=== PATIENT | female | born 1965 | race Caucasian/White ===

== ENCOUNTER 2019-11-03 13:37 | Outpatient (CLI) | payer OTHER, SELFPAY ==
--- NOTE | ~2019-11-03 | MR_ITS ---
EXAMINATION: MR abdomen wo con DATE: 11/03/2019 14:31 INDICATION: Enlarged lymph nodes, unspecified. TECHNIQUE: Magnetic resonance imaging (MRI) of the abdomen was performed without intravenous contrast . Sequences included coronal T2-weighted FS FSE, coronal and axial FS FIESTA, axial T2-weighted FSE, coronal LAVA-flex, axial STIR FSE, axial DWI, axial dual-echo T1-weighted FSPGR, and axial LAVA. COMPARISON: None. FINDINGS: There is diffuse hepatic steatosis. There are gallstones in the gallbladder, which is normal in size. The spleen, pancreas, and adrenal glands are normal. There are no kidneys in the renal fossae. Parti ally visualized is a kidney in the left iliac fossa. There are no pathologically enlarged lymph nodes . There is no free intraperitoneal fluid. There are no dilated loops of bowel. IMPRESSION: 1. No lymphadenopathy. Reviewed, dictated and finalized at location A. 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 No lymphadenopathy.
== END 2019-11-03 13:38 | disposition home or self-care (01) ==
LOC: ANHIMG 13:39
PROVIDERS: PCP Internal Medicine; Visit Provider Nurse Practitioner
DX: R59.9 Enlarged lymph nodes, unspecified (principal)
CPT/HCPCS: 74181

== ENCOUNTER 2021-01-10 15:29 | Outpatient (CLI) | payer OTHER, SELFPAY ==
--- NOTE | ~2021-01-10 | MR_ITS ---
EXAMINATION: MR cervical spine wo con DATE: 01/10/2021 16:35 INDICATION: Cervical radiculopathy. TECHNIQUE: Magnetic resonance imaging (MRI) of the cervical spine was performed without intravenous c ontrast. Sequences included sagittal T2-weighted FSE, sagittal STIR FSE, sagittal T1-weighted FSE, ax ial MERGE, and axial T2-weighted FSE. COMPARISON: Cervical spine MRI 09/14/2015 FINDINGS: There is 16 degrees levoscoliosis of cervicothoracic spine. There is mild chronic anterior wedging of C3, C4, C5, and C6 vertebral bodies. There is mildly decreased disc height at C4-C5 and C5 -C6. The spinal cord signal intensity is normal. The following disc levels are specifically discussed : C2-C3: The disc does not extend beyond the endplate margin. There is no uncovertebral joint osteoarth ritis. There is mild bilateral facet joint osteoarthritis. There is no neural foraminal stenosis. The re is no central canal stenosis. C3-C4: The disc does not extend beyond the endplate margin. There is mild bilateral uncovertebral jovani nt osteoarthritis. There is mild right facet joint osteoarthritis. There is no neural foraminal steno sis. There is no central canal stenosis. C4-C5: The disc is bulging. There is mild bilateral uncovertebral joint osteoarthritis. There is mild bilateral facet joint osteoarthritis. There is mild bilateral neural foraminal stenosis. There is mo derate central canal stenosis with ventral and dorsal indentation of the spinal cord. C5-C6: The disc is bulging with superimposed left central extrusion. There is mild right and moderate left uncovertebral joint osteoarthritis. There is mild bilateral facet joint osteoarthritis. There i s mild right and moderate left neural foraminal stenosis. There is moderate central canal stenosis wi th ventral and dorsal indentation of spinal cord. C6-C7: The disc is bulging. There is mild bilateral uncovertebral joint osteoarthritis. There is mild left facet joint osteoarthritis. There is no neural foraminal stenosis. There is mild central canal stenosis with ventral indentation of the spinal cord. C7-T1: The disc does not extend beyond the endplate margin. There is no uncovertebral joint osteoarth ritis. There is moderate right and mild left facet joint osteoarthritis. There is mild right neural f oraminal stenosis. There is no central canal stenosis. IMPRESSION: 1. Moderate cervical spondylosis, worsened from 09/14/2015. 2. Cervicothoracic levoscoliosis. Reviewed, dictated and finalized at location B.
== END 2021-01-10 15:30 | disposition home or self-care (01) ==
PROVIDERS: PCP Internal Medicine; Visit Provider Orthopaedic Surgery
DX: M47.22 Other spondylosis with radiculopathy, cervical region (principal)
CPT/HCPCS: 72141

== ENCOUNTER → 2021-05-27 09:38 | Outpatient (CLI) | payer OTHER, SELFPAY ==
[2021-05-27 18:14] LABS: SARS-CoV-2 RNA PCR Positive
== END ==
PROVIDERS: PCP Internal Medicine; Visit Provider Clinical Nurse Specialist
DX: U07.1 COVID-19 (principal)
CPT/HCPCS: C9803; U0003; U0005

== ENCOUNTER 2021-07-11 12:40 | Outpatient (CLI) | payer OTHER, SELFPAY ==
--- NOTE | ~2021-07-11 | XR_ITS ---
EXAMINATION: XR chest 2V 07/11/2021 12:59 INDICATION: Dyspnea and cough PROCEDURE: 2 view chest COMPARISON: Comparison to multiple prior studies sequentially, with oldest reviewed study dated 03/20. FINDINGS: The lungs are clear. The cardiomediastinal silhouette is within normal limits. There are no pleural effusions. There is no pneumothorax suspected. IMPRESSION: 1: NO ACUTE CARDIOPULMONARY DISEASE. Reviewed, dictated and finalized at location B.
== END 2021-07-11 12:41 | disposition home or self-care (01) ==
LOC: ANHIMG 12:49
PROVIDERS: PCP Internal Medicine; Visit Provider Internal Medicine
DX: R06.00 Dyspnea, unspecified (principal); R06.89 Other abnormalities of breathing
CPT/HCPCS: 71046

== ENCOUNTER 2021-07-28 12:23 | Outpatient (CLI) | payer OTHER, SELFPAY ==
--- NOTE | ~2021-07-28 | CT_ITS ---
EXAMINATION: CT diagnostic chest wo con DATE: 07/28/2021 12:45 INDICATION: Dyspnea unspecified, shortness of breath, cough TECHNIQUE: Computed tomography (CT) of the chest was performed without intravenous contrast. The dose -length product (DLP) was 246.48 mGy-cm. Automated exposure control and iterative reconstruction tech nique were employed. COMPARISON: None FINDINGS: There is mild emphysema. There are groundglass and nodular opacities in the medial aspect o f the right lower lobe. There is no pleural effusion or pneumothorax. No pathologically enlarged thor acic lymph nodes are identified. The heart size is normal. There is calcified coronary artery atheros clerosis. There is moderate thoracic spondylosis. IMPRESSION: 1. Right lower lobe opacities, likely infectious or inflammatory. Reviewed, dictated and finalized at location B.
== END 2021-07-28 12:24 | disposition home or self-care (01) ==
LOC: ANHIMG 12:26
PROVIDERS: PCP Internal Medicine; Visit Provider Internal Medicine
DX: R06.00 Dyspnea, unspecified (principal); R06.89 Other abnormalities of breathing; I25.10 Atherosclerotic heart disease of native coronary artery without angina pectoris; M47.814 Spondylosis without myelopathy or radiculopathy, thoracic region
CPT/HCPCS: 71250

== ENCOUNTER 2021-08-31 12:24 | Outpatient (CLI) | payer OTHER, SELFPAY ==
--- NOTE | 2021-08-31 14:12 | WPDSIXMINUTE ---
Six Minute Walk Procedure Procedure Performed Pulmonary Stress Test (6 min walk) Six Minute Walk This 6 minute walk test was carried out with the patient breathing ambient air. The pre-walk oxyhemoglobin saturation was 93%. The patient was able to walk for only 5 minutes due to dyspnea and walked a distance of about 305 meters. During the walk the oxyhemoglobin saturation remained over 94%. The perceived pre-walk dyspnea was 6 on the Rosales scale and increased to 10 at the end of the walk. Impression: Six minute walk test limited by exertional dyspnea. No evidence of oxyhemoglobin desaturation.
== END 2021-08-31 12:25 | disposition home or self-care (01) ==
LOC: ANHPFT 12:27
PROVIDERS: PCP Internal Medicine; Visit Provider Nurse Practitioner
DX: Z86.16 Personal history of COVID-19 (principal)
CPT/HCPCS: 94618

== ENCOUNTER 2024-09-15 13:40 | Outpatient (CLI) | payer OTHER, SELFPAY ==
--- NOTE | ~2024-09-15 | CT_ITS ---
EXAMINATION: CT abdomen pelvis wo con DATE: 09/15/2024 13:57 INDICATION: Abdominal wound drainage. TECHNIQUE: Computed tomography (CT) of the abdomen and pelvis was performed without intravenous contr ast. Automated exposure control and iterative reconstruction technique were employed. The dose-length product was 391.03 mGy-cm. COMPARISON: Chest CT 07/28/2021 FINDINGS: The visualized portions of the lung bases demonstrate mild atelectasis. No pleural effusion . The heart size is normal. No pericardial effusion. The liver and spleen are normal. There are galls tones in the gallbladder, which is normal in size. The pancreas and adrenal glands are normal. The na tive kidneys are either severely atrophic or absent. There is a transplant kidney in left iliac fossa . There are no dilated loops of bowel. There are multiple sites of anastomosis in the bowel. There ar e no pathologically enlarged lymph nodes. There is no free intraperitoneal fluid. There are surgical changes of anterior abdominal wall with focal area of skin thickening and subcutaneous fat stranding, consistent with cellulitis. There is severe thoracic and lumbar spondylosis. IMPRESSION: 1. Surgical changes of anterior abdominal wall with focal area of cellulitis. No abscess. Reviewed, dictated and finalized at location A. OL CLERK IMPRESSION: 1. Surgical changes of anterior abdominal wall with focal area of cellulitis. N o abscess.
== END 2024-09-15 13:41 | disposition home or self-care (01) ==
PROVIDERS: PCP Emergency Medicine; Visit Provider Surgery
DX: Z94.0 Kidney transplant status (principal); Z98.890 Other specified postprocedural states
CPT/HCPCS: 74176

== ENCOUNTER 2024-09-18 11:30 | Outpatient (CLI) | payer OTHER, SELFPAY ==
--- NOTE | 2024-09-18 15:08 | ECG_ITS ---
Test Date: 2024-09-18 15:13:29 Measurements Intervals [place] Rate: 73 P: 68 VA: 135 QRS: 32 QRSD: 71 T: 61 QT: 313 QTc: 347 Interpretive Statements SINUS RHYTHM NONSPECIFIC ST & T-WAVE ABNORMALITY CANNOT RULE OUT INFERIOR [place] ABNORMAL ECG Electronically Signed On 09-19-2024 17:03:18 TICKET AGENT by Julian Gonzalez M.D.
[2024-09-18 15:29] LABS: Hematocrit 38.6 % (37.0-47.0); Hemoglobin 12.1 g/dL (12.0-15.0)
[2024-09-18 15:39] LABS: Partial Thromboplastin Time 29.7 Seconds (22.3-36.8)
[2024-09-18 15:54] LABS: Anion Gap 2 mmol/L (4-12); Blood Urea Nitrogen 20 mg/dL (7-17); Calcium 9.3 mg/dL (8.4-10.2); Carbon Dioxide 24 mmol/L (22-30); Chloride 112 mmol/L (98-107); Estimated Glomerular Filt Rate 42; Glucose 110 mg/dL (65-110); Sodium 138 mmol/L (137-145)
== END 2024-09-18 11:31 | disposition home or self-care (01) ==
PROVIDERS: Anesthesiology; PCP Emergency Medicine; Visit Provider Surgery
DX: Z01.818 Encounter for other preprocedural examination (principal); N18.9 Chronic kidney disease, unspecified; D64.9 Anemia, unspecified; I51.9 Heart disease, unspecified
CPT/HCPCS: 36415; 80048; 85014; 85018; 85610; 85730; 93005

== ENCOUNTER 2024-09-19 00:22 | Day surgery (SDC) | payer OTHER, SELFPAY ==
[2024-09-18 08:34] VITALS: BMI 27.3
--- NOTE | 2024-09-18 09:39 | PC.NURSE ---
Addendum entered by Letty Callejas RN 09/18/24 10:12: Patient instructed to also take mycophenolate on morning of surgery. She relays understanding. Original Note: Report to the Outpatient Waiting Room, entrance under the green pavilion located off [facility], at time ___6:00AM____ on date ___09/19/24____. Planned Procedure Time: ___7:30AM .? Time changes happen often and if your time is changed the preop area will call you the afternoon before. - You and your visitor will be asked to self-screen and do not enter if you have any COVID symptoms. Please call surgeon if you need to reschedule. - A mask is optional within the hospital at this time. Patients may have clear liquids (water, carbonated beverages, clear teas, apple juice) until 3 hours prior to surgery with a maximum of 20 ounces. - No food from midnight until time of surgery and no smoking. This includes no chewing gum, candy or mints. Take only the following medications with a SIP of water on the morning of surgery: ACYCLOVIR, BACTRIM, LEVOTHYROXINE, PREDNISONE, SPIRIVA INHALER. MAY USE ALBUTEROL INHALER OR NEBULIZER NEEDED DO NOT STOP ANY OF YOUR OTHER PRESCRIPTION MEDICATIONS PRIOR TO SURGERY EXCEPT THE FOLLOWING Medications to discontinue per physician ____HOLD ALL VITAMINS/SUPPLEMENTS STARTING NOW. Please no make-up, nail frisian, hairspray, perfume, deodorant, or body powder the day of surgery.? No jewelry (including any body piercings) or valuables the day of surgery, leave them at home.? Please take a shower or bath the night before, or the morning of, surgery with an antibacterial soap.? Wear comfortable, loose fitting clothing.? Children are encouraged to wear pajamas. - Jewelry must be removed prior to entering the operating room.? Rings and piercings that are not removed may be cut off. - The hospital will not accept responsibility for valuables.? - Please leave all valuables, including medications, at home the day of surgery. If you are going home after surgery, a licensed auto [place]ulaway driver must drive you home.? - NO public transportation without another adult if you receive anesthesia. - We recommend that an adult stay with you for 24 hours following discharge. - We also recommend that you do not drive, make important decision, drink alcoholic beverages, or take any drugs that were not prescribed by your health care provider for at least 24 hours after your discharge time. Follow any additional instructions given to you from your surgeon. Telephone instructions given to PATIENT and asked if any additional questions and then verbalized understanding. Patient advised to call surgeon office or pre surgery nurse liaison [phone] if any additional questions.
--- NOTE | 2024-09-19 05:25 | P.PNAN_ITS ---
Anes - Eval Pre Procedure Procedure: Operation Date: 09/19/24 07:30 Proposed Procedures p Exploration Abdominal Wound For Foreign body - Gilberto Su MD Date/Time: 09/19/24 05:25 Pre Op Diagnosis: Wound Abscess Patient Data Age: 58 Gender: F Height: 1.68 m Weight: 77 kg Allergies Allergy/AdvReac Type Severity Reaction Status Date / Time FERCHO Inhibitors Allergy Severe BLISTER Verified 09/18/24 08:19 ciprofloxacin Allergy Severe Anaphylaxis Verified 09/18/24 08:13 iron dextran complex Allergy Severe ANAPHYLACTIC Verified 09/18/24 08:13 REACTION Cephalosporins Allergy Mild BLISTERS Verified 09/18/24 08:19 Quinolones Allergy Mild ANALPHYLACTIC Verified 09/18/24 08:19 REACTION atorvastatin Allergy Unknown FEVER, Verified 09/18/24 08:13 WEAKNESS cephalexin Allergy Unknown unknown Verified 09/18/24 08:19 erythromycin base Allergy Unknown Unknown Verified 09/18/24 08:13 irbesartan Allergy Unknown BLISTERS Verified 09/18/24 08:13 isoniazid Allergy Unknown RASH, Verified 09/18/24 08:13 ITCHING Penicillins Allergy Unknown Fever, Verified 09/18/24 08:13 vomiting clindamycin AdvReac Severe NAUSEA, Verified 09/18/24 08:13 VOMITING cefepime AdvReac Unknown RED MAN Verified 09/18/24 08:13 SYNDROME metronidazole AdvReac Unknown LAVELLE Verified 09/18/24 08:13 SYNDROME budesonide AdvReac SHORTNESS Verified 09/18/24 08:13 OF BREATH, COUGHING ibuprofen AdvReac AVOIDS R/T Verified 09/18/24 08:13 KIDNEY TRANSPLANT Iodinated Contrast Media AdvReac Cannot Verified 09/18/24 08:19 have due to kidney transplant ketamine AdvReac AVOIDS PER Verified 09/18/24 08: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 AdvReac avoids r/t Verified 09/18/24 08:13 kidney transplant budesonide nebulization Allergy Other Uncoded 09/18/24 08:19 Home Medications ?Medication ?Instructions ?Recorded ?Confirmed ?Type acyclovir 200 mg capsule 200 mg PO BID 01/05/20 09/18/24 History aspirin 81 mg tablet,delayed 81 mg PO BID 01/05/20 09/18/24 History release (Adult Low Dose Aspirin) ferrous sulfate 324 mg (65 mg 324 mg PO BID 01/05/20 09/18/24 History iron) tablet,delayed release tiotropium bromide 2.5 2 inhalation inhalation DAILY 05/11/20 09/18/24 History mcg/actuation mist for inhalation (Spiriva Respimat) albuterol sulfate 2.5 mg/3 mL 2.5 mg inhalation QID PRN 07/11/21 09/18/24 History (0.083 %) solution for nebulization shortness of breath or wheezing mycophenolate mofetil 250 mg 250 mg PO DAILY #30 caps 01/02/24 09/18/24 Rx capsule (CellCept) levothyroxine 100 mcg tablet See Rx Instructions .Route 01/07/24 09/18/24 Rx .COMPLEX #90 tabs ergocalciferol (vitamin D2) 1,250 1,250 mcg PO WEEKLY #13 caps 02/04/24 09/18/24 Rx mcg (50,000 unit) capsule mecobalamin (vitamin B12) 1,000 1,000 mcg PO DAILY 02/11/24 09/18/24 History mcg chewable tablet sodium bicarbonate 650 mg tablet See Rx Instructions PO DAILY 02/11/24 09/18/24 History albuterol sulfate 90 mcg/actuation 1 puff inhalation Q4H PRN 03/11/24 09/18/24 Rx aerosol inhaler (Ventolin HFA) shortness of breath or wheezing #18 grams omeprazole 20 mg capsule,delayed See Rx Instructions .Route 05/05/24 09/18/24 Rx release .COMPLEX #180 caps lidocaine 5 % topical patch 1 patch topical DAILY #30 ea 05/15/24 09/18/24 Rx (Lidoderm) prednisone 5 mg tablet See Rx Instructions .Route 07/29/24 09/18/24 Rx .COMPLEX #14 tabs doxycycline hyclate 100 mg capsule 100 mg PO BID TAKES PRIOR TO 08/12/24 09/18/24 Rx DENTAL WORK #20 caps sulfamethoxazole 800 1 tablet PO DAILY 09/18/24 09/18/24 History mg-trimethoprim 160 mg tablet Patient hx anesthesia problems: other (respiratory failure following bowel surgery in 2004 on vent for 12 days) Family hx anesthesia problems: none Results Review: All pre-operative results and documents have been reviewed as part of the pre- operative evaluation. PENDING SALE TO [facility] Past Medical History Medical History (Updated 12/27/24 @ 05:31 by Rand Callaway CRNA) Anxiety PTSD (post-traumatic stress disorder) Smoker TIA (transient ischemic attack) Varicose veins of left lower leg Traumatic hematoma of elbow Stress fracture Pain in right leg Injury of right elbow Chronic kidney disease, stage 3 Arthralgia Unilateral edema of lower extremity Trochanteric bursitis of right hip Trochanteric bursitis of left hip Screening for malignant neoplasm of breast Risk for falls Primary osteoarthritis, left ankle and foot Primary osteoarthritis of right hip Primary osteoarthritis of both feet Pain of right hip joint Pain in left foot Mass of right lower leg Mass of left lower leg Lung mass Bilateral plantar fasciitis Bilateral foot pain Contusion of right tibia Close exposure to COVID-19 virus Kidney disease Coughing Wheezing Shortness of breath Wears glasses Unintentional weight loss PLACIDO (obstructive sleep apnea) History of postoperative complication of surgical procedure History of adverse reaction to anesthesia History of MRSA infection Cervical radiculopathy at C5 Exposure to COVID-19 virus Degenerative joint disease of knee Diabetes Last A1C as of 05/11/20: 5.7 Arthritis Osteoporosis GERD (gastroesophageal reflux disease) Stomach pain Nausea and vomiting Sleep apnea Emphysema of lung Hearing loss Vision abnormalities Multiple sclerosis Headache Left knee pain Osteoarthritis (arthritis due to wear and tear of joints) Seborrheic keratoses Leg edema, left Anemia Heartburn Depression Cataracts, bilateral Skin cancer Hepatitis C Hypothyroidism Tuberculosis 1986 Hyperlipemia Osteoarthritis Asthma Pneumonia Varicose vein of leg Elevated liver enzymes Hyperglycemia COPD (chronic obstructive pulmonary disease) CKD (chronic kidney disease) Anemia Surgical History Surgical History (Updated 09/15/24 @ 15:26 by Gilberto Su MD) History of kidney transplant History of kidney transplant Family History Family History Father Family history of emphysema Family history of cardiovascular disease Sibling Family history of liver disease Family history of throat cancer Family history of lung cancer Family history of malignant neoplasm of breast in first degree relative Family history of lupus erythematosus Mother Diabetes mellitus Hypertension Family history of coronary artery disease Other Asthma Family history of alcoholism Family history of allergic disorder Family history of arthritis Family history of blood dyscrasia Family history of kidney disease Family history of seizure disorder Family history of tuberculosis Neuropathy Skin cancer Social History Social History Smoking packs per day: 1 Smoking cigarettes per day: 20.0 Years smoked: 52 Smoking pack-years: 52.00 Smoking status: Current every day smoker Tobacco type: cigarettes Alcohol intake: never Substance use: former Substance use type: crack/cocaine Last use: 06/24/1986 Do You Feel Safe in your Home?: Yes Lack of Transportation: No Lack of Food: Sometimes True Current Housing: I Have Housing Concerned About Future Housing: No Difficulty Paying Gas/Electric Bills: YES Difficulty Paying for Meds: No Currently Unemployed: YES Education: High School Diploma/GED Difficulty w/ Childcare or Family Care: No Living arrangements: alone Gender identity (if verbalized by the patient): Female Spiritual care concerns: No Exam Day of Procedure 09/19/24 05:25
[2024-09-19 07:00] VITALS: BP 146/67; PULSE 73; RESP 14; TEMP 36.2; O2SAT 100
[2024-09-19 07:05] LABS: Glucose Point of Care 104 mg/dl (65-105)
--- NOTE | 2024-09-19 07:13 | P.PNAN_ITS ---
Anes - Initial Pre Proc Eval Procedure: Operation Date: 09/19/24 07:30 Proposed Procedures p Exploration Abdominal Wound For Foreign body - Gilberto Su MD Date/Time: 09/19/24 07:13 Surgeon: Gilberto Su MD Pre Op Diagnosis: Wound Abscess Patient Data Age: 58 Gender: F Height: 1.68 m Weight: 77 kg Allergies Allergy/AdvReac Type Severity Reaction Status Date / Time FERCHO Inhibitors Allergy Severe BLISTER Verified 09/18/24 08:19 ciprofloxacin Allergy Severe Anaphylaxis Verified 09/18/24 08:13 iron dextran complex Allergy Severe ANAPHYLACTIC Verified 09/18/24 08:13 REACTION Cephalosporins Allergy Mild BLISTERS Verified 09/18/24 08:19 Quinolones Allergy Mild ANALPHYLACTIC Verified 09/18/24 08:19 REACTION atorvastatin Allergy Unknown FEVER, Verified 09/18/24 08:13 WEAKNESS cephalexin Allergy Unknown unknown Verified 09/18/24 08:19 erythromycin base Allergy Unknown Unknown Verified 09/18/24 08:13 irbesartan Allergy Unknown BLISTERS Verified 09/18/24 08:13 isoniazid Allergy Unknown RASH, Verified 09/18/24 08:13 ITCHING Penicillins Allergy Unknown Fever, Verified 09/18/24 08:13 vomiting clindamycin AdvReac Severe NAUSEA, Verified 09/18/24 08:13 VOMITING cefepime AdvReac Unknown RED MAN Verified 09/18/24 08:13 SYNDROME metronidazole AdvReac Unknown LAVELLE Verified 09/18/24 08:13 SYNDROME budesonide AdvReac SHORTNESS Verified 09/18/24 08:13 OF BREATH, COUGHING ibuprofen AdvReac AVOIDS R/T Verified 09/18/24 08:13 KIDNEY TRANSPLANT Iodinated Contrast Media AdvReac Cannot Verified 09/18/24 08:19 have due to kidney transplant ketamine AdvReac AVOIDS PER Verified 09/18/24 08:19 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 AdvReac avoids r/t Verified 09/18/24 08:13 kidney transplant budesonide nebulization Allergy Other Uncoded 09/18/24 08:19 Home Medications ?Medication ?Instructions ?Recorded ?Confirmed ?Type acyclovir 200 mg capsule 200 mg PO BID 01/05/20 09/18/24 History aspirin 81 mg tablet,delayed 81 mg PO BID 01/05/20 09/18/24 History release (Adult Low Dose Aspirin) ferrous sulfate 324 mg (65 mg 324 mg PO BID 01/05/20 09/18/24 History iron) tablet,delayed release tiotropium bromide 2.5 2 inhalation inhalation DAILY 05/11/20 09/18/24 History mcg/actuation mist for inhalation (Spiriva Respimat) albuterol sulfate 2.5 mg/3 mL 2.5 mg inhalation QID PRN 07/11/21 09/18/24 History (0.083 %) solution for nebulization shortness of breath or wheezing mycophenolate mofetil 250 mg 250 mg PO DAILY #30 caps 01/02/24 09/18/24 Rx capsule (CellCept) levothyroxine 100 mcg tablet See Rx Instructions .Route 01/07/24 09/18/24 Rx .COMPLEX #90 tabs ergocalciferol (vitamin D2) 1,250 1,250 mcg PO WEEKLY #13 caps 02/04/24 09/18/24 Rx mcg (50,000 unit) capsule mecobalamin (vitamin B12) 1,000 1,000 mcg PO DAILY 02/11/24 09/18/24 History mcg chewable tablet sodium bicarbonate 650 mg tablet See Rx Instructions PO DAILY 02/11/24 09/18/24 History albuterol sulfate 90 mcg/actuation 1 puff inhalation Q4H PRN 03/11/24 09/18/24 Rx aerosol inhaler (Ventolin HFA) shortness of breath or wheezing #18 grams omeprazole 20 mg capsule,delayed See Rx Instructions .Route 05/05/24 09/18/24 Rx release .COMPLEX #180 caps lidocaine 5 % topical patch 1 patch topical DAILY #30 ea 05/15/24 09/18/24 Rx (Lidoderm) prednisone 5 mg tablet See Rx Instructions .Route 07/29/24 09/18/24 Rx .COMPLEX #14 tabs doxycycline hyclate 100 mg capsule 100 mg PO BID TAKES PRIOR TO 08/12/24 09/18/24 Rx DENTAL WORK #20 caps sulfamethoxazole 800 1 tablet PO DAILY 09/18/24 09/18/24 History mg-trimethoprim 160 mg tablet Laboratory Tests 09/19/24 07:03 POC Capillary Glucose 104 mg/dl (65-105) Patient hx anesthesia problems: other (respiratory failure following bowel surgery in 2004 on vent for 12 days) Family hx anesthesia problems: none Results Review: All pre-operative results and documents have been reviewed as part of the pre- operative evaluation. [facility] Past Medical History Medical History Anxiety PTSD (post-traumatic stress disorder) Smoker TIA (transient ischemic attack) Varicose veins of left lower leg Traumatic hematoma of elbow Stress fracture Pain in right leg Injury of right elbow Chronic kidney disease, stage 3 Arthralgia Unilateral edema of lower extremity Trochanteric bursitis of right hip Trochanteric bursitis of left hip Screening for malignant neoplasm of breast Risk for falls Primary osteoarthritis, left ankle and foot Primary osteoarthritis of right hip Primary osteoarthritis of both feet Pain of right hip joint Pain in left foot Mass of right lower leg Mass of left lower leg Lung mass Bilateral plantar fasciitis Bilateral foot pain Contusion of right tibia Close exposure to COVID-19 virus Kidney disease Coughing Wheezing Shortness of breath Wears glasses Unintentional weight loss PLACIDO (obstructive sleep apnea) History of postoperative complication of surgical procedure History of adverse reaction to anesthesia History of MRSA infection Cervical radiculopathy at C5 Exposure to COVID-19 virus Degenerative joint disease of knee Diabetes Last A1C as of 05/11/20: 5.7 Arthritis Osteoporosis GERD (gastroesophageal reflux disease) Stomach pain Nausea and vomiting Sleep apnea Emphysema of lung Hearing loss Vision abnormalities Multiple sclerosis Headache Left knee pain Osteoarthritis (arthritis due to wear and tear of joints) Seborrheic keratoses Leg edema, left Anemia Heartburn Depression Cataracts, bilateral Skin cancer Hepatitis C Hypothyroidism Tuberculosis 1986 Hyperlipemia Osteoarthritis Asthma Pneumonia Varicose vein of leg Elevated liver enzymes Hyperglycemia COPD (chronic obstructive pulmonary disease) CKD (chronic kidney disease) Anemia Surgical History Surgical History History of kidney transplant History of kidney transplant Family History Family History Father Family history of emphysema Family history of cardiovascular disease Sibling Family history of liver disease Family history of throat cancer Family history of lung cancer Family history of malignant neoplasm of breast in first degree relative Family history of lupus erythematosus Mother Diabetes mellitus Hypertension Family history of coronary artery disease Other Asthma Family history of alcoholism Family history of allergic disorder Family history of arthritis Family history of blood dyscrasia Family history of kidney disease Family history of seizure disorder Family history of tuberculosis Neuropathy Skin cancer Social History Social History Smoking packs per day: 1 Smoking cigarettes per day: 20.0 Years smoked: 52 Smoking pack-years: 52.00 Smoking status: Current every day smoker Tobacco type: cigarettes Alcohol intake: never Substance use: former Substance use type: crack/cocaine Last use: 06/24/1986 Do You Feel Safe in your Home?: Yes Lack of Transportation: No Lack of Food: Sometimes True Current Housing: I Have Housing Concerned About Future Housing: No Difficulty Paying Gas/Electric Bills: YES Difficulty Paying for Meds: No Currently Unemployed: YES Education: High School Diploma/GED Difficulty w/ Childcare or Family Care: No Living arrangements: alone Gender identity (if verbalized by the patient): Female Spiritual care concerns: No Anes - Eval Final PreProcedure Day of Procedure 09/19/24 07:13 Patient weight: obese Heart: regular rate and rhythm Lungs: clear to auscultation and decreased breath sounds Airway: Mallampati scale class II Neurological: alert and oriented Last oral intake: >/= 8 hours ASA classification: III Emergent: no Anesthetic plan: proceed Anesthesia type and monitoring: general and standard monitoring Results Review: All pre-operative results and documents have been reviewed as part of the pre- operative evaluation. Extensive hx reviewed w pt and friend. EKG NSR. s/p kid tx 1992, GFR 43. Continues to smoke at 545 am today, 1ppd. DM fsbs 104. Informed Consent: The patient's anesthetic plan and its attendant risks and benefits were discusse d with the patient/family/POA. Questions were solicited and answers provided to the satisfaction of the patient/family/POA.
--- NOTE | 2024-09-19 07:48 | WPDHPUPDATE1 ---
History and Physical Update Update Date/Time: 09/19/24 07:48 History and Physical has been reviewed, including an updated exam of the patient. There are NO changes in the patient's condition. Risks, benefits, and alternatives have been discussed and questions answered. Patient agrees to proceed with procedure.
[2024-09-19] MEDS: ceFAZolin 2 GM/D5W 50 ML 2 GM/50 ML BAG IVPB (08:05)
[2024-09-19] MEDS: BUPIVACAINE/EPINEPHRINE 0.5% 50 ML VIAL 30 ML INFILTRATE (08:19)
--- NOTE | 2024-09-19 08:40 | W.PM.PROC2 ---
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 She also has a history of a kidney transplant. She has had recurring infections in the mid abdomen just to the right of her midline scar. Recent wound abscess tracks towards the scar. She is taken to surgery now for removal of abdominal wound foreign body, likely contaminated suture granuloma. Findings Suture material with a very large knot and suture material. Appears to be a Prolene suture. Description of Procedure Patient was taken to surgery and anesthesia was introduced. The abdomen is prepped and draped. The opening to the abscess was still present just to the right of the midline scar. A small curved clamp was placed in the opening but no foreign body could be grasped. There was some purulent fluid coming out over the midline scar suggesting a tunnel. I infiltrated local throughout the area involved. The skin was divided and some of the skin debrided. I was now able to see the tip of the suture. I was able to grasp the suture with a clamp and pull it up into the wound. It was a very large knot and the suture was cut removing the entire suture. No further purulence and no evidence of other fluid collection was noted. The wound was clean and hemostatic. It was very superficial. The wound was dressed with Xeroform gauze, 4x4s, and Medipore tape. Patient was awakened and taken to the step down unit in good condition peer. Estimated Blood Loss -1 Drains No Packing No Pathology Yes (Gross only suture material) Complications None Condition Stable Disposition Same day [facility] Billing Surgery - Charge Forward: Surgery Billing (Removal foreign body suture granuloma from abdominal wall under anesthesia)
[2024-09-19 08:42] VITALS: BP 111/55; PULSE 58; RESP 16; O2SAT 97
[2024-09-19] MEDS: LACTATED RINGERS 1,000 ML 30 ML IV CONT (08:42)
[2024-09-19 08:49] LABS: Glucose Point of Care 103 mg/dl (65-105)
[2024-09-19 09:10] VITALS: BP 120/62; PULSE 61; RESP 20
[2024-09-19 09:40] VITALS: BP 110/54; PULSE 60; RESP 20
[2024-09-19 09:55] VITALS: BP 104/70; PULSE 64; RESP 20
--- OUTSIDE RECORDS SUMMARY | 2024-09-26 01:06 | XMS_ITS | Encounter Summary ---
Author Organization [facility] Address [address] [place] [address] Phone Care Team Providers Care Contact Center Associate Name Role Phone ChaitanyaJacky blair Primary Care Provider [phone] Encounter Details Date Type Department Care Team (Late st Contact Info) Description 02/08/2022 11:00 AM CDT Office Visit [facility] Nephrology and Hypertension [address] [place] [address], [address] [place] [address] True Clemons MD [address] [facility], [address] [place] [address] Essential (primary) hypertension (Primary Dx); Stage 3a chronic kidney disease ([facility]) Social History Tobacco Use Types Packs/Day Years Used Date Smoking Tobacco: Heavy Smoker Smokeless Tobacco: Never Alcohol Use Standard Drinks/Week Comments No 0 (1 standard drink = 0.6 oz pur e alcohol) AUDIT-C Answer Date Recorded Frequency of Alcohol Consumption Never 01/04/2019 Average Number of Drinks Not on file 019 Frequency of Binge Drinking Not on file 12/23 Sex and Gender Information Value Date Recorded Sex Assigned at Not on file Gender Identity Not on file Sexual Orientation Not on file documented as of this encounter Last Filed Vital Signs Vital Sign Reading Time Taken Comments Blood Pressure 122/60 02/08/2022 11:15 AM CDT Pulse 72 02/08/2022 11:15 AM CDT Temperature 35.4 ??C (95.7 ??F) 02/08/2022 11:15 AM C DT Respiratory Rate - - Oxygen Saturation - - Inhaled Oxygen Concentration - - Weight 83.9 kg (185 lb) 02/08/2022 11:15 AM CDT Height 170.2 cm (5' 7 ) 02/08/2022 11:15 AM CDT Body Mass Index 28.98 02/08/2022 11:15 AM CDT documented in this encounter Progress Notes * True Cleomns MD - 02/08/2022 11:00 AM CDT Tyshawn Engel is a pleasant 56 y.o.female. Ms. Engel is a very pleasant lady who has a kidney transplant. She received her transplant in 1992. It was a living-related donor from her brother. Original ds: vesicoureteral reflux. Taking mmf and pdn only. She had URIi in november. txd and okay. She coughed up blood and is seeing pulmonary about it. They ordered a PET scan and she refused the injection. She will follow up with them to decide the next step. I reviewed with her that it is important to treat cancer if it is cancer because of her immunosuppressives. bp has been a bit low at home. Fine here. She stopped her low salt diet. Still on pdn She had covid in May. Didn't have to go into the hospital Still smoking! No problems with the transplant. no tenderness. urinating okay. has diabetes without retinopathy. last a1c 5.7 per pt She also has hepatitis C. Dr Luther says it is negative. has asthma and now copd. Still smoking! taking inhalers. PAST MEDICAL HISTORY: Positive for pyelonephritis, DM, vesicoureteral reflux, GERD, hypothyroidism, asthma, endstage renal disease with a kidney transplant, history of UTIs, plantar fasciitis, degenerative disk disease, claustrophobia, short bowel syndrome post intuscuseption , incontinence, diarrhea, difficulty hearing using a hearing aide, decreased visual acuity, diabetes, Hernandez-Harry, Raynaud???s, de Quervain???s tenosynovitis, rosacea, lumbar neuropathy, degenerative arthritis, carpal tunnel syndrome. SOCIAL HISTORY: She smokes, but she does not drink. FAMILY HISTORY: Negative for kidney disease. ALLERGIES: Penicillin, erythromycin, INH, NSAID, Lipitor, Flagyl, cefepime, cephalexin, Avapro and Cipro. ROS Constitutional: Negative except as above Skin: Negative except as above Pulmonary: Negative except as above Urologic: Negative except as above BP 122/60 Pulse 72 Temp 95.7 ??F (35.4 ??C) Ht 5' 7 (1.702 m) Wt 185 lb (83.9 kg) BMI 28.98 kg/m?? BSA 1.99 m?? WDWN female in NAD Skin No rash Head NCAT Neck No nodes, No TMG Lungs Clear bilaterally Cor RRR no rub or gallop Abd BS+ nontender and soft. Ext No edema, Psyche normal not depressed or anxious Recent Labs: Hb 12.6, Cr 1.74, EGFR 34, K 4.1 09/29/09 Cr 1.52, EGFR 37, Trig 643, LDL ?, HDL 26, alt 23, HbA1C 5.7, Uric 5.9, Hb 12.8 10/25/09 Cr 1.41, EGFR 49, Hb 12.8, 12/24/09 Vit D 36, PTH 39 01/24/10 Hb 13, Cr 1.53, EGFR 39, Vit D 36 02/08/10 Cr 1.68, EGFR 35, 02/22/10 Hb 13, Cr 1.4, EGFR 40, 03/24/10 Vit D 46 06/09/10 Cr 1.83, Hb 13.0, UA neg CXR neg 06/27/10 PTH 31, Vit D 78, HDL 31, Trig 488, Upro 130, Cr 1.61, Hb 13.4, HbA1C 5.8 07/26/10 Hb 13.1, Cr 1.54, vit D 48 12/14/10 C 1.8, EGFR 32, alb 3.3, Hb 12.4, UCx neg, UA 3-5w 04/21/11 Cr 1.4, EGFR 41, Vit D 53, PTH 29, Hb 13.7, LDL 90, HDL 28, Trig 482, HbA1C 5.6, 04/25/11 Cr 1.54, EGFR 38, Hb 13.6, UA neg, UCx neg 10/26/11 Cr 1.57, GFR 37, glc 119, A1C 5.9, LDL ?, Trig 816, HDL 26, PTH 30, VtD 38, Hb 13.8 03/05/12 Cr 1.36, EGFR 41, glc 105, Hb 12.7, 10/28/13 Cr 1.37, egfr 41, counts okay 11/22/18 Cr 1.41, egfr 39, Hb 12.6, 06/24/19 Cr 1.43, gfr 38, W7.7 H13.9 P231, a1c 5.6, LDL98 HDL47 Wjfw324, PTH 68, vit d 34 12/24/2019 Cr 1.31, gfr 42, Upro 100, CBC 8.5/12.4/277, A1C 5.8, Chol 98/41/192, PTH 68, Vit d 26, TSH 0.61 06/24/2020 Cr 1.26, gfr 44, A1C 6, CBC 6.4/12.8/260, Chol 93/37/181, PTH 74, Vitd 30, Upro 100 09/27/20 Cr 1.2, gfr 46, Vit d 25, ALT 42, A1c 5.4, Chol 96/36/253, CBC 8.1/12.5/280 tsat 13 02/22/21 Cr 1.37, gfr, CO2 26, Mg 1.9, Hb 12.9, 09/26/21 Cr 1.39, gfr 39, Vit d 29.2, hb 12, Upro 100, PTH 78, Chol 96/49/203, Aq1C 5.5, Tsat 16 01/23/22 Cr 1.35, gfr 40, Hb 12.5 IMPRESSION: 1. Patient has a kidney transplant. Function is stable. 28+ years. 2. UTIs none recently 3. Multiple allergies; 4. CKD: avoid large amounts of protien (by taste) bp is well controlled lipids good Avoid NSAIDs Stay hydrated Vit d is low. Inc to 5000 daily On the immunosuppressives 5. Anemia resolved. Okay to stop iron 6. Sodium was a bit low. She called trpt people and was told to cut back on water and it is beter. on no maddie inhibitor due to low bp PTH is good. stop smoking! 6. Asthma: seeing Dr Sterling 7. Hypothyroidism: on less supp since tsh went too low before. Dr Luther doing this. 8. Disastrous GI situation since she had the intususception surgery. no more bleeding. 9. DM: HbA1C is good. this is due to steroids. 10. LFTs chronically slightly high. 11. MS: Seeing Dr Perez about this. just had Evoked potentials. PLAN: Stop iron low fat diet Stop smoking RTC 6 months. Diagnoses and all orders for this visit: Essential (primary) hypertension Stage 3a chronic kidney disease ([facility]) Body mass index is 28.98 kg/m??. Follow up plan to address BMI is lose weight. Follow up plan to address tobacco use is quit. . See above Diagnoses and all orders for this visit: Essential (primary) hypertension Stage 3a chronic kidney disease (CMS-HCC) Body mass index is 28.98 kg/m??. Follow up plan to address BMI is lose weight. . See above Diagnoses and all orders for this visit: Essential (primary) hypertension Stage 3a chronic kidney disease (CMS-HCC) Body mass index is 28.98 kg/m??. Follow up plan to address BMI is lose weight. Follow up plan to address tobacco use is quit. . See above Assessment/Plan Diagnoses and all orders for this visit: Essential (primary) hypertension Chronic kidney disease, stage 3 (moderate) Hyperlipidemia, not otherwise specified Blood Pressure for this visit is 122/60. Follow up plan to address blood pressure is normal. Body mass index is 28.98 kg/m??. Follow up plan to address BMI is too hevy. See above. Follow up plan to address tobacco use is stop smoking.. documented in this encounter Plan of Treatment Not on file documented as of this encounter Visit Diagnoses Diagnosis Essential (primary) hypertension- Primary Stage 3a chronic kidney disease (CMS-HCC) documented in this encounter Care Teams Contact Center Associate Relationship Specialty Start Date End Date Jacky Luther DO [address] [place] [id number] PCP - General Internal Medicine 01/08/19 documented as of this encounter
--- OUTSIDE RECORDS SUMMARY | 2024-09-26 01:06 | XMS_ITS | Encounter Summary ---
Author Organization [facility] Address [address] [place] [phone] Phone Care Team Providers Care Senior International Tax Manager Name Role Phone ChaitanyaJacky blair Primary Care Provider [phone] Encounter Details Date Type Department Care Team (Late st Contact Info) Description 03/21/2022 Telephone [facility] Nephrology and Hypertension [address] [facility], [address] [place] [address] Romulo Rehman MA Social History Tobacco Use Types Packs/Day Years [...] on file documented as of this encounter Miscellaneous Notes * Telephone Encounter - Rhonda Clemons RN - 03/23/2022 1:14 PM CDT Faxed received and given to HEP... HEP signed and rx faxed back to pharmacy * Telephone Encounter - Ciara An - 03/22/2022 10:20 AM CDT spk w/ pharm - [facility] Verified our fax # Asked them to send again. Also gave them front fax# too. * Telephone Encounter - True Clemons MD - 03/21/2022 3:30 PM CDT Nothing in faxes and nothing in epic. I just checked the fax machine again and nothing is there. Ifthey call again ask them to verify what fax they have for us. * Telephone Encounter - Romulo Rehman MA - 03/21/2022 3:09 PM CDT [facility] CALLED TO GET A REFILL ON PTS MEDICATION AND THEY SAID THEY SENT REQUEST TWICE ALREADY. THEY ARE FAXING TO [phone] AGAIN documented in this encounter Plan of Treatment Not on file documented as of this encounter Visit Diagnoses Not on filedocumented in this encounter Care Teams Senior International Tax Manager Relationship Specialty Start Date End Date Jacky Luther DO [address] [place] [id number] PCP - General Internal Medicine 01/08/19 documented as of this encounter
--- OUTSIDE RECORDS SUMMARY | 2024-09-26 01:06 | XMS_ITS | Encounter Summary ---
Author Organization [facility] Address [address] [place] [address] Phone Care Team Providers Care Equine Science Instructor Name Role Phone ChaitanyaJacky blair Primary Care Provider [phone] Encounter Details Date Type Department Care Team (Late st Contact Info) Description 08/21/2022 10:45 AM LIBRARY AIDE Office Visit [facility] Nephrology and Hypertension [address] [place] [address], [address] [place] [address] True Clemons MD [address] [facility], [address] [place] [address] Essential (primary) hypertension (Primary Dx); Stage 3a chronic kidney disease (CMS-HCC); Kidney transplant status Social History Tobacco Use Types Packs/Day Years [...] Sign Reading Time Taken Comments Blood Pressure 124/70 08/21/2022 10:44 AM LIBRARY AIDE Pulse 84 08/21/2022 10:44 AM LIBRARY AIDE Temperature 36.1 ??C (96.9 ??F) 08/21/2022 10:[address] Respiratory Rate - - Oxygen Saturation - - Inhaled Oxygen Concentration - - Weight 80.3 kg (177 lb) 08/21/2022 10:44 AM LIBRARY AIDE Height 170.2 cm (5' 7 ) 08/21/2022 10:44 AM LIBRARY AIDE Body Mass Index 27.72 08/21/2022 10:44 AM LIBRARY AIDE documented in this encounter Progress Notes * True Clemons MD - 08/21/2022 10:45 AM CST Tyshawn Engel is a pleasant 56 y.o.female. Ms. Engel is a very pleasant lady who has a kidney transplant. She received her transplant in 1992. It was a living-related donor from her brother. Original ds: vesicoureteral reflux. Taking mmf and pdn only. She coughed up blood and is seeing pulmonary about it. They ordered a PET scan and she refused the injection. She is working with the lung doctor. bp was a bit high at the tool pusher a couple of weeks ago. She had covid in May 2021. Didn't have to go into the hospital Still smoking! No problems with the transplant. no tenderness. urinating okay. has diabetes without retinopathy. last a1c good. She also has hepatitis C. Dr Luther [...] above Urologic: Negative except as above BP 124/70 Pulse 84 Temp 96.9 ??F (36.1 ??C) Ht 5' 7 (1.702 m) Wt 177 lb (80.3 kg) BMI 27.72 kg/m?? BSA 1.95 m?? WDWN female in NAD Skin No rash Head NCAT Neck No nodes, No TMG Lungs Clear to ausc Cor RRR no rub or gallop. 2/6 systolic murmur. Abd BS+ nontender and soft. Ext No [...] W7.7 H13.9 P231, a1c 5.6, LDL98 HDL47 Beqv350, PTH 68, vit d 34 12/24/2019 Cr [...] 01/23/22 Cr 1.35, gfr 40, Hb 12.5 06/26/22 Cr 1.29, gfr 42, Na 136, P 4.2, Chol 95/39/272, PTH 59, Upro 100 06/30/22 Cr Hb 12.9 07/25/22 Cr 1.24, Hb 12.5, IMPRESSION: 1. Patient has a kidney transplant. Function is stable. 28+ years. 2. UTIs none recently 3. Multiple allergies; 4. CKD: avoiding large amounts of protien (by taste) bp is well controlled lipids good Avoid NSAIDs Stay hydrated Vit d was low in June. She doesn't take her supplement because she doesn't feel that it is important enough. something has to kill me. covid didn't do it. On the immunosuppressives 5. Anemia hb is stable. 6. Sodium was a bit low. Avoiding excess fluids. on no maddie inhibitor due to low bp PTH is good. stop smoking! 6. Asthma: seeing pulmonary 7. Hypothyroidism: on less supp since tsh went too low before. Dr Luther doing this. 8. Disastrous GI situation since she had the intususception surgery. no more bleeding. 9. DM: HbA1C is good. this is due to steroids. 10. LFTs chronically slightly high. 11. MS: Seeing Dr Perez about this. just had Evoked potentials. PLAN: Same meds low fat diet Stop smoking RTC 6 months. Diagnoses and all orders for this visit: Essential (primary) hypertension Stage 3a chronic kidney disease ([facility]) Kidney transplant status Body mass index is 27.72 kg/m??. Follow up plan to address BMI is lose weight. Follow up plan to address tobacco use is quit. . See above Diagnoses and all orders for this visit: Essential (primary) hypertension Stage 3a chronic kidney disease ([facility]) Kidney transplant status Body mass index is 27.72 kg/m??. Follow up plan to address BMI is lose weight. Follow up plan to address tobacco use is quit. . See above Diagnoses and all orders for this visit: Essential (primary) hypertension Stage 3a chronic kidney disease ([facility]) Kidney transplant status Body mass index is 27.72 kg/m??. Follow up plan to address BMI is lose weight. . See above Diagnoses and all orders for this visit: Essential (primary) hypertension Stage 3a chronic kidney disease ([facility]) Kidney transplant status Body mass index is 27.72 kg/m??. Follow up plan to address BMI is lose weight. Follow up plan to address tobacco use is quit. . See above Assessment/Plan Diagnoses and all orders for this visit: Essential (primary) hypertension Chronic kidney disease, stage 3 (moderate) Hyperlipidemia, not otherwise specified Blood Pressure for this visit is 124/70. Follow up plan to address blood pressure is normal. Body mass index is 27.72 kg/m??. Follow up plan to address BMI is too hevy. See above. Follow up plan to address tobacco use is stop smoking.. [facility] documented in this encounter Plan of Treatment Not on file documented as of this encounter Visit Diagnoses Diagnosis Essential (primary) hypertension- Primary Stage 3a chronic kidney disease ([facility]) Kidney transplant status documented in this encounter Care Teams Equine Science Instructor Relationship Specialty Start Date End Date Jacky Luther DO [address] [place] [address] PCP - General Internal Medicine 01/08/19 documented as of this encounter
--- OUTSIDE RECORDS SUMMARY | 2024-09-26 01:06 | XMS_ITS | Encounter Summary ---
Author Organization [facility] Address [address] [place] [address] Phone Care Team Providers Care Polymer Materials Consultant Name Role Phone Jacky Luther DO Primary Care Provider [phone] Reason for Visit * Reason Comments Med Refill Encounter Details Date Type Department Care Team (Late st Contact Info) Description 08/30/2022 Refill [facility] Nephrology and Hypertension [address] [facility], [address] [place] [address] True Clemons MD [address] [facility], [address] [place] [address] Social History Tobacco Use Types Packs/Day Years [...] on file documented as of this encounter Plan of Treatment Not on file documented as of this encounter Visit Diagnoses Not on filedocumented in this encounter Care Teams Polymer Materials Consultant Relationship Specialty Start Date End Date Jacky Luther DO [address] [place] [address] PCP - General Internal Medicine 01/08/19 documented as of this encounter
--- OUTSIDE RECORDS SUMMARY | 2024-09-26 01:06 | XMS_ITS | Encounter Summary ---
Author Organization [facility] Address [address] [place] [address] Phone Care Team Providers Care International Project Engineer Name Role Phone Jacky Luther DO Primary Care Provider [phone] Reason for Visit * Reason Comments Med Refill Encounter Details Date Type Department Care Team (Late st Contact Info) Description 02/09/2022 Refill [facility] Nephrology and Hypertension [address] [address], [address] [place] [address] True Clemons MD [address] [facility], [address] [place] [address] Social History Tobacco Use Types Packs/Day Years [...] on filedocumented in this encounter Care Teams International Project Engineer Relationship Specialty Start Date End Date Jacky Luther DO [address] [place] [address] PCP - General Internal Medicine 01/08/19 documented as of this encounter
--- OUTSIDE RECORDS SUMMARY | 2024-09-26 01:06 | XMS_ITS | Encounter Summary ---
Author Organization [facility] Address [address] [place] [address] Phone Care Team Providers Care Second Class Welder Name Role Phone ChaitanyaJacky blair Primary Care Provider [phone] Encounter Details Date Type Department Care Team (Late st Contact Info) Description 02/21/2022 Telephone [facility] Nephrology and Hypertension [address] [place], [address] [place] [address] [place], [place] Social History Tobacco Use Types Packs/Day [...] encounter Miscellaneous Notes * Telephone Encounter - Ciara An - 02/22/2022 9:59 AM CDT spk w/ pt - relayed info She voiced understanding Also stated that she had labs done today 02/22 Pt understood that [facility] is out of office til 02/27 * Telephone Encounter - Josseline Velarde MD - 02/21/2022 4:[address] Clemons's last office note mentions to stop iron -- please let patient know as we may need toclarify with him when returns from vacation. * Telephone Encounter - Farideh Miguel MA - 02/21/2022 3:31 PM CDT Pt needs refill on ferrous sulfate 325 mg tablet. Can call [facility] at [phone] ext [phone]. documented in this encounter Plan of Treatment Not on file documented as of this encounter Visit Diagnoses Not on filedocumented in this encounter Care Teams Second Class Welder Relationship Specialty Start Date End Date Jacky Luther DO [address] [place] [address] PCP - General Internal Medicine 01/08/19 documented as of this encounter
--- OUTSIDE RECORDS SUMMARY | 2024-09-26 01:06 | XMS_ITS | Encounter Summary ---
Author Organization [facility] Address [address] [place] [address] Phone Care Team Providers Care Operator Coating Furnace Name Role Phone Jacky Luther DO Primary Care Provider [phone] Reason for Visit * Reason Comments Med Refill Encounter Details Date Type Department Care Team (Late st Contact Info) Description 02/23/2022 Refill [facility] Nephrology and Hypertension [address] [address], [address] [place] [address] True Clemons MD [address] [facility], [address] [place] [address] Social History Tobacco Use Types Packs/Day Years [...] on filedocumented in this encounter Care Teams Operator Coating Furnace Relationship Specialty Start Date End Date Jacky Luther DO [address] [place] [address] PCP - General Internal Medicine 01/08/19 documented as of this encounter
--- OUTSIDE RECORDS SUMMARY | 2024-09-26 01:06 | XMS_ITS | Clinical Summary ---
Author Organization [facility] Address [address] [place] [address] Phone Care Team Providers Care Equine Science Instructor Name Role Phone Jacky Luther DO Primary Care Provider [phone] Allergies Active Allergy Reactions Criticality Noted Date Comments Atorvastatin 09/02/2015 Other reaction(s): Other (see Comments) Fever and Weakness Budesonide Cough 08/21/2022 Cefepime 09/02/2015 Other reaction(s): Other (see Comments) Francesca syndrome Cephalexin 09/02/2015 Other reaction(s): Other (see Comments) Blisters Ciprofloxacin Anaphylaxis High 09/02/2015 Clindamycin Nausea Only 09/02/2015 Erythromycin Itching,Rash Low 09/02/2015 Irbesartan 09/02/2015 Other reaction(s): Other (see Comments) Blisters Iron Dextran Anaphylaxis High 09/02/2015 Isoniazid Itching,Rash Low 09/02/2015 Metronidazole 09/02/2015 Other reaction(s): Other (see Comments) Francesca syndrome Penicillins 09/02/2015 Other reaction(s): Vomiting Medications Medication Sig Dispensed Refills Start Date End Date Status omeprazole (PRILOSEC) [address] capsule 2qa and 1qp 10/06/2015 Active acyclovir (ZOVIRAX) 200 MG capsule 1 bid 06/27/2012 Active aspirin 81 MG chewable tablet 06/27/2012 Active docusate sodium (COLACE) 100 MG capsule 1 bid 12 03/29/2017 Active nicotine (NICOTROL) 10 MG inhaler 06/27/2012 Active lactulose (CHRONULAC) 10 GM/15ML solution Take 15 mL (10 g total) by mouth 1 (one) time each day if needed (constipation) 150 mL 1 04/02/2019 Active Tiotropium [place]us Monohydrate (SPIRIVA RESPIMAT) 2.5 MCG/ACT aerosol solution 10/30/2018 Active albuterol (2.5 MG/3ML) 0.083% nebulizer solution 10/30/2018 Active Spacer/Aero-Holdi ng Chambers (OPTICHAMBER ELIAS-LG MASK) device Inhale See administration instructions 01/05/2020 Active levothyroxine (SYNTHROID) 88 MCG tablet Take 88 mcg by mouth 1 (one) time each day 10/11/2020 Active sulfamethoxazole- trimethoprim (BACTRIM DS) 800-160 MG per tablet TAKE 1 TABLET BY MOUTH DAILY 30 tablet 11 11/25/2021 Active mycophenolate (CELLCEPT) 250 MG capsule TAKE 1 CAPSULE BY MOUTH ONCE DAILY 30 capsule 10 12/07/2021 Active ondansetron (ZOFRAN) 4 MG tablet Take 4 mg by mouth every 8 (eight) hours 11/25/2021 Active ferrous sulfate 325 (65 Fe) MG tablet TAKE 1 TABLET BY MOUTH TWICE DAILY 60 tablet 02/27/2022 Active predniSONE (DELTASONE) 5 MG tablet Take one pill every Sunday, Sunday, and sunday 12 tablet 11 07/03/2022 Active ipratropium (ATROVENT) 0.02 % nebulizer solution Take by nebulization 4 (four) times a day Active ergocalciferol (VITAMIN D2) 1.25 MG (14554 UT) capsule TAKE 1 CAPSULE BY MOUTH ONCE A WEEK 4 capsule 3 08/31/2022 Active Active Problems Problem Noted Date Diagnosed Date Hemoptysis 11/18/2021 Coronavirus infection 08/14/2021 Nicotine dependence 05/16/2021 Chronic obstructive pulmonary disease 03/31/2019 Hypothyroidism 08/23/2018 Arthritis 08/23/2018 Hyperlipidemia 07/10/2018 Magnetic resonance imaging of brain abnormal 06/2016 Multiple sclerosis 09/02/2015 Stage 3a chronic kidney disease 03/24/2015 Type 2 diabetes mellitus without complication Kidney transplant status 04/18/2012 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 Resolved Problems Problem Noted Date Diagnosed Date Resolved Date Diabetes mellitus 08/23/2018 04/07/2021 Immunizations Name Administration Dates Next Due Influenza TIV (IM) 08/21/2022(Deferred: Patient Refused) Tdap 03/31/2014 Family History Medical History Relation Comments Heart disease Father Anemia Neg Hx Cerebrovascular accident Neg Hx Coronary arteriosclerosis Neg Hx Diabetes mellitus Neg Hx Dyslipidemia Neg Hx Hypertensive disorder Neg Hx Kidney disease Neg Hx Kidney stone Neg Hx Malignant neoplastic disease Neg Hx Relation Status Comments Father Social History Tobacco Use Types Packs/Day Years [...] on file Sexual Orientation Not on file Last Filed Vital Signs Vital Sign Reading Time Taken Comments Blood Pressure 124/70 08/21/2022 10:44 AM CHIEF FUNDRAISING OFFICER Pulse 84 08/21/2022 10:44 AM CHIEF FUNDRAISING OFFICER Temperature 36.1 ??C (96.9 ??F) 08/21/2022 10:[address] Respiratory Rate - - Oxygen Saturation - - Inhaled Oxygen Concentration - - Weight 80.3 kg (177 lb) 08/21/2022 10:44 AM CHIEF FUNDRAISING OFFICER Height 170.2 cm (5' 7 ) 08/21/2022 10:44 AM CHIEF FUNDRAISING OFFICER Body Mass Index 27.72 08/21/2022 10:44 AM CHIEF FUNDRAISING OFFICER Plan of Treatment Health Maintenance Due Date Last Done Comments Diabetic Foot Exam 1973 Ophthalmology Exam 1973 Pneumococcal PPSV23 Highest Risk Adult (1 of 3 - PCV13 ) 1982 Influenza Vaccine (#1) 2024 Care Teams Equine Science Instructor Relationship Specialty Start Date End Date Jacky Luther DO [address] [place] [address] PCP - General Internal Medicine 01/08/19
--- OUTSIDE RECORDS SUMMARY | 2024-09-26 01:06 | XMS_ITS | Encounter Summary ---
Author Organization [facility] Address [address] [place] [address] Phone Care Team Providers Care Photographic Equipment Inspector Name Role Phone ChaitanyaJacky blair Primary Care Provider [phone] Encounter Details Date Type Department Care Team (Late st Contact Info) Description 04/11/2022 Telephone [facility] Nephrology and Hypertension [address] [facility], [address] [place] [address] Rhonda Clemons, HONG Social History Tobacco Use Types Packs/Day Years [...] encounter Miscellaneous Notes * Telephone Encounter - True Clemons MD - 04/13/2022 9:40 PM CDT I talked with patient about the repeat hb. It is up to 11. I called trpt and [facility] did not [facility] a name on the referral. I am not sure how they communicated it to [facility]. Pt used to go to [facility] but he retired. Dr Lehman, his former partner, is at [facility]. I offered to have their office call for an appointment. Pt did not want to go since hb is up.She won't allow colonoscopy because of her prior surgeries. She has been told she cannot have any more surgeries so if she has a perforation then it will be a difficult situation. She feels like she had an EGD lately and they found nothing the last time she had a drop in Hb. She has had up and downHb level since she was a child so feels that this happened because she was off of her iron. She is back on it now. She gets more labs in a couple of weeks. * Telephone Encounter - True Clemons MD - 04/11/2022 2:05 PM CDT I talked with patient. I saw the vit d but not the hb. It dropped from 12.2 to 10.2. She has had noblood in the stools. Her tsat is 9. Long discussion. I don't know how I missed this. I apologized. I asked her to get a repeat hb at [facility]. [facility] faxed over today. She says she will go tomorrow. She was notified of the lower hb a week ago by [facility] trpt and they started Her on iron and reached out to a GI doc to do a scope. Pt has not heard from them. Nothing in care everywhere. Will reach out to [facility] trpt * Telephone Encounter - Rhonda Clemons RN - 04/11/2022 9:12 AM CDT Pt called very upset about letter she received from [facility]. Pt upset that her low iron was not addressed. Please call pt documented in this encounter Plan of Treatment Not on file documented as of this encounter Visit Diagnoses Not on filedocumented in this encounter Care Teams Photographic Equipment Inspector Relationship Specialty Start Date End Date Jacky Luther DO [address] [place] [address] PCP - General Internal Medicine 01/08/19 documented as of this encounter
--- OUTSIDE RECORDS SUMMARY | 2024-09-26 01:06 | XMS_ITS | Encounter Summary ---
Author Organization [facility] Address [address] [place] [address] Phone Care Team Providers Care Seasonal Driver Name Role Phone Jacky Luther DO Primary Care Provider [phone] Reason for Visit * Reason Comments Med Refill Encounter Details Date Type Department Care Team (Late st Contact Info) Description 04/10/2022 Refill [facility] Nephrology and Hypertension [address] [facility], [address] [place] [address] True Clemons MD [address] [facility], [address] [place] [address] Social History Tobacco Use Types Packs/Day Years [...] on filedocumented in this encounter Care Teams Seasonal Driver Relationship Specialty Start Date End Date Jacky Luther DO [address] [place] [address] PCP - General Internal Medicine 01/08/19 documented as of this encounter
--- OUTSIDE RECORDS SUMMARY | 2024-09-26 01:06 | XMS_ITS | Encounter Summary ---
Author Organization [facility] Address [address] [place] [address] Phone Care Team Providers Care Booker Name Role Phone SusieJacky fisher Primary Care Provider [phone] Encounter Details Date Type Department Care Team (Late st Contact Info) Description 07/01/2022 Telephone [facility] Nephrology and Hypertension [address] [facility], [address] [address] True Clemons MD [address] [facility], [address] [facility] [place] [address] Social History Tobacco Use Types Packs/Day Years [...] * Telephone Encounter - Ciara An - 07/07/2022 8:58 AM CDT Lab results here 07/07 * Telephone Encounter - Ciara An - 07/03/2022 11:57 AM CDT rec req via fax * Telephone Encounter - True Clemons MD - 07/01/2022 7:15 AM CDT Please call [facility] and ask them to send us the cbc they did on 06/26 documented in this encounter Plan of Treatment Not on file documented as of this encounter Visit Diagnoses Not on filedocumented in this encounter Care Teams Booker Relationship Specialty Start Date End Date aJcky Luther DO [address] [place] [address] PCP - General Internal Medicine 01/08/19 documented as of this encounter
--- OUTSIDE RECORDS SUMMARY | 2024-09-26 01:06 | XMS_ITS | CONTINUITY OF CARE DOCUMENT ---
Author Name aurenicole quiana Address Unknown Organization [facility] Address [address] [place] [address] Phone [phone] Care Team Providers Care Cardiac Nurse Practitioner Name Role Phone Brock SPAIN, Kevin Unavailable DI LEWIS MD Unavailable DI LEWIS MD Unavailable PROBLEMS Condition Status Date Provider Notes Hypothyroidism active Kevin Gutiérrez MD COPD active Kevin Gutiérrez MD DM - type 2 active Kevin Gutiérrez MD sleep apnea--cannot tolerate cpap active Kevin Gutiérrez MD Multiple sclerosis active Kevin Gutiérrez MD Gastroparesis active Kevin Gutiérrez MD Raynaud's disease active Kevin Gutiérrez MD Plantar fasciitis, bilateral active Kevin Gutiérrez MD Incontinence active Kevin Gutiérrez MD DeQuervains tenosynovitis active Kevin eng MD Rosacea active Kevin Gutiérrez MD Hernandez cheema syndrome active Kevin Gutiérrez MD Shortness of breath--echo ef nl, mild , 01/2023 active Enrrique Lala Renal transplant-1992, carolann bell w/dr. Clemons active Kevin Gutiérrez MD Spider veins- venous doppler , neg for venous insuff and DVT active Kevin Gutiérrez MD Osteoarthritis, knee active Bola Cordero s Palpitations active Kevin Gutiérrez MD SARS-associated coronavirus active Kevin alcantar MD Aortic stenosis, mild 02/13 active Kevin sarabia MD Cardiology examination active Kevin Gutiérrez MD Hypotension completed - Kevin Gutiérrez MD ENCOUNTERS Date Type Provider Location Encounter Diag nosis 5 - 5 In-person encounter Office Visit Kevin Gutiérrez MD [facility] sleep apnea--cannot tolerate cpapCardiology examination 6 - 6 In-person encounter Office Visit Kevin Gutiérrez MD [facility] Shortness of breath--echo ef nl, mild , ortic stenosis, mild 02/13 5 - 5 In-person encounter Office Visit Kevin Gutiérrez MD [facility] 4 - 4 In-person encounter Office Visit Kevin Gutiérrez MD [facility] Shortness of breath--echo ef nl, mild , ortic stenosis, mild 02/13 2 - 2 In-person encounter Office Visit Kevin Gutiérrez MD [facility] Shortness of breath--echo ef nl, mild , 01/2023SARS-associated coronavirus 8 - 8 In-person encounter Office Visit Kevin Gutiérrez MD [facility] Osteoarthritis, kneePalpitat ions 0 - 0 In-person encounter Office Visit Kevin Gutiérrez MD [facility] Spider veins- venous doppler, neg for venous insuff and DVT 9 - 9 In-person encounter Office Visit Kevin Gutiérrez MD [facility] HypothyroidismHypotensionCOPDDM - type 2sleep apnea--cannot tolerate cpapMultiple sclerosisGastroparesisRaynaud's diseasePlantar fasciitis, bilateralIncontinenceDeQuervains tenosynovitisRosaceaRamsey cheema syndromeShortness of breath--echo ef nl, mild , 01/2023Renal transplant-1992, follows w/dr. Finney veins- venous doppler, neg for venous insuff and DVT VITAL SIGNS Date Observation Value Provider Body Mass Index (Ratio) 28.13 kg/m2 Enrrique Lala blood pressure, diastolic 80 mm[Hg] Leah nkLogic blood pressure, systolic 146 mm[Hg] Deedee kLog blood pressure, systolic 146 mm[Hg] Tab ithlanny Dey blood pressure, cuff size regular Ta liberty Dey blood pressure, diastolic 80 mm[Hg] Ta liberty Dey oxygen saturation, oximetry 96 % Mirna Dey respiratory rate E&M 12 /min Mirna Dey pulse rate 77 /min Mirna Dey weight E&M 179.6 [lb_av] Mirna Dey height E&M 67 [in_i] Mirna Dey Body Mass Index (Ratio) 27.72 kg/m2 Whit Dowling blood pressure, diastolic 74 mm[Hg] St acart Arevalo blood pressure, systolic 125 mm[Hg] Sta keegan Arevalo oxygen saturation, oximetry 98 % Mckennakeegan Arevalo pulse rate 69 /min Mckenna Mickey respiratory rate E&M 18 /min Mckenna D elida weight E&M 177 [lb_av] Mckenna Mickey height E&M 67 [in_i] Mckenna Mickey Body Mass Index (Ratio) 26.62 kg/m2 Anuj Gutiérrez MD blood pressure, diastolic 81 mm[Hg] St acy Mickey blood pressure, systolic 136 mm[Hg] Sta cy Mickey oxygen saturation, oximetry 98 % Mckennakeegan Arevalo respiratory rate E&M 16 /min Mckenna D elida pulse rate 71 /min Mckenna Mickey weight E&M 170 [lb_av] Mckenna Arevalo height E&M 67 [in_i] Mckenna Arevalo Body Mass Index (Ratio) 29.44 kg/m2 Kam lowery Nacht blood pressure, diastolic 81 mm[Hg] Sa ra Nolasco blood pressure, systolic 144 mm[Hg] Addi a Nolasco respiratory rate E&M 19 /min Yolanda Si ms oxygen saturation, oximetry 95 % Yolanda Nolasco pulse rate 84 /min Yolanda Nolasco blood pressure, cuff size regular Sa ra [place]olas[place] weight E&M 188 [lb_av] Yolanda Nolasco height E&M 67 [in_i] Yolanda Nolasco Body Mass Index (Ratio) 29.13 kg/m2 Anuj Gutiérrez MD blood pressure, diastolic 70 mm[Hg] Li nkLogtish blood pressure, systolic 140 mm[Hg] Deedee kLog blood pressure, cuff size large Tr saul Thomas blood pressure, diastolic 70 mm[Hg] Tr saul Thomas blood pressure, systolic 140 mm[Hg] Try radha Thomas oxygen saturation, oximetry 97 % See Thomas respiratory rate E&M 16 /min See Thomas pulse rate 89 /min See Thomas weight E&M 186 [lb_av] Tryradha Thomas height E&M 67 [in_i] Tryradha Thomas blood pressure, resting Yes Erich Joyner height E&M 67 [in_i] Polina Joyner Body Mass Index (Ratio) 29.44 kg/m2 Anuj Gutiérrez MD blood pressure, cuff size regular Cr rossy Rene blood pressure, diastolic 70 mm[Hg] Cr rossy Rene blood pressure, systolic 120 mm[Hg] Cry stal Edgard oxygen saturation, oximetry 97 % Taylor Rene respiratory rate E&M 17 /min Taylor Rene pulse rate 79 /min Taylor hansen weight E&M 188 [lb_av] Taylor hansen height E&M 67 [in_i] Taylor hansen Body Mass Index (Ratio) 29.13 kg/m2 Anuj Gutiérrez MD blood pressure, diastolic 60 mm[Hg] [facility], systolic 100 mm[Hg] Antoinette gomez [place] oxygen saturation, oximetry 96 % [facility] respiratory rate E&M 16 /min [facility] pulse rate 82 /min [facility] weight E&M 186 [lb_av] [facility] height E&M 67 [in_i] [facility] blood pressure, resting No Kill een [place] ALLERGIES Allergy Name Onset Date Reaction Criticality Status BUDESONIDE High Criticality active CLINDAMYCIN Severe Upset Stomach High Criticali ty active CIPROFLOXACIN Anaphylactic High Criticality act peggy AVAPRO Blisters Blisters Low Criticality ac tive CEPHALEXIN Blisters Blisters Low Criticality ac tive CEFEPIME Francesca Syndrome High Criticality act peggy FLAGYL Francesca Syndrome High Criticality act peggy LIPITOR Fever W eakness Low Criticality active INFED anaphylactic High Criticality active ISONIAZID rash i tch Low Criticality active ERYTHROMYCIN rash i tch Low Criticality active PENICILLIN vomiting t emperature Low Criticality active HISTORY OF MEDICATION USE Medication Status Instructions Dates Provider Indications Com ments budesonide 0.5 mg/2 mL suspension for nebulization completed - Enrrique Lala Bactrim DS 800-160 mg tablet active Take 1 tablet once a day See Thomas omeprazole 20 mg capsule,delayed release(DR/EC) active Take 1 capsule once a day See Thomas aspirin 81 mg tablet,delayed release (DR/EC) active Take 1 tablet once a day See Thomas Flovent HFA 44 mcg/actuation HFA aerosol inhaler completed Inhale 2 puff four times a day as needed - Enrrique Lala #10.6, 20 days supply, Prescribed by TED VANCE, Filled 03/19/2019 Spiriva Respimat 2.5 mcg/actuation mist active Inhale 2 puff once a day See Thomas #4, 30 days supply, Prescribed by TED VANCE, Filled 03/28/2019 prednisone 5 mg tablet active Take 1 tablet three times a week See Thomas #12, 28 days supply, Prescribed by NANDO CLEMONS, Filled 03/28/2019 mycophenolate mofetil 250 mg capsule active Take 1 capsule once a day See Thomas #30, 30 days supply, Prescribed by NANDO CLEMONS, Filled 03/28/2019 levothyroxine 100 mcg tablet active Take 1 tablet once a day See Thomas #30, 30 days supply, Prescribed by JOANN ANN, Filled 03/28/2019 ferrous sulfate 325 mg (65 mg iron) tablet active Take 1 tablet twice a day Enrrique Lala #60, 30 days supply, Prescribed by NANDO CLEMONS, Filled 03/28/2019 albuterol sulfate 2.5 mg/3 mL (0.083 %) solution for nebulization active Inhale 1 vial three times a day See Thomas #225, 25 days supply, Prescribed by TED VANCE, Filled 03/28/2019 ACYCLOVIR 200 MG CAPS active Take 1 tablet twice a day See Thomas #60, 30 days supply, Prescribed by DERICK GALEANA, Filled 03/28/2019 albuterol sulfate 90 mcg/actuation HFA aerosol inhaler active Take 2 puff by mouth every four to six hours as needed See Thomas #9, 17 days supply, Prescribed by PEPITO PATEL, Filled 02/02/2019 PHENAZOPYRIDINE HCL 100 MG ORAL TABLET completed TAKE 1 TABLET BY MOUTH 3 TIMES A DAY AFTER MEALS - Shola Vasquez #8, 3 days supply, Prescribed by PAPI STOKES, Filled 02/03/2019 SOCIAL HISTORY Date Observation Value Provider smoking, date started 38 Enrrique moralesramo smoking history, total pack/day 10 Enrrique Stubbsramo cigarette use yes Enrrique Lala smoking status Current every day smoker R kannan Llaa social history E&M S moking History: P court currently smokes every day. Enrrique Stubbsramo smoking, date started 38 Mckenna Mickey smoking history, total pack/day 10 Mckennakeegan Arevalo cigarette use yes Mckennakeegan Arevalo smoking status Current every day smoker S claudia Mickey social history reviewed E&M revi ewed - no changes required Enrrique Stubbsramo social history E&M S moking History: P atchuy currently smokes every day. Enrrique Stubsbramo smoking, date started 38 Mckenna Mickey smoking history, total pack/day 10 Mckenna Mickey cigarette use yes Mckennakeegan Arevalo smoking status Current every day smoker S claudia Mickey social history reviewed E&M revi ewed - no changes required Kevin Gutiérrez MD social history E&M S moking History: P atchuy currently smokes every day. Bola Gonzalez smoking, date started 38 Bola Gonzalez smoking history, total pack/day 10 Bola Gonzalez cigarette use yes Bola Gonzalez smoking status Current every day smoker Marla Gonzalez social history reviewed E&M revi ewed - no changes required Bola Gonzalez smoking history, total pack/day 10 See Thomas cigarette use yes See Barker tyrone smoking status Current every day smoker T sunniradha William social history reviewed E&M revi ewed - no changes required Enrrique Lala social history E&M S moking History: P atient currently smokes every day. Kevin Gutiérrez MD social history reviewed E&M revi ewed - no changes required Bola Vilelda smoking, date started 38 Tonsha Joyner smoking history, total pack/day 1 Tonsha Joyner cigarette use yes Tonsha Joyner smoking status Current [facility] E&M revi ewed - no changes required Kevin Gutiérrez MD social history E&M S moking History: P atient currently smokes every day. Kevin Gutiérrez MD smoking, date started 38 Killee melanie Vasquez smoking history, total pack/day 1 Cowen Vasquez cigarette use yes Shola Vasquez number of grandchildren Kevin Vasquez smoking status Current every day smoker K abeba Vasquez INSURANCE PROVIDERS Payer name Policy type / Coverage type [employer] [facility] Medicaid [id number] ADVANCE DIRECTIVES Name Date DISCUSSED - NO DECISION MADE TREATMENT PLAN Date Name Performer [id number],SEnrrique i [id number],S, Enrrique Stubbs i [id number],BEnrrique i [id number],SEnrrique i [id number],SEnrrique i [id number],SEnrrique i [id number],SEnrrique i [id number],S, Enrrique Reynosomedza i [id number],S, Enrrique Reynosomedza i [id number],S, Enrrique Reynosomedza i [id number],S, Enrrique Houseza i [id number],S, [facility] [id number],S, [facility] [id number],S, [facility] [id number],S, [facility] [id number],S, [facility] [id number],S, Bola Au [id number],S, Enrrique Houseza i [id number],S, Enrrique Houseza i [id number],S, Enrrique Reynosomedza i [id number],S, Enrrique Houseza i [id number],S, Enrrique Reynosomedza i [id number],S, Enrrique Reynosomedza i [id number],S, Enrrique Reynosomedza i [id number],N, Enrrique Reynosomedza i Cardiology Enrrique Ahmedzai Cardiology: H er updated medication list for this problem includes: Aspirin 81 Mg Tablet,delayed Release (dr/ec) (Aspirin) ..... Take 1 tablet once a day Enrrique medzai Cardiology Enrrique Ahmedzai Cardiology Enrrique medzai Cardiology: H er updated medication list for this problem includes: Aspirin 81 Mg Tablet,delayed Release (dr/ec) (Aspirin) ..... Take 1 tablet once a day Enrrique Ahmedzai Cardiology Enrrique Ahmedzai Cardiology Enrrique Ahmedzai Cardiology Enrrique Ahmedzai Cardiology Enrrique Ahmedzai Cardiology Enrrique Ahmedzai Cardiology Enrrique Ahmedzai Cardiology Enrrique Ahmedzai Cardiology Enrrique Ahmedzai Cardiology Enrrique Ahmedzai Cardiology Enrrique Ahmedzai Cardiology Enrrique Ahmedzai Cardiology Bola Nacht Cardiology Bola Nacht Cardiology Bola Nacht Cardiology Bola Nacht Cardiology Bola Nacht Cardiology Bola Nacht Cardiology Enrrique Ahmedzai Cardiology Enrrique Ahmedzai Cardiology Enrrique Ahmedzai Cardiology Enrrique Ahmedzai Cardiology Enrrique Ahmedzai Cardiology Enrrique Ahmedzai Cardiology Enrrique Ahmedzai Cardiology Enrrique Ahmedzai TeleHealth please ashlie pt to sche dule 24 hr holter Kevin Gutiérrez MD TeleHealth please ashlie pt to sche dule 24 hr holter Kevin Gutiérrez MD TeleHealth please ashlie pt to sche dule 24 hr holter Kevin Gutiérrez MD TeleHealth please ashlie pt to sche dule 24 hr holter Kevin Gutiérrez MD Cardiology Kevin Gutiérrez MD Cardiology Kevin Gutiérrez MD Cardiology Kevin Gutiérrez MD Cardiology Kevin Gutiérrez MD Cardiology Kevin Gutiérrez MD Cardiology Kevin Gutiérrez MD Cardiology Kevin Gutiérrez MD Cardiology Kevin Gutiérrez MD Cardiology Kevin Gutiérrez MD Date Name Complete Echo Complete Echo Complete Echo Holter Monitor 24 Hr Venous Doppler Bilat eral LE - Reflux Complete Echo HISTORY OF PROCEDURES Procedure Date Procedure Name Provider Procedure Notes S tatus EKG Kevin Gutiérrez MD completed EKG Kevin Gutiérrez MD completed EKG Kevin Gutiérrez MD completed
--- OUTSIDE RECORDS SUMMARY | 2024-09-26 01:06 | XMS_ITS | Encounter Summary ---
Author Organization [facility] Address [address] [place] [id number] Phone Care Team Providers Care Conservation Or Heritage Architect Name Role Phone Jacky Luther DO Primary Care Provider [phone] Encounter Details Date Type Department Care Team (Late st Contact Info) Description 08/21/2022 Orders Only [facility] Nephrology and Hypertension [facility], [address] [address] True Clemons MD [address] [address] [facility] [facility] [place] [address] Social History Tobacco Use Types Packs/Day Years [...] on filedocumented in this encounter Care Teams Conservation Or Heritage Architect Relationship Specialty Start Date End Date Jacky Luther DO [address] [place] [id number] PCP - General Internal Medicine 01/08/19 documented as of this encounter
--- OUTSIDE RECORDS SUMMARY | 2024-09-26 01:06 | XMS_ITS | Data Portability ---
Author Organization [facility], Main Office Address [address] [place] [address] Care Team Providers Care Ophthalmic Technician Name Role Phone DI LEWIS Primary Care Provider Assessment No assessment recorded. Plan of Treatment Reminders Order Date Submit Date Provider Last Modified By Organization Details Last Modified Time Details Appointments None recorded . Lab SARS CoV 2 IgG + IgM Ab panel, serum or plasma 023 06/27/20 23 [facility] ([facility]), [address] [place], [address], 3 16:37:25 Referral None recorded . Procedures None recorded . Surgeries None recorded . Imaging None recorded . Medication Orders None recorded . Patient TargetsNo targets recorded. Patient InstructionsNo instructions recorded. Reason for Referral None Reported. Results Created Date Observation Date Name Description Value Unit Range Abnormal Flag Note LastModifiedBy Organization Detail LastModifiedTime 06/02/20 22 06/02/2022 XR, chest , 2 view No observ ation record ed. [id number] [facility] On Lab Orders [address] [place], [address], 11/22/2022 05:04:14 Result Notes None recorded. Problems Name Problem SNOMED Code Status Onset Date Resolution Date Notes Provider Name and Address Organization Details Recorded Time Chronic obstructive pulmonary disease 76194963 Active 2016 Not Available [facility] 3 04:52:04 Asthma 469361997 Active 2017 Not Available [facility] 3 04:52:04 Rib pain 066175260 Active 2021 Not Available [facility] 3 04:52:04 Severe chronic obstructive pulmonary disease 692764296 Active 2020 Not Available [facility] 3 04:52:05 Arthritis 7420690 Active 2017 Not Available [facility] 3 04:52:05 Hypothyroidis m 31834434 Active 2017 Not Available [facility] 3 04:52:05 Hyperlipidemi a 16761067 Active 2017 Not Available [facility] 3 04:52:05 Nicotine dependence 01712137 Active 2020 Not Available [facility] 3 04:52:05 Dyspnea on exertion 22890681 Active 2018 Not Available [facility] 3 04:52:05 Hemoptysis 07970059 Active 2021 Not Available [facility] 3 04:52:05 Diabetes mellitus 92810597 Active 2017 Not Available [facility] 3 04:52:05 Obstructive sleep apnea syndrome 85999060 Active 2017 Not Available [facility] 3 04:52:05 Problem Notes None recorded. Procedures Surgical History Date Name Laterality Status Provider Name and Address Organization Details Recorded Time 3 transplant of kidney completed Not Available [facility] 11/22/2022 04:42:53 Imaging Results Imaging Date Name Status LastModified by Organiz ation Details LastModified Time 06/02/2022 XR, chest, 2 view completed [id number] [facility] Add On Lab Orders [address] [place] [address], [address], 11/22/2022 05:04:14 Procedure Notes None recorded. Medical Equipment None Reported. Allergies Allergen ID Allergen Name Allergen Category Reaction Reaction Severity Criticality Documentation Date Start Date Code Code System Note Provider Name and Address Organization Details Recorded Time 8021 Medicinal product containin g penicilli n and acting as antibacte rial agent (product) medicatio n vomiting Not available Not available 11/22/2022 88049 05 SNOMED Not Available [facility] 3 05:03:49 8022 Lipitor medicatio n fever Not available Not available 11/22/2022 45255 5 RxNorm Not Available [facility] 3 05:03:49 8023 isoniazid medicatio n itching rash Not available Not available Not available 11/22/2022 6038 RxNorm Not Available [facility] 3 05:03:49 8024 InFed medicatio n anaphylax is Not available Not available 11/22/2022 77901 1 RxNorm Not Available [facility] 3 05:03:49 8025 Flagyl medicatio n other Not available Not available 11/22/2022 15043 6 RxNorm Redma n Syndr ome Not Available [facility] 3 05:03:50 8026 erythromy nahum medicatio n itching rash Not available Not available Not available 11/22/2022 4053 RxNorm Not Available [facility] 3 05:03:50 8027 clindamyc in Not available abdominal pain Not available Not available 11/22/2022 2582 RxNorm Not Available [facility] 3 05:03:50 8028 ciproflox acin medicatio n anaphylax is Not available Not available 11/22/2022 2551 RxNorm Not Available [facility] 3 05:03:50 8029 Cipro medicatio n anaphylax is Not available Not available 11/22/2022 86355 3 RxNorm Not Available [facility] 3 05:03:50 8030 cephalexi n medicatio n other Not available Not available 11/22/2022 2231 RxNorm blist ers Not Available [facility] 3 05:03:50 8031 cefepime medicatio n other Not available Not available 11/22/2022 30132 RxNorm Redma n Syndr ome Not Available [facility] 3 05:03:50 8032 Avapro medicatio n other Not available Not available 11/22/2022 11906 8 RxNorm blist ers Not Available [facility] 3 05:03:51 Medications Name Sig Start Date Stop Date Status Note LastModified by Organization Details LastModified Time cyclobenzap rine 10 mg tablet 07/15 completed Not Available Not Available Not Available levothyroxi ne 137 mcg tablet 03/04 completed Not Available Not Available Not Available prednisone 10 mg tablet Take 1 tablet every day by oral route as directed for 14 days. active Not Available Not Available No t Available doxycycline hyclate 100 mg capsule Take 1 capsule twice a day by oral route as directed for 7 days. 12/26 completed Not Available Not Available Not Available ipratropium 0.5 mg-albutero l 3 mg (2.5 mg base)/3 mL nebulizatio n soln INHALE THE CONTENTS OF 1 VIAL VIA NEBULIZER 4 TIMES A DAY NEEDED active Not Available Not Available No t Available albuterol sulfate 2.5 mg/3 mL (0.083 %) solution for nebulizatio n Inhale 3 mL 4 times a day by nebulizat ion route for 30 days. 2022 active Not Available Not Available Not Avai lable benzonatate 200 mg capsule Take 1 capsule 3 times a day by oral route as needed for 10 days. active Not Available Not Available No t Available hydrocodone 5 mg-acetamin ophen 325 mg tablet TAKE 1 TABLET BY MOUTH EVERY 6 HOURS NEEDED FOR PAIN 08/04 completed Not Available Not Available Not Available mycophenola te mofetil 250 mg capsule Take 1 capsule every day by oral route as directed for 30 days. active Not Available Not Available No t Available Laurencehuong Kamini 28 gauge 10/29 completed Not Available Not Available Not Available phenazopyri dine 200 mg tablet TAKE 1 TABLET BY MOUTH TWICE DAILY FOR 3 DAYS. active Not Available Not Available No t Available ondansetron HCl 4 mg tablet active Not Available Not Available Not Available prednisone 5 mg tablet ONE TABLET EVERY //. active Not Available Not Available No t Available sulfamethox azole 800 mg-trimetho prim 160 mg tablet active Not Available Not Available Not Available tramadol 50 mg tablet TAKE 1 TABLET BY MOUTH EVERY 6 HOURS NEEDED FOR PAIN 05/16 completed Not Available Not Available Not Available levothyroxi ne 75 mcg tablet 05/16 completed Not Available Not Available Not Available levothyroxi ne 100 mcg tablet active Not Available Not Available Not Available Tessalon Perles 100 mg capsule Take 1 capsule 3 times a day by oral route for 10 days. 01/13 completed Not Available Not Available Not Available levothyroxi ne 88 mcg tablet TAKE ONE TABLET BY MOUTH ONCE DAILY 12/26 completed Not Available Not Available Not Available phenazopyri dine 100 mg tablet TAKE 2 TABLETS BY MOUTH THREE TIMES DAILY 05/16 completed Not Available Not Available Not Available doxycycline monohydrate 100 mg capsule Take 1 capsule twice a day by oral route as directed for 5 days. active Not Available Not Available No t Available ferrous sulfate 325 mg (65 mg iron) tablet TAKE 1 TABLET BY MOUTH TWICE A DAY active Not Available Not Available No t Available levothyroxi ne 125 mcg tablet 03/04 completed Not Available Not Available Not Available nitrofurant oin macrocrysta l 100 mg capsule TAKE 1 CAPSULE BY MOUTH TWICE DAILY FOR 14 DAYS., active Not Available Not Available No t Available lidocaine 5 % topical patch 1 PATCH TOPICALLY DAILY LEAVE ON MOST PAINFUL AREA FOR UP TO 12 HRS active Not Available Not Available No t Available glucose 4 gram chewable tablet 10/29 completed Not Available Not Available Not Available docusate sodium 100 mg capsule TK 1 C PO BID 07/15 completed Not Available Not Available Not Available budesonide 0.25 mg/2 mL suspension for nebulizatio n INHALE THE CONTENTS OF 1 VIAL VIA NEBULIZER TWICE DAILY DIRECTED 06/02 completed Not Available Not Available Not Available omeprazole 20 mg capsule,del ayed release TAKE 1 CAPSULE BY MOUTH TWICE A DAY active Not Available Not Available No t Available budesonide 0.5 mg/2 mL suspension for nebulizatio n Inhale 2 mL twice a day by nebulizat ion route as directed for 30 days. 06/02 completed Not Available Not Available Not Available alcohol swabs TEST DAILY BEFORE BREAKFAST AND NEEDED FOR SYMPTOMS OF LOW BLOOD SUGAR. (UP TO TWICE DAILY) 10/29 completed Not Available Not Available Not Available acyclovir 200 mg capsule Take 1 capsule twice a day by oral route as directed for 30 days. active Not Available Not Available No t Available ergocalcife rol (vitamin D2) 1,250 mcg (50,000 unit) capsule Take 1 capsule by oral route as directed for 28 days. active Not Available Not Available No t Available lorazepam 1 mg tablet PLEASE SEE ATTACHED FOR DETAILED DIRECTION S 01/13 completed Not Available Not Available Not Available cefuroxime axetil 500 mg tablet Take 1 tablet every 12 hours by oral route as directed for 7 days. 05/16 completed Not Available Not Available Not Available ondansetron 4 mg disintegrat ing tablet 10/29 completed Not Available Not Available Not Available cefdinir 300 mg capsule TAKE ONE CAPSULE BY MOUTH EVERY 12 HOURS X 10 DAYS 10/15 completed Not Available Not Available Not Available sertraline 50 mg tablet TK 1 T PO D 09/18 completed Not Available Not Available Not Available doxycycline hyclate 100 mg tablet 12/05 completed Not Available Not Available Not Available levothyroxi ne 112 mcg tablet 12/12 completed Not Available Not Available Not Available Ventolin HFA 90 mcg/actuati on aerosol inhaler INHALE 2 PUFFS BY MOUTH EVERY 4-6 HOURS 2022 active Not Available Not Available Not Avai lable Spiriva with HandiHaler 18 mcg and inhalation capsules Inhale 1 capsule every day by inhalatio n route as directed for 30 days. 03/17 completed Not Available Not Available Not Available nitrofurant oin monohydrate /macrocryst als 100 mg capsule TAKE 1 CAPSULE BY MOUTH EVERY 12 HOURS UNTIL ALL TAKEN 05/16 completed Not Available Not Available Not Available lactulose 10 gram/15 mL oral solution TAKE 15 ML BY MOUTH ONCE DAILY NEEDED FOR CONSTIPAT ION 07/15 completed Not Available Not Available Not Available Flovent HFA 44 mcg/actuati on aerosol inhaler INHALE 3 PUFFS TWICE A DAY 03/17 completed Not Available Not Available Not Available Flovent HFA 110 mcg/actuati on aerosol inhaler INHALE 1 PUFF BY INHALATIO N ROUTE TWICE DAILY 05/16 completed Not Available Not Available Not Available Flovent HFA 220 mcg/actuati on aerosol inhaler Inhale 1 puff twice a day by inhalatio n route as directed for 90 days. 01/20 completed Not Available Not Available Not Available Atrovent HFA 17 mcg/actuati on aerosol inhaler Inhale 2 puffs 4 times a day by inhalatio n route as directed for 30 days. 10/29 completed Not Available Not Available Not Available Brovana 15 mcg/2 mL solution for nebulizatio n Inhale 2 mL twice a day by inhalatio n route as directed for 30 days. 06/02 completed Not Available Not Available Not Available Perforomist 20 mcg/2 mL solution for nebulizatio n Inhale 2 mL twice a day by inhalatio n route as directed for 30 days. 06/02 completed Not Available Not Available Not Available Advocate Redi-Code strips 10/29 completed Not Available Not Available Not Available Purelax 17 gram/dose oral powder 07/15 completed Not Available Not Available Not Available Advocate Lancet 30 gauge 10/29 completed Not Available Not Available Not Available vitamin B12 1,000 mcg-folic acid [address] by sublingua l route. 01/13 completed Not Available Not Available Not Available Aerochamber Plus Flow-Vu,Lar ge Mask USE DIRECTED active Not Available Not Available No t Available Spiriva Respimat 2.5 mcg/actuati on solution for inhalation INHALE 2 PUFFS EVERY DAY BY INHALATIO N ROUTE DIRECTED FOR 30 DAYS. 2022 active Not Available Not Available Not Avai lable Incruse Ellipta 62.5 mcg/actuati on powder for inhalation ONE INHALATIO N BY MOUTH ONCE EVERY DAY 10/29 completed Not Available Not Available Not Available Yupelri 175 mcg/3 mL solution for nebulizatio n active Not Available Not Available Not Available Vitals Date Recorded Body mass index (BMI) Body height Oxygen saturation Oxygen saturation in Arterial blood by Pulse oximetry Heart rate Body temperature Body weight Systolic blood pressure Diastolic blood pressure Provider Name and Address Organization Details Last Updated DateTime 2 30.2 kg/m2 167.64 cm 96 % 96 % 84 /min 97.2 [degF] 64248.7 7 g 128 mm[Hg] 68 mm[Hg] Not Available [facility] 3 04:49:46 Date Recorded Body mass index (BMI) Body height Oxygen saturation Oxygen saturation in Arterial blood by Pulse oximetry Heart rate Body temperature Body weight Systolic blood pressure Diastolic blood pressure Provider Name and Address Organization Details Last Updated DateTime 2 29.1 kg/m2 167.64 cm 96 % 96 % 84 /min 96.4 [degF] 61890.6 3 g 122 mm[Hg] 70 mm[Hg] Not Available [facility] 3 04:49:47 Date Recorded Body height Provider Name an d Address Organization Details Last Updated DateTime 06/02/2022 167.64 cm Not Available [facility] 3 04:49:48 Date Recorded Body height Body mass index (BMI) Body weight Body temperature Heart rate Oxygen saturation Oxygen saturation in Arterial blood by Pulse oximetry Systolic blood pressure Diastolic blood pressure Provider Name and Address Organization Details Last Updated DateTime 3 167.64 cm 28.2 kg/m2 35507.6 6 g 97.9 [degF] 74 /min 96 % 96 % 132 mm[Hg] 70 mm[Hg] Nury Aranda [place] [employer] [facility] 3 11:17:32 Date Recorded Body height Body mass index (BMI) Body weight Heart rate Oxygen saturation Oxygen saturation in Arterial blood by Pulse oximetry Systolic blood pressure Diastolic blood pressure Provider Name and Address Organization Details Last Updated DateTime 3 167.64 cm 29.1 kg/m2 09093.6 3 g 75 /min 97 % 97 % 110 mm[Hg] 72 mm[Hg] Teressa Palencia [employer] [facility] 3 11:25:52 Social History Question Answer Notes LastModified by Organizat ion Details LastModified Time Tobacco Smoking Status Current Every Day Smoker ANKIT Gerber, [facility] 06/27/2023 11:05:28 Do You Have An Advance Directive? Yes [id number] Information not available 11/22/2022 What Is Your Level Of Alcohol Consumption? None [id number] Information not available 11/22/2022 What Is Your Level Of Caffeine Consumption? Moderate [id number] Information not available 11/22/2022 How Much Tobacco Do You Chew? None [id number] Information not available 11/22/2022 In The 14 Days Before Symptom Onset, Have You Had Close Contact With A Laboratory-confir med COVID-19 While That Case Was Ill? No [email or web address] Information not available 06/27/2023 In The 14 Days Before Symptom Onset, Have You Had Close Contact With A Person Who Is Under Investigation For COVID-19 While That Person Was Ill? No [email or web address] Information not available 06/27/2023 What Type Of Diet Are You Following? REGULAR [id number] Information not available 11/22/2022 Which Illicit Or Recreational Drugs Have You Used? None [email or web address] Information not available 06/27/2023 Do You Or Have You Ever Used E-cigarettes Or Vape? Former User Of Electronic Cigarettes [email or web address] Information not available 06/27/2023 Do You Have An Electrostatic Air Filter? No [email or web address] Information not available 06/27/2023 What Is Your Occupation? Disabled [email or web address] Information not available 06/27/2023 Do You Have A Humidifier? No Information not available 06/27/2023 Do You Have A Medical Power Of Fish Straightener? Yes [email or web address] Information not available 06/27/2023 Do You Have Moisture Problems In Your Home? Yes [email or web address] Information not available 06/27/2023 What Was The Date Of Your Most Recent Tobacco Screening? 05/16/2021 [email or web address] Information not available 06/27/2023 How Many Children Do You Have? 0 [email or web address] Information not available 06/27/2023 Do You Have Any Pets? Yes [email or web address] Information not available 06/27/2023 At What Age Did You Start Smoking Tobacco? 5 [email or web address] Information not available 06/27/2023 Do You Or Have You Ever Used Smokeless Tobacco? Never Used Smokeless Tobacco [id number] Information not available 11/22/2022 How Much Tobacco Do You Smoke? 0.5 PPD [id number] Information not available 11/22/2022 How Many Years Have You Smoked Tobacco? 50 [email or web address] Information not available 06/27/2023 Have You Recently Traveled Abroad? No [email or web address] Information not available 06/27/2023 Sex: Female Functional Status Question Answer Note LastModified by Organizat ion Details LastModified Time What is your exercise level? None [id number] Information not available 11/22/2022 Mental Status None recorded. Family History Nothing Reported. Medical History Condition Response CHEST XRAY N KIDNEY STONES N CARPAL TUNNEL SYNDROME N MRSA N HISTORY OF DRUG ABUSE N RADIATION / CHEMOTHERAPY N COPD Y SPORTS INJURY N BLOOD DISEASES N SURGERY N MUMPS N SHINGLES N BOWEL PROBLEMS Y FAILED BACK SYNDROME N STROKE/TIA N THYROID DISEASE N ULCERS N OTHER MODALITIES N CERVICALGIA N TB SKIN TEST N MYOCARDIAL INFARCTION N OBESITY N PARAPELGIA N URINARY/BLADDER/KIDNEY PROBLEMS Y Increased Urination N CORONARY ARTERY DISEASE (CAD) N INPATIENT PSYCH CARE N Do you have Advance directive? N MENIERE'S DISEASE N ADDICTION CONCERNS N CAROTID STENOSIS N ENDOMETRIOSIS N Impotence N PARATHYROID DISEASE N PERIPHERAL VASCULAR DISEASE N MUSCLE,JOINT OR BONE PROBLEMS N DVT N STOMACH ULCERS N GASTROINTESTINAL BLEEDING N BLOOD CLOTS N Difficulty Urinating N PAST HISTORY OF VEHICULAR ACCIDENT N ASTHMA N USE OF NSAIDS N ARTERIAL INSUFFICIENCY N CHF N GI PROBLEMS Y Low Testosterone N VISION/EYE PROBLEMS Y MALE HYPOGONADISM N PERSONALITY DISORDER N ELBOW PAIN N TOURETTE'S N ANXIETY DISORDER N BLADDER/KIDNEY Y CHRONIC EAR INFECTIONS N BIPOLAR DISORDER N CONDUCT DISORDER N OSTEOARTHRITIS N TUBERCULOSIS N DIVERTICULITIS N SLEEP APNEA Y ALLERGIES/HAYFEVER N HEART ARRHYTHMIA N PROSTATE N INSOMNIA N PAST MEDICATION HISTORY N EYE PROBLEMS N SCHIZOAFFECTIVE N EDEMA N HYPOTHYROIDISM Y CONSTIPATION N CAROTID BLOCKAGE N MOOD DISORDER N BACK / NECK PROBLEMS Y MIGRAINES N BREAST PROBLEMS N POLYCYSTIC OVARIES N FIBROMYALGIA N OSTEOPOROSIS N Do you have a healthcare POA? Y PERIPHERAL NEUROPATHY N APPENDICITIS N VON WILLIBRAND'S DISEASE N SEASONAL ALLERGIES N HEARTBURN / REFLUX Y PLEURISY N ADD/ADHD N Bronchoscopy N AUTISM SPECTRUM DISORDER (ASD) N SLEEP DISORDER N RETINOPATHY N HEADACHES/MIGRAINES N SLEEP STUDY N VASCULAR DISEASE N HEART MURMUR Y Blood Disorder N HIP PAIN N HEART DISEASE/HEART PROBLEMS N DEVELOPMENTAL OR BEHAVIORAL DISORDERS N CLAUDICATION N MULTIPLE SCLEROSIS Y PULMONARY FUNCTION TEST N ANESTHESIA COMPLICATIONS N ATRIAL FIBRILLATION N Gall Stones N PULMONARY EMBOLISM N AUTOIMMUNE DISEASE N NERVE DISEASE N CYSTITIS N BLINDNESS N RHEUMATIC FEVER N BLADDER PROBLEMS Y Enlarged Prostate N OTHER # 1 N POLIO N LUNG DISEASE/DISORDER N Other # 2 N ANKLE PAIN N EAR OR HEARING PROBLEMS Y PAST SPINAL SURGERY N SCHIZOPHRENIA N SHOULDER PAIN Y FEMALE PROBLEMS / INFECTIONS N DEPRESSION (INCLUDING POST ) N CHEST CT N KNEE PAIN N RENAL INSUFFICIENCY N BENIGN PROSTATIC HYPERPLASIA N MEASLES N HYPOTENSION Y GERD/NAUSEA Y EXCESSIVE PERSPIRATION N ANEURYSM N USE OF BLOOD THINNERS N SKIN PROBLEMS Y EMPHYSEMA N SHORTNESS OF BREATH N GASTROINTESTINAL DISORDER N PTSD N Do you have a living will? Y CATARACTS N CONCUSSION OR SPINAL TRAUMA N ERECTILE DYSFUNCTION N VARICOSITIES N NEUROPATHY Y INFERTILITY N AIDS/HIV N FRACTURES N CHEMOTHERAPY / RADIATION N LIVER DISEASE N HYPERTENSION N Deficiency N Metal allergy N BLOOD TRANSFUSION N ANEMIA/BLOOD DISORDER N BRONCHITIS N GLAUCOMA N FOOT PROBLEM N HEART VALVE DISORDERS N CHICKENPOX N SOFT TISSUE INJURY N BACK INJECTIONS N INFECTIOUS DISEASE N ESRD N PAST INTERVENTIONAL PAIN MANAGEMENT HIST ORY N RHEUMATOID ARTHRITIS N HIGH CHOLESTEROL / HYPERLIPIDEMIA N HYPERTHYROIDISM N UTI Y PVD N EATING DISORDER N NEUROLOGICAL PROBLEMS N CHRONIC PAIN SYNDROME N HAVE YOU BEEN HOSPITALIZED OR SEEN IN [facility] ER IN THE PAST YEAR ? N ATHEROSCLEROSIS N BURSITIS N HERNIATED DISC N DIALYSIS N ECZEMA N HISTORY WITH COMPLICATIONS WITH ANESTHES IA ? N PSYCHOSIS N ARTHRITIS Y RESPIRATORY PROBLEMS Y PAST HISTORY OF FALL N NO SIGNIFICANT PAST MEDICAL HISTORY N DIABETES, TYPE Y BAD TEETH N PARKINSON N ENT N POST LAMINECTOMY SYNDROME N HEPATITIS / LIVER DISEASE N PULMONARY DISEASE N GOUT N ALZHEIMER'S DISEASE N PAIN N Brain Problems N FATIGUE N HERPES N DEMENTIA N SEIZURES/EPILEPSY N PACEMAKER N DIZZINESS N HEAD TRAUMA OR INJURY N KIDNEY DISEASE Y SCARLET FEVER N MENTAL DISORDER/ILLNESS N NEUROPSYCHOLOGICAL N CANCER: SPECIFY Y CARDIAC ARRHYTHMIA N PNEUMONIA N DEAF/HEARING IMPAIRED N Gynecological HistoryNo gynecological history recorded. Obstetrics History GPAL:G 0 P 0 0 0 0 Immunizations Vaccine Type Date Status Note Provider Nam e and Address Organization Details Recorded Time Tdap 03/31/2014 completed Not Available [facility] 11/22/2022 05:03:40 Past Encounters Encounter ID Performer Location Encounter Start Date Encounter Closed Date Diagnosis/Indication Diagnosis SNOMED-CT Code Diagnosis ICD10 Code [id number] [facility] [address] [place] [address] 01/13/2021 00:00:00 01/13/2021 14:33:42 [id number] [facility] [address] [place] [address] 05/16/2021 00:00:00 05/16/2021 13:24:58 [id number] [facility] [address] [place] [address] 08/02/2021 00:00:00 08/02/2021 14:53:40 [id number] [facility] [address] [place] [address] 08/16/2021 00:00:00 08/16/2021 15:03:01 [id number] [facility] [address] [place] [address] 09/15/2021 00:00:00 09/15/2021 14:42:54 [id number] [facility] [address] [place] [address] 11/18/2021 00:00:00 11/18/2021 13:22:24 [id number] [facility] [address] [place] [address] 01/25/2022 00:00:00 01/25/2022 12:57:21 [id number] [facility] [address] [place] [address] 06/02/2022 00:00:00 06/02/2022 12:33:51 [id number] [facility] [address] [place] [address] 08/04/2022 00:00:00 08/04/2022 15:54:22 [id number] RAYRAY Black [facility] [address] [place] [address] 12/26/2022 11:01:47 12/26/2022 12:12:00 Severe chronic obstructive pulmonary disease 757064890 J44.9 Dyspnea on exertion 6084 5006 R06.09 Obstructiv e sleep apnea syndrome 98642639 G47.33 History of SARS-CoV-2 29 35092776 68099363 Z86.16 Nicotine dependence 5629 4008 Z87.457 [id number] RAYRAY Black [facility] [address] [place] [address] 06/27/2023 11:04:57 06/27/2023 12:38:19 Severe chronic obstructive pulmonary disease 773920254 J44.9 Dyspnea on exertion 6084 5006 R06.09 Obstructiv e sleep apnea syndrome 89380487 G47.33 History of SARS-CoV-2 29 [id number] Z86.16 Nicotine dependence 5629 4008 Z87.891 Health Concerns Section Related Observation LastModified by Organization Usha box LastModified Time None Recorded Concern Status LastModified by Organization Details LastModified Time None Recorded Advance Directives Directive Y: Payers Encounter Date Sequence Insurance Name Policy Number Policy Priest Covered Member ID Priest Member ID Guarantor Name 12/26/2022 1 [facility] ON OR AFTER 03/24/21 (MEDICAID REPLACEMENT - HMO) Tyshawn Majo [place] [id number] Tyshawn Kasper Toro 06/27/2023 1 [facility] ON OR AFTER 03/24/21 (MEDICAID REPLACEMENT - HMO) Tyshawn Majo Toro [id number] Tyshawn Kasper Toro Notes Date Note Type Note Provider Name and Address Organization Details Recorded Time 3 text/htm iraida Villagran presents today to follow up on COPD, dyspnea, cough, fwja-YCYC-HmX-2 infection, nicotine dependenceShe has had no changes in activity tolerance or coughNo respiratory infections since last OVUsing Spiriva daily.She has tried multiple ICS and LABA all with side effects that were intolerableProair vs nebulized albuterol depending on the day - she does have daily useDenies fever, chest pain, hemoptysis.Can not dress without shortness of breath - this is chronicHas a home administrator but can do some of her own ADLsDOes not wake at night R/T respiratory symptomsRemains non-compliant with CPAP, she has not tolerated mask in the past and is not a candidate for InspireShe is uninterested in troubleshootingContinues to smoke about 1/2 PPD, she is uninterested in quitting Tessie Wen, [facility] [address] [facility], [facility] [address], [place], [address], [facility] [employer] 12/26/2022 16:35:50 3 text/htm iraida Villagran presents today to follow up on COPD, dyspnea, cough, noyv-WXVB-DhV-2 infection, nicotine dependenceShe has had some increased dyspnea but she tells me that this is just general deconditioningShe has a daily cough but this is unchangedNo respiratory infections since last OVUsing Spiriva daily.She has tried multiple ICS and LABA all with side effects that were intolerableProair vs nebulized albuterol depending on the day - she does have daily use multiple times dailyDenies fever, chest pain, hemoptysis.No GERD symptomsCan not dress without shortness of breath - this is chronicHas a home administrator but can do some of her own ADLs, she tells me she does try to remain as active as possible but does not leave the house muchDoes not wake at night R/T respiratory symptomsRemains non-compliant with CPAP, she has not tolerated mask in the past and is not interested in InspireContinues to smoke about 1/2 PPD, she is uninterested in quitting Tessie Wen, [facility] [address] [facility], [facility] [address], [place], [address], [place] [facility] [place] [employer] [facility] 06/27/2023 20:27:00 OBGyn Episode No OBEpisode recorded.
--- OUTSIDE RECORDS SUMMARY | 2024-09-26 01:06 | XMS_ITS | Encounter Summary ---
Author Organization [facility] Address [address] [place] [address] Phone Care Team Providers Care Ditch Repairer Name Role Phone Jacky Luther DO Primary Care Provider [phone] Reason for Visit * Reason Comments Med Refill Encounter Details Date Type Department Care Team (Late st Contact Info) Description 02/16/2022 Refill [facility] Nephrology and Hypertension [address] [address], [address] [place] [address] True Clemons MD [address] [facility], [address] [place] [address] Social History Tobacco Use Types Packs/Day Years [...] on filedocumented in this encounter Care Teams Ditch Repairer Relationship Specialty Start Date End Date Jacky Luther DO [address] [place] [address] PCP - General Internal Medicine 01/08/19 documented as of this encounter
--- OUTSIDE RECORDS SUMMARY | 2024-09-26 01:06 | XMS_ITS | Encounter Summary ---
Author Organization [facility] Address [address] [place] [address] Phone Care Team Providers Care Deckhand Shrimp Boat Name Role Phone Jacky Luther DO Primary Care Provider [phone] Reason for Visit * Reason Comments Med Refill Encounter Details Date Type Department Care Team (Late st Contact Info) Description 04/17/2022 Refill [facility] Nephrology and Hypertension [address] [facility], [address] [place] [address] True Clemons MD [address] [facility], [address] [place] [address] Social History Tobacco Use Types Packs/Day Years [...] on filedocumented in this encounter Care Teams Deckhand Shrimp Boat Relationship Specialty Start Date End Date Jacky Luther DO [address] [place] [address] PCP - General Internal Medicine 01/08/19 documented as of this encounter
--- OUTSIDE RECORDS SUMMARY | 2024-09-26 01:07 | XMS_ITS | Encounter Summary ---
Author Organization [facility] Address [address] [place] [address] Phone Care Team Providers Care Brush Or Broom Cutter Name Role Phone Jacky Luther DO Primary Care Provider Reason for Visit * Reason Comments Med Refill Encounter Details Date Type Department Care Team (Late st Contact Info) Description 06/18/2021 Refill [facility] Nephrology and Hypertension [address] [facility], [address] [place] [address] True Clemons MD [address] [facility], [address] [facility] [place] [address] Social History Tobacco Use Types Packs/Day Years [...] on filedocumented in this encounter Care Teams Brush Or Broom Cutter Relationship Specialty Start Date End Date Jacky Luther DO [address] [place] [address] PCP - General Internal Medicine 01/08/19 documented as of this encounter
--- OUTSIDE RECORDS SUMMARY | 2024-09-26 01:07 | XMS_ITS | Encounter Summary ---
Author Organization [facility] Address [address] [place] [address] Phone Care Team Providers Care Housing Inspector Name Role Phone ChaitanyaJacky blair Primary Care Provider [phone] Encounter Details Date Type Department Care Team (Late st Contact Info) Description 11/24/2021 Telephone [facility] Nephrology and Hypertension [address] [facility], [address] [place] [address] True Clemons MD [address] [facility], [address] [place] [address] Social History Tobacco Use Types Packs/Day Years [...] Telephone Encounter - True Clemons MD - 11/26/2021 9:21 AM CST Resent on 11/24 * Telephone Encounter - Ciara An - 11/24/2021 3:28 PM CST Tech from pharm called - the Scripts you send in 11/22 to [facility] - have not been rec yet. documented in this encounter Plan of Treatment Not on file documented as of this encounter Visit Diagnoses Not on filedocumented in this encounter Care Teams Housing Inspector Relationship Specialty Start Date End Date Jacky Luther DO [address] [place] [address] PCP - General Internal Medicine 01/08/19 documented as of this encounter
--- OUTSIDE RECORDS SUMMARY | 2024-09-26 01:07 | XMS_ITS | Encounter Summary ---
Author Organization [facility] Address [address] [place] [address] Phone Care Team Providers Care Stationary Equipment Mechanic Name Role Phone Jacky Luther DO Primary Care Provider [phone] Reason for Visit * Reason Comments Med Refill Encounter Details Date Type Department Care Team (Late st Contact Info) Description 10/31/2021 Refill [facility] Nephrology and Hypertension [address] [facility], [address] [place] [address] True Clemons MD [address] [facility], [address] [place] [address] Social History Tobacco Use Types Packs/Day Years [...] on filedocumented in this encounter Care Teams Stationary Equipment Mechanic Relationship Specialty Start Date End Date Jacky Luther DO [address] [place] [address] PCP - General Internal Medicine 01/08/19 documented as of this encounter
--- OUTSIDE RECORDS SUMMARY | 2024-09-26 01:07 | XMS_ITS | Encounter Summary ---
Author Organization [facility] Address [address] [place] [address] Phone Care Team Providers Care Chick Sexer Name Role Phone Jacky Luther DO Primary Care Provider [phone] Encounter Details Date Type Department Care Team (Late st Contact Info) Description 01/26/2022 Refill [facility] Nephrology and Hypertension [address] [facility], [address] [address] True Clemons MD [address] [facility], SU[address] [facility] [place] [address] Social History Tobacco Use Types Packs/Day Years [...] on filedocumented in this encounter Care Teams Chick Sexer Relationship Specialty Start Date End Date Jacky Luther DO [address] [place] [address] PCP - General Internal Medicine 01/08/19 documented as of this encounter
--- OUTSIDE RECORDS SUMMARY | 2024-09-26 01:07 | XMS_ITS | Encounter Summary ---
Author Organization [facility] Address [address] [place] [address] Phone Care Team Providers Care Bedspread Cutter Hand Name Role Phone Jacky Luther DO Primary Care Provider [phone] Reason for Visit * Reason Comments Med Refill Encounter Details Date Type Department Care Team (Late st Contact Info) Description 09/29/2021 Refill [facility] Nephrology and Hypertension [address] [facility], [address] [place] [address] Josseline Velarde MD [address] [facility], [address] [place] [address] Social History Tobacco Use Types Packs/Day Years [...] on filedocumented in this encounter Care Teams Bedspread Cutter Hand Relationship Specialty Start Date End Date Jacky Luther DO [address] [place] [address] [id number] PCP - General Internal Medicine 01/08/19 documented as of this encounter
--- OUTSIDE RECORDS SUMMARY | 2024-09-26 01:07 | XMS_ITS | Encounter Summary ---
Author Organization [facility] Address [address] [place] [address] Phone Care Team Providers Care Audit Specialist Name Role Phone Jacky Luther DO Primary Care Provider [phone] Reason for Visit * Reason Comments Med Refill Encounter Details Date Type Department Care Team (Late st Contact Info) Description 10/21/2021 Refill [facility] Nephrology and Hypertension [address] [facility], [address] [place] [address] True Clemons MD [address] [facility], [address] [place] [address] Social History Tobacco Use Types Packs/Day Years [...] on filedocumented in this encounter Care Teams Audit Specialist Relationship Specialty Start Date End Date Jacky Luther DO [address] [place] [address] PCP - General Internal Medicine 01/08/19 documented as of this encounter
--- OUTSIDE RECORDS SUMMARY | 2024-09-26 01:07 | XMS_ITS | Encounter Summary ---
Author Organization [facility] Address [address] [place] [address] Phone Care Team Providers Care Software Security Consultant Name Role Phone Jacky Luther DO Primary Care Provider [phone] Reason for Visit * Reason Comments Med Refill Encounter Details Date Type Department Care Team (Late st Contact Info) Description 11/24/2021 Refill [facility] Nephrology and Hypertension [address] [facility], [address] [place] [address] True Clemons MD [address] [facility], [address] [place] [address] Social History Tobacco Use Types Packs/Day Years [...] on filedocumented in this encounter Care Teams Software Security Consultant Relationship Specialty Start Date End Date Jacky Luther DO [address] [place] [address] PCP - General Internal Medicine 01/08/19 documented as of this encounter
--- OUTSIDE RECORDS SUMMARY | 2024-09-26 01:07 | XMS_ITS | Encounter Summary ---
Author Organization [facility] Address [address] [place] [address] Phone Care Team Providers Care Maintenance Representative Name Role Phone Jacky Luther DO Primary Care Provider Reason for Visit * Reason Comments Med Refill Encounter Details Date Type Department Care Team (Late st Contact Info) Description 11/10/2021 Refill [facility] Nephrology and Hypertension [address] [facility], [address] [place] [address] True Clemons MD [address] [facility], [address] [place] [address] Social History Tobacco Use Types Packs/Day Years [...] on filedocumented in this encounter Care Teams Maintenance Representative Relationship Specialty Start Date End Date Jacky Luther DO [address] [place] [address] PCP - General Internal Medicine 01/08/19 documented as of this encounter
--- OUTSIDE RECORDS SUMMARY | 2024-09-26 01:07 | XMS_ITS | Encounter Summary ---
Author Organization [facility] Address [address] [place] [address] Phone Care Team Providers Care Business Process Consultant Name Role Phone Jacky Luther DO Primary Care Provider [phone] Encounter Details Date Type Department Care Team (Late st Contact Info) Description 11/22/2021 Refill [facility] Nephrology and Hypertension [address] [facility], [address] [place] [address] True Clemons MD [address] [facility], SU[address] [facility] [place] [address] Social History Tobacco Use Types Packs/Day Years [...] on filedocumented in this encounter Care Teams Business Process Consultant Relationship Specialty Start Date End Date Jacky Luther DO [address] [place] [address] PCP - General Internal Medicine 01/08/19 documented as of this encounter
--- OUTSIDE RECORDS SUMMARY | 2024-09-26 01:07 | XMS_ITS | Encounter Summary ---
Author Organization [facility] Address [address] [place] [address] Phone Care Team Providers Care Energy Control Officer Name Role Phone Jacky Luther DO Primary Care Provider [phone] Reason for Visit * Reason Comments Med Refill Encounter Details Date Type Department Care Team (Late st Contact Info) Description 06/20/2021 Refill [facility] Nephrology and Hypertension [address] [facility], [address] [place] [address] True Clemons MD [address] [facility], SU[address] [facility] [place] [address] Social History Tobacco Use Types Packs/Day Years [...] on filedocumented in this encounter Care Teams Energy Control Officer Relationship Specialty Start Date End Date Jacky Luther DO [address] [place] [address] PCP - General Internal Medicine 01/08/19 documented as of this encounter
--- OUTSIDE RECORDS SUMMARY | 2024-09-26 01:07 | XMS_ITS | Encounter Summary ---
Author Organization [facility] Address [address] [place] [address] Phone Care Team Providers Care Resin Painter Name Role Phone Jacky Luther DO Primary Care Provider [phone] Encounter Details Date Type Department Care Team (Late st Contact Info) Description 06/21/2021 Refill [facility] Nephrology and Hypertension [address] [facility], [address] [place] [address] True Clemons MD [address] [facility], SU[address] [facility] [place] [address] Social History Tobacco Use Types Packs/Day Years [...] on filedocumented in this encounter Care Teams Resin Painter Relationship Specialty Start Date End Date Jacky Luther DO [address] [place] [address] PCP - General Internal Medicine 01/08/19 documented as of this encounter
--- OUTSIDE RECORDS SUMMARY | 2024-09-26 01:07 | XMS_ITS | Encounter Summary ---
Author Organization [facility] Address [address] [place] [address] Phone Care Team Providers Care Engine Installer Name Role Phone Jacky Luther DO Primary Care Provider [phone] Reason for Visit * Reason Comments Med Refill Encounter Details Date Type Department Care Team (Late st Contact Info) Description 05/02/2021 Refill [facility] Nephrology and Hypertension [address] [facility], [address] [place] [address] True Clemons MD [address] [facility], SU[address] [facility] [place] [address] Social History Tobacco Use Types Packs/Day Years [...] on filedocumented in this encounter Care Teams Engine Installer Relationship Specialty Start Date End Date Jacky Luther DO [address] [place] [address] PCP - General Internal Medicine 01/08/19 documented as of this encounter
--- OUTSIDE RECORDS SUMMARY | 2024-09-26 01:07 | XMS_ITS | Encounter Summary ---
Author Organization [facility] Address [address] [place] [address] Phone Care Team Providers Care Litigation Coordinator Name Role Phone ChaitanyaJacky blair Primary Care Provider [phone] Encounter Details Date Type Department Care Team (Late st Contact Info) Description 10/12/2021 11:15 AM OPTOMECHANICAL ENGINEER Office Visit [facility] Nephrology and Hypertension [address] [place] [address], [address] [place] [address] True Clemons MD [address] [facility], [address] [place] [address] Essential (primary) hypertension (Primary Dx); Stage 3a chronic kidney disease (CMS-HCC); Kidney transplant status; Mixed hyperlipidemia Social History Tobacco Use Types Packs/Day Years [...] Reading Time Taken Comments Blood Pressure 122/60 10/12/2021 11:23 AM OPTOMECHANICAL ENGINEER Pulse 72 10/12/2021 11:23 AM OPTOMECHANICAL ENGINEER Temperature 36.3 ??C (97.4 ??F) 10/12/2021 11:[address] Respiratory Rate - - Oxygen Saturation - - Inhaled Oxygen Concentration - - Weight 83.5 kg (184 lb) 10/12/2021 11:23 AM OPTOMECHANICAL ENGINEER Height 170.2 cm (5' 7 ) 10/12/2021 11:23 AM OPTOMECHANICAL ENGINEER Body Mass Index 28.82 10/12/2021 11:23 AM OPTOMECHANICAL ENGINEER documented in this encounter Progress Notes * True Clemons MD - 10/12/2021 11:15 AM CST Tyshawn Engel is a pleasant 56 y.o.female. Ms. Engel is a very pleasant lady who has a kidney transplant. She received her transplant in 1992. It was a living-related donor from her brother. Original ds: vesicoureteral reflux. Taking mmf and pdn only. She had covid in May. Didn't have [...] as above BP 122/60 Pulse 72 Temp 97.4 ??F (36.3 ??C) Ht 5' 7 (1.702 m) Wt 184 lb (83.5 kg) BMI 28.82 kg/m?? BSA 1.99 m?? WDWN female in NAD Skin No rash Head NCAT Neck No nodes, No TMG Lungs Clear Cor RRR no rub or gallop Abd [...] W7.7 H13.9 P231, a1c 5.6, LDL98 HDL47 Ayma638, PTH 68, vit d 34 12/24/2019 Cr [...] 78, Chol 96/49/203, Aq1C 5.5, Tsat 16 IMPRESSION: 1. Patient has a kidney transplant. Function is stable. 28+ years. 2. UTIs none recently 3. Multiple allergies; 4. CKD: avoid large amounts of protien (by taste) bp is well controlled lipids good Avoid NSAIDs Stay hydrated Vit d is low. Inc to 5000 daily On the immunosuppressives 5. Anemia resolved 6. Sodium was a bit low. She [...] about this. just had Evoked potentials. PLAN: Inc vit d from 1999 to 5000 low fat diet RTC 6 months. Diagnoses and all orders for this visit: Essential (primary) hypertension Stage 3a chronic kidney disease ([facility]-HCC) Kidney transplant status Mixed hyperlipidemia Other orders - Cholecalciferol (Vitamin D3) 125 MCG (5000 UT) capsule; Take 1 capsule by mouth 1 (one) time eachday Body mass index is 28.82 kg/m??. Follow up plan to address BMI is lose weight. . See above Diagnoses and all orders for this visit: Essential (primary) hypertension Stage 3a chronic kidney disease ([facility]-HCC) Kidney transplant status Mixed hyperlipidemia Body mass index is 28.82 kg/m??. Follow up plan to address BMI is lose weight. Follow up plan to address tobacco use is quit. . See above Assessment/Plan Diagnoses and all orders for this visit: Essential (primary) hypertension Chronic kidney disease, stage 3 (moderate) Hyperlipidemia, not otherwise specified Blood Pressure for this visit is 122/60. Follow up plan to address blood pressure is normal. Body mass index is 28.82 kg/m??. Follow up plan to address BMI is too hevy. See above. Follow up plan to address tobacco use is stop smoking.. [facility] documented in this encounter Plan of Treatment Not on file documented as of this encounter Visit Diagnoses Diagnosis Essential (primary) hypertension- Primary Stage 3a chronic kidney disease ([facility]-HCC) Kidney transplant status Mixed hyperlipidemia documented in this encounter Care Teams Litigation Coordinator Relationship Specialty Start Date End Date Jacky Luther DO [address] [place] [address] PCP - General Internal Medicine 01/08/19 documented as of this encounter
--- OUTSIDE RECORDS SUMMARY | 2024-09-26 01:07 | XMS_ITS | Encounter Summary ---
Author Organization [facility] Address [address] [place] [address] Phone Care Team Providers Care Textile Worker Name Role Phone Jacky Luther DO Primary Care Provider [phone] Reason for Visit * Reason Comments Med Refill Encounter Details Date Type Department Care Team (Late st Contact Info) Description 09/20/2021 Refill [facility] Nephrology and Hypertension [address] [facility], [address] [place] [address] True Clemons MD [address] [facility], [address] [facility] [place] [address] Social History Tobacco Use Types Packs/Day Years [...] on filedocumented in this encounter Care Teams Textile Worker Relationship Specialty Start Date End Date Jacky Luther DO [address] [place] [address] PCP - General Internal Medicine 01/08/19 documented as of this encounter
--- OUTSIDE RECORDS SUMMARY | 2024-09-26 01:07 | XMS_ITS | Encounter Summary ---
Author Organization [facility] Address [address] [place] [address] Phone Care Team Providers Care Die Cast Die Maker Name Role Phone Jacky Luther DO Primary Care Provider [phone] Reason for Visit * Reason Comments Med Refill Encounter Details Date Type Department Care Team (Late st Contact Info) Description 08/10/2021 Refill [facility] Nephrology and Hypertension [address] [facility], [address] [place] [address] True Clemons MD [address] [facility], [address] [facility] [place] [address] Social History Tobacco Use Types Packs/Day Years [...] on filedocumented in this encounter Care Teams Die Cast Die Maker Relationship Specialty Start Date End Date Jacky Luther DO [address] [place] [address] PCP - General Internal Medicine 01/08/19 documented as of this encounter
--- OUTSIDE RECORDS SUMMARY | 2024-09-26 01:07 | XMS_ITS | Encounter Summary ---
Author Organization [facility] Address [address] [place] [address] Phone Care Team Providers Care Pharmaceutical Compounding Supervisor Name Role Phone Jacky Luther DO Primary Care Provider [phone] Reason for Visit * Reason Comments Med Refill Encounter Details Date Type Department Care Team (Late st Contact Info) Description 04/24/2021 Refill [facility] Nephrology and Hypertension [address] [facility], [address] [place] [address] True Clemons MD [address] [facility], SUITE [facility] [place] [address] Social History Tobacco Use Types Packs/Day Years [...] on filedocumented in this encounter Care Teams Pharmaceutical Compounding Supervisor Relationship Specialty Start Date End Date Jacky Luther DO [address] [place] [address] PCP - General Internal Medicine 01/08/19 documented as of this encounter
--- OUTSIDE RECORDS SUMMARY | 2024-09-26 01:07 | XMS_ITS | Encounter Summary ---
Author Organization [facility] Address [address] [place] [address] Phone Care Team Providers Care Manufactured Buildings Repairer Name Role Phone Jacky Luther DO Primary Care Provider [phone] Reason for Visit * Reason Comments Med Refill Encounter Details Date Type Department Care Team (Late st Contact Info) Description 11/22/2021 Refill [facility] Nephrology and Hypertension [address] [facility], [address] [place] [address] True Clemons MD [address] [facility], [address] [place] [address] Social History Tobacco Use Types Packs/Day Years [...] on filedocumented in this encounter Care Teams Manufactured Buildings Repairer Relationship Specialty Start Date End Date Jacky Luther DO [address] [place] [address] PCP - General Internal Medicine 01/08/19 documented as of this encounter
--- OUTSIDE RECORDS SUMMARY | 2024-09-26 01:07 | XMS_ITS | Encounter Summary ---
Author Organization [facility] Address [address] [place] [address] Phone Care Team Providers Care Director Mission Name Role Phone Homa Jacky Primary Care Provider Encounter Details Date Type Department Care Team (Late st Contact Info) Description 06/22/2021 [facility] Nephrology and Hypertension [address] [facility], [address] [place] [address] True Clemons MD [address] [facility], SUITE [facility] [place] [address] Social History Tobacco Use Types Packs/Day Years [...] encounter Miscellaneous Notes * Telephone Encounter - Breanna Bernardo - 06/22/2021 9:06 AM CDT Nancy at [facility] Specialty asks that you fax order for prednisone to them at [phone] documented in this encounter Plan of Treatment Not on file documented as of this encounter Visit Diagnoses Not on filedocumented in this encounter Care Teams Director Mission Relationship Specialty Start Date End Date Jacky Luther DO [address] [facility] [address] [place] [address] PCP - General Internal Medicine 01/08/19 documented as of this encounter
--- OUTSIDE RECORDS SUMMARY | 2024-09-26 01:07 | XMS_ITS | Encounter Summary ---
Author Organization [facility] Address [address] [place] [address] Phone Care Team Providers Care Ski Topper Name Role Phone Jacky Luther DO Primary Care Provider [phone] Encounter Details Date Type Department Care Team (Late st Contact Info) Description 05/31/[address] [facility] Nephrology and Hypertension [address] [facility], [address] [place] [address] True Clemons MD [address] [facility], SUITE [facility] [place] [address] Social History Tobacco Use Types Packs/Day Years [...] on filedocumented in this encounter Care Teams Ski Topper Relationship Specialty Start Date End Date Jacky Luther DO [address] [place] [address] PCP - General Internal Medicine 01/08/19 documented as of this encounter
--- OUTSIDE RECORDS SUMMARY | 2024-09-26 01:07 | XMS_ITS | Encounter Summary ---
Author Organization [facility] Address [address] [place] [address] Phone Care Team Providers Care Band Straightener Name Role Phone Jacky Luther DO Primary Care Provider Reason for Visit * Reason Comments Med Refill Encounter Details Date Type Department Care Team (Late st Contact Info) Description 08/31/2021 Refill [facility] Nephrology and Hypertension [address] [facility], [address] [place] [address] True Clemons MD [address] [facility], SUITE [facility] [place] [address] Social History Tobacco Use Types Packs/Day Years [...] on filedocumented in this encounter Care Teams Band Straightener Relationship Specialty Start Date End Date Jacky Luther DO [address] [place] [address] PCP - General Internal Medicine 01/08/19 documented as of this encounter
--- OUTSIDE RECORDS SUMMARY | 2024-09-26 01:07 | XMS_ITS | Encounter Summary ---
Author Organization [facility] Address [address] [place] [address] Phone Care Team Providers Care Paraplanner Name Role Phone Jacky Luther DO Primary Care Provider [phone] Reason for Visit * Reason Comments Med Refill Encounter Details Date Type Department Care Team (Late st Contact Info) Description 05/24/[address] [facility] Nephrology and Hypertension [address] [facility], [address] [place] [address] True Clemons MD [address] [facility], SUITE [facility] [place] [address] Social History Tobacco Use Types Packs/Day Years [...] on filedocumented in this encounter Care Teams Paraplanner Relationship Specialty Start Date End Date Jacky Luther DO [address] [place] [address] PCP - General Internal Medicine 01/08/19 documented as of this encounter
--- OUTSIDE RECORDS SUMMARY | 2024-09-26 01:07 | XMS_ITS | Encounter Summary ---
Author Organization [facility] Address [address] [place] [address] Phone Care Team Providers Care Instructional Supervisor Name Role Phone SusieJacky fisher Primary Care Provider [phone] Encounter Details Date Type Department Care Team (Late st Contact Info) Description 06/20/2021 Telephone [facility] Nephrology and Hypertension [address] [facility], [address] [place] [phone] Tatyana Clemons MA Social History Tobacco Use Types Packs/Day [...] Telephone Encounter - True Clemons MD - 06/20/2021 4:48 PM CDT done * Telephone Encounter - Tatyana Clemons MA - 06/20/2021 11:50 AM CDT [facility] asking for refill order for prednisone for pt. documented in this encounter Plan of Treatment Not on file documented as of this encounter Visit Diagnoses Not on filedocumented in this encounter Care Teams Instructional Supervisor Relationship Specialty Start Date End Date Jacky Luther DO [address] [facility] [address] [place] [address] PCP - General Internal Medicine 01/08/19 documented as of this encounter
--- OUTSIDE RECORDS SUMMARY | 2024-09-26 01:07 | XMS_ITS | Encounter Summary ---
Author Organization [facility] Address [address] [place] [address] Phone Care Team Providers Care Slab Miller Operator Name Role Phone Jacky Luther DO Primary Care Provider [phone] Reason for Visit * Reason Comments Med Refill Encounter Details Date Type Department Care Team (Late st Contact Info) Description 09/15/2021 Refill [facility] Nephrology and Hypertension [address] [facility], [address] [place] [address] True Clemons MD [address] [facility], SU[address] [facility] [place] [address] Social History Tobacco Use Types Packs/Day Years [...] on filedocumented in this encounter Care Teams Slab Miller Operator Relationship Specialty Start Date End Date Jacky Luther DO [address] [place] [address] PCP - General Internal Medicine 01/08/19 documented as of this encounter
--- OUTSIDE RECORDS SUMMARY | 2024-09-26 01:07 | XMS_ITS | Encounter Summary ---
Author Organization [facility] Address [address] [place] [address] Phone Care Team Providers Care Bridges Supervisor Name Role Phone Jacky Luther DO Primary Care Provider [phone] Reason for Visit * Reason Comments Med Refill Encounter Details Date Type Department Care Team (Late st Contact Info) Description 12/07/[address] [facility] Nephrology and Hypertension [address] [facility], [address] [place] [address] True Clemons MD [address] [facility], [address] [place] [address] Social History Tobacco Use Types Packs/Day Years [...] on filedocumented in this encounter Care Teams Bridges Supervisor Relationship Specialty Start Date End Date Jacky Luther DO [address] [place] [address] PCP - General Internal Medicine 01/08/19 documented as of this encounter
--- OUTSIDE RECORDS SUMMARY | 2024-09-26 01:07 | XMS_ITS | Encounter Summary ---
Author Organization [facility] Address [address] [place] [address] Phone Care Team Providers Care Fleet Manager/Dispatch Name Role Phone Jacky Luther DO Primary Care Provider [phone] Reason for Visit * Reason Comments Med Refill Encounter Details Date Type Department Care Team (Late st Contact Info) Description 06/01/2021 Refill [facility] Nephrology and Hypertension [address] [facility], [address] [place] [address] True Clemons MD [address] [facility], SUITE [facility] [place] [address] Social History Tobacco Use Types Packs/Day Years [...] on filedocumented in this encounter Care Teams Fleet Manager/Dispatch Relationship Specialty Start Date End Date aJcky Luther DO [address] [place] [address] PCP - General Internal Medicine 01/08/19 documented as of this encounter
--- OUTSIDE RECORDS SUMMARY | 2024-09-26 01:07 | XMS_ITS | Encounter Summary ---
Author Organization [facility] Address [address] [place] [address] Phone Care Team Providers Care Correctional Counselor/Case Manager Name Role Phone Jacky Luther DO Primary Care Provider [phone] Reason for Visit * Reason Comments Med Refill Encounter Details Date Type Department Care Team (Late st Contact Info) Description 11/18/2021 Refill [facility] Nephrology and Hypertension [address] [facility], [address] [place] [address] True Clemons MD [address] [facility], [address] [place] [address] Social History Tobacco Use Types Packs/Day Years [...] on filedocumented in this encounter Care Teams Correctional Counselor/Case Manager Relationship Specialty Start Date End Date Jacky Luther DO [address] [place] [address] PCP - General Internal Medicine 01/08/19 documented as of this encounter
--- OUTSIDE RECORDS SUMMARY | 2024-09-26 01:07 | XMS_ITS | Encounter Summary ---
Author Organization [facility] Address [address] [place] [address] Phone Care Team Providers Care Pollution Control Technician Name Role Phone Jacky Luther DO Primary Care Provider [phone] Encounter Details Date Type Department Care Team (Late st Contact Info) Description 10/24/2021 Telephone [facility] Nephrology and Hypertension [address] [facility], [address] [place] [phone] Tatyana Clemons MA Social History Tobacco Use [...] encounter Miscellaneous Notes * Telephone Encounter - Taytana Clemons MA - 10/24/2021 2:15 PM CST Pharmacy called looking for refill order on bactrim. documented in this encounter Plan of Treatment Not on file documented as of this encounter Visit Diagnoses Not on filedocumented in this encounter Care Teams Pollution Control Technician Relationship Specialty Start Date End Date Jacky Luther DO [address] [place] [address] PCP - General Internal Medicine 01/08/19 documented as of this encounter
--- OUTSIDE RECORDS SUMMARY | 2024-09-26 01:07 | XMS_ITS | Encounter Summary ---
Author Organization [facility] Address [address] [place] [address] Phone Care Team Providers Care Industrial Automation Engineer Name Role Phone Jacky Luther DO Primary Care Provider [phone] Reason for Visit * Reason Comments Med Refill Encounter Details Date Type Department Care Team (Late st Contact Info) Description 06/21/2021 Refill [facility] Nephrology and Hypertension [address] [facility], [address] [place] [address] True Clemons MD [address] [facility], SUITE [facility] [place] [address] Social History Tobacco Use Types Packs/Day Years [...] on filedocumented in this encounter Care Teams Industrial Automation Engineer Relationship Specialty Start Date End Date Jacky Luther DO [address] [place] [address] PCP - General Internal Medicine 01/08/19 documented as of this encounter
--- OUTSIDE RECORDS SUMMARY | 2024-09-26 01:07 | XMS_ITS | Encounter Summary ---
Author Organization [facility] Address [address] [place] [address] Phone Care Team Providers Care Freight Adjuster Name Role Phone Jacky Luther DO Primary Care Provider [phone] Reason for Visit * Reason Comments Med Refill Encounter Details Date Type Department Care Team (Late st Contact Info) Description 10/03/[address] [facility] Nephrology and Hypertension [address] [facility], [address] [place] [address] True Clemons MD [address] [facility], [address] [place] [address] Social History Tobacco Use Types Packs/Day Years [...] on filedocumented in this encounter Care Teams Freight Adjuster Relationship Specialty Start Date End Date Jacky Luther DO [address] [place] [address] PCP - General Internal Medicine 01/08/19 documented as of this encounter
--- OUTSIDE RECORDS SUMMARY | 2024-09-26 01:07 | XMS_ITS | Encounter Summary ---
Author Organization [facility] Address [address] [place] [address] Phone Care Team Providers Care Photoengraving Proofer Apprentice Name Role Phone Jacky Luther DO Primary Care Provider [phone] Encounter Details Date Type Department Care Team (Late st Contact Info) Description 10/25/2021 Refill [facility] Nephrology and Hypertension [address] [facility], [address] [place] [address] True Clemons MD [address] [facility], [address] [facility] [place] [address] Social History Tobacco Use Types Packs/Day Years [...] on filedocumented in this encounter Care Teams Photoengraving Proofer Apprentice Relationship Specialty Start Date End Date Jacky Luther DO [address] [place] [address] PCP - General Internal Medicine 01/08/19 documented as of this encounter
--- OUTSIDE RECORDS SUMMARY | 2024-09-26 01:07 | XMS_ITS | Encounter Summary ---
Author Organization [facility] Address [address] [place] [address] Phone Care Team Providers Care Soft Work Wrapper Layer And Examiner Name Role Phone Jacky Luther DO Primary Care Provider [phone] Reason for Visit * Reason Comments Med Refill Encounter Details Date Type Department Care Team (Late st Contact Info) Description 05/17/2021 Refill [facility] Nephrology and Hypertension [address] [facility], [address] [place] [address] True Clemons MD [address] [facility], [address] [facility] [place] [address] Social History Tobacco Use Types Packs/Day Years [...] on filedocumented in this encounter Care Teams Soft Work Wrapper Layer And Examiner Relationship Specialty Start Date End Date Jacky Luther DO [address] [place] [address] PCP - General Internal Medicine 01/08/19 documented as of this encounter
--- OUTSIDE RECORDS SUMMARY | 2024-09-26 01:08 | XMS_ITS | Encounter Summary ---
Author Organization [facility] Address [address] [place] [address] Phone Care Team Providers Care Binding Stitcher Name Role Phone ChaitanyaJacky blair Primary Care Provider [phone] Encounter Details Date Type Department Care Team (Late st Contact Info) Description 07/09/2019 11:30 AM CDT Office Visit [facility] Nephrology and Hy[facility] [address] [place] [address], [address] [place] [address] True Clemons MD [address] [facility], [address] [place] [address] Essential (primary) hypertension (Primary Dx); Kidney transplant status; Hyperlipidemia, not otherwise specified Social History Tobacco Use Types Packs/Day Years Used Date Smoking Tobacco: Former Smokeless Tobacco: Never Alcohol Use Standard Drinks/Week [...] Sign Reading Time Taken Comments Blood Pressure 118/70 07/09/2019 11:44 AM CDT Pulse 84 07/09/2019 11:44 AM CDT Temperature 36.6 ??C (97.9 ??F) 07/09/2019 11:44 AM C DT Respiratory Rate - - Oxygen Saturation - - Inhaled Oxygen Concentration - - Weight 86.6 kg (191 lb) 07/09/2019 11:44 AM CDT Height 170.2 cm (5' 7 ) 07/09/2019 11:44 AM CDT Body Mass Index 29.91 07/09/2019 11:44 AM CDT documented in this encounter Progress Notes * True Clemons MD - 07/09/2019 11:30 AM CDT Tyshawn Engel is a pleasant 53 y.o.female. Ms. Engel is a very pleasant lady who has a kidney transplant. She received her transplant in 1992. It was a living-related donor from her brother. Original ds: vesicoureteral reflux. Taking mmf and pdn only. Senait found elevated LFTs and they are repeating. Hep c neg. Following up with the pulmonary doc's office for this. Still smoking! feels well. No problems with the transplant. no tenderness. urinating okay. has diabetes without retinopathy. last a1c 6.2 She also has hepatitis C. Dr Luther says it is negative. has asthma and it has been stable. taking inhalers. PAST MEDICAL HISTORY: Positive for [...] above Urologic: Negative except as above BP 118/70 Pulse 84 Temp 97.9 ??F (36.6 ??C) Ht 5' 7 (1.702 m) Wt 191 lb (86.6 kg) BMI 29.91 kg/m?? BSA 2.02 m?? WDWN female in NAD Skin No rash Head NCAT Neck No nodes, No TMG Lungs Clear to Auscultation Cor RRR no rub or gallop Abd [...] W7.7 H13.9 P231, a1c 5.6, LDL98 HDL47 Glwv246, PTH 68, vit d 34 Lab Results Component Value Date EGFR 42 (L) 06/26/2017 CREATININE 1.33 (H) 06/26/2017 LDL 85 06/26/2017 HDL 36 06/26/2017 PTH 57 06/26/2017 Impression: Data: IMPRESSION: 1. Patient has a kidney transplant. Function is stable. 23 years. 2. UTIs none recently 3. Multiple allergies; 4. CKD: avoid large amounts of protien (by taste) bp is doing well. lipids good Avoid NSAIDs Stay hydrated On the immunosuppressives 5. anemic. doing okay. last hb 12.6 on no maddie inhibitor due to low bp PTH is good. vit d is good stop smoking! now vaping occasionally. 6. Asthma: seeing Dr Sterling 7. Hypothyroidism: tsh was good 8. Disastrous GI situation since she had the intususception surgery. no more bleeding. 9. DM: HbA1C is good. 10. LFTs high. 11. MS: Seeing Dr Perez about this. just had Evoked potentials. We discussed care plan. Patient has a living will/DPOA. Pt designates sister Kamla and brother Juwan as decision makers if pt unable. she had the pneumovax and refuses the flu shot PLAN: same meds low fat diet See what repeat lfts show RTC 6 months. Assessment/Plan Diagnoses and all orders for this visit: Essential (primary) hypertension Chronic kidney disease, stage 3 (moderate) Hyperlipidemia, not otherwise specified Blood Pressure for this visit is 118/70. Follow up plan to address blood pressure is normal. Body mass index is 29.91 kg/m??. Follow up plan to address BMI is too hevy. See above. Follow up plan to address tobacco use is stop smoking.. documented in this encounter Plan of Treatment Not on file documented as of this encounter Visit Diagnoses Diagnosis Essential (primary) hypertension- Primary Kidney transplant status Hyperlipidemia, not otherwise specified documented in this encounter Care Teams Binding Stitcher Relationship Specialty Start Date End Date Jacky Luther DO [address] [place] [address] PCP - General Internal Medicine 01/08/19 documented as of this encounter
--- OUTSIDE RECORDS SUMMARY | 2024-09-26 01:08 | XMS_ITS | Encounter Summary ---
Author Organization [facility] Address [address] [place] [address] Phone Care Team Providers Care Gear Machinist Name Role Phone ChaitanyaJacky blair Primary Care Provider [phone] Encounter Details Date Type Department Care Team (Late st Contact Info) Description 01/08/2019 11:15 AM CDT Office Visit [facility] Nephrology and Hypertension [address] [place] [address], [address] [place] [address] True Clemons MD [address] [facility], [address] [place] [address] Essential (primary) hypertension (Primary Dx); Chronic kidney disease, stage 3 (moderate); Hyperlipidemia, not otherwise specified Social History Tobacco [...] Sign Reading Time Taken Comments Blood Pressure 126/70 01/08/2019 11:19 AM CDT Pulse 84 01/08/2019 11:19 AM CDT Temperature 36.3 ??C (97.3 ??F) 01/08/2019 11:19 AM C DT Respiratory Rate - - Oxygen Saturation - - Inhaled Oxygen Concentration - - Weight 82.1 kg (181 lb) 01/08/2019 11:19 AM CDT Height 170.2 cm (5' 7 ) 01/08/2019 11:19 AM CDT Body Mass Index 28.35 01/08/2019 11:19 AM CDT documented in this encounter Progress Notes * True Clemons MD - 01/08/2019 11:15 AM CDT Tyshawn Engel is a pleasant 53 y.o.female. Ms. Engel is a very pleasant lady who has a kidney transplant. She received her transplant in 1992. It was a living-related donor from her brother. Original ds: vesicoureteral reflux. She had influenza a and pneumonia. Put on antibiotics and better but still has some remnants of pneumonia. She was in [place] [facility] for a while as well and received atbs there as well. Following up with the pulmonary doc's office [...] Lipitor, Flagyl, cefepime, cephalexin, Avapro and Cipro. Review of Systems Respiratory: Negative for shortness of breath. Gastrointestinal: Negative for abdominal pain. Genitourinary: Negative for dysuria, frequency and hematuria. Objective BP 126/70 Pulse 84 Temp 97.3 ??F (36.3 ??C) Ht 5' 7 (1.702 m) Wt 181 lb (82.1 kg) BMI 28.35 kg/m?? BSA 1.97 m?? Physical Exam Constitutional: She is oriented to person, place, and time. She appears well- developed and well-nourished. No distress. HENT: Head: Normocephalic and atraumatic. Eyes: Conjunctivae are normal. Pupils are equal, round, and reactive to light. Neck: Normal range of motion. No thyromegaly present. Cardiovascular: Normal rate and regular rhythm. Exam reveals no gallop and no friction rub. Pulmonary/Chest: Effort normal and breath sounds normal. She has no rales. Abdominal: Soft. Bowel sounds are normal. There is no tenderness. Musculoskeletal: She exhibits no edema. Lymphadenopathy: She has no cervical adenopathy. Neurological: She is alert and oriented to person, place, and time. Skin: Skin is warm and dry. No rash noted. Psychiatric: She has a normal mood and affect. Recent Labs: No results found for: EGFR, CREATININE, CREATININEUR, PROTEINUR, PROTCREATU, CHOL, LDL, HDL, TRIG, GLUCOSE, PTH, HCT, BUN, NA, K, CL, CO2, ALBUMIN, CA, URICACID Impression: Data: Hb 12.6, Cr 1.74, EGFR 34, K [...] 11/22/18 Cr 1.41, egfr 39, Hb 12.6, IMPRESSION: 1. Patient has a kidney transplant. [...] more bleeding. 9. DM: HbA1C is good. 11. MS: Seeing Dr Perez about this. just had Evoked potentials. We discussed care plan. Patient has a living will/DPOA. Pt designates sister Kamla and brother Juwan as decision makers if pt unable. she had the pneumovax and refuses the flu shot PLAN: same meds low fat diet RTC 6 months. Assessment/Plan Diagnoses and all orders for this visit: Essential (primary) hypertension Chronic kidney disease, stage 3 (moderate) Hyperlipidemia, not otherwise specified Blood Pressure for this visit is 126/70. Follow up plan to address blood pressure is normal. Body mass index is 28.35 kg/m??. Follow up plan to address BMI is too hevy. See above. Follow up plan to address tobacco use is stop smoking.. T documented in this encounter Plan of Treatment Not on file documented as of this encounter Visit Diagnoses Diagnosis Essential (primary) hypertension- Primary Chronic kidney disease, stage 3 (moderate) Hyperlipidemia, not otherwise specified documented in this encounter Care Teams Gear Machinist Relationship Specialty Start Date End Date Jacky Luther DO [address] [place] [address] PCP - General Internal Medicine 01/08/19 documented as of this encounter
--- OUTSIDE RECORDS SUMMARY | 2024-09-26 01:08 | XMS_ITS | Encounter Summary ---
Author Organization [facility] Address [address] [place] [address] Phone Care Team Providers Care Value Analyst Name Role Phone SusieJacky fisher Primary Care Provider [phone] Encounter Details Date Type Department Care Team (Late st Contact Info) Description 09/08/2020 Telephone [facility] Nephrology and Hypertension [address] [facility], [address] [place] [address] True Clemons MD [address] [facility], [address] [facility] [place] [address] Social History Tobacco Use Types Packs/Day Years [...] Telephone Encounter - True Clemons MD - 09/08/2020 10:55 PM CST I called in more * Telephone Encounter - Ciara An - 09/08/2020 9:06 AM CST Spoke w/ pt - spoke with because she has a UTI. Her question is that she usually gets a 7 day antibiotic but says you scribed a 3 day. She's wondering if that a mistake? Please advise documented in this encounter Plan of Treatment Not on file documented as of this encounter Visit Diagnoses Not on filedocumented in this encounter Care Teams Value Analyst Relationship Specialty Start Date End Date Jacky Luther DO [address] [place] [address] PCP - General Internal Medicine 01/08/19 documented as of this encounter
--- OUTSIDE RECORDS SUMMARY | 2024-09-26 01:08 | XMS_ITS | Encounter Summary ---
Author Organization [facility] Address [address] [place] [address] Phone Care Team Providers Care Radio Communication Coordinator Name Role Phone Jacky Luther DO Primary Care Provider [phone] Reason for Visit * Reason Comments Med Refill Encounter Details Date Type Department Care Team (Late st Contact Info) Description 03/02/2021 Refill [facility] Nephrology and Hypertension [address] [facility], [address] [place] [address] True Clemons MD [address] [facility], [address] [facility] [place] [address] Social History Tobacco Use Types Packs/Day Years [...] on filedocumented in this encounter Care Teams Radio Communication Coordinator Relationship Specialty Start Date End Date Jacky Luther DO [address] [place] [address] PCP - General Internal Medicine 01/08/19 documented as of this encounter
--- OUTSIDE RECORDS SUMMARY | 2024-09-26 01:08 | XMS_ITS | Encounter Summary ---
Author Organization [facility] Address [address] [place] [address] Phone Care Team Providers Care Automatic Serging Machine Operator Name Role Phone Jacky Luther DO Primary Care Provider [phone] Reason for Visit * Reason Comments Med Refill Encounter Details Date Type Department Care Team (Late st Contact Info) Description 03/17/2019 Refill [facility] Nephrology and Hypertension [address] [facility], [address] [place] [address] True Clemons MD [address] [facility], [address] [facility] [place] [address] Social History Tobacco Use Types Packs/Day Years [...] on filedocumented in this encounter Care Teams Automatic Serging Machine Operator Relationship Specialty Start Date End Date Jacky Luther DO [address] [place] [address] PCP - General Internal Medicine 01/08/19 documented as of this encounter
--- OUTSIDE RECORDS SUMMARY | 2024-09-26 01:08 | XMS_ITS | Encounter Summary ---
Author Organization [facility] Address [address] [place] [address] Phone Care Team Providers Care Photoengraving Printer Name Role Phone Unavailable Primary Care Provider Unavailabl e Encounter Details Date Type Department Care Team (Late st Contact Info) Description 08/26/2014 [facility] Encounter - Labs [place] [address] True Clemons MD [facility]4 [address] [facility], [address] [address] Social History Tobacco Use Types Packs/Day Years Used Date Smoking Tobacco: Never Assessed Sex and Gender Information Value Date Recorded Sex Assigned at Not on file Gender Identity Not on file Sexual Orientation Not on file documented as of this encounter Plan of Treatment Not on file documented as of this encounter Procedures Procedure Name Priority Date/Time Associated Diagnosis Comments MANUALLY ENTERED ORDER Routine 08/26/2014 12:00 AM PROJECT ECONOMIST documented in this encounter Results * (ABNORMAL) Manually Entered Order (08/26/2014 12:00 AM PROJECT ECONOMIST) Creatinine 1.28 0.5 - 1.3 EXTERNAL LAB Estimated Glomerular Filtration Rate (eGFR) 44(L) 60 - 100 EXTERNAL LAB HEMOGLOBIN 12.6 12 - 16 EXTERNAL LAB 08/26/2014 True Clemons MD LAB BLOOD ORDERABLES EXTERNAL LAB documented in this encounter Visit Diagnoses Not on filedocumented in this encounter
--- OUTSIDE RECORDS SUMMARY | 2024-09-26 01:08 | XMS_ITS | Encounter Summary ---
Author Organization [facility] Address [address] [place] [address] Phone Care Team Providers Care Ground Layer Name Role Phone Unavailable Primary Care Provider Unavailabl e Encounter Details Date Type Department Care Team (Late st Contact Info) Description 02/22/2015 [facility] Encounter - Labs [place] [address] True Clemons MD [facility] [facility], [address] [place] [address] Social History Tobacco Use Types Packs/Day Years [...] Associated Diagnosis Comments MANUALLY ENTERED ORDER Routine 02/22/2015 12:00 AM CDT documented in this encounter Results * (ABNORMAL) Manually Entered Order (02/22/2015 12:00 AM CDT) Creatinine 1.43(H) 0.5 - 1.3 EXTERNAL LAB Estimated Glomerular Filtration Rate (eGFR) 39(L) 60 - 100 EXTERNAL LAB HEMOGLOBIN 12.1 12 - 16 EXTERNAL LAB 02/22/2015 True Clemons MD LAB BLOOD ORDERABLES EXTERNAL LAB documented in this encounter Visit Diagnoses Not on filedocumented in this encounter
--- OUTSIDE RECORDS SUMMARY | 2024-09-26 01:08 | XMS_ITS | Encounter Summary ---
Author Organization [facility] Address [address] [place] [address] Phone Care Team Providers Care Display Fabrication Supervisor Name Role Phone Unavailable Primary Care Provider Unavailabl e Encounter Details Date Type Department Care Team (Late st Contact Info) Description 10/01/2014 [facility] Encounter - Labs [place] [address] True Clemons MD [facility]4 [facility], [address] [place] [address] Social History Tobacco Use Types Packs/Day Years [...] Associated Diagnosis Comments MANUALLY ENTERED ORDER Routine 10/01/2014 12:00 AM HIGH VOLTAGE ELECTRICIAN documented in this encounter Results * (ABNORMAL) Manually Entered Order (10/01/2014 12:00 AM HIGH VOLTAGE ELECTRICIAN) Creatinine 1.37(H) 0.5 - 1.3 EXTERNAL LAB Estimated Glomerular Filtration Rate (eGFR) 41(L) 60 - 100 EXTERNAL LAB Protein/Creatinine , Urine 60 EXTERNAL LAB PTH, INTACT 64 14 - 72 EXTERNAL LAB HEMOGLOBIN 13.3 12 - 16 EXTERNAL LAB LDL 123 0 - 130 EXTERNAL LAB Cholesterol, HDL 40 10 - 50 EXTERNAL LAB TRIGLYCERIDES 212(H) 0 - 150 EXTERNAL LAB TSH, Serum/Plasma 0.34 EXTERNAL LAB Hemoglobin A1c % 5.5 EXTERNAL LAB Uric Acid (Urate) 5.9 EXTERNAL LAB TOTAL CPK 43 EXTERNAL LAB 10/01/2014 True Clemons MD LAB BLOOD ORDERABLES EXTERNAL LAB documented in this encounter Visit Diagnoses Not on filedocumented in this encounter
--- OUTSIDE RECORDS SUMMARY | 2024-09-26 01:08 | XMS_ITS | Encounter Summary ---
Author Organization [facility] Address [address] [place] [address] Phone Care Team Providers Care Manager Business Planning Name Role Phone Homa Jacky Primary Care Provider [phone] Encounter Details Date Type Department Care Team (Late st Contact Info) Description 07/10/2019 [facility] Nephrology and Hypertension [address] [facility], [address] [place] [address] True Clemons MD [address] [facility], SU[address] [facility] [place] [address] Social History Tobacco Use Types Packs/Day Years [...] encounter Miscellaneous Notes * Telephone Encounter - Tatyana Clemons - 07/10/2019 9:54 AM CDT Pt called to let you know the dosage on levothyroxine is 0.1mg once daily documented in this encounter Plan of Treatment Not on file documented as of this encounter Visit Diagnoses Not on filedocumented in this encounter Care Teams Manager Business Planning Relationship Specialty Start Date End Date Jacky Luther DO [address] [place] [address] PCP - General Internal Medicine 01/08/19 documented as of this encounter
--- OUTSIDE RECORDS SUMMARY | 2024-09-26 01:08 | XMS_ITS | Encounter Summary ---
Author Organization [facility] Address [address] [place] [address] Phone Care Team Providers Care Affiliate Marketing Specialist Name Role Phone Unavailable Primary Care Provider Unavailabl e Encounter Details Date Type Department Care Team (Late st Contact Info) Description 02/20/2013 [facility] Encounter - [place] [address] True Clemons MD [facility]4 [address] [facility], [address] [place] [address] Social History Tobacco Use Types Packs/Day Years [...] Associated Diagnosis Comments MANUALLY ENTERED ORDER Routine 02/20/2013 12:00 AM CDT documented in this encounter Results * (ABNORMAL) Manually Entered Order (02/20/2013 12:00 AM CDT) Creatinine 1.49(H) 0.7 - 1 EXTERNAL LAB Estimated Glomerular Filtration Rate (eGFR) 37(L) 60 - 100 EXTERNAL LAB HEMOGLOBIN 11.7(L) 12 - 16 EXTERNAL LAB WBC 8.3 EXTERNAL LAB 02/20/2013 True Clemons MD LAB BLOOD ORDERABLES EXTERNAL LAB documented in this encounter Visit Diagnoses Not on filedocumented in this encounter
--- OUTSIDE RECORDS SUMMARY | 2024-09-26 01:08 | XMS_ITS | Encounter Summary ---
Author Organization [facility] Address [address] [place] [address] Phone Care Team Providers Care Glass Sander Belt Name Role Phone Unavailable Primary Care Provider Unavailabl e Encounter Details Date Type Department Care Team (Late st Contact Info) Description 03/03/2014 Legacy Encounter - [place] [address] True Clemons MD [facility]4 [address] [facility], [address] [place] [address] Social History Tobacco Use Types Packs/Day Years [...] Associated Diagnosis Comments MANUALLY ENTERED ORDER Routine 03/03/2014 12:00 AM CDT documented in this encounter Results * (ABNORMAL) Manually Entered Order (03/03/2014 12:00 AM CDT) Creatinine 1.4(H) 0.5 - 1.3 EXTERNAL LAB Estimated Glomerular Filtration Rate (eGFR) 40(L) 60 - 100 EXTERNAL LAB HEMOGLOBIN 13.7 12 - 16 EXTERNAL LAB 03/03/2014 True Clemons MD LAB BLOOD ORDERABLES EXTERNAL LAB documented in this encounter Visit Diagnoses Not on filedocumented in this encounter
--- OUTSIDE RECORDS SUMMARY | 2024-09-26 01:08 | XMS_ITS | Encounter Summary ---
Author Organization [facility] Address [address] [place] [address] Phone Care Team Providers Care Drilling Field Specialist Name Role Phone SusieJacky fisher Primary Care Provider [phone] Encounter Details Date Type Department Care Team (Late st Contact Info) Description 11/08/2020 11:15 AM TRAILER TANK TRUCK DRIVER Office Visit [facility] Nephrology and Hypertension [address] [place] [address], [address] [place] [address] True Clemons MD [address] [facility], [address] [place] [address] Essential (primary) hypertension (Primary Dx); Stage 3a chronic kidney disease (CMS-HCC); Hyperlipidemia, not otherwise specified Social History Tobacco [...] on file documented as of this encounter Progress Notes * True Clemons MD - 11/08/2020 11:15 AM CST Onielletty Engel is a pleasant 55 y.o.female. Ms. Engel is a very pleasant lady who has a kidney transplant. She received her transplant in 1992. It was a living-related donor from her brother. Original ds: vesicoureteral reflux. Taking mmf and pdn only. Still smoking! No problems with the transplant. [...] as above Urologic: Negative except as above Wt 185#. There were no vitals taken for this visit. WDWN female in nad Psyche okay No edema Head ncat Skin no rash Recent Labs: Hb 12.6, Cr 1.74, EGFR [...] W7.7 H13.9 P231, a1c 5.6, LDL98 HDL47 Vaas496, PTH 68, vit d 34 12/24/2019 Cr 1.31, gfr 42, Upro 100, CBC 8.5/12.4/277, A1C 5.8, Chol 98/41/192, PTH 68, Vit d 26, TSH 0.61 06/24/2020 Cr 1.26, gfr 44, A1C 6, CBC 6.4/12.8/260, Chol 93/37/181, PTH 74, Vitd 30, Upro 100 09/27/20 Cr 1.2, gfr 46, Vit d 25, ALT 42, A1c 5.4, Chol 96/36/253, CBC 8.1/12.5/280 tsat 13 Lab Results Component Value Date EGFR 42 (L) 06/26/2017 CREATININE 1.33 (H) 06/26/2017 LDL 85 06/26/2017 HDL 36 06/26/2017 TRIG 616 12/23/2012 PTH 57 06/26/2017 IMPRESSION: 1. Patient has a kidney transplant. Function is stable. 27+ years. 2. UTIs none recently 3. Multiple allergies; 4. CKD: avoid large amounts of protien (by taste) bp is doing well. lipids good Avoid NSAIDs Stay hydrated Vit d is low. Get some sun! Refuses supplenent On the immunosuppressives 5. Anemia resolved on no maddie inhibitor due to low bp PTH is good. stop smoking! 6. Asthma: seeing Dr Sterling 7. Hypothyroidism: on less supp since tsh went too low before. Dr Luther doing this 8. Disastrous GI situation since she had the intususception surgery. no more bleeding. 9. DM: HbA1C is good. this is due to steroids. 10. LFTs high. 11. MS: Seeing Dr Perez about this. just had Evoked potentials. We discussed care plan. Patient has a living will/DPOA. Pt designates sister Kamla and brother Juwan as decision makers if pt unable. she had the pneumovax and refuses the flu shot PLAN: same meds low fat diet RTC 4 months. telehealth prep 4 min, a/v 6:41, wrapup 3min Assessment/Plan Diagnoses and all orders for this visit: Essential (primary) hypertension Chronic kidney disease, stage 3 (moderate) Hyperlipidemia, not otherwise specified Blood Pressure for this visit is . Follow up plan to address blood pressure is normal. There is no height or weight on file to calculate BMI. Follow up plan to address BMI is too hevy. See above. Follow up plan to address tobacco use is stop smoking.. [facility] documented in this encounter Plan of Treatment Not on file documented as of this encounter Visit Diagnoses Diagnosis Essential (primary) hypertension- Primary Stage 3a chronic kidney disease ([facility]-HCC) Hyperlipidemia, not otherwise specified documented in this encounter Care Teams Drilling Field Specialist Relationship Specialty Start Date End Date Jacky Luther DO [address] [place] [address] PCP - General Internal Medicine 01/08/19 documented as of this encounter
--- OUTSIDE RECORDS SUMMARY | 2024-09-26 01:08 | XMS_ITS | Encounter Summary ---
Author Organization [facility] Address [address] [place] [address] Phone Care Team Providers Care Health Unit Supervisor Name Role Phone Unavailable Primary Care Provider Unavailabl e Encounter Details Date Type Department Care Team (Late st Contact Info) Description 12/23/2012 Legacy Encounter - [place] [address] True Clemons MD [facility]4 [facility], [address] [place] [address] Social History Tobacco Use Types Packs/Day Years [...] Associated Diagnosis Comments MANUALLY ENTERED ORDER Routine 12/23/2012 12:00 AM CDT documented in this encounter Results * Manually Entered Order (12/23/2012 12:00 AM CDT) Protein/Creatinine, Urine 60 EXTERNAL LAB PTH, INTACT 47 7.5 - 53.5 EXTERNAL LAB Alanine Aminotransferase (ALT), Serum/Plasma 43 EXTERNAL LAB Vitamin D (25-OH) 51 30 - 100 EXTERNAL LAB HEMOGLOBIN 12.2 12 - 16 EXTERNAL LAB TSH, Serum/Plasma 2.19 EXTERNAL LAB Hemoglobin A1c % 5.3 EXTERNAL LAB Cholesterol, HDL 33 EXTERNAL LAB Triglyceride, Serum/Plasma 616 EXTERNAL LAB TOTAL CPK 64 EXTERNAL LAB Uric Acid (Urate) 6 EXTERNAL LAB 12/23/2012 True Clemons MD LAB BLOOD ORDERABLES EXTERNAL LAB documented in this encounter Visit Diagnoses Not on filedocumented in this encounter
--- OUTSIDE RECORDS SUMMARY | 2024-09-26 01:08 | XMS_ITS | Encounter Summary ---
Author Organization [facility] Address [address] [place] [address] Phone Care Team Providers Care Biometric Technician Name Role Phone Unavailable Primary Care Provider Unavailabl e Encounter Details Date Type Department Care Team (Late st Contact Info) Description 07/01/2013 Legacy Encounter - [place] [address] True Clemons MD [facility]4 [facility], [address] [address] Social History Tobacco Use Types Packs/Day Years [...] Associated Diagnosis Comments MANUALLY ENTERED ORDER Routine 07/01/2013 12:00 AM CDT documented in this encounter Results * (ABNORMAL) Manually Entered Order (07/01/2013 12:00 AM CDT) Creatinine 1.31(H) 0.5 - 1.3 EXTERNAL LAB Estimated Glomerular Filtration Rate (eGFR) 43(L) 60 - 100 EXTERNAL LAB Protein/Creatinine, Urine 110 EXTERNAL LAB Cholesterol, LDL, Serum/Plasma 93 0 - 130 EXTERNAL LAB Alanine Aminotransferase (ALT), Serum/Plasma 46 12 - 78 EXTERNAL LAB PTH, INTACT 64 14 - 72 EXTERNAL LAB Vitamin D (25-OH) 45 30 - 100 EXTERNAL LAB HEMOGLOBIN 12.1 12 - 16 EXTERNAL LAB Cholesterol, HDL 31 10 - 50 EXTERNAL LAB TRIGLYCERIDES 477(H) 0 - 150 EXTERNAL LAB WBC 7.3 EXTERNAL LAB Platelet Count 279 EXTERNAL LAB Uric Acid (Urate) 5.6 EXTERNAL LAB TOTAL CPK 62 EXTERNAL LAB Hemoglobin A1c % 5.3 EXTERNAL LAB TSH, Serum/Plasma 2.9 EXTERNAL LAB 07/01/2013 True Clemons MD LAB BLOOD ORDERABLES EXTERNAL LAB documented in this encounter Visit Diagnoses Not on filedocumented in this encounter
--- OUTSIDE RECORDS SUMMARY | 2024-09-26 01:08 | XMS_ITS | Encounter Summary ---
Author Organization [facility] Address [address] [place] [address] Phone Care Team Providers Care Child Welfare Manager Name Role Phone Unavailable Primary Care Provider Unavailabl e Encounter Details Date Type Department Care Team (Late st Contact Info) Description 06/26/2016 Legacy Encounter - Labs [place] [address] True Clemons MD [facility]4 [facility], [address] [place] [address] Social History Tobacco Use Types Packs/Day Years [...] Associated Diagnosis Comments MANUALLY ENTERED ORDER Routine 06/26/2016 12:00 AM CDT documented in this encounter Results * (ABNORMAL) Manually Entered Order (06/26/2016 12:00 AM CDT) Creatinine 1.34(H) 0.5 - 1.3 EXTERNAL LAB Estimated Glomerular Filtration Rate (eGFR) 42(L) 60 - 100 EXTERNAL LAB Protein/Creatinine, Urine 200 EXTERNAL LAB Alanine Aminotransferase (ALT), Serum/Plasma 18 12 - 78 EXTERNAL LAB PTH, INTACT 63 14 - 72 EXTERNAL LAB Vitamin D (25-OH) 31 30 - 100 EXTERNAL LAB HEMOGLOBIN 12 12 - 16 EXTERNAL LAB Uric Acid (Urate) 5.8 EXTERNAL LAB CK(CPK) 66 EXTERNAL LAB LDL 84 0 - 130 EXTERNAL LAB Cholesterol, HDL 31 10 - 50 EXTERNAL LAB TRIGLYCERIDES 466(H) 0 - 150 EXTERNAL LAB CHOLESTEROL 195 EXTERNAL LAB TSH, Serum/Plasma 2 EXTERNAL LAB 06/26/2016 True Clemons MD LAB BLOOD ORDERABLES EXTERNAL LAB documented in this encounter Visit Diagnoses Not on filedocumented in this encounter
--- OUTSIDE RECORDS SUMMARY | 2024-09-26 01:08 | XMS_ITS | Encounter Summary ---
Author Organization [facility] Address [address] [place] [address] Phone Care Team Providers Care Beamer Hand Name Role Phone Unavailable Primary Care Provider Unavailabl e Encounter Details Date Type Department Care Team (Late st Contact Info) Description 03/28/2017 Legacy Encounter - [place] [address] True Clemons MD [facility]4 [address] [facility], [address] [place] [address] Social History Tobacco Use Types Packs/Day Years [...] Associated Diagnosis Comments MANUALLY ENTERED ORDER Routine 03/28/2017 12:00 AM CDT documented in this encounter Results * (ABNORMAL) Manually Entered Order (03/28/2017 12:00 AM CDT) Creatinine 1.6(H) 0.5 - 1.3 EXTERNAL LAB Estimated Glomerular Filtration Rate (eGFR) 41(L) 60 - 100 EXTERNAL LAB HEMOGLOBIN 9.5(L) 12 - 16 EXTERNAL LAB 03/28/2017 True Clemons MD LAB BLOOD ORDERABLES EXTERNAL LAB documented in this encounter Visit Diagnoses Not on filedocumented in this encounter
--- OUTSIDE RECORDS SUMMARY | 2024-09-26 01:08 | XMS_ITS | Encounter Summary ---
Author Organization [facility] Address [address] [place] [address] Phone Care Team Providers Care Production Honing Machine Operator Name Role Phone Jacky Luther DO Primary Care Provider [phone] Reason for Visit * Reason Comments Med Refill Encounter Details Date Type Department Care Team (Late st Contact Info) Description 02/25/2020 Refill [facility] Nephrology and Hypertension [address] [facility], [address] [place] [address] True Clemons MD [address] [facility], SUITE [facility] [place] [address] Social History Tobacco Use Types Packs/Day Years [...] on filedocumented in this encounter Care Teams Production Honing Machine Operator Relationship Specialty Start Date End Date Jacky Luther DO [address] [place] [address] PCP - General Internal Medicine 01/08/19 documented as of this encounter
--- OUTSIDE RECORDS SUMMARY | 2024-09-26 01:08 | XMS_ITS | Encounter Summary ---
Author Organization [facility] Address [address] [place] [address] Phone Care Team Providers Care Cover Remover Name Role Phone Jacky Luther DO Primary Care Provider [phone] Reason for Visit * Reason Comments Med Refill Encounter Details Date Type Department Care Team (Late st Contact Info) Description 12/05/2019 Refill [facility] Nephrology and Hypertension [address] [facility], [address] [place] [address] True Clemons MD [address] [facility], SUITE [facility]0 [place] [address] Social History Tobacco Use Types Packs/Day Years [...] on filedocumented in this encounter Care Teams Cover Remover Relationship Specialty Start Date End Date Jacky Luther DO [address] [place] [address] PCP - General Internal Medicine 01/08/19 documented as of this encounter
--- OUTSIDE RECORDS SUMMARY | 2024-09-26 01:08 | XMS_ITS | Encounter Summary ---
Author Organization [facility] Address [address] [place] [address] Phone Care Team Providers Care Copy Chief Name Role Phone Jacky Luther DO Primary Care Provider [phone] Reason for Visit * Reason Comments Med Refill Encounter Details Date Type Department Care Team (Late st Contact Info) Description 12/08/2020 Refill [facility] Nephrology and Hypertension [address] [facility], [address] [place] [address] True Clemons MD [address] [facility], SUITE [facility] [place] [address] Social History Tobacco Use Types Packs/Day Years [...] on filedocumented in this encounter Care Teams Copy Chief Relationship Specialty Start Date End Date Jacky Luther DO [address] [place] [address] PCP - General Internal Medicine 01/08/19 documented as of this encounter
--- OUTSIDE RECORDS SUMMARY | 2024-09-26 01:08 | XMS_ITS | Encounter Summary ---
Author Organization [facility] Address [address] [place] [address] Phone Care Team Providers Care Kohinoor Operator Name Role Phone Unavailable Primary Care Provider Unavailabl e Reason for Visit * Reason Comments Med Refill Encounter Details Date Type Department Care Team (Late st Contact Info) Description 12/13/2018 Refill [facility] Nephrology and Hypertension [address] [facility], Suite [facility] [place] [address] True Clemons MD [address] [facility], [address] [place] [address] Social History Tobacco Use Types Packs/Day Years Used Date Smoking Tobacco: Former Sex and Gender Information Value Date Recorded Sex Assigned at Not on file Gender Identity Not on file Sexual Orientation Not on file documented as of this encounter Plan of Treatment Not on file documented as of this encounter Visit Diagnoses Not on filedocumented in this encounter
--- OUTSIDE RECORDS SUMMARY | 2024-09-26 01:08 | XMS_ITS | Encounter Summary ---
Author Organization [facility] Address [address] [place] [address] Phone Care Team Providers Care Ball Worker Name Role Phone Unavailable Primary Care Provider Unavailabl e Encounter Details Date Type Department Care Team (Late st Contact Info) Description 06/26/2017 Legacy Encounter - Labs [place] [address] True Clemons MD [facility]4 [facility], [address] [place] [address] Social History Tobacco Use Types Packs/Day Years [...] Associated Diagnosis Comments MANUALLY ENTERED ORDER Routine 06/26/2017 12:00 AM CDT documented in this encounter Results * (ABNORMAL) Manually Entered Order (06/26/2017 12:00 AM CDT) Creatinine 1.33(H) 0.5 - 1.3 EXTERNAL LAB Estimated Glomerular Filtration Rate (eGFR) 42(L) 60 - 100 EXTERNAL LAB Protein/Creatinine, Urine 250 EXTERNAL LAB Alanine Aminotransferase (ALT), Serum/Plasma 26 12 - 78 EXTERNAL LAB PTH, INTACT 57 14 - 72 EXTERNAL LAB Vitamin D (25-OH) 30 30 - 100 EXTERNAL LAB LDL 85 0 - 130 EXTERNAL LAB Cholesterol, HDL 36 10 - 50 EXTERNAL LAB TRIGLYCERIDES 397(H) 0 - 150 EXTERNAL LAB TSH, Serum/Plasma 4 EXTERNAL LAB Hemoglobin A1c % 6 EXTERNAL LAB 06/26/2017 True Clemons MD LAB BLOOD ORDERABLES EXTERNAL LAB documented in this encounter Visit Diagnoses Not on filedocumented in this encounter
--- OUTSIDE RECORDS SUMMARY | 2024-09-26 01:08 | XMS_ITS | Encounter Summary ---
Author Organization [facility] Address [address] [place] [address] Phone Care Team Providers Care Electric Blanket Packer Name Role Phone Unavailable Primary Care Provider Unavailabl e Encounter Details Date Type Department Care Team (Late st Contact Info) Description 08/24/2015 Legacy Encounter - [place] [address] True Clemnos MD [facility]4 [facility], [address] [place] [address] Social History Tobacco Use Types Packs/Day Years [...] Associated Diagnosis Comments MANUALLY ENTERED ORDER Routine 08/24/2015 12:00 AM DEVELOPMENTAL WRITING INSTRUCTOR documented in this encounter Results * (ABNORMAL) Manually Entered Order (08/24/2015 12:00 AM DEVELOPMENTAL WRITING INSTRUCTOR) Creatinine 1.46(H) 0.5 - 1.3 EXTERNAL LAB Estimated Glomerular Filtration Rate (eGFR) 38(L) 60 - 100 EXTERNAL LAB HEMOGLOBIN 12.1 12 - 16 EXTERNAL LAB 08/24/2015 True Clemons MD LAB BLOOD ORDERABLES EXTERNAL LAB documented in this encounter Visit Diagnoses Not on filedocumented in this encounter
--- OUTSIDE RECORDS SUMMARY | 2024-09-26 01:08 | XMS_ITS | Encounter Summary ---
Author Organization [facility] Address [address] [place] [address] Phone Care Team Providers Care Renal Medicine Physician Name Role Phone Jacky Luther DO Primary Care Provider [phone] Reason for Visit * Reason Comments Med Refill Encounter Details Date Type Department Care Team (Late st Contact Info) Description 09/29/2020 Refill [facility] Nephrology and Hypertension [address] [facility], [address] [place] [address] True Clemons MD [address] [facility], [address] [place] [address] Social History Tobacco Use Types Packs/Day Years [...] on filedocumented in this encounter Care Teams Renal Medicine Physician Relationship Specialty Start Date End Date Jacky Luther DO [address] [place] [address] PCP - General Internal Medicine 01/08/19 documented as of this encounter
--- OUTSIDE RECORDS SUMMARY | 2024-09-26 01:08 | XMS_ITS | Encounter Summary ---
Author Organization [facility] Address [address] [place] [address] Phone Care Team Providers Care Insole And Outsole Preparer Name Role Phone Unavailable Primary Care Provider Unavailabl e Encounter Details Date Type Department Care Team (Late st Contact Info) Description 02/22/2017 Legacy Encounter - Labs [place] [address] True Clemons MD [facility]4 [address] [facility], [address] [place] [address] Social History Tobacco Use Types Packs/Day Years [...] Associated Diagnosis Comments MANUALLY ENTERED ORDER Routine 02/22/2017 12:00 AM CDT documented in this encounter Results * (ABNORMAL) Manually Entered Order (02/22/2017 12:00 AM CDT) Creatinine 1.34(H) 0.5 - 1.3 EXTERNAL LAB Estimated Glomerular Filtration Rate (eGFR) 41(L) 60 - 100 EXTERNAL LAB HEMOGLOBIN 9.8(L) 12 - 16 EXTERNAL LAB 02/22/2017 True Clemons MD LAB BLOOD ORDERABLES EXTERNAL LAB documented in this encounter Visit Diagnoses Not on filedocumented in this encounter
--- OUTSIDE RECORDS SUMMARY | 2024-09-26 01:08 | XMS_ITS | Encounter Summary ---
Author Organization [facility] Address [address] [place] [address] Phone Care Team Providers Care Pharmacist In Charge Owner Name Role Phone ChaitanyaJacky blair Primary Care Provider [phone] Encounter Details Date Type Department Care Team (Late st Contact Info) Description 07/12/2020 11:15 AM CDT Office Visit [facility] Nephrology and Hypertension [address] [place] [address], [address] [place] [address] True Clemons MD [address] [facility], [address] [place] [address] Essential (primary) hypertension (Primary Dx); Chronic kidney disease, stage 3a; Kidney transplant status; Hyperlipidemia, not otherwise specified [...] Reading Time Taken Comments Blood Pressure 126/70 07/12/2020 11:11 AM CDT Pulse 84 07/12/2020 11:11 AM CDT Temperature 36.4 ??C (97.6 ??F) 07/12/2020 11:11 AM C DT Respiratory Rate - - Oxygen Saturation - - Inhaled Oxygen Concentration - - Weight 86.2 kg (190 lb) 07/12/2020 11:11 AM CDT Height 170.2 cm (5' 7 ) 07/12/2020 11:11 AM CDT Body Mass Index 29.76 07/12/2020 11:11 AM CDT documented in this encounter Progress Notes * True Clemons MD - 07/12/2020 11:15 AM CDT Tyshawn Engel is a pleasant 54 y.o.female. Ms. Engel is a very pleasant [...] above Urologic: Negative except as above BP 126/70 Pulse 84 Temp 97.6 ??F (36.4 ??C) Ht 5' 7 (1.702 m) Wt 190 lb (86.2 kg) BMI 29.76 kg/m?? BSA 2.02 m?? WDWN female in nad Lungs clear Cor reg no rub abd BS+ nontender Ext no edema Skin no rash Recent Labs: Hb 12.6, [...] W7.7 H13.9 P231, a1c 5.6, LDL98 HDL47 Dyan446, PTH 68, vit d 34 12/24/2019 Cr 1.31, gfr 42, Upro 100, CBC 8.5/12.4/277, A1C 5.8, Chol 98/41/192, PTH 68, Vit d 26, TSH 0.61 06/24/2020 Cr 1.26, gfr 44, A1C 6, CBC 6.4/12.8/260, Chol 93/37/181, PTH 74, Vitd 30, Upro 100 Lab Results Component Value Date EGFR 42 [...] Avoid NSAIDs Stay hydrated Vit d is okayt On the immunosuppressives 5. Anemia resolved on [...] meds low fat diet RTC 4 months. She will call for appt Assessment/Plan Diagnoses and all orders for this visit: Essential (primary) hypertension Chronic kidney disease, stage 3 (moderate) Hyperlipidemia, not otherwise specified Blood Pressure for this visit is 126/70. Follow up plan to address blood pressure is normal. Body mass index is 29.76 kg/m??. Follow up plan to address BMI is too hevy. See above. Follow up plan to address tobacco use is stop smoking.. documented in this encounter Plan of Treatment Not on file documented as of this encounter Visit Diagnoses Diagnosis Essential (primary) hypertension- Primary Chronic kidney disease, stage 3a Kidney transplant status Hyperlipidemia, not otherwise specified documented in this encounter Care Teams Pharmacist In Charge Owner Relationship Specialty Start Date End Date Jacky Luther DO [address] [place], [place] [id number] PCP - General Internal Medicine 01/08/19 documented as of this encounter
--- OUTSIDE RECORDS SUMMARY | 2024-09-26 01:08 | XMS_ITS | Encounter Summary ---
Author Organization [facility] Address [address] [place] [address] Phone Care Team Providers Care Optical Goods Worker Name Role Phone ChaitanyaJacky blair Primary Care Provider [phone] Encounter Details Date Type Department Care Team (Late st Contact Info) Description 04/11/2021 11:00 AM CDT Office Visit [facility] Nephrology and Hypertension [address] [place] [address], [address] [place] [address] True Clemons MD [address] [facility], [address] [place] [address] Essential (primary) hypertension (Primary Dx); Kidney transplant status; Stage 3a chronic kidney disease ([facility]); Hyperlipidemia, not otherwise specified Social History Tobacco [...] Sign Reading Time Taken Comments Blood Pressure 122/68 04/11/2021 10:49 AM CDT Pulse 72 04/11/2021 10:49 AM CDT Temperature 36.6 ??C (97.9 ??F) 04/11/2021 10:49 AM C DT Respiratory Rate - - Oxygen Saturation - - Inhaled Oxygen Concentration - - Weight 85.3 kg (188 lb) 04/11/2021 10:49 AM CDT Height 170.2 cm (5' 7 ) 04/11/2021 10:49 AM CDT Body Mass Index 29.44 04/11/2021 10:49 AM CDT documented in this encounter Progress Notes * True Clemons MD - 04/11/2021 11:00 AM CDT Tyshawn Engel is a pleasant 55 y.o.female. Ms. [...] W7.7 H13.9 P231, a1c 5.6, LDL98 HDL47 [id number], PTH 68, vit d 34 12/24/2019 Cr [...] gfr, CO2 26, Mg 1.9, Hb 12.9, IMPRESSION: 1. Patient has a kidney transplant. Function is stable. 27+ years. 2. UTIs none recently 3. Multiple allergies; 4. CKD: avoid large amounts of protien (by taste) bp is doing well. lipids good Avoid NSAIDs Stay hydrated Vit d is low. Get some sun! Refuses supplenent On the immunosuppressives 5. Anemia resolved 6. Sodium was a bit low. She called trpt people and was told to cut back on water and it is beter. on no maddie inhibitor due to low bp PTH is good. stop smoking! 6. Asthma: seeing Dr Sterling 7. Hypothyroidism: on less supp since tsh went too low before. Dr Luther doing this. Last TSH was in March and was okay 8. Disastrous GI situation since she had the intususception surgery. no more bleeding. 9. DM: HbA1C is good. this is due to steroids. 10. LFTs high. 11. MS: Seeing Dr Perez about this. just had Evoked potentials. PLAN: same meds low fat diet RTC 6 months. Diagnoses and all orders for this visit: Essential (primary) hypertension Kidney transplant status Stage 3a chronic kidney disease ([facility]) Hyperlipidemia, not otherwise specified Body mass index is 29.44 kg/m??. Follow up plan to address BMI [...] Essential (primary) hypertension- Primary Kidney transplant status Stage 3a chronic kidney disease ([facility]) Hyperlipidemia, not otherwise specified documented in this encounter Care Teams Optical Goods Worker Relationship Specialty Start Date End Date Jacky Luther DO [address] [place] [address] PCP - General Internal Medicine 01/08/19 documented as of this encounter
--- OUTSIDE RECORDS SUMMARY | 2024-09-26 01:08 | XMS_ITS | Encounter Summary ---
Author Organization [facility] Address [address] [place] [address] Phone Care Team Providers Care Cycle Analyst Name Role Phone Jacky Luther DO Primary Care Provider Reason for Visit * Reason Comments Med Refill Encounter Details Date Type Department Care Team (Late st Contact Info) Description 12/09/2020 Refill [facility] Nephrology and Hypertension [address] [facility], [address] [place] [address] True Clemons MD [address] [facility], SUITE Replaced by [facility] [place] [address] Social History Tobacco Use Types Packs/Day Years [...] on filedocumented in this encounter Care Teams Cycle Analyst Relationship Specialty Start Date End Date Jacky Luther DO [address] [place] [address] PCP - General Internal Medicine 01/08/19 documented as of this encounter
--- OUTSIDE RECORDS SUMMARY | 2024-09-26 01:08 | XMS_ITS | Encounter Summary ---
Author Organization [facility] Address [address] [place] [address] Phone Care Team Providers Care Blocker And Polisher Gold Wheel Name Role Phone Jacky Luther DO Primary Care Provider [phone] Reason for Visit * Reason Comments Med Refill Encounter Details Date Type Department Care Team (Late st Contact Info) Description 12/03/2019 Refill [facility] Nephrology and Hypertension [address] [facility], [address] [place] [address] True Clemons MD [address] [facility], SUITE [facility] [place] [address] Social History Tobacco Use Types Packs/Day Years [...] on filedocumented in this encounter Care Teams Blocker And Polisher Gold Wheel Relationship Specialty Start Date End Date Jacky Luther DO [address] [place] [address] PCP - General Internal Medicine 01/08/19 documented as of this encounter
--- OUTSIDE RECORDS SUMMARY | 2024-09-26 01:08 | XMS_ITS | Encounter Summary ---
Author Organization [facility] Address [address] [place] [address] Phone Care Team Providers Care Nozzle And Sleeve Worker Name Role Phone ChaitanyaJacky blair Primary Care Provider [phone] Encounter Details Date Type Department Care Team (Late st Contact Info) Description 10/07/2020 [facility] Nephrology and Hypertension [facility]4 [address] [facility], [address] [place], [place] [address] True Clemons MD [address] [facility], SUITE [facility] [place] [address] Social History Tobacco Use Types Packs/Day Years [...] * Telephone Encounter - Ciara An - 10/08/2020 11:35 AM CST LMOR to relay info to pt- Faxed labs over * Telephone Encounter - True Clemons MD - 10/07/2020 5:37 PM CST Please let pt know: 1.Kidneys stable. 2.Iron low again. Restart the iron. I called it in. 3.Vitamin d is low. She should take some. I called it in. 4. Thyroid is off. She needs more. She can call PCP to do this. Please fax the labs to pcp then shecan call. documented in this encounter Plan of Treatment Not on file documented as of this encounter Visit Diagnoses Not on filedocumented in this encounter Care Teams Nozzle And Sleeve Worker Relationship Specialty Start Date End Date Jacky Luther DO [address] [place] [address] PCP - General Internal Medicine 01/08/19 documented as of this encounter
--- OUTSIDE RECORDS SUMMARY | 2024-09-26 01:08 | XMS_ITS | Encounter Summary ---
Author Organization [facility] Address [address] [place] [address] Phone Care Team Providers Care [employer] Dean Name Role Phone Unavailable Primary Care Provider Unavailabl e Encounter Details Date Type Department Care Team (Late st Contact Info) Description 11/02/2016 Legacy Encounter - Labs [place] [address] True Clemons MD [facility]4 [facility], [address] [place] [address] Social History Tobacco Use Types Packs/Day Years [...] Associated Diagnosis Comments MANUALLY ENTERED ORDER Routine 11/02/2016 12:00 AM REMNANT SORTER documented in this encounter Results * (ABNORMAL) Manually Entered Order (11/02/2016 12:00 AM REMNANT SORTER) Creatinine 1.32(H) 0.5 - 1.3 EXTERNAL LAB Estimated Glomerular Filtration Rate (eGFR) 42(L) 60 - 100 EXTERNAL LAB HEMOGLOBIN 12.9 12 - 16 EXTERNAL LAB 11/02/2016 True Clemons MD LAB BLOOD ORDERABLES EXTERNAL LAB documented in this encounter Visit Diagnoses Not on filedocumented in this encounter
--- OUTSIDE RECORDS SUMMARY | 2024-09-26 01:08 | XMS_ITS | Encounter Summary ---
Author Organization [facility] Address [address] [place] [address] Phone Care Team Providers Care Commercial Illustrator Name Role Phone Jacky Luther DO Primary Care Provider [phone] Reason for Visit * Reason Comments Med Refill Encounter Details Date Type Department Care Team (Late st Contact Info) Description 02/27/2020 Refill [facility] Nephrology and Hypertension [address] [facility], [address] [place] [address] True Clemons MD [address] [facility], SUITE [facility] [place] [address] Social History Tobacco Use Types Packs/Day Years [...] on filedocumented in this encounter Care Teams Commercial Illustrator Relationship Specialty Start Date End Date Jacky Luther DO [address] [place] [address] PCP - General Internal Medicine 01/08/19 documented as of this encounter
--- OUTSIDE RECORDS SUMMARY | 2024-09-26 01:08 | XMS_ITS | Encounter Summary ---
Author Organization [facility] Address [address] [place] [address] Phone Care Team Providers Care Armored Machine Operator Name Role Phone Homa Jacky Primary Care Provider [phone] Encounter Details Date Type Department Care Team (Late st Contact Info) Description 02/03/2019 [facility] Nephrology and Hypertension [address] [facility], [address] [place] [address] True Clemons MD [address] [facility], SUITE [facility] [place] [address] Social History Tobacco Use Types Packs/Day Years [...] * Telephone Encounter - Tatyana Clemons - 02/03/2019 2:35 PM CDT Pt wanted you to know she went to ER and was diagnosed with UTI. They are treating with a few meds for a couple weeks. FYI documented in this encounter Plan of Treatment Not on file documented as of this encounter Visit Diagnoses Not on filedocumented in this encounter Care Teams Armored Machine Operator Relationship Specialty Start Date End Date Jacky Luther DO [address] [place] [id number] PCP - General Internal Medicine 01/08/19 documented as of this encounter
--- OUTSIDE RECORDS SUMMARY | 2024-09-26 01:08 | XMS_ITS | Encounter Summary ---
Author Organization [facility] Address [address] [place] [address] Phone Care Team Providers Care Assistant Store Manager Name Role Phone Jacky Luther DO Primary Care Provider [phone] Reason for Visit * Reason Comments Med Refill Encounter Details Date Type Department Care Team (Late st Contact Info) Description 09/13/2020 Refill [facility] Nephrology and Hypertension [address] [facility], [address] [place] [address] True Clemons MD [address] [facility], SUITE [facility] [place] [address] Social History Tobacco Use Types Packs/Day Years [...] on filedocumented in this encounter Care Teams Assistant Store Manager Relationship Specialty Start Date End Date Jacky Luther DO [address] [place] [address] PCP - General Internal Medicine 01/08/19 documented as of this encounter
--- OUTSIDE RECORDS SUMMARY | 2024-09-26 01:08 | XMS_ITS | Encounter Summary ---
Author Organization [facility] Address [address] [place] [address] Phone Care Team Providers Care Faculty Neuropsychologist Name Role Phone Unavailable Primary Care Provider Unavailabl e Encounter Details Date Type Department Care Team (Late st Contact Info) Description 03/24/2016 Legacy Encounter - [place] [address] True Clemons MD [facility], [address] [place] [address] Social History Tobacco Use Types Packs/Day Years [...] Associated Diagnosis Comments MANUALLY ENTERED ORDER Routine 03/24/2016 12:00 AM CDT documented in this encounter Results * (ABNORMAL) Manually Entered Order (03/24/2016 12:00 AM CDT) Creatinine 1.45(H) 0.5 - 1.3 EXTERNAL LAB Estimated Glomerular Filtration Rate (eGFR) 38(L) 60 - 100 EXTERNAL LAB PTH, INTACT 74(H) 14 - 72 EXTERNAL LAB Vitamin D (25-OH) 44 30 - 100 EXTERNAL LAB LDL 77 -130 EXTERNAL LAB Cholesterol, HDL 35 10 - 50 EXTERNAL LAB TRIGLYCERIDES 305(H) 0 - 150 EXTERNAL LAB 03/24/2016 True Clemons MD LAB BLOOD ORDERABLES EXTERNAL LAB documented in this encounter Visit Diagnoses Not on filedocumented in this encounter
--- OUTSIDE RECORDS SUMMARY | 2024-09-26 01:08 | XMS_ITS | Encounter Summary ---
Author Organization [facility] Address [address] [place] [address] Phone Care Team Providers Care Communication Clerk Name Role Phone Unavailable Primary Care Provider Unavailabl e Encounter Details Date Type Department Care Team (Late st Contact Info) Description 09/25/2012 Legacy Encounter - [place] [address] True Clemons MD [facility], [address] [place] [address] Social History Tobacco Use Types Packs/Day Years [...] Associated Diagnosis Comments MANUALLY ENTERED ORDER Routine 09/25/2012 12:00 AM TECHNICAL IMPLEMENTATION LEAD documented in this encounter Results * (ABNORMAL) Manually Entered Order (09/25/2012 12:00 AM TECHNICAL IMPLEMENTATION LEAD) Creatinine 1.52(H) 0.5 - 1.3 EXTERNAL LAB Estimated Glomerular Filtration Rate (eGFR) 37(L) 60 - 100 EXTERNAL LAB Protein/Creatin ine, Urine 120 EXTERNAL LAB PTH, INTACT 68 14 - 72 EXTERNAL LAB Vitamin D (25-OH) 45 30 - 100 EXTERNAL LAB HEMOGLOBIN 11.8 EXTERNAL LAB TSH, Serum/Plasma 2.78 EXTERNAL LAB Hemoglobin A1c % 5.4 EXTERNAL LAB 09/25/2012 True Clemons MD LAB BLOOD ORDERABLES EXTERNAL LAB documented in this encounter Visit Diagnoses Not on filedocumented in this encounter
--- OUTSIDE RECORDS SUMMARY | 2024-09-26 01:08 | XMS_ITS | Encounter Summary ---
Author Organization [facility] Address [address] [place] [address] Phone Care Team Providers Care Custodial Aide Name Role Phone Homa Jacky Primary Care Provider Encounter Details Date Type Department Care Team (Late st Contact Info) Description 04/01/2019 [facility] Nephrology and Hypertension [address] [facility], [address] [address] Ture Clemons MD [address] [facility], SUITE [facility] [place] [address] Social History Tobacco Use Types Packs/Day Years [...] Notes * Telephone Encounter - Rhonda Clemons - 04/01/2019 2:34 PM CDT Pt called re: possible lactulose rx. Pt states she is constipated after ferrous sulfate rx. [facility] Please advise if you are unable to rx. documented in this encounter Plan of Treatment Not on file documented as of this encounter Visit Diagnoses Not on filedocumented in this encounter Care Teams Custodial Aide Relationship Specialty Start Date End Date Jacky Luther DO [address] [place] [address] PCP - General Internal Medicine 01/08/19 documented as of this encounter
--- OUTSIDE RECORDS SUMMARY | 2024-09-26 01:08 | XMS_ITS | Encounter Summary ---
Author Organization [facility] Address [address] [place] [address] Phone Care Team Providers Care Disaster Recovery Specialist Name Role Phone Unavailable Primary Care Provider Unavailabl e Reason for Visit * Reason Comments Med Refill Encounter Details Date Type Department Care Team (Late st Contact Info) Description 12/16/[address] [facility] Nephrology and Hypertension [address] [facility], Suite [facility] [place] [address] True Clemons MD [address] [facility], [address] [place] [address] Social History Tobacco Use Types Packs/Day Years [...]
--- OUTSIDE RECORDS SUMMARY | 2024-09-26 01:08 | XMS_ITS | Encounter Summary ---
Author Organization [facility] Address [address] [place] [address] Phone Care Team Providers Care Tire Builder Name Role Phone Jacky Luther DO Primary Care Provider Reason for Visit * Reason Comments Med Refill Encounter Details Date Type Department Care Team (Late st Contact Info) Description 02/28/2021 Refill [facility] Nephrology and Hypertension [address] [facility], [address] [place] [address] True Clemons MD [address] [facility], SUITE [facility] [place] [address] Social History Tobacco Use Types Packs/Day Years [...] on filedocumented in this encounter Care Teams Tire Builder Relationship Specialty Start Date End Date Jacky Luther DO [address] [place] [address] PCP - General Internal Medicine 01/08/19 documented as of this encounter
--- OUTSIDE RECORDS SUMMARY | 2024-09-26 01:19 | XMS_ITS | Clinical Summary ---
Author Organization [facility] Address [address] [place] [address]. [place] [address] Care Team Providers Care Injection Mold Technician Name Role Phone Unavailable Primary Care Provider Unavailabl e Social History Tobacco Use Types Packs/Day Years Used Date Smoking Tobacco: Never Assessed Comments Unknown Sex and Gender Information Value Date Recorded Sex Assigned at Not on file Legal Sex Female 7:53 PM CDT Gender Identity Not on file Sexual Orientation Not on file Plan of Treatment Health Maintenance Due Date Last Done Comments Cervical Cancer Screening Pa p Smear (Age 30 to 64) Every 3 Years 1963 Colorectal Cancer Screening Colonoscopy (10 Years) 1963 Annual Physical 1966 Hepatitis C 1981 DTaP, Tdap and Td Vaccines ( 1 - Tdap) 1982 Cervical Cancer Screening Pa p with HPV Testing (Age 30 to 64) Every 5 Years 1993 Cervical Cancer Screening with HPV 1993 Mammogram Screening 2003 Zoster Vaccines (1 of 2) 2013 COVID-19 Vaccine (2023-2 5 season) 2024 Influenza Adult (#1) 2024 RSV Immunization or 60+ Years (1 - 1-dose 75+ series) 2038 Meningococcal Vaccine Aged Out No andrés sedrikc eligible based on patient's age to complete this topic Pneumococcal Vaccine: Pediat rics (0 to 5 Years) and At-Risk Patients (6 to 64 Years) Aged Out No longer eligible b ased on patient's age to complete this topic RSV Immunizations Under 20 Months Aged Out No longer eligible based on patient's age to complete this topic
--- OUTSIDE RECORDS SUMMARY | 2024-09-26 01:19 | XMS_ITS | Encounter Summary ---
Author Organization [facility] Address [address] [place] [address]. [place], [place] [address] [place] [address] Care Team Providers Care Banking Assistant Name Role Phone Jocelyn Carpenter MD Primary Care Provider Unavailable Encounter Details Date Type Department Care Team (Late st Contact Info) Description 05/19/2014 Abstract [facility] Interventional Pain Management Center [place], [place] [id number] Mary Grace Cheney MD Three [facility] [address] [place], [place] [id number] Social History Tobacco Use Types Packs/Day Years [...] on filedocumented in this encounter Care Teams Banking Assistant Relationship Specialty Start Date End Date Jocelyn Carpenter MD PCP - General 01/14/14 documented as of this encounter
--- OUTSIDE RECORDS SUMMARY | 2024-09-26 01:19 | XMS_ITS | Encounter Summary ---
Author Organization [facility] Address [address] [place] [address]. [place], [place] [address] [place] [address] Care Team Providers Care Inspector Bullet Slugs Name Role Phone Jocelyn [place] MD Primary Care Provider Unavailable Encounter Details Date Type Department Care Team (Late st Contact Info) Description 01/14/2014 Abstract [facility] Inter[facility] [place], [place] [id number] Mary Grace Cheney MD Three [facility] [address] [place], [place] [id number] Social History Tobacco Use Types Packs/Day Years Used Date Smoking Tobacco: Never Assessed Comments Unknown Sex and Gender Information Value Date Recorded Sex Assigned at Not on file Legal Sex Female 7:53 PM CDT Gender Identity Not on file Sexual Orientation Not on file documented as of this encounter Plan of Treatment Not on file documented as of this encounter Visit Diagnoses Diagnosis Degeneration of cervical intervertebral disc documented in this encounter Care Teams Inspector Bullet Slugs Relationship Specialty Start Date End Date Jocelyn [place] MD PCP - General 01/14/14 documented as of this encounter
--- OUTSIDE RECORDS SUMMARY | 2024-09-26 01:20 | XMS_ITS | Clinical Summary ---
Author Organization [facility] Address [address] [place] [address] Phone Care Team Providers Care Rn Prior Authorization Name Role Phone Jacky Luther DO Primary Care Provider Allergies Active Allergy Reactions Criticality Noted Date Comments Irbesartan Other (see Comments) 09/02/2015 Blisters Cefepime Other (see Comments) 09/02/2015 Francesca syndrome Cephalexin Other (see Comments) 09/02/2015 Blisters Ciprofloxacin Anaphylaxis 09/02/2015 Clindamycin Nausea 09/02/2015 Erythromycin Rash,Itching 09/02/2015 Metronidazole Other (see Comments) 09/02/2015 Francesca syndrome Iron Dextran Anaphylaxis 09/02/2015 Isoniazid Rash,Itching 09/02/2015 Atorvastatin Other (see Comments) 09/02/2015 Fever and Weakness Penicillins Vomiting 09/02/2015 Medications acyclovir (ZOVIRAX) 200 MG Capsule Take 200 mg by mouth 2 times daily. Active omeprazole (PRILOSEC) 20 MG CAPSULE DELAYED RELEASE Take 20 mg by mouth daily. Active Sulfamethoxazole -Trimethoprim (BACTRIM DS PO) Take by mouth daily. Active levothyroxine (LEVOTHROID) 112 MCG Tablet Take 112 mcg by mouth daily. Active mycophenolate (CELLCEPT) 250 MG Capsule Take 250 mg by mouth daily. Active predniSONE (DELTASONE) 5 MG Tablet Take 5 mg by mouth three times a week. Use as directed. Active aspirin 81 MG Chewable Tablet Take 81 mg by mouth daily. Active LORazepam (ATIVAN) 2 MG Tablet 1 PILL 1 HOUR PRIOR TO MRI AND A SECOND PILL BEFORE THE MRI IF STILL ANXIOUS. 2 Tab 0 09/02/2015 Active FLOVENT HFA 44 MCG/ACT Aerosol 2 Puffs 2 times daily. 11/26/2015 Active Active Problems Problem Noted Date Diagnosed Date Chronic non-specific white matter lesions on MRI 12/02/2015 Multiple sclerosis 09/02/2015 Family History Medical History Relation Name Comments Diabetes Mother Diabetes Sister Relation Name Status Comments Father Mother Sister Alive Social History Tobacco Use Types Packs/Day Years Used Date Smoking Tobacco: Former Cigarettes Q uit: 07/08/2014 Tobacco Cessation:Counseling Given: Yes Comments:uses electronic cigarettes Alcohol Use Standard Drinks/Week Comments No 0 (1 standard drink = 0.6 oz pur e alcohol) Comments No Sex and Gender Information Value Date Recorded Sex Assigned at Not on file Legal Sex Female 6:35 PM CDT Gender Identity Not on file Sexual Orientation Not on file Last Filed Vital Signs Vital Sign Reading Time Taken Comments Blood Pressure 140/80 12/02/2015 10:23 AM INSURANCE VERIFICATION CLERK Pulse 66 12/02/2015 10:23 AM INSURANCE VERIFICATION CLERK Temperature 36.8 ??C (98.2 ??F) 12/02/2015 10:[address] Respiratory Rate 20 12/02/2015 10:23 AM INSURANCE VERIFICATION CLERK Oxygen Saturation 96% 09/02/2015 10:34 AM INSURANCE VERIFICATION CLERK Inhaled Oxygen Concentration - - Weight 90.7 kg (200 lb) 12/02/2015 10:23 AM INSURANCE VERIFICATION CLERK Height 168.9 cm (5' 6.5 ) 12/02/2015 10:23 AM CS T Body Mass Index 31.8 12/02/2015 10:23 AM INSURANCE VERIFICATION CLERK Plan of Treatment Health Maintenance Due Date Last Done Comments TdaP Immunization 1963 SARS-COV-2 Immunization (#1) 1968 Pneumococcal Immunization Co mbined (1 of 2 - PCV) 1969 Zoster Immunization (1 of 2) 1982 Colonoscopy 2008 Colorectal Cancer Screening 2008 Cologuard 2013 Immunochemical Fecal Occult Blood 2013 Mammogram 2013 Influenza Immunization (Seas on Ended) 2024 Hepatitis B Immunization Aged Out No longer eligible based on patient's age to complete this topic Meningococcal Immunization (ACWY) Aged Out No longer eligible based on patient's age to complete this topic Rotavirus Immunization Aged Out No lo nger eligible based on patient's age to complete this topic Insurance MEDICAID [employer] Care Teams Rn Prior Authorization Relationship Specialty Start Date End Date Jacky Luther DO [address] [facility] [address] PCP - General Internal Medicine 09/02/15
--- OUTSIDE RECORDS SUMMARY | 2024-09-26 01:21 | XMS_ITS | Encounter Summary ---
Author Organization [facility] Healthcare Address [address] [place] [address] Care Team Providers Care Upkeep Mechanic Name Role Phone Chery Alonso RN Unavailable Unava ilable Juwan Reyes MD Primary Care Provide r Francisco Javier Curtis MD Unavailable [phone] Kevin Gutiérrez MD Unavailable True Clemons MD Unavailable [phone] Reason for Visit * Reason Onset Date Comments Spacer w/mask 07/28/2024 Encounter Details Date Type Department Care Team (Late st Contact Info) Description 07/28/2024 Telephone [facility] Medical Group Pulmonary at [address] [place] [phone] Fartun Matos LPN Spacer w/mask Social History Tobacco Use Types Packs/Day Years Used Date Smoking Tobacco: Every Day Cigarettes 1 54 Started: 1972 Passive Smoke Exposure: Past Alcohol Use Standard Drinks/Week Comments No 0 (1 standard drink = 0.6 oz pur e alcohol) Comments Unknown Sex and Gender Information Value Date Recorded Sex Assigned at Not on file Legal Sex Female 10:29 AM YOUTH LIAISON OFFICER Gender Identity Female 02/05/2021 6:21 AM CDT Sexual Orientation Straight 02/05/2021 6: 21 AM CDT documented as of this encounter Ordered Prescriptions Prescription Sig Dispense Quantity Refills Last Filled Start Date End Date inhalat.spacing dev,med. mask spacer 1 each 2 (two) times a day 1 each 07/28/2024 documented in this encounter Miscellaneous Notes * Telephone Encounter - Tessie Wen NP - 07/28/2024 10:03 AM YOUTH LIAISON OFFICER Sent Thanks H LIAISON OFFICER * Telephone Encounter - Fartun Matos LPN - 07/28/2024 9:56 AM YOUTH LIAISON OFFICER Pt called requesting Tessie Wen to call in a spacer [facility] a mask to [facility] [address] in [place]. H LIAISON OFFICER documented in this encounter Plan of Treatment Not on file documented as of this encounter Visit Diagnoses Not on filedocumented in this encounter Care Teams Upkeep Mechanic Relationship Specialty Start Date End Date Juwan Reyes MD [address] [place] [address] PCP - General Emergency Medicine 01/23/23 Chery Alonso, can closing machine tenderTeacher Physically Impaired Transplant 01/18/22 Francisco Javier Curtis MD [address] [facility] [place] [address] OB provider group Orthopedic Surgery 12/17/23 Kevin [place] [address] [address] Consulting Physician Cardiology 12/17/23 [place] [address] [address] [address] Insulation Sprayer Nephrology 12/17/23 documented as of this encounter
--- OUTSIDE RECORDS SUMMARY | 2024-09-26 01:21 | XMS_ITS | Encounter Summary ---
Author Organization [facility] Healthcare Address [address] [place] [address] Care Team Providers Care Local Driver Name Role Phone Chery Alonso RN Unavailable Unava ilable Juwan Reyes MD Primary Care Provide r Francisco Javier Curtis MD Unavailable [phone] Kevin Gutiérrez MD Unavailable True Clemons MD Unavailable [phone] Encounter Details Date Type Department Care Team (Late st Contact Info) Description 06/04/2024 Telephone [facility] Transplant Kidney [address] [facility][1] [address] [phone] [place] [address] Brandan Matos Social History Tobacco Use Types Packs/Day Years Used Date Smoking Tobacco: Every Day Cigarettes 1 54 Started: 1972 Passive Smoke Exposure: Past Alcohol Use Standard Drinks/Week Comments No 0 (1 standard drink = 0.6 oz pur e alcohol) Comments Unknown Sex and Gender Information Value Date Recorded Sex Assigned at Not on file Legal Sex Female 10:29 AM IN SCHOOL SUSPENSION AIDE Gender Identity Female 02/05/2021 6:21 AM CDT Sexual Orientation Straight 02/05/2021 6: 21 AM CDT documented as of this encounter Miscellaneous Notes * Telephone Encounter - Brandan Matos - 06/04/2024 9:38 AM CDT Pt had blood drawn on 05/27. Please call for results. Thank you. documented in this encounter Plan of Treatment Not on file documented as of this encounter Visit Diagnoses Not on filedocumented in this encounter Care Teams Local Driver Relationship Specialty Start Date End Date Juwan Reyes MD [address] [place] [address] PCP - General Emergency Medicine 01/23/23 Chery Alonso, door to door lead generationAppliquer Zigzag Transplant 01/18/22 Francisco Javier Curtis MD [address] [place], [place] [id number] [facility] provider group Orthopedic Surgery 12/17/23 [place] [address] [address] [address] Consulting Physician Cardiology 12/17/23 [place] [address] [address] [address] Psychology Lecturer Nephrology 12/17/23 documented as of this encounter
--- OUTSIDE RECORDS SUMMARY | 2024-09-26 01:21 | XMS_ITS | Encounter Summary ---
Author Organization [facility] Healthcare Address [address] [place] [address] Care Team Providers Care Greenskeeper Name Role Phone Chery Alonso RN Unavailable Unava ilable Juwan Reyes MD Primary Care Provide r Francisco Javier Curtis MD Unavailable [phone] Kevin Gutéirrez MD Unavailable True Clemons MD Unavailable [phone] Encounter Details Date Type Department Care Team (Late st Contact Info) Description 02/25/2024 Lab [facility] Transplant Kidney [address] [facility] [address] [phone] [place], [place] [phone] Kimber Crow MD [address] [facility] [address] [place] [address] Social History Tobacco Use Types Packs/Day Years Used Date Smoking Tobacco: Every Day Cigarettes 1 54 Started: 1973 Passive Smoke Exposure: Past Alcohol Use Standard Drinks/Week Comments No 0 (1 standard drink = 0.6 oz pur e alcohol) Comments Unknown Sex and Gender Information Value Date Recorded Sex Assigned at Not on file Legal Sex Female 10:29 AM FILTER WORKER Gender Identity Female 02/05/2021 6:21 AM CDT Sexual Orientation Straight 02/05/2021 6: 21 AM CDT documented as of this encounter Plan of Treatment Not on file documented as of this encounter Procedures Procedure Name Priority Date/Time Associated Diagnosis Comments CBC WITH AUTO DIFFERENTIAL Routine 02/25/2024 RENAL FUNCTION PANEL Routine 02/25/2024 documented in this encounter Results * CBC with auto differential (02/25/2024) SCRIBED WBC 4.5 4.2 - 10.8 k/cumm TXP NO LAB FOUND SCRIBED Hemoglobin 13.1 12 - 15.6 g/dL TXP NO LAB FOUND SCRIBED Hematocrit 41.6 35.7 - 45.7 % TXP NO LAB FOUND SCRIBED Platelets 296 150 - 400 k/cumm TXP NO LAB FOUND Blood 02/25/2024 us Historical Provider LAB BLOOD ORDERABLES Edit ed Result - Final TXP NO LAB FOUND * (ABNORMAL) Renal function panel (02/25/2024) SCRIBED Calcium 9.9 8.4 - 10.2 mg/dl TXP NO LAB FOUND SCRIBED Phosphorus 3.7 2.5 - 4.5 mg/dl TXP NO LAB FOUND SCRIBED Albumin 3.9 3.4 - 5 g/dl TXP NO LAB FOUND SCRIBED Glucose 90 70 - 99 mg/dl TXP NO LAB FOUND SCRIBED Creatinine 1.30(A) 0.66 - 1.25 mg/dl TXP NO LAB FOUND SCRIBED Sodium 137 137 - 145 mmol/L TXP NO LAB FOUND SCRIBED Potassium 4.8 3.5 - 5.1 mmol/L TXP NO LAB FOUND SCRIBED Chloride 110(A) 98 - 107 mmol/L TXP NO LAB FOUND SCRIBED Carbon Dioxide 21(A) 22 - 30 mmol/L TXP NO LAB FOUND SCRIBED eGFR in NonAfrican Guamanian 42 N/A TXP NO LAB FOUND SCRIBED Urea Nitrogen (BUN) 18 8 - 19 mg/dl TXP NO LAB FOUND Blood 02/25/2024 us Historical Provider LAB BLOOD ORDERABLES Marsha l Result TXP NO LAB FOUND documented in this encounter Visit Diagnoses Not on filedocumented in this encounter Care Teams Greenskeeper Relationship Specialty Start Date End Date Juwan Reyes MD [address] [place] [address] PCP - General Emergency Medicine 01/23/23 Chery Alonso, edge basterCadmium Plater Transplant 01/18/22 Francisco Javier Curtis MD [address] [place] [address] OB provider group Orthopedic Surgery 12/17/23 [place] [address] [address] [address] Consulting Physician Cardiology 12/17/23 [place] [address] [address] [address] Supervisor Wet Room Nephrology 12/17/23 documented as of this encounter
--- OUTSIDE RECORDS SUMMARY | 2024-09-26 01:21 | XMS_ITS | Encounter Summary ---
Author Organization [facility] Healthcare Address [address] [place] [address] Care Team Providers Care Natural Foods Clerk Name Role Phone Chery Alonso RN Unavailable Unava ilable Juwan Reyes MD Primary Care Provide r Francisco Javier Curtis MD Unavailable [phone] Kevin Gutiérrez MD Unavailable True Clemons MD Unavailable [phone] Reason for Visit * Reason Onset Date Comments [facility]: Nebulizer 09/11/2024 Encounter Details Date Type Department Care Team (Late st Contact Info) Description 09/11/2024 Telephone [facility] Medical Group Pulmonary at [address] [place] [address] Fartun Matos LPN [facility]: Nebulizer Social History Tobacco Use Types Packs/Day Years Used Date Smoking Tobacco: Every Day Cigarettes 1 54 Started: 1970 Passive Smoke Exposure: Past Alcohol Use Standard Drinks/Week Comments No 0 (1 standard drink = 0.6 oz pur e alcohol) Comments Unknown Sex and Gender Information Value Date Recorded Sex Assigned at Not on file Legal Sex Female 10:29 AM GOLF CLUB WEIGHER Gender Identity Female 02/05/2021 6:21 AM CDT Sexual Orientation Straight 02/05/2021 6: 21 AM CDT documented as of this encounter Miscellaneous Notes * Telephone Encounter - Fartun Matos LPN - 09/11/2024 9:38 AM GOLF CLUB WEIGHER Jessica with [facility] called pt requesting a Xignite Portable Nebulizer, order placed, and sent to [facility]. CLUB WEIGHER documented in this encounter Plan of Treatment Not on file documented as of this encounter Visit Diagnoses Not on filedocumented in this encounter Care Teams Natural Foods Clerk Relationship Specialty Start Date End Date Juwan Reyes MD [address] [place] [address] PCP - General Emergency Medicine 01/23/23 Chery Alonso, battery vent plug inserterNuclear Physics Teacher Transplant 01/18/22 Francisco Javier Curtis MD [address] [place], [place] [id number] OB provider group Orthopedic Surgery 12/17/23 [place] [address] [address] [address] Consulting Physician Cardiology 12/17/23 [place] [address] [address] [address] Naturopathic Doctor Nephrology 12/17/23 documented as of this encounter
--- OUTSIDE RECORDS SUMMARY | 2024-09-26 01:21 | XMS_ITS | Encounter Summary ---
Author Organization [facility] Healthcare Address [address] [place] [address] Care Team Providers Care Assistant Manager Trainee Name Role Phone Chery Alonso RN Unavailable Unava ilable Juwan Reyes MD Primary Care Provide r Francisco Javier Curtis MD Unavailable [phone] Kevin Gutiérrez MD Unavailable True Clemons MD Unavailable [phone] Encounter Details Date Type Department Care Team (Late st Contact Info) Description 01/07/2024 8:50 AM CDT Ancillary Procedure [facility] Outside Films Social History Tobacco Use Types Packs/Day Years Used Date Smoking Tobacco: Every Day Cigarettes 1 54 Started: 1971 Passive Smoke Exposure: Past Alcohol Use Standard Drinks/Week Comments No 0 (1 standard drink = 0.6 oz pur e alcohol) Comments Unknown Sex and Gender Information Value Date Recorded Sex Assigned at Not on file Legal Sex Female 10:29 AM AEROTRIANGULATION SPECIALIST Gender Identity Female 02/05/2021 6:21 AM CDT Sexual Orientation Straight 02/05/2021 6: 21 AM CDT documented as of this encounter Plan of Treatment Not on file documented as of this encounter Procedures Procedure Name Priority Date/Time Associated Diagnosis Comments CT BODY OUTSIDE REFERENCE Routine 01/07/2024 8:50 AM CDT documented in this encounter Results * CT Body Outside Reference (01/07/2024 8:50 AM CDT) Narrative [facility] - 01/23/2024 8:12 AM CDT This order has been auto-finalized and does not contain a result. us Not In File Miscellaneous IMG CT PROCEDURES Marsha l Result [facility] documented in this encounter Visit Diagnoses Not on filedocumented in this encounter Care Teams Assistant Manager Trainee Relationship Specialty Start Date End Date Juwan Reyes MD [address] [place] [address] PCP - General Emergency Medicine 01/23/23 Chery Alonso, helicopter specialistGrill Attendant Transplant 01/18/22 Francisco Javier Curtis MD [address] [place] [address] OB provider group Orthopedic Surgery 12/17/23 [place] [address] [address] [place] [address] Consulting Physician Cardiology 12/17/23 [place] [address] [address] [place] [address] Sexual Assault Nurse Nephrology 12/17/23 documented as of this encounter
--- OUTSIDE RECORDS SUMMARY | 2024-09-26 01:21 | XMS_ITS | Encounter Summary ---
Author Organization [facility] Healthcare Address [address] [place] [address] Care Team Providers Care Housekeeping/Laundry Supervisor Name Role Phone Chery Alonso RN Unavailable Unava ilable Juwan Reyes MD Primary Care Provide r Francisco Javier Curtis MD Unavailable [phone] Kevin Gutiérrez MD Unavailable True Clemons MD Unavailable [phone] Encounter Details Date Type Department Care Team (Latest Contact Info) Description 03/21/2024 Orders Only [facility] Transplant Kidney [address] [facility] [address] [phone] [place] [address] Tatyana Pollock Kidney replaced by transplant (Primary Dx); Encounter for long-term (current) use of other medications; Hyperlipidemia, unspecified hyperlipidemia type; Urinary tract infection without hematuria, site unspecified; Type II or unspecified type diabetes mellitus with renal manifestations, not stated as uncontrolled(250.40) (CMS/HCC) (HCC); Hyperthyroidism; Secondary hyperparathyroidism of renal origin (HCC); Disorder of bone and cartilage; Anemia due to vitamin B12 deficiency, unspecified B12 deficiency type; Iron deficiency anemia, unspecified iron deficiency anemia type; Anemia due to folic acid deficiency, unspecified deficiency type Social History Tobacco Use Types Packs/Day Years Used Date Smoking Tobacco: Every Day Cigarettes 1 54 Started: 1972 Passive Smoke Exposure: Past Alcohol Use Standard Drinks/Week Comments No 0 (1 standard drink = 0.6 oz pur e alcohol) Comments Unknown Sex and Gender Information Value Date Recorded Sex Assigned at Not on file Legal Sex Female 10:29 AM WEBSITE PROJECT MANAGER Gender Identity Female 02/05/2021 6:21 AM CDT Sexual Orientation Straight 02/05/2021 6: 21 AM CDT documented as of this encounter Progress Notes * PollockTatyana - 03/21/2024 1:09 PM CDT Updated SO and faxed to [facility] [phone] documented in this encounter Plan of Treatment Not on file documented as of this encounter Visit Diagnoses Diagnosis Kidney replaced by transplant- Primary Encounter for long-term (current) use of other medications Hyperlipidemia, unspecified hyperlipidemia type Urinary tract infection without hematuria, site unspecified Type II or unspecified type diabetes mellitus with renal manifestations, not stated as uncontrolled(250.40) (CMS/HCC) (HCC) Type II or unspecified type diabetes mellitus with renal manifestations, not stated as uncontrolled Hyperthyroidism 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 other cause, without mention of thyrotoxic crisis or storm Secondary hyperparathyroidism of renal origin (HCC) Secondary hyperparathyroidism (of renal origin) Disorder of bone and cartilage Disorder of bone and cartilage, unspecified Anemia due to vitamin B12 deficiency, unspecified B12 deficiency type Iron deficiency anemia, unspecified iron deficiency anemia type Anemia due to folic acid deficiency, unspecified deficiency type documented in this encounter Care Teams Housekeeping/Laundry Supervisor Relationship Specialty Start Date End Date Juwan Reyes MD [address] [place] [address] PCP - General Emergency Medicine 01/23/23 Chery Alonso, machine clerical verifierRiveting Machine Operator Automatic Transplant 01/18/22 Francisco Javier Curtis MD [address] [facility] [address] [place] [address] OB provider group Orthopedic Surgery 12/17/23 [place] [address] [address] Consulting Physician Cardiology 12/17/23 [place] [address] [address] Sand System Operator Nephrology 12/17/23 documented as of this encounter
--- OUTSIDE RECORDS SUMMARY | 2024-09-26 01:21 | XMS_ITS | Encounter Summary ---
Author Organization [facility] Healthcare Address [address] [place] [address] Care Team Providers Care Revenue Cycle Specialist Name Role Phone Chery Alonso RN Unavailable Unava ilable Juwan Reyes MD Primary Care Provide r Francisco Javier Curtis MD Unavailable [phone] Kevin Gutiérrez MD Unavailable True Clemons MD Unavailable [phone] Encounter Details Date Type Department Care Team (Late st Contact Info) Description 03/31/2024 Lab [facility] Transplant Kidney [address] [facility] [address] [phone] [place], [place] [id number] Kimber Crow MD [address] [facility] [address] [place] [address] Social History Tobacco Use Types Packs/Day Years Used Date Smoking Tobacco: Every Day Cigarettes 1 54 Started: 1971 Passive Smoke Exposure: Past Alcohol Use Standard Drinks/Week Comments No 0 (1 standard drink = 0.6 oz pur e alcohol) Comments Unknown Sex and Gender Information Value Date Recorded Sex Assigned at Not on file Legal Sex Female 10:29 AM INFORMIX DEVELOPER Gender Identity Female 02/05/2021 6:21 AM CDT Sexual Orientation Straight 02/05/2021 6: 21 AM CDT documented as of this encounter Plan of Treatment Not on file documented as of this encounter Procedures Procedure Name Priority Date/Time Associated Diagnosis Comments LDL CHOLESTEROL (DIRECT) Routine 03/28/2024 LP W CHOL/HDL RATIO Routine 03/28/2024 CBC WITH AUTO DIFFERENTIAL Routine 03/28/2024 PROTEIN / CREATININE RATIO, URINE, RANDOM Routine 03/28/2024 VITAMIN D 25 HYDROXY Routine 03/28/2024 TSH Routine 03/28/2024 PHOSPHORUS Routine 03/28/2024 PTH Routine 03/28/2024 HEMOGLOBIN A1C Routine 03/28/2024 COMPREHENSIVE METABOLIC PANEL Routine 03/28/2024 documented in this encounter Results * LDL Cholesterol (Direct) (03/28/2024) SCRIBED LDL 78 N/A mg/dL TXP NO L AB FOUND Blood 03/28/2024 Result [facility] Historical Provider LAB BLOOD ORDERABLES Marsha l Result Performing Organization Address [facility] Co de Phone Number TXP NO LAB FOUND * (ABNORMAL) Protein / creatinine ratio, urine, random (03/28/2024) SCRIBED Protein, Urine 12(A) 0.0 - 11.9 mg/dL TXP NO LAB FOUND SCRIBED Creatinine, Urine 75.50 N/A mg/dL TXP NO LAB FOUND SCRIBED Protein/Creat Ratio 0.2 0.0 - 0.2 mg/dL TXP NO LAB FOUND Urine 03/28/2024 Historical Provider LAB URINE ORDERABLES Edit ed Result - Final Performing Organization Address City/State/[facility] de Phone Number TXP NO LAB FOUND * (ABNORMAL) LP w Chol/HDL Ratio (03/28/2024) SCRIBED Cholesterol, Total 155 140 - 199 mg/dL TXP NO LAB FOUND SCRIBED Triglycerides 253(A) 0 - 150 mg/dL TXP NO LAB FOUND SCRIBED HDL 48 40 mg/dL TXP NO L AB FOUND SCRIBED LDL 56 0 - 130 mg/dL TXP NO LAB FOUND Blood 03/28/2024 Result [facility] Provider MD LAB BLOOD ORDERABLES Edit ed Result - Final Performing Organization Address [facility] de Phone Number [place] NO LAB FOUND * (ABNORMAL) Vitamin D 25 hydroxy (03/28/2024) SCRIBED 25-OH Vitamin D 18.2(A) 30 - 100 ng/mL TXP NO LAB FOUND Blood 03/28/2024 Result [facility] Provider MD LAB BLOOD ORDERABLES Marsha l Result Performing Organization Address [facility] de Phone Number [place] NO LAB FOUND * PTH (03/28/2024) SCRIBED iPTH 59.3 24 - 78 pg/mL TXP NO LAB FOUND Blood 03/28/2024 Result [facility] Historical Provider MD LAB BLOOD ORDERABLES Marsha l Result Performing Organization Address [facility] de Phone Number [place] NO LAB FOUND * TSH (03/28/2024) Scribed TSH 3.23 0.47 - 4.68 mcU/mL TXP NO LAB FOUND Blood 03/28/2024 Result [facility] Historical Provider LAB BLOOD ORDERABLES Marsha l Result Performing Organization Address [facility] de Phone Number TXP NO LAB FOUND * Hemoglobin A1c (03/28/2024) SCRIBED Hemoglobin A1c 5.3 4 - 6 % TXP NO LAB FOUND Blood 03/28/2024 Historical Provider LAB BLOOD ORDERABLES Marsha l Result TXP NO LAB FOUND * (ABNORMAL) Comprehensive metabolic panel (03/28/2024) Pathologist [facility] SCRIBED Sodium 136(A) 137 - 145 mmol/L TXP NO LAB FOUND SCRIBED Potassium 4.2 3.5 - 5.1 mmol/L TXP NO LAB FOUND SCRIBED Chloride 109(A) 98 - 107 mmol/L TXP NO LAB FOUND SCRIBED Carbon Dioxide 20(A) 22 - 30 mmol/L TXP NO LAB FOUND SCRIBED Anion Gap 11.2(A) 14 - 22 mmol/L TXP NO LAB FOUND SCRIBED Urea Nitrogen (BUN) 18 8 - 19 mg/dl TXP NO LAB FOUND SCRIBED Creatinine 1.25 0.66 - 1.25 mg/dl TXP NO LAB FOUND SCRIBED Glucose 122(A) 70 - 99 mg/dl TXP NO LAB FOUND SCRIBED Calcium 9.3 8.4 - 10.2 mg/dl TXP NO LAB FOUND SCRIBED Bilirubin 0.60 0.20 - 1.30 mg/dl TXP NO LAB FOUND SCRIBED Plasma Protein 6.9 6.3 - 8.2 g/dl TXP NO LAB FOUND SCRIBED Albumin 3.9 3.4 - 5 g/dl TXP NO LAB FOUND SCRIBED Alkaline Phosphatase 101 38 - 126 Units/L TXP NO LAB FOUND SCRIBED Alanine Transaminase (ALT) 29 0 - 35 Units/L TXP NO LAB FOUND SCRIBED Aspartate Transaminase (AST) 29 15 - 37 Units/L TXP NO LAB FOUND SCRIBED eGFR in NonAfrican Martiniquais 44 N/A TXP NO LAB FOUND Blood 03/28/2024 Historical Provider LAB BLOOD ORDERABLES Marsha l Result TXP NO LAB FOUND * (ABNORMAL) Phosphorus (03/28/2024) SCRIBED Phosphorus 3.4 2.5 - 4.5 mg/dl TXP NO LAB FOUND Blood 03/28/2024 [facility] Provider LAB BLOOD ORDERABLES Marsha l Result Performing Organization Address City/[facility] Co de Phone Number TXP NO LAB FOUND * CBC with auto differential (03/28/2024) SCRIBED WBC 4.7 4.2 - 10.8 k/cumm TXP NO LAB FOUND SCRIBED Hemoglobin 12.7 12 - 15.6 g/dL TXP NO LAB FOUND SCRIBED Hematocrit 41.1 35.7 - 45.7 % TXP NO LAB FOUND SCRIBED Platelets 312 150 - 400 k/cumm TXP NO LAB FOUND Blood 03/28/2024 [facility] Provider LAB BLOOD ORDERABLES Marsha l Result Performing Organization Address [facility] Co de Phone Number [place] NO LAB FOUND documented in this encounter Visit Diagnoses Not on filedocumented in this encounter Care Teams Revenue Cycle Specialist Relationship Specialty Start Date End Date Juwan Reyes MD [address] [place] [address] PCP - General Emergency Medicine 01/23/23 Chery Alonso, client executiveField Attendant Transplant 01/18/22 Francisco Javier Curtis MD [address] [place] [address] OB provider group Orthopedic Surgery 12/17/23 [place] [address] [place] [address] Consulting Physician Cardiology 12/17/23 [place] [address] [address] Ladle Handler Nephrology 12/17/23 documented as of this encounter
--- OUTSIDE RECORDS SUMMARY | 2024-09-26 01:21 | XMS_ITS | Encounter Summary ---
Author Organization [facility] Healthcare Address [address] [place] [address] Care Team Providers Care Neurology Hospitalist Name Role Phone Chery Alonso RN Unavailable Unava ilable Juwan Reyes MD Primary Care Provide r Francisco Javier Curtis MD Unavailable [phone] Kevin Gutiérrez MD Unavailable True Clemons MD Unavailable [phone] Reason for Referral * MRI/CAT/PET Scan (Routine) - Closed Specialty Diagnoses / Procedures Referred By Stephanie t Referred To Contact Diagnoses Nicotine dependence, cigarettes, uncomplicated Procedures CT Lung Cancer Screening Eriberto Meyer MD [address] [place] [address] [address] [place] [address] Phone: tel: fax: External Order Referral ID Status Reason Start Date Expiration Date Visits Re quested Visits Authorized [id number] Closed 12/17/2023 01/15/2025 1 1 Reason for Visit * Reason Comments New Patient Used to see Tessie flynn COPD Encounter Details Date Type Department Care Team (Late st Contact Info) Description 12/17/2023 10:00 AM CDT Office Visit [facility] Pulmonary at [address] [place] [address] Eriberto Meyer MD [address] [place] [address] [address] Chronic obstructive pulmonary disease, unspecified COPD type (HCC) (Primary Dx); Nicotine dependence, cigarettes, uncomplicated; PLACIDO (obstructive sleep apnea) Social History Tobacco Use Types Packs/Day Years Used Date Smoking Tobacco: Every Day Cigarettes 1 54 Started: 1970 Passive Smoke Exposure: Past Tobacco Cessation:Ready to Q uit: Not Asked; Counseling Given: Not Answered Alcohol Use Standard Drinks/Week Comments No 0 (1 standard drink = 0.6 oz pur e alcohol) Comments Unknown Sex and Gender Information Value Date Recorded Sex Assigned at Not on file Legal Sex Female 10:29 AM DIRECTOR OF ARCHIVES Gender Identity Female 02/05/2021 6:21 AM CDT Sexual Orientation Straight 02/05/2021 6: 21 AM CDT documented as of this encounter Last Filed Vital Signs Vital Sign Reading Time Taken Comments Blood Pressure 110/60 12/17/2023 9:51 AM CDT Pulse 74 12/17/2023 9:51 AM CDT Temperature 36.8 ??C (98.2 ??F) 12/17/2023 9:51 AM CD T Respiratory Rate - - Oxygen Saturation 96% 12/17/2023 9:51 AM CDT Inhaled Oxygen Concentration - - Weight 82.2 kg (181 lb 4.8 oz) 12/17/2023 9:51 A M CDT Height 167.6 cm (5' 6 ) 12/17/2023 9:51 AM CDT Body Mass Index 29.26 12/17/2023 9:51 AM CDT documented in this encounter Ordered Prescriptions Prescription Sig Dispense Quantity Refills Last Filled Start Date End Date Spiriva Respimat 2.5 mcg/actuation inhaler Inhale 2 puffs daily 1 each 12/17/2023 albuterol HFA (PROVENTIL HFA,VENTOLIN HFA,PROAIR HFA) 90 mcg/actuation inhaler Inhale 2 puffs 4 (four) times a day 1 each 11 12/17/2023 albuterol 2.5 mg /3 mL (0.083 %) nebulizer solution Take 3 mL (2.5 mg total) by nebulization 4 (four) times a day 360 mL 12/17/2023 documented in this encounter Progress Notes * Eriberto Meyer MD - 12/17/2023 10:00 AM CDT Images from the original note were not included. PULMONARY CLINIC NOTE Visit Date: 12/17/2023 Chief Complaint: Presents today for COPD HPI: Tyshawn Engel is a 58 y.o. female w/ PMH of COPD, s/p renal transplant in 1992 who presents on 12/17/2023 for evaluation of COPD. The patient was previously treated by my colleague Tessie Wen. She is currently on spiriva as monotherapy. She has tried multiple other inhalers and nebulizer solutions previously with lack of clinical effect or side effects. Interval History: She is currently using her nebulizer 4 times daily as scheduled in addition to her Spiriva once daily. She reports no other respiratory illnesses or exacerbations. Overall she reports stable dyspnea. She continues to smoke Exposure History: No relevant exposures Past Medical History: Past Medical History: Diagnosis Date Depression Depression Diabetes mellitus (HCC) Diabetes Disorder of thyroid Thyroid disease Drug abuse (CMS/HCC) (HCC) 1985 drug abuse Heart murmur Heart Murmur Hepatitis C virus infection Exposure to Hep C antibody HX OTHER MEDICAL cataracts HX OTHER MEDICAL 1992 alcohol abuse HX OTHER MEDICAL Hepatitis HX OTHER MEDICAL reflux nephropathy HX OTHER MEDICAL hypotension HX OTHER MEDICAL type 2 diabetes HX OTHER MEDICAL Raynaud's Disease HX OTHER MEDICAL Lumbar Neuropathy Hyperlipidemia Hyperlipidemia Hypertension Hypertension Kidney disorder kidney disease Malignant neoplasm of larynx (HCC) Cancer, throat Malignant neoplasm of skin Cancer, skin Tension headache Headache, tension Family History: Family History Problem Relation Age of Onset Diabetes Mother Diabetes mellitus; Hypertension Mother Hypertension; Migraines Mother Migraine; Liver disease Mother Other (non alcholic cirrhosis) Mother Cancer Sister Cancer Brother Other (non alcholic cirrhosis) Brother Cancer Other Family history of Cancer; Diabetes Other Family history of Diabetes mellitus; Hypertension Other Family history of Hypertension; Social History: Current smoker. Has smoked since age 5. Smoked about 1 ppd. Review of Systems: Pertinent positives notes in HPI. Otherwise a 10 pt review of systems is negative. OBJECTIVE: Physical Exam: Vitals: 12/17/23 0951 BP: 110/60 BP Location: Left arm Patient Position: Sitting Pulse: 74 Temp: 36.8 ??C (98.2 ??F) TempSrc: Temporal SpO2: 96% Weight: 82.2 kg (181 lb 4.8 oz) Height: 167.6 cm (5' 6 ) General: appears comfortable in no apparent distress Eyes: anicteric, no redness or drainage, EOMI Neck: no thyromegaly or lymphadenopathy Cardiovascular: regular rate and rhythm, no murmurs, no edema or JVD Respiratory: clear to auscultation bilaterally, non labored Gastrointestinal: abdomen is soft and non-tender, + bowel sounds Musculoskeletal: no joint swelling or tenderness Neurologic: No focal deficits Skin: warm and dry Data Review: Low-dose CT 07/30/2020 Miguel reviewed and scanned documents and notable for no worrisome lung nodules. Mild centrilobular emphysematous changes are noted with hyperinflation Alpha-1 antitrypsin mm, level 196 Pulmonary Functions Testing Results: 6 minute walk test 08/31/2021: The patient ambulated 305 m on ambient air with lowest oxygen saturation 94% ASSESSMENT AND PLAN 1. Chronic obstructive pulmonary disease, unspecified COPD type (HCC) - the patient has reportedly tried multiple different inhalers and regimens with poor tolerance andside effects - she is currently on monotherapy with Spiriva and using her albuterol nebulizers 4 times daily - we discussed exploring other long-acting options which would provide more sustained relief - I have requested records of pulmonary function testing - alpha-1 antitrypsin: MM 2. Nicotine dependence, cigarettes, uncomplicated - we discussed smoking cessation for 4-5 minutes, the patient is adamantly not interested in quitting smoking - she is a candidate for lung cancer screening and by review of the records sent to me her last low-dose CT scan was in 2019 - we will resume lung cancer screening with low-dose CT scan, the patient would like to have this scan done in [place] - CT Lung Cancer Screening; Future 3. PLACIDO (obstructive sleep apnea) - reported history of PLACIDO and intolerant of CPAP Eriberto Meyer MD There may be syntax/grammatical errors in this note due to the use of voice recognition software. documented in this encounter Plan of Treatment Scheduled Orders Name Type Priority Associated Diagnoses Orde r Schedule CT Lung Cancer Screening Imaging Schedule Routine, Read Routine (OP Routine) Nicotine dependence, cigarettes, uncomplicated Expected: 12/17/2023, Expires: 02/15/2025 documented as of this encounter Visit Diagnoses Diagnosis Chronic obstructive pulmonary disease, unspecified COPD type (HCC)- Primary Nicotine dependence, cigarettes, uncomplicated PLACIDO (obstructive sleep apnea) Obstructive sleep apnea (adult) (pediatric) documented in this encounter Discontinued Medications Medication Sig Discontinue Reason Start Date End Da te albuterol (PROVENTIL,VENTOLIN) 2.5 mg /3 mL (0.083 %) nebulizer solution 4 (four) times a day Reorder 10/30/2018 12/17/19 SPIRIVA RESPIMAT 2.5 mcg/actuation inhaler Inhale 2 puffs daily Reorder 10/30/201812/16 albuterol HFA (PROVENTIL HFA,VENTOLIN HFA,PROAIR HFA) 90 mcg/actuation inhaler Inhale 2 puffs 4 (four) times a day Reorder 12/17/2023 documented as of this encounter Historical Medications * This list may reflect changes made after this encounter. albuterol HFA (PROVENTIL HFA,VENTOLIN HFA,PROAIR HFA) 90 mcg/actuation inhaler Inhale 2 puffs 4 (four) times a day 12/17/2023 added in this encounter Care Teams Neurology Hospitalist Relationship Specialty Start Date End Date Juwan Reyes MD [address] [place] [address] PCP - General Emergency Medicine 01/23/23 Chery Alonso RN Neonatal Specialist Transplant 01/18/22 Francisco Javier Curtis MD [address] [facility] [address] [place] [address] OB provider group Orthopedic Surgery 12/17/23 [place] G[place] [address] [address] Consulting Physician Cardiology 12/17/23 [place] [address] [address] Director Maternal Child Nephrology 12/17/23 documented as of this encounter
--- OUTSIDE RECORDS SUMMARY | 2024-09-26 01:21 | XMS_ITS | Encounter Summary ---
Author Organization [facility] Healthcare Address [address] [place] [address] Care Team Providers Care Theatrical Dresser Name Role Phone Chery Alonso RN Unavailable Unava ilable Juwan Reyes MD Primary Care Provide r Francisco Javier Curtis MD Unavailable [phone] Kevin Gutiérrez MD Unavailable True Clemons MD Unavailable [phone] Encounter Details Date Type Department Care Team (Late st Contact Info) Description 12/26/2023 Telephone [facility] Transplant Kidney [address] [facility] [id number] [place] [address] Lyn Tanner Social History Tobacco Use Types Packs/Day Years Used Date Smoking Tobacco: Every Day Cigarettes 1 54 Started: 1972 Passive Smoke Exposure: Past Alcohol Use Standard Drinks/Week Comments No 0 (1 standard drink = 0.6 oz pur e alcohol) Comments Unknown Sex and Gender Information Value Date Recorded Sex Assigned at Not on file Legal Sex Female 10:29 AM HOME MISSION WORKER Gender Identity Female 02/05/2021 6:21 AM CDT Sexual Orientation Straight 02/05/2021 6: 21 AM CDT documented as of this encounter Miscellaneous Notes * Telephone Encounter - Lyn Tanner - 12/26/2023 8:11 AM CDT Received call from patient needing to speak with nurse coordinator regarding: Patient needs to know if Ketimine is okay to use as sedation for dental appt Needs return call from nurse coordinator. Call back after 3 pm 12/26/23, 11:11 AM, VERONICA Montoya, RN, Thermal Molder: Kelby Sierra [facility]: ok to use ketamine for this purpose. Convrrthart message sent to patient advising ok from transplant perspective for ketamine to be used forthis purpose. documented in this encounter Plan of Treatment Not on file documented as of this encounter Visit Diagnoses Not on filedocumented in this encounter Care Teams Theatrical Dresser Relationship Specialty Start Date End Date Juwan Reyes MD [address] [facility] [place], [place] [id number] PCP - General Emergency Medicine 01/23/23 Chery Alonso, metallic yarn slitting machine operatorThermal Molder Transplant 01/18/22 Francisco Javier Curtis MD [address] [place], [place] [id number] [facility] provider group Orthopedic Surgery 12/17/23 [place] G[place] [address] [address] Consulting Physician Cardiology 12/17/23 [place] [address] [address] Radio Aerial Installer Nephrology 12/17/23 documented as of this encounter
--- OUTSIDE RECORDS SUMMARY | 2024-09-26 01:21 | XMS_ITS | Clinical Summary ---
Author Organization [facility] Address [address] [place] [address] Care Team Providers Care Watch Parts Grinder Name Role Phone Chery Alonso RN Unavailable Unava ilJuwan Ambrose MD Primary Care Provide r Francisco Javier Curtis MD Unavailable [phone] Kevin Gutiérrez MD Unavailable Treu Clemons MD Unavailable [phone] Allergies Active Allergy Reactions Criticality Noted Date Comments Atorvastatin Other (See comments),Fever Medium Weakness Budesonide Cough Low 08/21/2022 Cefepime Rash Medium 12/17/2023 Redmans syndrome Cephalexin Other (See comments),Blisters High Red man's syndrome Ciprofloxacin Anaphylaxis High Clindamycin Nausea & Vomiting Low Erythromycin Itching,Rash Medium Ibuprofen Other (See comments) Low 12/17/2023 Kidney Transplant Irbesartan Blisters High Iron Dextran Anaphylaxis High Isoniazid Itching,Rash Medium 04/05/2018 Metronidazole Other (See comments),Redness Low Red man's syndrome Naproxen Other (See comments) Low 12/17/2023 Kidney Transplant Penicillins Itching,Rash,Fever,N ausea & Vomiting Medium Medications mycophenolate mofetil (CELLCEPT) 250 mg capsule 1 capsule (250 mg total) daily 9 Active predniSONE (DELTASONE) 5 mg tablet Sunday, Sunday, Sunday 9 Active sulfamethoxazol e-trimethoprim (BACTRIM DS,SEPTRA DS) 800-160 mg per tablet Take 1 tablet (160 mg of trimethoprim total) by mouth 2 (two) times a day 9 Active aspirin 81 mg enteric coated tablet two times daily 8 Active levothyroxine (SYNTHROID) 100 mcg tablet Take 1 tablet (100 mcg total) by mouth elementary school librarian before breakfast 1 Active omeprazole OTC (PriLOSEC OTC) 20 mg EC tablet Take 1 tablet (20 mg total) by mouth 2 (two) times a day Active albuterol 2.5 mg /3 mL (0.083 %) nebulizer solution Take 3 mL (2.5 mg total) by nebulization 4 (four) times a day 360 mL 4 Active albuterol HFA (PROVENTIL HFA,VENTOLIN HFA,PROAIR HFA) 90 mcg/actuation inhaler Inhale 2 puffs 4 (four) times a day 1 each 4 Active Spiriva Respimat 2.5 mcg/actuation inhaler Inhale 2 puffs daily 1 each 4 Active ferrous sulfate 325 mg (65 mg of elemental iron) tablet TAKE 1 TABLET BY MOUTH 2 TIMES A DAY 60 tablet 4 Active acyclovir (ZOVIRAX) 200 mg capsule Take 1 capsule (200 mg total) by mouth 2 (two) times a day 180 capsule 3 4 04/02/20 25 Active ergocalciferol (VITAMIN D) 50,000 unit capsule 4 Active lidocaine (LIDODERM) 5 % 1 PATCH TOPICALLY DAILY LEAVE ON MOST PAINFUL AREA FOR UP TO 12 HRS 4 Active inhalat.spacing dev,med. mask spacer 1 each 2 (two) times a day 1 each 4 Active Active Problems Patient Care Coordination No te Formatting of this note migh t be different from the original. Lab: [facility] (SO: ONLY GOOD FOR 6 MONTHS) P:[phone] F:[phone] SO: Q-Monthly (NO FK); Q-3 Routine HGBA1C, TSH, iPTH, Vit D, UPE, Direct LDL SO: D-Pplh-Pyxzma (Sep & March) VIT B12, IRON PROFILE, FOLATE, FERRITIN (09-28-2024) Problem Noted Date Diagnosed Date Centrilobular emphysema 07/21/2024 Assessment & Plan (07/21/2024 3:53 PM CDT): Continue Spiriva Respimat 2.5 one puff daily Albuterol as needed only, we have discussed indications for use All of her medications come from a specialty pharmacy due to her previous renal transplant, she was aware to have her liaison contact our office if these need to be renewed I continue to encourage smoking cessation She is aware of signs or symptoms that would require earlier evaluation or change to her plan of care Obstructive sleep apnea 07/21/2024 Assessment & Plan (07/21/2024 3:51 PM CDT): She is intolerant to CPAP and uninterested in alternate therapies She is aware of the risks of uncorrected sleep apnea Cigarette nicotine dependence without complicati on 07/21/2024 Assessment & Plan (07/21/2024 3:49 PM CDT): - Smoking cessation counseling and techniques reviewed at length - Literature reviewed - Avoid triggers and use distraction techniques - Participate in support groups - Information given regarding [place] Tobacco Quit line: 5-156-KBAE-YES for free services - 5 minutes spent discussing cessation Hepatitis C virus infection 12/17/2023 Overview (12/17/2023): Hepatitis C Back pain 07/31/2012 Overview (12/27/2016): Back pain Weakness of lower extremity 07/31/2012 Overview (12/28/2016): Lower extremity weakness Encounters Date Type Department Care Team Description 09/11/2024 Telephone [facility] Pulmonary at [address] [place] [phone] Fartun Mtaos, [facility]-re: Nebulizer 09/11/2024 Orders Only [facility] Pulmonary at [address] [place] [phone] Fartun Matos LPN Centrilobular emphysema (HCC) (Primary Dx) 07/28/2024 Telephone [facility] Pulmonary at [address] [place] [phone] Fartun Matos LPN Spacer w/mask 07/21/2024 10:00 AM CDT Office Visit [facility] Pulmonary at [address] [place] [phone] Tessie Wen, JAMILA Centrilobular emphysema (HCC) (Primary Dx); Obstructive sleep apnea; Cigarette nicotine dependence without complication from Last 3 Months Surgical History Surgery Date Site/Laterality Comments OTHER SURGICAL HISTORY kidney disease: Renal transplant TONSILLECTOMY tonsilectomy OTHER SURGICAL HISTORY 1989 partial colonectomy OTHER SURGICAL HISTORY 1989 septo plasty KIDNEY TRANSPLANT 1992 Renal transplant OTHER SURGICAL HISTORY squamous cell cernoma (x6) OTHER SURGICAL HISTORY 2004 complete intestinal reconstruction OSTOMY TAKE DOWN 07/28/1980 DILATION AND CURETTAGE OF UTERUS 09/24/1980 - 10/24/1980 miscarriage INTUSSUSCEPTION REPAIR 02/11/2004 Medical History Medical History Date Comments Hepatitis C virus infection Expo sure to Hep C antibody Malignant neoplasm of larynx (HCC) Cancer, throat Kidney disorder kidney disease Drug abuse (CMS/HCC) (HCC) 1985 drug abuse Hx Other Medical cataracts Hx Other Medical 1992 alcohol abuse Malignant neoplasm of skin Cance r, skin Depression Depression Tension headache Headache, tensi on Hx Other Medical Hepatitis Hypertension Hypertension Hyperlipidemia Hyperlipidemia Diabetes mellitus (HCC) Diabetes Hx Other Medical reflux nephropa thy Hx Other Medical hypotension Hx Other Medical type 2 diabetes Hx Other Medical Raynaud's Disea se Heart murmur Heart Murmur Hx Other Medical Lumbar Neuropat hy Plantar fasciitis, bilateral Claustrophobia Sleep apnea COPD (chronic obstructive pu lmonary disease) (HCC) MS (multiple sclerosis) ([facility]) Nausea and vomiting intermittent Short bowel syndrome Neuropathy (CMS/HCC) Loss of vision Hearing impaired [place] cerebellar syndrome (HCC) Hypothyroidism Hernia of abdominal wall Gastroparesis Multiple sites of bowel obst ruction (CMS/HCC) ([facility]) De Quervain's tenosynovitis Rosacea Scoliosis Bulging lumbar disc T11-12 Facet arthropathy of spine L2-3 & L3-4 Hx of degenerative disc disease L4-5 Osteoarthritis Cigarette nicotine dependenc e without complication 07/21/2024 Family History Medical History Relation Name Comments Cancer Brother 1 Daley non alcholic cirrhosis Brother 2 Mark small cell caricoma Brother 3 Juwan Diabetes Mother Diabetes mellit us; Hypertension Mother Hypertension; Liver disease Mother Migraines Mother Migraine; non alcholic cirrhosis Mother Cancer Other 1 Family history of Cancer; Diabetes Other 2 Family history of Diabetes mellitus; Hypertension Other 3 Family history of Hypertension; Cancer Sister Farideh Relation Name Status Comments Brother 1 Daley Brother 2 Mark Brother 3 Juwan Alive Mother Other 1 Other 2 Other 3 Sister Farideh Social History Tobacco Use Types Packs/Day Years [...] on file Legal Sex Female 10:29 AM SPECIAL DELIVERY MAIL CARRIER Gender Identity Female 02/05/2021 6:21 AM CDT Sexual Orientation Straight 02/05/2021 6: 21 AM CDT Obstetrics History Last Filed Vital Signs Vital Sign Reading Time Taken Comments Blood Pressure 110/60 07/21/2024 9:49 AM CDT Pulse 72 07/21/2024 9:49 AM CDT Temperature 36.5 ??C (97.7 ??F) 07/21/2024 9:49 AM CD T Respiratory Rate - - Oxygen Saturation 99% 07/21/2024 9:49 AM CDT Inhaled Oxygen Concentration - - Weight 78.2 kg (172 lb 8 oz) 07/21/2024 9:49 AM CDT Height 169.2 cm (5' 6.6 ) 07/21/2024 9:49 AM CDT Body Mass Index 27.34 07/21/2024 9:49 AM CDT Plan of Treatment Health Maintenance Due Date Last Done Comments Albumin Creatinine Ratio, Urine 1963 Breast Cancer Screening-Mammogram 1963 Cervical Cancer Screening 1963 Colon Cancer Screening-Colonoscopy 1963 Depression Screening 1963 Foot Exam 1963 Pneumococcal vaccine <65 (1 of 2 - PCV) 1969 Dilated Eye Exam 1973 Hepatitis B Screening 1981 Regular Well Visit/Exam 18-64 1981 Zoster Vaccine (1 of 2) 1982 Lung Cancer Screening 2013 DTaP/Tdap/Td Vaccine (2 - Td or Tdap) 03/31/2024 03/31/2014 Influenza Vaccine (#1) 2024 Lipid Panel 12/23/2024 12/24/2023, 10/2023, 06/25/2023, Additional history exists Hemoglobin A1C 03/25/2025 09/25/2024, 10/2023, 03/28/2024, Additional history exists TSH Level 09/25/2025 09/25/2024, 12/2023, 06/25/2024, Additional history exists eGFR 09/25/2025 09/25/2024, 11/2023, 07/28/2024, Additional history exists Hepatitis C Screening Completed 12/17/2023 , 06/26/2019, 06/26/2019 Procedures Procedure Name Priority Date/Time Associated Diagnosis Comments TSH Routine 09/25/2024 PROTEIN / CREATININE RATIO, URINE, RANDOM Routine 09/25/2024 VITAMIN D 25 HYDROXY Routine 09/25/2024 PTH Routine 09/25/2024 HEMOGLOBIN A1C Routine 09/25/2024 LP W CHOL/HDL RATIO Routine 09/25/2024 COMPREHENSIVE METABOLIC PANEL Routine 09/25/2024 PHOSPHORUS Routine 09/25/2024 CBC WITH AUTO DIFFERENTIAL Routine 09/25/2024 RENAL FUNCTION PANEL Routine 08/26/2024 CBC WITH AUTO DIFFERENTIAL Routine 08/26/2024 CBC WITH AUTO DIFFERENTIAL Routine 07/28/2024 7:31 AM SPECIAL DELIVERY MAIL CARRIER RENAL FUNCTION PANEL Routine 07/28/2024 7:31 AM SPECIAL DELIVERY MAIL CARRIER SARS-COV-2 ANTIBODY, IGA Routine 07/28/2024 7:30 AM SPECIAL DELIVERY MAIL CARRIER RENAL FUNCTION PANEL Routine 07/28/2024 CBC WITH AUTO DIFFERENTIAL Routine 07/28/2024 TSH Routine 07/28/2024 LIPID PANEL Routine 12/24/2023 7:06 AM CDT HEPATITIS C RNA, QUANTITATIVE, PCR Routine 06/26/2019 from Last 3 Months or Most Recently Relevant to Health Maintenance Results * (ABNORMAL) LP w Chol/HDL Ratio (09/25/2024) Pathologist [facility] SCRIBED Cholesterol, Total 173 140 - 199 mg/dL [facility] SCRIBED Triglycerides 212(A) 0 - 150 mg/dL [facility] SCRIBED HDL 50 40 mg/dL [facility] SCRIBED LDL 81 0 - 130 mg/dL [facility] Blood 09/25/2024 us Historical Provider LAB BLOOD ORDERABLES Marsha l Result [facility] [address] [place] [address], [facility] [phone] * CBC with auto differential (09/25/2024) SCRIBED WBC 4.7 4.2 - 10.8 k/cumm [facility] SCRIBED Hemoglobin 12.3 12 - 15.6 g/dL [facility] SCRIBED Hematocrit 39.7 35.7 - 45.7 % [facility] SCRIBED Platelets 284 150 - 400 k/cumm [facility] Blood 09/25/2024 Result [facility] Historical Provider MD LAB BLOOD ORDERABLES Marsha l Result Performing Organization Address [facility] Co de Phone Number [facility] [address] [phone] * (ABNORMAL) Protein / creatinine ratio, urine, random (09/25/2024) SCRIBED Protein, Urine 18(A) 0.0 - 11.9 mg/dL [facility] SCRIBED Creatinine, Urine 111.70 N/A mg/dL [facility] SCRIBED Protein/Creat Ratio 0.2 0.0 - 0.2 [facility] Urine 09/25/2024 Result [facility] Provider MD LAB URINE ORDERABLES Edit ed Result - Final Performing Organization Address [facility] Co de Phone Number [facility] [address] [place] [address], [facility] [phone] * (ABNORMAL) Vitamin D 25 hydroxy (09/25/2024) SCRIBED 25-OH Vitamin D 15.1(A) 30 - 100 ng/mL [facility] Blood 09/25/2024 Result [facility] Historical Provider MD LAB BLOOD ORDERABLES Marsha l Result Performing Organization Address [facility] Co de Phone Number [facility] [address] [place] [address], [facility] [phone] * (ABNORMAL) TSH (09/25/2024) Scribed TSH 6.26(A) 0.47 - 4.68 mcU/mL [facility] Blood 09/25/2024 Result [facility] Historical Provider MD LAB BLOOD ORDERABLES Marsha l Result [facility] [address] [phone] * Phosphorus (09/25/2024) [facility] SCRIBED Phosphorus 4.2 2.5 - 4.5 mg/dl [facility] Blood 09/25/2024 [facility] Provider MD LAB BLOOD ORDERABLES Marsha l Result [facility] [address] [phone] * (ABNORMAL) PTH (09/25/2024) [facility] SCRIBED iPTH 78.5(A) 24 - 78 pg/mL [facility] Blood 09/25/2024 Historical Provider MD LAB BLOOD ORDERABLES Marsha l Result Performing Organization Address City/[facility]/ZIP Co de Phone Number [facility] [address] [place] [address], [facility] [phone] * Hemoglobin A1c (09/25/2024) [facility] SCRIBED Hemoglobin A1c 5.4 4 - 6 % [facility] Blood 09/25/2024 Historical Provider MD LAB BLOOD ORDERABLES Marsha l Result [facility] [address] [place] [address], [facility] [phone] * (ABNORMAL) Comprehensive metabolic panel (09/25/2024) SCRIBED Sodium 138 137 - 145 mmol/L [facility] SCRIBED Potassium 4.5 3.5 - 5.1 mmol/L [facility] SCRIBED Chloride 107 98 - 107 mmol/L [facility] SCRIBED Carbon Dioxide 24 22 - 30 mmol/L [facility] SCRIBED Anion Gap 11.5(A) 14 - 22 mmol/L [facility] SCRIBED Urea Nitrogen (BUN) 20(A) 8 - 19 mg/dl [facility] SCRIBED Creatinine 1.28(A) 0.66 - 1.25 mg/dl [facility] SCRIBED Glucose 77 70 - 99 mg/dl [facility] SCRIBED Calcium 9.8 8.4 - 10.2 mg/dl [facility] SCRIBED Bilirubin 0.80 0.20 - 1.30 mg/dl [facility] SCRIBED Plasma Protein 6.9 6.3 - 8.2 g/dl [facility] SCRIBED Albumin 4 3.4 - 5 g/dl [facility] SCRIBED Alkaline Phosphatase 112 38 - 126 Units/L [facility] SCRIBED Alanine Transaminase (ALT) 17 0 - 35 Units/L [facility] SCRIBED Aspartate Transaminase (AST) 24 15 - 37 Units/L [facility] SCRIBED eGFR in NonAfrican Panamanian 43 N/A mL/min [facility] Blood 09/25/2024 Historical Provider LAB BLOOD ORDERABLES Marsha l Result [facility] [address] [phone] * CBC with auto differential (08/26/2024) SCRIBED WBC 4.9 4.2 - 10.8 k/cumm [facility] FOUND SCRIBED Hemoglobin 12.8 12 - 15.6 g/dL [facility] SCRIBED Hematocrit 39.9 35.7 - 45.7 % [facility] SCRIBED Platelets 292 150 - 450 k/cumm [facility] FOUND Blood 08/26/2024 Historical Provider LAB BLOOD ORDERABLES Marsha l Result [facility] FOUND * (ABNORMAL) Renal function panel (08/26/2024) SCRIBED Calcium 9.8 8.4 - 10.2 mg/dl [facility] SCRIBED Phosphorus 4.1 2.5 - 4.5 mg/dl [facility] SCRIBED Albumin 3.9 3.4 - 5 g/dl [facility] SCRIBED Glucose 79 70 - 99 mg/dl [facility] SCRIBED Creatinine 1.31(A) 0.66 - 1.25 mg/dl [facility] SCRIBED Sodium 134(A) 137 - 145 mmol/L [facility] SCRIBED Potassium 4.7 3.5 - 5.1 mmol/L [facility] SCRIBED Chloride 104 98 - 107 mmol/L [facility] SCRIBED Carbon Dioxide 23 22 - 30 mmol/L [facility] SCRIBED eGFR in NonAfrican Panamanian 41 N/A mL/min [facility] SCRIBED Urea Nitrogen (BUN) 26(A) 8 - 19 mg/dl [facility] Blood 08/26/2024 Historical Provider LAB BLOOD ORDERABLES Edit ed Result - Final [facility] FOUND * (ABNORMAL) CBC with auto differential (07/28/2024 7:31 AM SPECIAL DELIVERY MAIL CARRIER) SCRIBED WBC 3.9(A) 4.2 - 10.8 k/cumm [facility] SCRIBED Hemoglobin 12.4 12.0 - 15.6 g/dL [facility] SCRIBED Hematocrit 39.8 35.7 - 45.7 % [facility] SCRIBED Platelets 287 150 - 400 k/cumm [facility] Blood 07/28/2024 7:31 AM SPECIAL DELIVERY MAIL CARRIER Historical Provider LAB BLOOD ORDERABLES Marsha l Result [facility] [address] [phone] * (ABNORMAL) Renal function panel (07/28/2024 7:31 AM SPECIAL DELIVERY MAIL CARRIER) SCRIBED Calcium 9.4 8/0.4 - 10.2 mg/dl [facility] SCRIBED Phosphorus 3.9 2.5 - 4.5 mg/dl [facility] SCRIBED Albumin 3.8 3.4 - 5.0 g/dl [facility] SCRIBED Glucose 84 70 - 99 mg/dl [facility] SCRIBED Creatinine 1.35(A) 0.66 - 1.25 mg/dl [facility] SCRIBED Sodium 137 137 - 145 mmol/L [facility] SCRIBED Potassium 4.6 3.5 - 5.1 mmol/L [facility] SCRIBED Chloride 105 98 - 107 mmol/L [facility] SCRIBED Carbon Dioxide 21(A) 22 - 30 mmol/L [facility] SCRIBED eGFR in NonAfrican Panamanian 40 15 - 60 ml/min/1.7 3m2 [facility] SCRIBED Urea Nitrogen (BUN) 21(A) 8 - 19 mg/dl [facility] Blood 07/28/2024 7:31 AM SPECIAL DELIVERY MAIL CARRIER Historical Provider LAB BLOOD ORDERABLES Edit ed Result - Final [facility] [address] [phone] * SARS-CoV-2 Antibody, IgA (07/28/2024 7:30 AM SPECIAL DELIVERY MAIL CARRIER) SARS-CoV-2 Semi-Quant IgG Ab 58.8 <13.0 AU/mL [facility] SARS-COV2 Jimmie Ab interp pos [facility] 07/28/2024 7:30 AM SPECIAL DELIVERY MAIL CARRIER Historical Provider LAB MICROBIOLOGY - GENERA L ORDERABLES Edited Result - Final [facility] [address] [place] [address], [facility] [phone] * (ABNORMAL) CBC with auto differential (07/28/2024) SCRIBED WBC 3.9(A) 4.2 - 10.8 k/cumm [facility] FOUND SCRIBED Hemoglobin 12.4 12 - 15.6 g/dL [facility]OUND SCRIBED Hematocrit 39.8 35.7 - 45.7 % [facility]OUND SCRIBED Platelets 287 150 - 400 k/cumm [facility] FOUND SCRIBED Lymphocytes Abs 35.1 16 - 47 k/cumm [facility] Blood 07/28/2024 Historical Provider MD LAB BLOOD ORDERABLES Marsha l Result [facility] FOUND * TSH (07/28/2024) Pathologist [facility] Scribed TSH 4.42 0.47 - 4.68 mcU/mL [facility] Blood 07/28/2024 Historical Provider MD LAB BLOOD ORDERABLES Edit ed Result - Final Performing Organization Address [facility]/ZIP Co de Phone Number [facility] FOUND * (ABNORMAL) Renal function panel (07/28/2024) SCRIBED Calcium 9.4 8.4 - 10.2 mg/dl [facility]OUND SCRIBED Phosphorus 3.9 2.5 - 4.5 mg/dl [facility]OUND SCRIBED Albumin 3.8 3.4 - 5 g/dl [facility] SCRIBED Glucose 84 70 - 99 mg/dl [facility]OUND SCRIBED Creatinine 1.35(A) 0.66 - 1.25 mg/dl [facility] FOUND SCRIBED Sodium 137 137 - 145 mmol/L [facility] FOUND SCRIBED Potassium 4.6 3.5 - 5.1 mmol/L [facility]OUND SCRIBED Chloride 105 98 - 107 mmol/L [facility] SCRIBED Carbon Dioxide 21(A) 22 - 30 mmol/L [facility] SCRIBED eGFR in NonAfrican Panamanian 40 N/A mL/min [facility] FOUND SCRIBED Urea Nitrogen (BUN) 21(A) 8 - 19 mg/dl [facility] Blood 07/28/2024 Historical Provider LAB BLOOD ORDERABLES Edit ed Result - Final Performing Organization Address [facility] Co de Phone Number [facility] NO [facility] FOUND * (ABNORMAL) Lipid panel (12/24/2023 7:06 AM CDT) SCRIBED Cholesterol, Total 165 140 - 199 mg/dl [facility] SCRIBED HDL 46 40 mg/dl [facility] NO L AB FOUND SCRIBED LDL 64 0 - 130 mg/dl [facility]OUND SCRIBED Triglycerides 277(A) 0 - 150 mg/dl [facility] Blood 12/24/2023 7:06 AM CDT Historical Provider LAB BLOOD ORDERABLES Marsha l Result Performing Organization Address [facility] de Phone Number [facility] NO LAB FOUND * Hepatitis C (HCV) RNA PCR, quantitative (06/26/2019) SCRIBED HCV RNA nt det nt det IUnit/mL [facility] FOUND Blood specimen (specimen) 06/26/2019 Historical Provider LAB MICROBIOLOGY - GENERA L ORDERABLES Final Result Performing Organization Address [facility] Co de Phone Number [facility] NO LAB FOUND from Last 3 Months or Most Recently Relevant to Health Maintenance Insurance Care Teams Watch Parts Grinder Relationship Specialty Start Date End Date Juwan Reyes MD [address] [place] [address] PCP - General Emergency Medicine 01/23/23 Chery Alonso, outside sales engineerMail Messenger Contractor Transplant 01/18/22 Francisco Javier Curtis MD [address] [place] [address] OB provider group Orthopedic Surgery 12/17/23 [place] [address] [address] [address] Consulting Physician Cardiology 12/17/23 [place] [id number] [address] [address] Test Engine Mechanic Nephrology 12/17/23
--- OUTSIDE RECORDS SUMMARY | 2024-09-26 01:21 | XMS_ITS | Encounter Summary ---
Author Organization [facility] Healthcare Address [address] [place] [address] Care Team Providers Care General Agent Name Role Phone Chery Alonso RN Unavailable Unava ilable Juwan Reyes MD Primary Care Provide r Francisco Javier Curtis MD Unavailable [phone] Kevin Gutiérrez MD Unavailable True Clemons MD Unavailable Encounter Details Date Type Department Care Team (Late st Contact Info) Description 12/24/2023 Orders Only [facility] Health Information Management [address] [place] [address] Scanning, Provider Social History Tobacco Use Types Packs/Day Years Used Date Smoking Tobacco: Every Day Cigarettes 1 54 Started: 1973 Passive Smoke Exposure: Past Alcohol Use Standard Drinks/Week Comments No 0 (1 standard drink = 0.6 oz pur e alcohol) Comments Unknown Sex and Gender Information Value Date Recorded Sex Assigned at Not on file Legal Sex Female 10:29 AM CORRUGATOR Gender Identity Female 02/05/2021 6:21 AM CDT Sexual Orientation Straight 02/05/2021 6: 21 AM CDT documented as of this encounter Plan of Treatment Not on file documented as of this encounter Procedures Procedure Name Priority Date/Time Associated Diagnosis Comments SCAN - LABS 12/24/2023 2:17 PM CDT documented in this encounter Results * SCAN - LABS (12/24/2023 2:17 PM CDT) us Provider Scanning Final Result documented in this encounter Visit Diagnoses Not on filedocumented in this encounter Care Teams General Agent Relationship Specialty Start Date End Date Juwan Reyes MD [address] [place] [address] PCP - General Emergency Medicine 01/23/23 Chery Alonso, novelty makerArchitect In Training Transplant 01/18/22 Francisco Javier Curtis MD [address] [place], [place] [id number] [facility] provider group Orthopedic Surgery 12/17/23 [place] [address] [place] [address] Consulting Physician Cardiology 12/17/23 [place] [address] [address] [facility] [address] [place] [address] Senior Tax Specialist Nephrology 12/17/23 documented as of this encounter
--- OUTSIDE RECORDS SUMMARY | 2024-09-26 01:21 | XMS_ITS | Referral Summary ---
Author Organization [facility] Address [address] [place] [address] Care Team Providers Care Ships Or Barges Loader Name Role Phone Chery Alonso RN Unavailable Unava ilable Juwan Reyes MD Primary Care Provide r Francisco Javier Curtis MD Unavailable [phone] Kevin Gutiérrez MD Unavailable True Clemons MD Unavailable [phone] Encounters Date Type Department Care Team Description 09/11/2024 Telephone [facility] Pulmonary at [address] [place] [address] Fartun Matos LPN [facility] [place]: Nebulizer 09/11/2024 Orders Only [facility] Pulmonary at [address] [place] [address] Fartun Matos LPN Centrilobular emphysema (HCC) (Primary Dx) 07/28/2024 Telephone [facility] Pulmonary at [address] [place] [address] Fartun Matos LPN Spacer w/mask 07/21/2024 10:00 AM CDT Office Visit [facility] Pulmonary at [address] [place] [address] Behzad, Tessie M., GAS OPERATIONS ANALYST Centrilobular emphysema (HCC) (Primary Dx); Obstructive sleep apnea; Cigarette nicotine dependence without complication from Last 3 Months Allergies Active Allergy Reactions Criticality Noted Date [...] 1 tablet (100 mcg total) by mouth type caster before breakfast 1 Active omeprazole OTC (PriLOSEC [...] inhaler Inhale 2 puffs daily 1 each 11 4 Active ferrous sulfate 325 mg (65 [...] t be different from the original. Lab: [facility] (SO: ONLY GOOD FOR 6 MONTHS) P:[phone] F:[phone] SO: Q-Monthly (NO FK); Q-3 Routine HGBA1C, TSH, iPTH, Vit D, UPE, Direct LDL SO: R-Yzac-Gzpspi (Sep & March) VIT B12, IRON PROFILE, [...] in support groups - Information given regarding [place] Tobacco Quit line: 2-479-OILM-YES for free services - 5 minutes spent discussing cessation Hepatitis C virus infection 12/17/2023 Overview (12/17/2023): Hepatitis C Back pain 07/31/2012 Overview (12/27/2016): Back pain Weakness of lower extremity 07/31/2012 Overview (12/28/2016): Lower extremity weakness Social History Tobacco Use Types Packs/Day Years [...] on file Legal Sex 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 Gender Identity Female 02/05/2021 6:21 AM CDT Sexual Orientation Straight 02/05/2021 6: 21 AM CDT Last Filed Vital Signs Vital Sign Reading [...] 07/21/2024 9:49 AM CDT Plan of Treatment Not on file Procedures Procedure Name Priority Date/Time Associated Diagnosis [...] WITH AUTO DIFFERENTIAL Routine 07/28/2024 7:31 AM OIL PROCESS STILLMAN RENAL FUNCTION PANEL Routine 07/28/2024 7:31 AM OIL PROCESS STILLMAN SARS-COV-2 ANTIBODY, IGA Routine 07/28/2024 7:30 AM OIL PROCESS STILLMAN RENAL FUNCTION PANEL Routine 07/28/2024 CBC WITH AUTO DIFFERENTIAL Routine 07/28/2024 TSH Routine 07/28/2024 LIPID PANEL Routine 12/24/2023 7:06 AM CDT HEPATITIS C RNA, QUANTITATIVE, PCR Routine 06/26/2019 from Last 3 Months or Most Recently Relevant to Health Maintenance Results * (ABNORMAL) LP w Chol/HDL Ratio (09/25/2024) SCRIBED Cholesterol, Total 173 140 - 199 mg/dL [facility] SCRIBED Triglycerides 212(A) 0 - 150 mg/dL [facility] SCRIBED HDL 50 40 mg/dL [facility] SCRIBED LDL 81 0 - 130 mg/dL [facility] Blood 09/25/2024 Historical Provider MD LAB BLOOD ORDERABLES Marsha l Result [facility] [address] [place] [address], [facility] [phone] * CBC with auto differential (09/25/2024) SCRIBED WBC 4.7 4.2 - 10.8 k/cumm [facility] SCRIBED Hemoglobin 12.3 12 - 15.6 g/dL [facility] SCRIBED Hematocrit 39.7 35.7 - 45.7 % [facility] SCRIBED Platelets 284 150 - 400 k/cumm [facility] Blood 09/25/2024 Historical Provider MD LAB BLOOD ORDERABLES Marsha l Result [facility] [address] [place] [address], [facility] [phone] * (ABNORMAL) Protein / creatinine ratio, urine, random (09/25/2024) SCRIBED Protein, Urine 18(A) 0.0 - 11.9 mg/dL [facility] SCRIBED Creatinine, Urine 111.70 N/A mg/dL [facility] SCRIBED Protein/Creat Ratio 0.2 0.0 - 0.2 [facility] Urine 09/25/2024 Historical Provider MD LAB URINE ORDERABLES Edit ed Result - Final [facility] [address] [place] [address], [facility] [phone] * (ABNORMAL) Vitamin D 25 hydroxy (09/25/2024) SCRIBED 25-OH Vitamin D 15.1(A) 30 - 100 ng/mL [facility] Blood 09/25/2024 Historical Provider MD LAB BLOOD ORDERABLES Marsha l Result [facility] [address] [phone] * (ABNORMAL) TSH (09/25/2024) Scribed TSH 6.26(A) 0.47 - 4.68 mcU/mL [facility] Blood 09/25/2024 [facility] Provider MD LAB BLOOD ORDERABLES Marsha l Result Performing Organization Address [facility] Co de Phone Number [facility] [address] [phone] * Phosphorus (09/25/2024) SCRIBED Phosphorus 4.2 2.5 - 4.5 mg/dl [facility] Blood 09/25/2024 Historical Provider MD LAB BLOOD ORDERABLES Marsha l Result Performing Organization Address [facility] Co de Phone Number [facility] [address] [phone] * (ABNORMAL) PTH (09/25/2024) SCRIBED iPTH 78.5(A) 24 - 78 pg/mL [facility] Blood 09/25/2024 Historical Provider MD LAB BLOOD ORDERABLES Marsha l Result [facility] [address] [phone] * Hemoglobin A1c (09/25/2024) SCRIBED Hemoglobin A1c 5.4 4 - 6 % [facility] Blood 09/25/2024 Historical Provider LAB BLOOD ORDERABLES Marsha l Result [facility] [address] [phone] * (ABNORMAL) Comprehensive metabolic panel (09/25/2024) SCRIBED Sodium 138 137 - 145 mmol/L [facility] SCRIBED Potassium 4.5 3.5 - 5.1 mmol/L [facility] SCRIBED Chloride 107 98 - 107 mmol/L [facility] SCRIBED Carbon Dioxide 24 22 - 30 mmol/L [facility] SCRIBED Anion Gap 11.5(A) 14 - 22 mmol/L [facility] SCRIBED Urea Nitrogen (BUN) 20(A) 8 - 19 mg/dl [facility] SCRIBED Creatinine 1.28(A) 0.66 - 1.25 mg/dl [facility] SCRIBED Glucose 77 70 - 99 mg/dl [facility] SCRIBED Calcium 9.8 8.4 - 10.2 mg/dl [facility] SCRIBED Bilirubin 0.80 0.20 - 1.30 mg/dl [facility] SCRIBED Plasma Protein 6.9 6.3 - 8.2 g/dl [facility] SCRIBED Albumin 4 3.4 - 5 g/dl [facility] SCRIBED Alkaline Phosphatase 112 38 - 126 Units/L [facility] SCRIBED Alanine Transaminase (ALT) 17 0 - 35 Units/L [facility] SCRIBED Aspartate Transaminase (AST) 24 15 - 37 Units/L [facility] SCRIBED eGFR in NonAfrican Belizean 43 N/A mL/min [facility] Blood 09/25/2024 Historical Provider LAB BLOOD ORDERABLES Marsha l Result [facility] [address] [place] [address], [place] [phone] * CBC with auto differential (08/26/2024) SCRIBED WBC 4.9 4.2 - 10.8 k/cumm TXP NO LAB FOUND SCRIBED Hemoglobin 12.8 12 - 15.6 g/dL TXP NO LAB FOUND SCRIBED Hematocrit 39.9 35.7 - 45.7 % TXP NO LAB FOUND SCRIBED Platelets 292 150 - 450 k/cumm TXP NO LAB FOUND Blood 08/26/2024 us Historical Provider LAB BLOOD ORDERABLES Marsha [...] NO LAB FOUND SCRIBED eGFR in NonAfrican Belizean 41 N/A mL/min TXP NO LAB FOUND SCRIBED Urea Nitrogen (BUN) 26(A) 8 - 19 mg/dl TX[facility] NO LAB FOUND Blood 08/26/2024 us Historical Provider LAB BLOOD ORDERABLES Edit ed Result - Final TXP NO LAB FOUND * (ABNORMAL) CBC with auto differential (07/28/2024 7:31 AM OIL PROCESS STILLMAN) SCRIBED WBC 3.9(A) 4.2 - 10.8 k/cumm [facility] SCRIBED Hemoglobin 12.4 12.0 - 15.6 g/dL [facility] SCRIBED Hematocrit 39.8 35.7 - 45.7 % [facility] SCRIBED Platelets 287 150 - 400 k/cumm [facility] Blood 07/28/2024 7:31 AM OIL PROCESS STILLMAN us Historical Provider LAB BLOOD ORDERABLES Marsha khoury Result [facility] [address] [phone] * (ABNORMAL) Renal function panel (07/28/2024 7:31 AM OIL PROCESS STILLMAN) SCRIBED Calcium 9.4 8/0.4 - 10.2 mg/dl [facility] SCRIBED Phosphorus 3.9 2.5 - 4.5 mg/dl [facility] SCRIBED Albumin 3.8 3.4 - 5.0 g/dl [facility] SCRIBED Glucose 84 70 - 99 mg/dl [facility] SCRIBED Creatinine 1.35(A) 0.66 - 1.25 mg/dl [facility] SCRIBED Sodium 137 137 - 145 mmol/L [facility] SCRIBED Potassium 4.6 3.5 - 5.1 mmol/L [facility] SCRIBED Chloride 105 98 - 107 mmol/L [facility] SCRIBED Carbon Dioxide 21(A) 22 - 30 mmol/L [facility] SCRIBED eGFR in NonAfrican Belizean 40 15 - 60 ml/min/1.7 3m2 [facility] SCRIBED Urea Nitrogen (BUN) 21(A) 8 - 19 mg/dl [facility] Blood 07/28/2024 7:31 AM OIL PROCESS STILLMAN us Historical Provider LAB BLOOD ORDERABLES Edit ed Result - Final [facility] [address] [place] [address], [facility] [phone] * SARS-CoV-2 Antibody, IgA (07/28/2024 7:30 AM OIL PROCESS STILLMAN) SARS-CoV-2 Semi-Quant IgG Ab 58.8 <13.0 AU/mL [facility] SARS-COV2 Jimmie Ab interp pos [facility] 07/28/2024 7:30 AM OIL PROCESS STILLMAN Result [facility] Historical Provider LAB MICROBIOLOGY - GENERA L ORDERABLES Edited Result - Final Performing Organization Address [facility]/ZIP Co de Phone Number [facility] [address] [place] [address], [facility] [phone] * (ABNORMAL) CBC with auto differential (07/28/2024) [...] k/cumm TXP NO LAB FOUND Blood 07/28/2024 Result [facility] Historical Provider LAB BLOOD ORDERABLES Marsha l Result [facility] NO LAB FOUND * TSH (07/28/2024) Scribed TSH 4.42 0.47 - 4.68 mcU/mL [facility] NO LAB FOUND Blood 07/28/2024 Historical Provider LAB BLOOD ORDERABLES Edit ed Result - Final Performing Organization Address [facility] de Phone Number TXP NO LAB FOUND [...] NO LAB FOUND SCRIBED eGFR in NonAfrican Belizean 40 N/A mL/min TXP NO LAB FOUND SCRIBED Urea Nitrogen (BUN) 21(A) 8 - 19 mg/dl TX[facility] NO LAB FOUND Blood 07/28/2024 Result [facility] Provider LAB BLOOD ORDERABLES Edit ed Result - Final Performing Organization Address [facility] de Phone Number TXP NO LAB FOUND [...] LAB FOUND Blood 12/24/2023 7:06 AM CDT Result [facility] Provider LAB BLOOD ORDERABLES Marsha l Result [facility] NO LAB FOUND * Hepatitis C (HCV) RNA PCR, quantitative (06/26/2019) SCRIBED HCV RNA nt det nt det IUnit/mL [facility] NO LAB FOUND Blood specimen (specimen) 06/26/2019 Historical Provider LAB MICROBIOLOGY - GENERA L ORDERABLES Final Result [facility] NO LAB FOUND from Last 3 Months or Most Recently Relevant to Health Maintenance Insurance [facility] Care Teams Ships Or Barges Loader Relationship Specialty Start Date End Date Juwan Reyes MD [address] [place] [address] PCP - General Emergency Medicine 01/23/23 Chery Alonso, manager concreteOperational Assistant Transplant 01/18/22 Francisco Javier Curtis MD [address] [facility] [address] [place] [address] OB provider group Orthopedic Surgery 12/17/23 [place] G[place] [address] [place] [address] Consulting Physician Cardiology 12/17/23 [place] [address] [address] [facility] [address] [place] [address] Senior Accounts Payable Specialist Nephrology 12/17/23
--- OUTSIDE RECORDS SUMMARY | 2024-09-26 01:21 | XMS_ITS | Encounter Summary ---
Author Organization [facility] Healthcare Address [address] [place] [address] Care Team Providers Care Mortgage Loan Reviewer Name Role Phone Chery Alonso RN Unavailable Unava Juwan Jones MD Primary Care Provide r Encounter Details Date Type Department Care Team (Late st Contact Info) Description 12/04/2023 Telephone [facility] Transplant Kidney [address] [facility] [address] [phone] [place] [address] Lyn Tanner Social History Tobacco Use Types Packs/Day Years Used Date Smoking Tobacco: Never Alcohol Use Standard Drinks/Week Comments No 0 (1 standard drink = 0.6 oz pur e alcohol) Comments Unknown Sex and Gender Information Value Date Recorded Sex Assigned at Not on file Legal Sex Female 10:29 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 Because whatthey can prescribe she is allergic too. Wants to know if we can prescibe something, please call before 10:30 or after 1:30. Her dentist office is [facility] [phone] if you want to call them. Needs return call from nurse coordinator. 12/04/23, 8:31 AM VERONICA Donnelly, senior lead developerCorrugator Called patient. Advised her she needed to call her PCP as this is not kidney transplant related. Patient verbalized understanding. documented in this encounter Plan of Treatment Not on file documented as of this encounter Visit Diagnoses Not on filedocumented in this encounter Care Teams Mortgage Loan Reviewer Relationship Specialty Start Date End Date Juwan Reyes MD [address] [place] [address] PCP - General Emergency Medicine 01/23/23 Chery Alonso, senior lead developerCorrugator Transplant 01/18/22 documented as of this encounter
--- OUTSIDE RECORDS SUMMARY | 2024-09-26 01:21 | XMS_ITS | Encounter Summary ---
Author Organization [facility] Healthcare Address [address] [place] [address] Care Team Providers Care Automation Test Developer Name Role Phone Chery Alonso RN Unavailable Unava ilable Juwan Reyes MD Primary Care Provide r Encounter Details Date Type Department Care Team (Late st Contact Info) Description 11/27/2023 Orders Only [facility] Information Management [address] [place] [address] Scanning, Provider Social History Tobacco Use Types Packs/Day Years Used Date Smoking Tobacco: Never Alcohol Use Standard Drinks/Week Comments No 0 (1 standard drink = 0.6 oz pur e alcohol) Comments Unknown Sex and Gender Information Value Date Recorded Sex Assigned at Not on file Legal Sex Female 10:29 AM COMPUTERIZED TABLE CUTTER Gender Identity Female 02/05/2021 6:21 AM CDT Sexual Orientation Straight 02/05/2021 6: 21 AM CDT documented as of this encounter Plan of Treatment Not on file documented as of this encounter Procedures Procedure Name Priority Date/Time Associated Diagnosis Comments SCAN - LABS 11/27/2023 9:45 AM COMPUTERIZED TABLE CUTTER documented in this encounter Results * SCAN - LABS (11/27/2023 9:45 AM COMPUTERIZED TABLE CUTTER) us Provider Scanning Final Result documented in this encounter Visit Diagnoses Not on filedocumented in this encounter Care Teams Automation Test Developer Relationship Specialty Start Date End Date Juwan Reyes MD [address] [place] [address] PCP - General Emergency Medicine 01/23/23 Chery Alonso, talent buyerHotel Security Officer Transplant 01/18/22 documented as of this encounter
--- OUTSIDE RECORDS SUMMARY | 2024-09-26 01:21 | XMS_ITS | Encounter Summary ---
Author Organization [facility] Healthcare Address [address] [place] [address] Care Team Providers Care Show Design Supervisor Name Role Phone Chery Alonso RN Unavailable Unava ilable Juwan Reyes MD Primary Care Provide r Francisco Javier Curtis MD Unavailable [phone] Kevin Gutiérrez MD Unavailable True Clemons MD Unavailable [phone] Encounter Details Date Type Department Care Team (Late st Contact Info) Description 01/07/2024 8:45 AM CDT Ancillary Procedure [facility] Outside Films [...] on file Legal Sex Female 10:29 AM GUIDE DOG INSTRUCTOR Gender Identity Female 02/05/2021 6:21 AM CDT Sexual Orientation Straight 02/05/2021 6: 21 AM CDT documented as of this encounter Plan of Treatment Not on file documented as of this encounter Procedures Procedure Name Priority Date/Time Associated Diagnosis Comments CT BODY OUTSIDE REFERENCE Routine 01/07/2024 8:45 AM CDT documented in this encounter Results * CT Body Outside Reference (01/07/2024 8:45 AM CDT) Narrative [facility] - 01/22/2024 1:10 PM CDT This order has been auto-finalized and does not contain a result. us Not In File Miscellaneous IMG CT PROCEDURES Marsha iraida Result [facility] documented in this encounter Visit Diagnoses Not on filedocumented in this encounter Care Teams Show Design Supervisor Relationship Specialty Start Date End Date Juwan Reyes MD [address] [place] [address] PCP - General Emergency Medicine 01/23/23 Chery Alonso, tanyard workerTester Vibrator Equipment Transplant 01/18/22 Francisco Javier Curtis MD [address] [place] [address] OB provider group Orthopedic Surgery 12/17/23 [place] [address] [address] Consulting Physician Cardiology 12/17/23 [place] [address] [address] Cutch Cleaner Nephrology 12/17/23 documented as of this encounter
--- OUTSIDE RECORDS SUMMARY | 2024-09-26 01:21 | XMS_ITS | Encounter Summary ---
Author Organization [facility] Healthcare Address [address] [place] [address] Care Team Providers Care Research Attorney Name Role Phone Chery Alonso RN Unavailable Unava ilable Juwan Reyes MD Primary Care Provide r Francisco Javier Curtis MD Unavailable [phone] Kevin Gutiérrez MD Unavailable True Clemons MD Unavailable [phone] Encounter Details Date Type Department Care Team (Late st Contact Info) Description 09/11/2024 Orders Only [facility] Pulmonary at [address] [place] [address] Fartun Matos LPN Centrilobular emphysema (HCC) (Primary Dx) Social History Tobacco Use Types Packs/Day Years Used Date Smoking Tobacco: Every Day Cigarettes 1 54 Started: 1972 Passive Smoke Exposure: Past Alcohol Use Standard Drinks/Week Comments No 0 (1 standard drink = 0.6 oz pur e alcohol) Comments Unknown Sex and Gender Information Value Date Recorded Sex Assigned at Not on file Legal Sex Female 10:29 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 TUNNEL HEADING Gender Identity Female 02/05/2021 6:21 AM CDT Sexual Orientation Straight 02/05/2021 6: 21 AM CDT documented as of this encounter Plan of Treatment Not on file documented as of this encounter Visit Diagnoses Diagnosis Centrilobular emphysema (HCC)- Primary documented in this encounter Orders General Supply Count Last Ordered Date First Or dered Date NEBULIZER WITH KIT 1 09/11/2024 documented in this encounter Care Teams Research Attorney Relationship Specialty Start Date End Date Juwan Reyes MD [address] [place] [address] PCP - General Emergency Medicine 01/23/23 Chery Alonso, lighting specialistTint Layer Transplant 01/18/22 Francisco Javier Curtis MD [address] [place] [address] OB provider group Orthopedic Surgery 12/17/23 [place] [address] [address] Consulting Physician Cardiology 12/17/23 [place] [address] [address] [address] Senior Information Systems Architect Nephrology 12/17/23 documented as of this encounter
--- OUTSIDE RECORDS SUMMARY | 2024-09-26 01:21 | XMS_ITS | Encounter Summary ---
Author Organization [facility] Healthcare Address [address] [place] [address] Care Team Providers Care Bog Cutter Name Role Phone Chery Alonso RN Unavailable Unava ilable Juwan Reyes MD Primary Care Provide r Francisco Javier Curtis MD Unavailable [phone] Kevin Gutiérrez MD Unavailable True Clemons MD Unavailable [phone] Reason for Visit * Reason Onset Date Comments Med Refill 03/19/2024 Encounter Details Date Type Department Care Team (Late st Contact Info) Description 03/19/2024 Telephone [facility] Pulmonary at [address] [place] [address] Nataly Mcguire LPN Med Refill Social History Tobacco Use Types Packs/Day Years Used Date Smoking Tobacco: Every Day Cigarettes 1 54 Started: 1972 Passive Smoke Exposure: Past Alcohol Use Standard Drinks/Week Comments No 0 (1 standard drink = 0.6 oz pur e alcohol) Comments Unknown Sex and Gender Information Value Date Recorded Sex Assigned at Not on file Legal Sex Female 10:29 AM ADMINISTRATION PHYSICIAN Gender Identity Female 02/05/2021 6:21 AM CDT Sexual Orientation Straight 02/05/2021 6: 21 AM CDT documented as of this encounter Miscellaneous Notes * Telephone Encounter - Nataly Mcguire LPN - 03/19/2024 1:36 PM CDT [facility] got [facility] for Ventolin 90 day supply. Spoke with Tina Meng And gaveverbal order for Ventolin 90mcg 4 inhalers for 100 day supply. 2 puffs 4 times a day with 3 refills. documented in this encounter Plan of Treatment Not on file documented as of this encounter Visit Diagnoses Not on filedocumented in this encounter Care Teams Bog Cutter Relationship Specialty Start Date End Date Juwan eRyes MD [address] [place] [address] PCP - General Emergency Medicine 01/23/23 Chery Alonso, heating equipment repairerData Operations Director Transplant 01/18/22 Francisco Javier Curtis MD [address] [place] [address] [facility] provider group Orthopedic Surgery 12/17/23 [place] [address] [address] Consulting Physician Cardiology 12/17/23 [place] [address] [address] [address] Transmission And Coordination Engineer Nephrology 12/17/23 documented as of this encounter
--- OUTSIDE RECORDS SUMMARY | 2024-09-26 01:21 | XMS_ITS | Continuity of Care Document ---
Author Organization [facility] Address [address] [place] [address] Phone Care Team Providers Care Division Operations Manager Name Role Phone Mj Ureña Unavailable Unavailable Procedures Procedure Date Eye Exam & Treatment Special Reports Or Forms No Charge Glasses Check Eye Exam & Treatment Office/outpatient Visit, Est Eye Exam & Treatment Eye Exam & Treatment Advance Directives Directive Yes / No Effective Date File Name No Information Encounters Encounter Description Practice Location Reason(s) For Visit Diagnoses Date Provider Providers Copied on Encounter [facility], [address] [place] [address] [address], [place], [place], [id number], [place] tel:[phone] [facility] No Information 0-201 0 Niranjan Barker. [address] , [address], [place], [place], [facility], [place]. tel:[phone] [facility], [address] [place] [address] [address], [place], [place], [id number], [place] tel:[phone] [facility] No Information 7-200 9 Niranjan Barker. [address], [address], [place], [address], [place]. tel:[phone] [facility], [address] [place] [address] [address], [place], [place], [id number], [place] tel:[phone] [facility] No Information 0 3-200 9 Doisy Edward. [facility] [address] , [address], [place], [place], [facility], . tel:[phone] [facility], [address] [place] [address] [address], [place], [place], [address], [place] tel:[phone] [facility] No Information Suhail-0 1-200 9 Doisy Edward. [address] [place], [place] [address]ate Center , [address], [place], [place], [facility], . tel:[phone] Office/outpat ient Visit, [facility], [address] [place] [address] [address], [place], [place], [address], [place] tel:[phone] [facility] No Information Sep-1 5-200 8 Doisy Edfredi. [address] [place], [place] [address], [place], [place], [facility], . tel:[phone] [facility], [address] [place] [address] [address], [place], [place], [address], [place] tel:[phone] [facility] No Information 4-200 8 Doisy Edfredi. [address] [place], [place] [address]ate [address], [place], [facility], [place]. tel:[phone] [facility], [address] [place] [address] [address], [place], [place], [id number], [place] tel:[phone] [facility] No Information Dec-2 2-200 6 Doisy Edward. [address] [place], [place] [address]ate Center , [address], [place], [facility], . tel:[phone] Family History Family Member Type Diagnosis Age At Onset No Information Payers Payer name Insurance type Covered green party ID Casey arias(s) [place] [id number] Social History Type Description Quantity Date Captured Comments Sex Female Smoking Status No Information Chief Complaint And Reason For Visit No Information Reason For Referral Reason For Referral No Information History Of Present Illness Encounter Date Complaint History Of Prese nt Illness No Information Functional Status Date Functional Assessmen t No Information Instructions Date Instruction Additional Infor mation No Information Assessments Type Assessment Date No Information Patient Care Teams Name Effective Dates (start - stop) Status Members No Information
--- OUTSIDE RECORDS SUMMARY | 2024-09-26 01:21 | XMS_ITS | Encounter Summary ---
Author Organization [facility] Healthcare Address [address] [place] [address] Care Team Providers Care Automatic Spreader Operator Name Role Phone Chery Alonso RN Unavailable Unava ilable Juwan Reyes MD Primary Care Provide r Francisco Javier Curtis MD Unavailable [phone] Kevin Gutiérrez MD Unavailable True Clemons MD Unavailable [phone] Reason for Visit * Reason Comments Follow-up Patient said that shayy liriano had her LDCT done in December at [facility] Encounter Details Date Type Department Care Team (Late st Contact Info) Description 07/21/2024 10:00 AM CDT Office Visit [facility] Pulmonary at [address] [place] [address] Tessie Wen, JAMILA [address] [place] [address] [address] [place] [address] Centrilobular emphysema (HCC) (Primary Dx); Obstructive sleep apnea; Cigarette nicotine dependence without complication Social History Tobacco Use Types Packs/Day Years Used Date Smoking Tobacco: Every Day Cigarettes 1 54 Started: 1970 Passive Smoke Exposure: Past Alcohol Use Standard Drinks/Week Comments No 0 (1 standard drink = 0.6 oz pur e alcohol) Comments Unknown Sex and Gender Information Value Date Recorded Sex Assigned at Not on file Legal Sex Female 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 PULMONARY CLINIC NOTE Visit Date: 07/21/2024 Chief Complaint: Presents today for COPD HPI: Tyshawn Engel is a 58 y.o. female w/ PMH of COPD, s/p renal transplant in 1992 who presents on 07/21/2024 for follow up on dyspnea and cough. She was originally evaluated in our office in November of 2023 we previously been followed by Pulmonary. She had tried and failed multiple inhaled therapies with either lack of clinical benefit or with some side effects. She did best on Spiriva Respimat and is currently on this as monotherapy. She has not had a respiratory infection this year. She continues to report dyspnea on exertion in his altered activities to avoid shortness of breath. Her cough is daily but very minimally productive. She denies chest pain, hemoptysis, fever/chills, night sweats, unintentional weight loss. Previous diagnosis of PLACIDO, she was intolerant to CPAP. She continues to smoke and is uninterested in quitting. Exposure History: None relevant Past Medical History: Past Medical History: Diagnosis Date Bulging lumbar disc T11-12 Cigarette nicotine dependence without complication 07/21/2024 Claustrophobia COPD (chronic obstructive pulmonary disease) (HCC) De Quervain's tenosynovitis Depression Depression Diabetes mellitus (HCC) Diabetes Drug abuse (CMS/HCC) (HCC) 1985 drug abuse Facet arthropathy of spine L2-3 & L3-4 Gastroparesis Hearing impaired Heart murmur Heart Murmur Hepatitis C virus infection Exposure to Hep C antibody Hernia of abdominal wall Hx of degenerative disc disease L4-5 HX OTHER MEDICAL cataracts HX OTHER MEDICAL 1993 alcohol abuse HX OTHER MEDICAL Hepatitis HX OTHER MEDICAL reflux nephropathy HX OTHER MEDICAL hypotension HX OTHER MEDICAL type 2 diabetes HX OTHER MEDICAL Raynaud's Disease HX OTHER MEDICAL Lumbar Neuropathy Hyperlipidemia Hyperlipidemia Hypertension Hypertension Hypothyroidism Kidney disorder kidney disease Loss of vision Malignant neoplasm of larynx (HCC) Cancer, throat Malignant neoplasm of skin Cancer, skin MS (multiple sclerosis) (HCC) Multiple sites of bowel obstruction (CMS/HCC) (HCC) Nausea and vomiting intermittent Neuropathy (CMS/HCC) Osteoarthritis Plantar fasciitis, bilateral Joseph Harry cerebellar syndrome (HCC) Rosacea Scoliosis Short bowel syndrome Sleep apnea Tension headache Headache, tension Family History: Family History Problem Relation Age of Onset Diabetes Mother Diabetes mellitus; Hypertension Mother Hypertension; Migraines Mother Migraine; Liver disease Mother Other (non alcholic cirrhosis) Mother Cancer Sister Cancer Brother Other (non alcholic cirrhosis) Brother Other (small cell caricoma) Brother Cancer Other Family history of Cancer; Diabetes Other Family history of Diabetes mellitus; Hypertension Other Family history of Hypertension; Social History: Current smoker at about 1 PPD Started at age 5 Review of Systems: Review of Systems Constitutional: Negative for activity change, chills, fatigue and unexpected weight change. HENT: Negative for congestion, postnasal drip, rhinorrhea, sinus pressure, sore throat and voice change. Eyes: Negative for visual disturbance. Respiratory: Negative for cough, chest tightness, shortness of breath and wheezing. Denies hemoptysis Cardiovascular: Negative for chest pain, palpitations and leg swelling. Gastrointestinal: Denies GERD Genitourinary: Negative for difficulty urinating. Musculoskeletal: Negative for arthralgias and joint swelling. Skin: Negative for rash. Neurological: Negative for weakness. Hematological: Negative for adenopathy. Psychiatric/Behavioral: Negative for sleep disturbance. OBJECTIVE: Physical Exam: Vitals: 07/21/24 0949 BP: 110/60 BP Location: Left arm Patient Position: Sitting Pulse: 72 Temp: 36.5 ??C (97.7 ??F) TempSrc: Temporal SpO2: 99% Weight: 78.2 kg (172 lb 8 oz) Height: 169.2 cm (5' 6.6 ) Physical Exam Constitutional: Appearance: Normal appearance. HENT: Head: Normocephalic. Nose: No congestion or rhinorrhea. Mouth/Throat: Mouth: Mucous membranes are moist. Eyes: Pupils: Pupils are equal, round, and reactive to light. Neck: Comments: No supraclavicular adenopathy Cardiovascular: Rate and Rhythm: Normal rate and regular rhythm. Heart sounds: No murmur heard. Pulmonary: Effort: Pulmonary effort is normal. No tachypnea or respiratory distress. Breath sounds: No decreased air movement. No decreased breath sounds, wheezing, rhonchi or rales. Abdominal: General: Bowel sounds are normal. Palpations: Abdomen is soft. Tenderness: There is no abdominal tenderness. Musculoskeletal: General: No swelling. Right lower leg: No edema. Left lower leg: No edema. Lymphadenopathy: Cervical: No cervical adenopathy. Skin: General: Skin is warm and dry. Nails: There is no clubbing. Neurological: General: No focal deficit present. Mental Status: She is alert and oriented to person, place, and time. Psychiatric: Mood and Affect: Mood normal. Data Review: Low-dose CT 07/30/2020: Personally reviewed No worrisome lung nodules. Mild centrilobular emphysematous changes are noted with hyperinflation Alpha-1 antitrypsin mm, level 196 Pulmonary Functions Testing Results: 6 minute walk test 08/31/2021: Shet ambulated 305 m on ambient air with lowest oxygen saturation 94% ASSESSMENT AND PLAN Diagnoses and all orders for this visit: Centrilobular emphysema (HCC) (Primary) Assessment & Plan: Continue Spiriva Respimat 2.5 one puff daily Albuterol as needed only, we have discussed indications for use All of her medications come from a specialty pharmacy due to her previous renal transplant, she wasaware to have her liaison contact our office if these need to be renewed I continue to encourage smoking cessation She is aware of signs or symptoms that would require earlier evaluation or change to her plan of care Obstructive sleep apnea Assessment & Plan: She is intolerant to CPAP and uninterested in alternate therapies She is aware of the risks of uncorrected sleep apnea Cigarette nicotine dependence without complication Assessment & Plan: - Smoking cessation counseling and techniques reviewed at length - Literature reviewed - Avoid triggers and use distraction techniques - Participate in support groups - Information given regarding [place] Tobacco Quit line: 3-238-QLTV-YES for free services - 5 minutes spent discussing cessation Tessie Wen NP documented in this encounter Miscellaneous Notes * Assessment & Plan Note - Tessie Wen NP - 07/21/2024 3:52 PM CDT Associated Problem(s): Centrilobular emphysema (HCC) Continue Spiriva Respimat 2.5 one puff daily Albuterol as needed only, we have discussed indications for use All of her medications come from a specialty pharmacy due to her previous renal transplant, she wasaware to have her liaison contact our office if these need to be renewed I continue to encourage smoking cessation She is aware of signs or symptoms that would require earlier evaluation or change to her plan of care * Assessment & Plan Note - Tessie Wen NP - 07/21/2024 3:51 PM CDT Associated Problem(s): Obstructive sleep apnea She is intolerant to CPAP and uninterested in alternate therapies She is aware of the risks of uncorrected sleep apnea * Assessment & Plan Note - Tessie Wen NP - 07/21/2024 3:49 PM CDT Associated Problem(s): Cigarette nicotine dependence without complication - Smoking cessation counseling and techniques reviewed at length - Literature reviewed - Avoid triggers and use distraction techniques - Participate in support groups - Information given regarding [place] Tobacco Quit line: 7-400-GXWD-YES for free services - 5 minutes spent discussing cessation documented in this encounter Plan of Treatment Not on file documented as of this encounter Visit Diagnoses Diagnosis Centrilobular emphysema (HCC)- Primary Obstructive sleep apnea Obstructive sleep apnea (adult) (pediatric) Cigarette nicotine dependence without complication documented in this encounter Historical Medications * This list may reflect changes made after this encounter. lidocaine (LIDODERM) 5 % 1 PATCH TOPICALLY DAILY LEAVE ON MOST PAINFUL AREA FOR UP TO 12 HRS 07/13/2024 ergocalciferol (VITAMIN D) 50,000 unit capsule 06/26/2024 added in this encounter Care Teams Automatic Spreader Operator Relationship Specialty Start Date End Date Juwan Reyes MD [address] [place] [address] PCP - General Emergency Medicine 01/23/23 Chery Alonso, supervisor hot strip millCarcass Splitter Transplant 01/18/22 Francisco Javier Curtis MD [address] [facility] [address] [place] [address] OB provider group Orthopedic Surgery 12/17/23 [place] [address] [address] Consulting Physician Cardiology 12/17/23 [place] [address] [address] Interventional Technologist Nephrology 12/17/23 documented as of this encounter
--- OUTSIDE RECORDS SUMMARY | 2024-09-26 01:21 | XMS_ITS | Encounter Summary ---
Author Organization [facility] Healthcare Address [address] [place] [address] Care Team Providers Care Bus Aide Name Role Phone Chery Alonso RN Unavailable Unava ilable Juwan Reyes MD Primary Care Provide r Francisco Javier Curtis MD Unavailable [phone] Kevin Gutiérrez MD Unavailable True Clemons MD Unavailable [phone] Encounter Details Date Type Department Care Team (Late st Contact Info) Description 12/31/2023 Telephone [facility] Transplant Kidney [address] [facility] [phone] [place] [address] Neeru Gonsalez RN [address] [facility] [address] [place] [address] Social History Tobacco Use Types Packs/Day Years Used Date Smoking Tobacco: Every Day Cigarettes 1 54 Started: 1970 Passive Smoke Exposure: Past Alcohol Use Standard Drinks/Week Comments No 0 (1 standard drink = 0.6 oz pur e alcohol) Comments Unknown Sex and Gender Information Value Date Recorded Sex Assigned at Not on file Legal Sex Female 10:29 AM CAR ICER Gender Identity Female 02/05/2021 6:21 AM CDT Sexual Orientation Straight 02/05/2021 6: 21 AM CDT documented as of this encounter Miscellaneous Notes * Telephone Encounter - Neeru Gonsalez RN - 12/31/2023 11:31 AM CDT Pt is having sedation for a dental procedure and wants to know if these meds are okay to receive: Fentanyl +Versed+Decadron 12/31/23 12:19 PM Neeru Gonsalez RN Environmental Services Director: Reviewed with Pharm D: Yes okay for all documented in this encounter Plan of Treatment Not on file documented as of this encounter Visit Diagnoses Not on filedocumented in this encounter Care Teams Bus Aide Relationship Specialty Start Date End Date Juwan Reyes MD [address] [place] [address] PCP - General Emergency Medicine 01/23/23 Chery Alonso RN Environmental Services Director Transplant 01/18/22 Francisco Javier Curtis MD [address] [facility] [address] [place] [address] OB provider group Orthopedic Surgery 12/17/23 [place] [address] [address] Consulting Physician Cardiology 12/17/23 [place] [address] [address] [address] Glazier Helper Nephrology 12/17/23 documented as of this encounter
--- OUTSIDE RECORDS SUMMARY | 2024-09-26 01:21 | XMS_ITS | Encounter Summary ---
Author Organization [facility] Address [address] [place] [address] Care Team Providers Care Immigration Case Manager Name Role Phone Chery Alonso RN Unavailable Unava Juwan Jones MD Primary Care Provide r Reason for Visit * Reason Onset Date Comments Request for records 12/06/2023 Encounter Details Date Type Department Care Team (Late st Contact Info) Description 12/06/2023 Telephone [facility] Pulmonary at [address] [place] [address] Rhonda Palencia LPN Request for records Social History Tobacco Use Types Packs/Day Years Used Date Smoking Tobacco: Never Alcohol Use Standard Drinks/Week Comments No 0 (1 standard drink = 0.6 oz pur e alcohol) Comments Unknown Sex and Gender Information Value Date Recorded Sex Assigned at Not on file Legal Sex Female 10:29 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 No records available at this time. Requested records from [facility] and also from Tessie's old office. Awaiting records from both places. documented in this encounter Plan of Treatment Not on file documented as of this encounter Visit Diagnoses Not on filedocumented in this encounter Care Teams Immigration Case Manager Relationship Specialty Start Date End Date Juwan Reyes MD [address] [place] [address] PCP - General Emergency Medicine 01/23/23 Chery Alonso, bodily injury adjusterGum Cook Transplant 01/18/22 documented as of this encounter
--- OUTSIDE RECORDS SUMMARY | 2024-09-26 01:21 | XMS_ITS | Encounter Summary ---
Author Organization [facility] Healthcare Address [address] [place] [address] Care Team Providers Care Back Digger Operator Name Role Phone Chery Alonso RN Unavailable Unava ilable Juwan Reyes MD Primary Care Provide r Francisco Javier Curtis MD Unavailable Kevin Gutiérrez MD Unavailable True Clemons MD Unavailable [phone] Reason for Visit * Reason Onset Date Comments ok to have ketamine during dental proceudre 11/2023 Dental medication 12/26/2023 Encounter Details Date Type Department Care Team (Late st Contact Info) Description 12/26/2023 Telephone [facility] Pulmonary at [address] [place] [address] Nataly Mcguire LPN ok to have ketamine during dental proceudre; Dental medication Social History Tobacco Use Types Packs/Day Years Used Date Smoking Tobacco: Every Day Cigarettes 1 54 Started: 1970 Passive Smoke Exposure: Past Alcohol Use Standard Drinks/Week Comments No 0 (1 standard drink = 0.6 oz pur e alcohol) Comments Unknown Sex and Gender Information Value Date Recorded Sex Assigned at Not on file 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 Patient CT was in [employer] but was not uploaded. Radiology to manage for your review today. * Telephone Encounter - Rhonda Palencia LPN - 01/21/2024 4:39 PM CDT Spoke with patient by phone and gave providers response. Told patient that our office is still awaiting images to be uploaded but gave her providers response to CT. Patient verbalized understanding and was also given the update on where we are with the dentist. Patient stated that she appreciated the return call back. * Telephone Encounter - Rhonda Palencia LPN - 01/18/2024 2:48 PM CDT Patient was contacted by phone and providers response was given. Patient became very upset when given low dose can be given . Patient states this is terrible on the turn around time here at your office, I mean look how long it has taken your office to call me back and what kind of response is this? This nurse told patient that I was unsure of what exactly that meant however it may be helpful if her dental office could sent over something over letting our office know what doses of those medications they administer so our office could determine how much of low doses could be given safely for her extractions. Patient then said well they are closed now so I will not be able to do this today. Isaid to her well when are you scheduled she says not for awhile a few weeks out. I said well you can call them next week that should be fine for our office to review that and get back to them. Patient using [facility] p. [phone]. Patient wanting to know if Tessie would call them and get this straighten out for dosing. Patient then in an upset tone with me said that she unhappy because she has not heard anything about her CT chest. Patient said that she has never had to wait this long for test results. Checked the system noted report from [facility] here under Media. Could you please address for her. Thanks * Telephone Encounter - Rhonda Palencia LPN - 01/10/2024 9:18 AM CDT Patient called the office again today and said that her heavy duty mechanic said that they were not comfortable with Ketamine for her dental extraction but said that she would need to check with our office to see if Pulmonology would be okay with Fentanyl, Versed, and Decadron for the dental extraction? * Telephone Encounter - Nataly cMguire LPN - 12/27/2023 1:34 PM CDT Called patient and informed her that per Tessie the ketamine is a relatively safe option for her. Patient said thank you. Patient verbalized good understanding. * Telephone Encounter - Nataly Mcguire LPN - 12/26/2023 4:13 PM CDT Patient called in asking if it is ok for her to have ketamine during her dental procedure. Procedure has not been scheduled. Spoke with Tessie MARINO and she will look into this and get back with patient. Patient verbalized good understanding. documented in this encounter Plan of Treatment Not on file documented as of this encounter Visit Diagnoses Not on filedocumented in this encounter Care Teams Back Digger Operator Relationship Specialty Start Date End Date Juwan Reyes MD [address] [place] [address] PCP - General Emergency Medicine 01/23/23 Chery Alonso, live in companionManager Book Transplant 01/18/22 Francisco Javier Curtis MD [address] [place] [address] OB provider group Orthopedic Surgery 12/17/23 [place] [address] [address] Consulting Physician Cardiology 12/17/23 [place] [address] [address] [address] Php Lamp Developer Nephrology 12/17/23 documented as of this encounter
--- OUTSIDE RECORDS SUMMARY | 2024-09-26 01:21 | XMS_ITS | Encounter Summary ---
Author Organization [facility] Healthcare Address [address] [place] [address] Care Team Providers Care Hvac Manager Name Role Phone Chery Alonso RN Unavailable Unava ilable Juwan Reyes MD Primary Care Provide r Encounter Details Date Type Department Care Team (Late st Contact Info) Description 10/25/2023 Orders Only [facility] Health Information Management [address] [place] [address] Scanning, Provider Social History Tobacco Use Types Packs/Day Years Used Date Smoking Tobacco: Never Alcohol Use Standard Drinks/Week Comments No 0 (1 standard drink = 0.6 oz pur e alcohol) Comments Unknown Sex and Gender Information Value Date Recorded Sex Assigned at Not on file Legal Sex Female 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 Gender Identity Female 02/05/2021 6:21 AM CDT Sexual Orientation Straight 02/05/2021 6: 21 AM CDT documented as of this encounter Plan of Treatment Not on file documented as of this encounter Procedures Procedure Name Priority Date/Time Associated Diagnosis Comments SCAN - LABS 10/25/2023 11:09 AM KENNEL WORKER documented in this encounter Results * SCAN - LABS (10/25/2023 11:09 AM KENNEL WORKER) us Provider Scanning Final Result documented in this encounter Visit Diagnoses Not on filedocumented in this encounter Care Teams Hvac Manager Relationship Specialty Start Date End Date Juwan Reyes MD [address] [place] [address] PCP - General Emergency Medicine 01/23/23 Chery Alonso, music journalistDoctor Of Dental Surgery Transplant 01/18/22 documented as of this encounter
--- OUTSIDE RECORDS SUMMARY | 2024-09-26 01:21 | XMS_ITS | Encounter Summary ---
Author Organization [facility] Healthcare Address [address] [place] [address] Care Team Providers Care Photo Finish Photographer Name Role Phone Chery Alonso RN Unavailable Unava ilable Juwan Reyes MD Primary Care Provide r Francisco Javier Curtis MD Unavailable [phone] Kevin Gutiérrez MD Unavailable True Clemons MD Unavailable [phone] Encounter Details Date Type Department Care Team (Latest Contact Info) Description 03/28/2024 Orders Only [facility] Transplant Kidney [address] [facility] [address] [phone] [place] [address] Ludivina Dixon Transplanted kidney (Primary Dx); Hyperlipidemia, unspecified hyperlipidemia type; Type 1 diabetes mellitus with hyperglycemia (HCC); Thyrotoxicosis without thyroid storm, unspecified thyrotoxicosis type; Secondary hyperparathyroidism of renal origin (HCC); Bone disorder; Frequent UTI; Other iron deficiency anemia; Anemia due to vitamin B12 deficiency, unspecified B12 deficiency type Social History Tobacco Use Types Packs/Day Years Used Date Smoking Tobacco: Every Day Cigarettes 1 52 Started: 1972 Passive Smoke Exposure: Past Alcohol Use Standard Drinks/Week Comments No 0 (1 standard drink = 0.6 oz pur e alcohol) Comments Unknown Sex and Gender Information Value Date Recorded Sex Assigned at Not on file Legal Sex Female 10:29 AM LEARNING AND DEVELOPMENT ASSISTANT Gender Identity Female 02/05/2021 6:21 AM CDT Sexual Orientation Straight 02/05/2021 6: 21 AM CDT documented as of this encounter Plan of Treatment Scheduled Orders Name Type Priority Associated Diagnoses Orde r Schedule CBC with auto differential Lab Routine Transplanted kidney EVERY 4 WEEKS for 6 Occurrences starting 03/28/2024 until 09/28/2024 Renal function panel Lab Routine Transplanted kidney EVERY 4 WEEKS for 6 Occurrences starting 03/28/2024 until 09/28/2024 Hepatic function panel Lab Routine Transplanted kidney EVERY 12 WEEKS for 2 Occurrences starting 03/28/2024 until 09/28/2024 Lipid panel Lab Routine Transplanted kidney Hyperlipidemia, unspecified hyperlipidemia type EVERY 12 WEEKS for 2 Occurrences starting 03/28/2024 until 09/28/2024 Hemoglobin A1c Lab Routine Transplanted kidney Type 1 diabetes mellitus with hyperglycemia (HCC) EVERY 12 WEEKS for 2 Occurrences starting 03/28/2024 until 09/28/2024 TSH Lab Routine Transplanted kidney Thyrotoxicosis without thyroid storm, unspecified thyrotoxicosis type EVERY 12 WEEKS for 2 Occurrences starting 03/28/2024 until 09/28/2024 PTH Lab Routine Transplanted kidney Secondary hyperparathyroidism of renal origin (HCC) EVERY 12 WEEKS for 2 Occurrences starting 03/28/2024 until 09/28/2024 Vitamin D 25 hydroxy Lab Routine Transplanted kidney Bone disorder EVERY 12 WEEKS for 2 Occurrences starting 03/28/2024 until 09/28/2024 Protein / creatinine ratio, urine, random Lab Routine Transplanted kidney Frequent UTI EVERY 12 WEEKS for 2 Occurrences starting 03/28/2024 until 09/28/2024 Cholesterol, LDL, direct Lab Routine Transplanted kidney EVERY 12 WEEKS for 2 Occurrences starting 03/28/2024 until 09/28/2024 Vitamin B12 Lab Routine Transplanted kidney Anemia due to vitamin B12 deficiency, unspecified B12 deficiency type EVERY 24 WEEKS for 1 Occurrences starting 03/28/2024 until 09/28/2024 Iron profile w/ IBC Lab Routine Transplanted kidney Other iron deficiency anemia Expected: 03/28/2024, Expires: 03/28/2025 Folate Lab Routine Transplanted kidney Expected: 03/28/2024, Expires: 03/28/2025 Ferritin Lab Routine Transplanted kidney Expected: 03/28/2024, Expires: 03/28/2025 documented as of this encounter Visit Diagnoses Diagnosis Transplanted kidney- Primary Kidney replaced by transplant Hyperlipidemia, unspecified hyperlipidemia type Type 1 diabetes mellitus with hyperglycemia (HCC) Thyrotoxicosis without thyroid storm, unspecified thyrotoxicosis type Secondary hyperparathyroidism of renal origin (HCC) Secondary hyperparathyroidism (of renal origin) Bone disorder Disorder of bone and cartilage, unspecified Frequent UTI Urinary tract infection, site not specified Other iron deficiency anemia Anemia due to vitamin B12 deficiency, unspecified B12 deficiency type documented in this encounter Care Teams Photo Finish Photographer Relationship Specialty Start Date End Date Juwan Reyes MD [address] [place] [address] PCP - General Emergency Medicine 01/23/23 Chery Alonso, clinical editorTelevision Program Director Transplant 01/18/22 Francisco Javier Curtis MD [address] [place], [place] [id number] OB provider group Orthopedic Surgery 12/17/23 [place] [address] [address] [address] Consulting Physician Cardiology 12/17/23 [place] [address] [address] [address] Mixing Plant Dumper Nephrology 12/17/23 documented as of this encounter
--- OUTSIDE RECORDS SUMMARY | 2024-09-26 01:22 | XMS_ITS | Encounter Summary ---
Author Organization [facility] Healthcare Address [address] [place] [address] Care Team Providers Care Tack Puller Machine Name Role Phone Jacky Luther DO Primary Care Provider [phone] Chery Alonso RN Unavailable Unava ilable Encounter Details Date Type Department Care Team (Late st Contact Info) Description 06/30/2022 Orders Only [facility] Health Information Management [address] [place] [address] Scanning, Provider Social History Tobacco Use Types Packs/Day Years Used Date Smoking Tobacco: Never Assessed Alcohol Use Standard Drinks/Week Comments No 0 (1 standard drink = 0.6 oz pur e alcohol) Comments Unknown Sex and Gender Information Value Date Recorded Sex Assigned at Not on file Legal Sex Female 10:29 AM HEAD IRRIGATOR Gender Identity Female 02/05/2021 6:21 AM CDT Sexual Orientation Straight 02/05/2021 6: 21 AM CDT documented as of this encounter Plan of Treatment Not on file documented as of this encounter Procedures Procedure Name Priority Date/Time Associated Diagnosis Comments SCAN - LABS 06/30/2022 11:06 AM CDT documented in this encounter Results * SCAN - LABS (06/30/2022 11:06 AM CDT) us Provider Scanning Final Result documented in this encounter Visit Diagnoses Not on filedocumented in this encounter Care Teams Tack Puller Machine Relationship Specialty Start Date End Date Jacky Luther DO PCP - General 06/26/12 11/01/22 Chery Alonso, retail marketing coordinatorGeological Scout Transplant 01/18/22 documented as of this encounter
--- OUTSIDE RECORDS SUMMARY | 2024-09-26 01:22 | XMS_ITS | Encounter Summary ---
Author Organization [facility] Healthcare Address [address] [place] [address] Care Team Providers Care Cargo Broker Name Role Phone Jacky Luther DO Primary Care Provider [phone] Chery Alonso RN Unavailable Unava ilable Encounter Details Date Type Department Care Team (Late st Contact Info) Description 08/24/2022 Orders Only [facility] Health Information Management [address] [place] [address] Scanning, Provider Social History Tobacco Use Types Packs/Day Years Used Date Smoking Tobacco: Never Assessed Alcohol Use Standard Drinks/Week Comments No 0 (1 standard drink = 0.6 oz pur e alcohol) Comments Unknown Sex and Gender Information Value Date Recorded Sex Assigned at Not on file Legal Sex Female 10:29 AM QA TESTER Gender Identity Female 02/05/2021 6:21 AM CDT Sexual Orientation Straight 02/05/2021 6: 21 AM CDT documented as of this encounter Plan of Treatment Not on file documented as of this encounter Procedures Procedure Name Priority Date/Time Associated Diagnosis Comments SCAN - LABS 08/24/2022 12:25 PM QA TESTER documented in this encounter Results * SCAN - LABS (08/24/2022 12:25 PM QA TESTER) us Provider Scanning Final Result documented in this encounter Visit Diagnoses Not on filedocumented in this encounter Care Teams Cargo Broker Relationship Specialty Start Date End Date Jacky Luther DO PCP - General 06/26/12 11/01/22 Chery Alonso, director of financeRotary Slicing Machine Operator Transplant 01/18/22 documented as of this encounter
--- OUTSIDE RECORDS SUMMARY | 2024-09-26 01:22 | XMS_ITS | Encounter Summary ---
Author Organization [facility] Healthcare Address [address] [place] [address] Care Team Providers Care Special Systems Technician Name Role Phone Jacky Luther DO Primary Care Provider [phone] Chery Alonso RN Unavailable Unava ilable Encounter Details Date Type Department Care Team (Late st Contact Info) Description 06/06/2022 Orders Only [facility] Health Information Management [address] [place] [address] Scanning, Provider Social History Tobacco Use Types Packs/Day Years Used Date Smoking Tobacco: Never Assessed Alcohol Use Standard Drinks/Week Comments No 0 (1 standard drink = 0.6 oz pur e alcohol) Comments Unknown Sex and Gender Information Value Date Recorded Sex Assigned at Not on file Legal Sex Female 10:29 AM MACHINE APPLICATOR CEMENTER Gender Identity Female 02/05/2021 6:21 AM CDT Sexual Orientation Straight 02/05/2021 6: 21 AM CDT documented as of this encounter Plan of Treatment Not on file documented as of this encounter Procedures Procedure Name Priority Date/Time Associated Diagnosis Comments SCAN - LABS 06/06/2022 8:05 AM CDT documented in this encounter Results * SCAN - LABS (06/06/2022 8:05 AM CDT) us Provider Scanning Final Result documented in this encounter Visit Diagnoses Not on filedocumented in this encounter Care Teams Special Systems Technician Relationship Specialty Start Date End Date Jacky Luther DO PCP - General 06/26/12 11/01/22 Chery Alonso, scalper operatorOphthalmic Technologist Transplant 01/18/22 documented as of this encounter
--- OUTSIDE RECORDS SUMMARY | 2024-09-26 01:22 | XMS_ITS | Encounter Summary ---
Author Organization [facility] Healthcare Address [address] [place] [address] Care Team Providers Care Industrial Robotics Mechanic Name Role Phone Chery Alonso RN Unavailable Unava ilable Juwan Reyes MD Primary Care Provide r Encounter Details Date Type Department Care Team (Late st Contact Info) Description 08/03/2023 Orders Only [facility] Health Information Management [address] [place] [address] Scanning, Provider Social History Tobacco Use Types Packs/Day Years Used Date Smoking Tobacco: Never Alcohol Use Standard Drinks/Week Comments No 0 (1 standard drink = 0.6 oz pur e alcohol) Comments Unknown Sex and Gender Information Value Date Recorded Sex Assigned at Not on file Legal Sex Female 10:29 AM MEAT AND SEAFOOD CLERK Gender Identity Female 02/05/2021 6:21 AM CDT Sexual Orientation Straight 02/05/2021 6: 21 AM CDT documented as of this encounter Plan of Treatment Not on file documented as of this encounter Procedures Procedure Name Priority Date/Time Associated Diagnosis Comments SCAN - LABS 08/03/2023 10:15 AM MEAT AND SEAFOOD CLERK documented in this encounter Results * SCAN - LABS (08/03/2023 10:15 AM MEAT AND SEAFOOD CLERK) us Provider Scanning Final Result documented in this encounter Visit Diagnoses Not on filedocumented in this encounter Care Teams Industrial Robotics Mechanic Relationship Specialty Start Date End Date Juwan Reyes MD [address] [place] [address] PCP - General Emergency Medicine 01/23/23 Chery Alonso, education repSummer Sessions Director Transplant 01/18/22 documented as of this encounter
--- OUTSIDE RECORDS SUMMARY | 2024-09-26 01:22 | XMS_ITS | Encounter Summary ---
Author Organization [facility] Healthcare Address [address] [place] [address] Care Team Providers Care Compensator Name Role Phone Jacky Luther DO Primary Care Provider [phone]- [phone] Chery Alonso RN Unavailable Unava ilable Encounter Details Date Type Department Care Team (Late st Contact Info) Description 05/25/2022 Orders Only [facility] Health Information Management [address] [place] [address] Scanning, Provider Social History Tobacco Use Types Packs/Day Years Used Date Smoking Tobacco: Never Assessed Alcohol Use Standard Drinks/Week Comments No 0 (1 standard drink = 0.6 oz pur e alcohol) Comments Unknown Sex and Gender Information Value Date Recorded Sex Assigned at Not on file Legal Sex Female 10:29 AM SPINE SPECIALIST Gender Identity Female 02/05/2021 6:21 AM CDT Sexual Orientation Straight 02/05/2021 6: 21 AM CDT documented as of this encounter Plan of Treatment Not on file documented as of this encounter Procedures Procedure Name Priority Date/Time Associated Diagnosis Comments SCAN - LABS 05/25/2022 12:36 PM CDT documented in this encounter Results * SCAN - LABS (05/25/2022 12:36 PM CDT) us Provider Scanning Final Result documented in this encounter Visit Diagnoses Not on filedocumented in this encounter Care Teams Compensator Relationship Specialty Start Date End Date Jacky Luther DO PCP - General 06/26/12 11/01/22 Chery Alonso, technical writing lead/mgrIndustrial Technician Transplant 01/18/22 documented as of this encounter
--- OUTSIDE RECORDS SUMMARY | 2024-09-26 01:22 | XMS_ITS | Encounter Summary ---
Author Organization [facility] Healthcare Address [address] [place] [address] Care Team Providers Care Gas Plant Worker Name Role Phone Chery Alonso RN Unavailable Unava Juwan Jones MD Primary Care Provide r Encounter Details Date Type Department Care Team (Late st Contact Info) Description 01/23/2023 Telephone [facility] Transplant Kidney [address] [facility] [address] [phone] [place] [address] Lyn Tanner Social History Tobacco Use Types Packs/Day Years Used Date Smoking Tobacco: Never Assessed Alcohol Use Standard Drinks/Week Comments No 0 (1 standard drink = 0.6 oz pur e alcohol) Comments Unknown Sex and Gender Information Value Date Recorded Sex Assigned at Not on file Legal Sex Female 10:29 AM FURNITURE AND BEDDING INSPECTOR Gender Identity Female 02/05/2021 6:21 AM CDT Sexual Orientation Straight 02/05/2021 6: 21 AM CDT documented as of this encounter Miscellaneous Notes * Telephone Encounter - Marnie Infante - 01/23/2023 5:21 PM CDT New monthly and quarterly standing orders entered into [employer] and faxed to [facility] requesting resultsbe faxed to Dr. True Clemons fax [phone] Juwan Reyes fax- [phone] as requested. * Telephone Encounter - Lyn Tanner - 01/23/2023 12:56 PM CDT Pt. Called and said that lab has been bough out by a new meat boner and slicer, so they will need new orders starting with today's date and then please under the comments give permission for labs to be faxed to Dr. True Clemons fax [phone] Juwan Reyes fax- [phone]. documented in this encounter Plan of Treatment Not on file documented as of this encounter Visit Diagnoses Not on filedocumented in this encounter Care Teams Gas Plant Worker Relationship Specialty Start Date End Date Juwan Reyes MD [address] [place] [address] PCP - General Emergency Medicine 01/23/23 Chery Alonso, secondary set up manCeramic Capacitor Processor Transplant 01/18/22 documented as of this encounter
--- OUTSIDE RECORDS SUMMARY | 2024-09-26 01:22 | XMS_ITS | Encounter Summary ---
Author Organization [facility] Healthcare Address [address] [place] [address] Care Team Providers Care Commodity Buyer Name Role Phone Chery Alonso RN Unavailable Unava ilable Juwan Reyes MD Primary Care Provide r Encounter Details Date Type Department Care Team (Late st Contact Info) Description 03/30/2023 Telephone [facility] and [facility] Transplant Kidney [address] [facility] [address] [phone] [place] [address] Chery Alonso RN Social History Tobacco Use Types Packs/Day Years Used Date Smoking Tobacco: Never Alcohol Use Standard Drinks/Week Comments No 0 (1 standard drink = 0.6 oz pur e alcohol) Comments Unknown Sex and Gender Information Value Date Recorded Sex Assigned at Not on file Legal Sex Female 10:29 AM BLEACH LIQUOR MAKER Gender Identity Female 02/05/2021 6:21 AM CDT Sexual Orientation Straight 02/05/2021 6: 21 AM CDT documented as of this encounter Miscellaneous Notes * Telephone Encounter - Chery Schmidt RN - 03/30/2023 8:29 AM CDT Error documented in this encounter Plan of Treatment Not on file documented as of this encounter Visit Diagnoses Not on filedocumented in this encounter Care Teams Commodity Buyer Relationship Specialty Start Date End Date Juwan Reyes MD [address] [place] [address] PCP - General Emergency Medicine 01/23/23 Chery Alonso, web content coordinatorAdult Services Librarian Transplant 01/18/22 documented as of this encounter
--- OUTSIDE RECORDS SUMMARY | 2024-09-26 01:22 | XMS_ITS | Encounter Summary ---
Author Organization [facility] Healthcare Address [address] [place] [address] Care Team Providers Care Rendering Equipment Tender Name Role Phone Chery Alonso RN Unavailable Unava ilable Juwan Reyes MD Primary Care Provide r Encounter Details Date Type Department Care Team (Late st Contact Info) Description 04/24/2023 Orders Only [facility] Health Information Management [address] [place] [address] Scanning, Provider Social History Tobacco Use Types Packs/Day Years Used Date Smoking Tobacco: Never Alcohol Use Standard Drinks/Week Comments No 0 (1 standard drink = 0.6 oz pur e alcohol) Comments Unknown Sex and Gender Information Value Date Recorded Sex Assigned at Not on file Legal Sex Female 10:29 AM INTERMEDIATE CARD TENDER Gender Identity Female 02/05/2021 6:21 AM CDT Sexual Orientation Straight 02/05/2021 6: 21 AM CDT documented as of this encounter Plan of Treatment Not on file documented as of this encounter Procedures Procedure Name Priority Date/Time Associated Diagnosis Comments SCAN - LABS 04/24/2023 12:35 PM CDT documented in this encounter Results * SCAN - LABS (04/24/2023 12:35 PM CDT) us Provider Scanning Final Result documented in this encounter Visit Diagnoses Not on filedocumented in this encounter Care Teams Rendering Equipment Tender Relationship Specialty Start Date End Date Juwan Reyes MD [address] [place] [address] PCP - General Emergency Medicine 01/23/23 Chery Alonso, fourchette sewerSummer Law Clerk Transplant 01/18/22 documented as of this encounter
--- OUTSIDE RECORDS SUMMARY | 2024-09-26 01:22 | XMS_ITS | Encounter Summary ---
Author Organization [facility] Healthcare Address [address] [place] [address] Care Team Providers Care Veterinary Meat Inspector Name Role Phone Jacky Luther DO Primary Care Provider +1- [phone] Chery Alonso RN Unavailable Unava ilable Encounter Details Date Type Department Care Team (Late st Contact Info) Description 09/27/2022 Orders Only [facility] Health Information Management [address] [place] [address] Scanning, Provider Social History Tobacco Use Types Packs/Day Years Used Date Smoking Tobacco: Never Assessed Alcohol Use Standard Drinks/Week Comments No 0 (1 standard drink = 0.6 oz pur e alcohol) Comments Unknown Sex and Gender Information Value Date Recorded Sex Assigned at Not on file Legal Sex Female 10:29 AM MANAGER INTERMEDIATE Gender Identity Female 02/05/2021 6:21 AM CDT Sexual Orientation Straight 02/05/2021 6: 21 AM CDT documented as of this encounter Plan of Treatment Not on file documented as of this encounter Procedures Procedure Name Priority Date/Time Associated Diagnosis Comments SCAN - LABS 09/27/2022 1:24 PM MANAGER INTERMEDIATE SCAN - LABS 09/27/2022 9:54 AM MANAGER INTERMEDIATE documented in this encounter Results * SCAN - LABS (09/27/2022 1:24 PM MANAGER INTERMEDIATE) us Provider Scanning Final Result * SCAN - LABS (09/27/2022 9:54 AM MANAGER INTERMEDIATE) us Provider Scanning Final Result documented in this encounter Visit Diagnoses Not on filedocumented in this encounter Care Teams Veterinary Meat Inspector Relationship Specialty Start Date End Date Jacky Luther DO PCP - General 06/26/12 11/01/22 Chery Alonso, metal numerical tool programmerAd Terminal Makeup Operator Transplant 01/18/22 documented as of this encounter
--- OUTSIDE RECORDS SUMMARY | 2024-09-26 01:22 | XMS_ITS | Encounter Summary ---
Author Organization [facility] Healthcare Address [address] [place] [address] Care Team Providers Care Expediter Service Order Name Role Phone Chery Alonso RN Unavailable Unava ilable Juwan Reyes MD Primary Care Provide r Encounter Details Date Type Department Care Team (Late st Contact Info) Description 09/21/2023 Orders Only [facility] Transplant Kidney [address] [facility] [address] [phone] [place] [address] Chery Alonso, RN Kidney replaced by transplant (Primary Dx) Social History Tobacco Use Types Packs/Day Years Used Date Smoking Tobacco: Never Alcohol Use Standard Drinks/Week Comments No 0 (1 standard drink = 0.6 oz pur e alcohol) Comments Unknown Sex and Gender Information Value Date Recorded Sex Assigned at Not on file Legal Sex Female 10:29 AM BLOW TORCH BURNER Gender Identity Female 02/05/2021 6:21 AM CDT Sexual Orientation Straight 02/05/2021 6: 21 AM CDT documented as of this encounter Plan of Treatment Scheduled Orders Name Type Priority Associated Diagnoses Orde r Schedule PTH Lab Routine Kidney replaced by transplant Expected: 09/25/2023, Expires: 09/21/2024 Lactate dehydrogenase (LD) Lab Routine Kidney replaced by transplant Expected: 09/25/2023, Expires: 09/21/2024 documented as of this encounter Visit Diagnoses Diagnosis Kidney replaced by transplant- Primary documented in this encounter Care Teams Expediter Service Order Relationship Specialty Start Date End Date Juwan Reyes MD [address] [place] [address] PCP - General Emergency Medicine 01/23/23 Chery Alonso, medical recruiterCommunity Worker Transplant 01/18/22 documented as of this encounter
--- OUTSIDE RECORDS SUMMARY | 2024-09-26 01:22 | XMS_ITS | Encounter Summary ---
Author Organization [facility] Healthcare Address [address] [place] [address] Care Team Providers Care Kennel Hand Name Role Phone Chery Alonso RN Unavailable Unava ilable Juwan Reyes MD Primary Care Provide r Encounter Details Date Type Department Care Team (Late st Contact Info) Description 07/25/2023 Orders Only [facility] Health Information Management [address] [place] [address] Scanning, Provider Social History Tobacco Use Types Packs/Day Years Used Date Smoking Tobacco: Never Alcohol Use Standard Drinks/Week Comments No 0 (1 standard drink = 0.6 oz pur e alcohol) Comments Unknown Sex and Gender Information Value Date Recorded Sex Assigned at Not on file Legal Sex Female 10:29 AM RETAIL EQUIPMENT ASSOCIATE Gender Identity Female 02/05/2021 6:21 AM CDT Sexual Orientation Straight 02/05/2021 6: 21 AM CDT documented as of this encounter Plan of Treatment Not on file documented as of this encounter Procedures Procedure Name Priority Date/Time Associated Diagnosis Comments SCAN - LABS 07/25/2023 11:31 AM CDT documented in this encounter Results * SCAN - LABS (07/25/2023 11:31 AM CDT) us Provider Scanning Final Result documented in this encounter Visit Diagnoses Not on filedocumented in this encounter Care Teams Kennel Hand Relationship Specialty Start Date End Date Juwan Reyes MD [address] [place] [address] PCP - General Emergency Medicine 01/23/23 hCery Alonso, human resources manager manufacturingBiodiesel Plant Superintendent Transplant 01/18/22 documented as of this encounter
--- OUTSIDE RECORDS SUMMARY | 2024-09-26 01:22 | XMS_ITS | Encounter Summary ---
Author Organization [facility] Address [address] [place] [address] Phone Care Team Providers Care Director Of Environmental Services Name Role Phone Chery Alonso RN Unavailable Unava Juwan Jones MD Primary Care Provide r Encounter Details Date Type Department Care Team (Late st Contact Info) Description 02/12/2023 9:30 AM CDT Telemedicine [facility] Nephrology [address] [facility] Advanced Medicine 5th [place] [address] [place] [address] Nicole Malloy, JAMILA [address] [place] [address] Encounter for aftercare following kidney transplant (Primary Dx) Social History Tobacco Use Types Packs/Day Years Used Date Smoking Tobacco: Never Tobacco Cessation:Counseling Given: Not Answered Alcohol Use Standard Drinks/Week Comments No 0 (1 standard drink = 0.6 oz pur e alcohol) Comments Unknown Sex and Gender Information Value Date Recorded Sex Assigned at Not on file Legal Sex Female 10:29 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 GARAGE Gender Identity Female 02/05/2021 6:21 AM CDT Sexual Orientation Straight 02/05/2021 6: 21 AM CDT documented as of this encounter Last Filed Vital Signs Vital Sign Reading Time Taken Comments Blood Pressure 120/70 02/12/2023 9:39 AM CDT Pulse 55 02/12/2023 9:39 AM CDT Temperature - - Respiratory Rate - - Oxygen Saturation 98% 02/12/2023 9:39 AM CDT Inhaled Oxygen Concentration - - Weight 80.3 kg (177 lb) 02/12/2023 9:39 AM CDT Height 167.6 cm (5' 6 ) 02/12/2023 9:39 AM CDT Body Mass Index 28.57 02/12/2023 9:39 AM CDT documented in this encounter Progress Notes * Nicole Malloy, JAMILA - 02/12/2023 9:30 AM CDT This was a telemedicine visit with Tyshawn Engel alone which took place via Real- time video connection (ARCsysuch, Zoom or similar). During the visit, I was located in the office and the patient was located at home in the [facility]. The patient visit started at 0937 and ended at 0949. My total encounter time on 02/12/2023 was 15 minutes which was spent in the activities documented in the note. Thisincludes time spent prior to the visit and after the visit in direct care of the patient. This timedoes not include time spent in any separately reportable services. The patient: has been informed that the visit may not be secure and acknowledged the information. After being given an opportunity to ask questions about and discuss this type of visit, they verballyconsented to proceeding with the telephone/video visit and understand that this service replaces anoffice visit. POST KIDNEY TRANSPLANT NOTE HISTORY OF PRESENT ILLNESS: Tyshawn Engel is a 55 y.o. 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 She returns today for continued care of her renal allograft, immunosuppression management, and other related medical issues. PROBLEM LIST: 1. ESRD secondary to reflux nephropathy 2. WF ESRD 2/2 reflux nephropathy, s/p LRRT (brother - 6 antigen match), hx of HCV, recurrent UTIs,ETOH abuse, current tobacco use with recurrent URIs, SBO with fistula complications post-txp. 3. Hypothyroidism 4. Diabetes 5. GERD 6. Short bowel syndrome post intussusception CURRENT VISIT/REVIEW OF SYSTEMS: Since our last clinic visit, Tyshawn Engel reports feeling well. Denies any recent hospitalizations or changed to medication regimen. Denies cough, chest pain, dyspnea. Denies fevers, dysuria, urgency, or frequency. Reports compliance with immunosuppression. All other systems negative. CURRENT MEDICATIONS: Current Outpatient Medications: acyclovir (ZOVIRAX) 200 mg capsule, TAKE 1 CAPSULE BY MOUTH TWICE A DAY, Disp: 60 capsule, Rfl: 6 albuterol (PROVENTIL,VENTOLIN) 2.5 mg /3 mL (0.083 %) nebulizer solution, 4 (four) times a day, Disp: , Rfl: aspirin 81 mg enteric coated tablet, two times daily, Disp: , Rfl: ferrous sulfate 325 mg (65 mg of elemental iron) tablet, Take 1 tablet (325 mg total) by mouth 2 (two) times a day, Disp: 60 tablet, Rfl: 11 levothyroxine (SYNTHROID) 100 mcg tablet, Take 1 tablet (100 mcg total) by mouth jukebox routeman before breakfast, Disp: , Rfl: mycophenolate mofetil (CELLCEPT) 250 mg capsule, 1 capsule (250 mg total) daily, Disp: , Rfl: omeprazole OTC (PriLOSEC OTC) 20 mg EC tablet, Take 1 tablet (20 mg total) by mouth 2 (two) times aday, Disp: , Rfl: predniSONE (DELTASONE) 5 mg tablet, Sunday, Sunday, Sunday, Disp: , Rfl: SPIRIVA RESPIMAT 2.5 mcg/actuation inhaler, Inhale 2 puffs daily, Disp: , Rfl: sulfamethoxazole-trimethoprim (BACTRIM DS,SEPTRA DS) 800-160 mg per tablet, Take 1 tablet (160 mg of trimethoprim total) by mouth 2 (two) times a day, Disp: , Rfl: Vitals BP 120/70 Pulse 55 Ht 167.6 cm (5' 6 ) Wt 80.3 kg (177 lb) SpO2 98% BMI 28.57 kg/m?? PHYSICAL EXAM Generally: no acute distress HEENT: sclera anicteric, mucus membranes moist Neck: is supple, full range of motion Lungs: Breathing comfortably Cardiovascular: denies chest pain or palpitations Abdomen: soft and not tender, normal bowel movements Allograft is without tenderness Extremities are without edema. Neurologically without significant tremor on exam. Psych: appropriate mood and affect. LABORATORY VALUES No results found for this or any previous visit (from the past 504 hour(s)). ASSESSMENT AND PLAN: 1. 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 -creatinine at 1.2, baseline 1.1-1.2. UPE outpatient is minimal. 2. High risk immunosuppression medication for organ transplantation, requiring regular intensive follow-up and monitoring. - 6 antigen match, she has been on Cellcept 250 mg daily and prednisone 5 mg MWF regimen and doing well will not make any changes today 3. Hypertension. Well controlled at home not currently on any anti-hypertensive agents 4. Health Maintenance - Due for colonoscopy and pap smear, patient chooses not to do these, we discussed the importance of obtaining these and that we would recommend it. She will be getting her mammogram done this year. DISPOSITION: Return to clinic in 2 years Cosigned by Kimber Crow MD at 02/13/2023 1:32 PM CDT documented in this encounter Plan of Treatment Not on file documented as of this encounter Visit Diagnoses Diagnosis Encounter for aftercare following kidney transplant- Primary documented in this encounter Historical Medications * This list may reflect changes made after this encounter. omeprazole OTC (PriLOSEC OTC) 20 mg EC tablet Take 1 tablet (20 mg total) by mouth 2 (two) times a day added in this encounter Care Teams Director Of Environmental Services Relationship Specialty Start Date End Date Juwan Reyes MD [address] [place] [address] PCP - General Emergency Medicine 01/23/23 Chery Alonso, group care workerCovered Button Maker Transplant 01/18/22 documented as of this encounter
--- OUTSIDE RECORDS SUMMARY | 2024-09-26 01:22 | XMS_ITS | Encounter Summary ---
Author Organization [facility] Healthcare Address [address] [place] [address] Care Team Providers Care Owner Operator Tanker Truck Driver Name Role Phone Chery Alonso RN Unavailable Unava Juwan Jones MD Primary Care Provide r Encounter Details Date Type Department Care Team (Late st Contact Info) Description 03/28/2023 Orders Only [facility] Health Information Management [address] [place] [address] Scanning, Provider Social History Tobacco Use Types Packs/Day Years Used Date Smoking Tobacco: Never Alcohol Use Standard Drinks/Week Comments No 0 (1 standard drink = 0.6 oz pur e alcohol) Comments Unknown Sex and Gender Information Value Date Recorded Sex Assigned at Not on file Legal Sex Female 10:29 AM ELECTRIC MOTOR REPAIR SUPERVISOR Gender Identity Female 02/05/2021 6:21 AM CDT Sexual Orientation Straight 02/05/2021 6: 21 AM CDT documented as of this encounter Plan of Treatment Not on file documented as of this encounter Procedures Procedure Name Priority Date/Time Associated Diagnosis Comments SCAN - LABS 03/28/2023 12:34 PM CDT SCAN - LABS 03/28/2023 12:29 PM CDT SCAN - LABS 03/28/2023 9:56 AM CDT documented in this encounter Results * SCAN - LABS (03/28/2023 12:34 PM CDT) us Provider Scanning Final Result * SCAN - LABS (03/28/2023 12:29 PM CDT) us Provider Scanning Final Result * SCAN - LABS (03/28/2023 9:56 AM CDT) us Provider Scanning Final Result documented in this encounter Visit Diagnoses Not on filedocumented in this encounter Care Teams Owner Operator Tanker Truck Driver Relationship Specialty Start Date End Date Juwan Reyes MD [address] [place] [address] PCP - General Emergency Medicine 01/23/23 Chery Alonso, hop growerDoor Paneler Transplant 01/18/22 documented as of this encounter
--- OUTSIDE RECORDS SUMMARY | 2024-09-26 01:22 | XMS_ITS | Encounter Summary ---
Author Organization [facility] Healthcare Address [address] [place] [address] Care Team Providers Care Hot Press Operator Name Role Phone Chery Alonso RN Unavailable Unava ilable Juwan Reyes MD Primary Care Provide r Encounter Details Date Type Department Care Team (Late st Contact Info) Description 02/22/2023 Orders Only [facility] Health Information Management [address] [place] [address] Scanning, Provider Social History Tobacco Use Types Packs/Day Years Used Date Smoking Tobacco: Never Alcohol Use Standard Drinks/Week Comments No 0 (1 standard drink = 0.6 oz pur e alcohol) Comments Unknown Sex and Gender Information Value Date Recorded Sex Assigned at Not on file Legal Sex Female 10:29 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 FILTRATION Gender Identity Female 02/05/2021 6:21 AM CDT Sexual Orientation Straight 02/05/2021 6: 21 AM CDT documented as of this encounter Plan of Treatment Not on file documented as of this encounter Procedures Procedure Name Priority Date/Time Associated Diagnosis Comments SCAN - LABS 02/22/2023 10:55 AM CDT documented in this encounter Results * SCAN - LABS (02/22/2023 10:55 AM CDT) us Provider Scanning Final Result documented in this encounter Visit Diagnoses Not on filedocumented in this encounter Care Teams Hot Press Operator Relationship Specialty Start Date End Date Juwan Reyes MD [address] [place] [address] PCP - General Emergency Medicine 01/23/23 Chery Alonso, cruller makerToll Settlement Clerk Transplant 01/18/22 documented as of this encounter
--- OUTSIDE RECORDS SUMMARY | 2024-09-26 01:22 | XMS_ITS | Encounter Summary ---
Author Organization [facility] Healthcare Address [address] [place] [address] Care Team Providers Care Cio Name Role Phone Chery Alonso RN Unavailable Unava Juwan Jones MD Primary Care Provide r Encounter Details Date Type Department Care Team (Late st Contact Info) Description 06/27/2023 Telephone [facility] Transplant Kidney [address] [facility] [address] [phone] [place] [address] Chery Alonso RN Social History Tobacco Use Types Packs/Day Years Used Date Smoking Tobacco: Never Alcohol Use Standard Drinks/Week Comments No 0 (1 standard drink = 0.6 oz pur e alcohol) Comments Unknown Sex and Gender Information Value Date Recorded Sex Assigned at Not on file Legal Sex Female 10:29 AM PETROLEUM ENGINEER Gender Identity Female 02/05/2021 6:21 AM CDT Sexual Orientation Straight 02/05/2021 6: 21 AM CDT documented as of this encounter Miscellaneous Notes * Telephone Encounter - Chery Schmidt RN - 06/27/2023 10:09 AM CDT Triglycerides: 301 (prev 224, 164) Called patient who states she is not on any cholesterol medication as she had a reaction to Lipitorand Another medicine . Looks like she has tried Zetia in the past. Allergies: Atorvastatin Start fish oil OTC 1000mg daily? Per RDS: yes lets try that Called patient who states she cannot afford OTC meds. Will send to [facility] and see what the cost is through insurance. Filled out PA request via CMM: Charles: [id number] 06/29/23, 2:45 PM, VERONICA Schmitt, RN, Chain Hooker: PA was denied. Advised patient she will need to take fish oil OTC. Patient states she cannot affordfish oil OTC. Advised to continue to exercise and eat healthy when she can. documented in this encounter Plan of Treatment Not on file documented as of this encounter Visit Diagnoses Not on filedocumented in this encounter Care Teams Cio Relationship Specialty Start Date End Date Juwan Reyes MD [address] [place] [address] PCP - General Emergency Medicine 01/23/23 Chery Alonso, tag machine operatorChain Hooker Transplant 01/18/22 documented as of this encounter
--- OUTSIDE RECORDS SUMMARY | 2024-09-26 01:22 | XMS_ITS | Encounter Summary ---
Author Organization [facility] Healthcare Address [address] [place] [address] Care Team Providers Care Speed Runner Name Role Phone Chery Alonso RN Unavailable Unava Juwan Jones MD Primary Care Provide r Encounter Details Date Type Department Care Team (Late st Contact Info) Description 01/23/2023 Orders Only [facility] Transplant Kidney [address] [facility] [address] Mail[address] [phone] [place] [address] Marnie Infante Kidney transplanted (Primary Dx); Hyperlipidemia, unspecified hyperlipidemia type; Type 1 diabetes mellitus with hyperglycemia (HCC); Secondary hyperparathyroidism, renal (HCC); Hyperthyroidism; Disease of bone; Urinary tract infection without hematuria, site unspecified; Anemia due to vitamin B12 deficiency, unspecified B12 deficiency type; Encounter for aftercare following kidney transplant Social History Tobacco Use Types Packs/Day Years Used Date Smoking Tobacco: Never Assessed Alcohol Use Standard Drinks/Week Comments No 0 (1 standard drink = 0.6 oz pur e alcohol) Comments Unknown Sex and Gender Information Value Date Recorded Sex Assigned at Not on file Legal Sex Female 10:29 AM HEALTH EDUCATION DIRECTOR Gender Identity Female 02/05/2021 6:21 AM CDT Sexual Orientation Straight 02/05/2021 6: 21 AM CDT documented as of this encounter Plan of Treatment Not on file documented as of this encounter Visit Diagnoses Diagnosis Kidney transplanted- Primary Kidney replaced by transplant Hyperlipidemia, unspecified hyperlipidemia type Type 1 diabetes mellitus with hyperglycemia (HCC) Secondary hyperparathyroidism, renal (HCC) Secondary hyperparathyroidism (of renal origin) Hyperthyroidism 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 other cause, without mention of thyrotoxic crisis or storm Disease of bone Disorder of bone and cartilage, unspecified Urinary tract infection without hematuria, site unspecified Anemia due to vitamin B12 deficiency, unspecified B12 deficiency type Encounter for aftercare following kidney transplant documented in this encounter Care Teams Speed Runner Relationship Specialty Start Date End Date Juwan Reyes MD [address] [place] [address] PCP - General Emergency Medicine 01/23/23 Chery Alonso, poultry pathologistHistology Aide Transplant 01/18/22 documented as of this encounter
--- OUTSIDE RECORDS SUMMARY | 2024-09-26 01:22 | XMS_ITS | Encounter Summary ---
Author Organization [facility] Healthcare Address [address] [place] [address] Care Team Providers Care Hot Metal Car Operator Name Role Phone Chery Alonso RN Unavailable Unava Juwan Jones MD Primary Care Provide r Encounter Details Date Type Department Care Team (Late st Contact Info) Description 09/21/2023 Telephone [facility] Transplant Kidney [address] [facility] [address] Mail[address] [phone] [place] [address] Brandan Matos Social History Tobacco Use Types Packs/Day Years Used Date Smoking Tobacco: Never Alcohol Use Standard Drinks/Week Comments No 0 (1 standard drink = 0.6 oz pur e alcohol) Comments Unknown Sex and Gender Information Value Date Recorded Sex Assigned at Not on file Legal Sex Female 10:29 AM ASSET PROTECTION MANAGER Gender Identity Female 02/05/2021 6:21 AM CDT Sexual Orientation Straight 02/05/2021 6: 21 AM CDT documented as of this encounter Miscellaneous Notes * Telephone Encounter - Marnie Infante - 09/25/2023 3:10 PM CST New monthly and quarterly standing orders entered into [employer] on 09/21 and faxed to [facility]. T PROTECTION MANAGER * Telephone Encounter - Brandan Matos - 09/21/2023 10:46 AM CST Please send updated lab order, valid for 6 months, to [facility]. Pt will be going to the lab on Sunday. Please add this statement to the lab order: (RESULTS TO BE FAXED TO DR STILES @ [phone] 8& DR LEWIS @ [phone]). T PROTECTION MANAGER documented in this encounter Plan of Treatment Not on file documented as of this encounter Visit Diagnoses Not on filedocumented in this encounter Care Teams Hot Metal Car Operator Relationship Specialty Start Date End Date Juwan Lewis MD [address] [place] [address] PCP - General Emergency Medicine 01/23/23 Chery Alonso, manager formsBlood Bank Business Manager Transplant 01/18/22 documented as of this encounter
--- OUTSIDE RECORDS SUMMARY | 2024-09-26 01:22 | XMS_ITS | Encounter Summary ---
Author Organization [facility] Healthcare Address [address] [place] [address] Care Team Providers Care Pipe Cleaning Machine Operator Name Role Phone Jacky Luther DO Primary Care Provider [phone] Chery Alonso RN Unavailable Unava ilable Encounter Details Date Type Department Care Team (Late st Contact Info) Description 07/25/2022 Orders Only [facility] Health Information Management [address] [place] [address] Scanning, Provider Social History Tobacco Use Types Packs/Day Years Used Date Smoking Tobacco: Never Assessed Alcohol Use Standard Drinks/Week Comments No 0 (1 standard drink = 0.6 oz pur e alcohol) Comments Unknown Sex and Gender Information Value Date Recorded Sex Assigned at Not on file Legal Sex Female 10:29 AM EDI PROGRAMMER ANALYST Gender Identity Female 02/05/2021 6:21 AM CDT Sexual Orientation Straight 02/05/2021 6: 21 AM CDT documented as of this encounter Plan of Treatment Not on file documented as of this encounter Procedures Procedure Name Priority Date/Time Associated Diagnosis Comments SCAN - LABS 07/25/2022 12:25 PM CDT documented in this encounter Results * SCAN - LABS (07/25/2022 12:25 PM CDT) us Provider Scanning Final Result documented in this encounter Visit Diagnoses Not on filedocumented in this encounter Care Teams Pipe Cleaning Machine Operator Relationship Specialty Start Date End Date Jacky Luther DO PCP - General 06/26/12 11/01/22 Chery Alonso, aquaculture farm managerConcrete Layer Transplant 01/18/22 documented as of this encounter
--- OUTSIDE RECORDS SUMMARY | 2024-09-26 01:22 | XMS_ITS | Encounter Summary ---
Author Organization [facility] Healthcare Address [address] [place] [address] Care Team Providers Care Gut Puller Name Role Phone Chery Alonso RN Unavailable Unava Sanjay Clifford MD Primary Care Provid er Encounter Details Date Type Department Care Team (Late st Contact Info) Description 11/15/2022 Orders [facility] Transplant Kidney [address] [facility] [address] Mailstop [phone] [place] [address] Marnie Infante Kidney transplanted (Primary Dx); Type 1 diabetes mellitus with hyperglycemia (HCC); Hyperlipidemia, unspecified hyperlipidemia type; Secondary hyperparathyroidism, renal (CMS/HCC) (HCC); Hyperthyroidism; Urinary tract infection without hematuria, site unspecified; Bone disorder; Anemia due to vitamin B12 deficiency, unspecified B12 deficiency type Social History Tobacco Use Types Packs/Day Years Used Date Smoking Tobacco: Never Assessed Alcohol Use Standard Drinks/Week Comments No 0 (1 standard drink = 0.6 oz pur e alcohol) Comments Unknown Sex and Gender Information Value Date Recorded Sex Assigned at Not on file Legal Sex Female 10:29 AM BURRING MACHINE OPERATOR Gender Identity Female 02/05/2021 6:21 AM CDT Sexual Orientation Straight 02/05/2021 6: 21 AM CDT documented as of this encounter Plan of Treatment Not on file documented as of this encounter Visit Diagnoses Diagnosis Kidney transplanted- Primary Kidney replaced by transplant Type 1 diabetes mellitus with hyperglycemia (HCC) Hyperlipidemia, unspecified hyperlipidemia type Secondary hyperparathyroidism, renal (HCC) Secondary hyperparathyroidism (of renal origin) Hyperthyroidism 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 other cause, without mention of thyrotoxic crisis or storm Urinary tract infection without hematuria, site unspecified Bone disorder Disorder of bone and cartilage, unspecified Anemia due to vitamin B12 deficiency, unspecified B12 deficiency type documented in this encounter Care Teams Gut Puller Relationship Specialty Start Date End Date Sanjay Herrera MD [address] [place] [address] PCP - General Family Medicine 11/02/22 01/22/23 Chery Alonso, consultative sales associateWaste Minimization Technician Transplant 01/18/22 documented as of this encounter
--- OUTSIDE RECORDS SUMMARY | 2024-09-26 01:22 | XMS_ITS | Encounter Summary ---
Author Organization [facility] Healthcare Address [address] [place] [address] Care Team Providers Care Brokerage Office Manager Name Role Phone Chery Alonso RN Unavailable Unava ilable Sanjay Herrera MD Primary Care Provid er Encounter Details Date Type Department Care Team (Late st Contact Info) Description 11/23/2022 Orders Only [facility] Health Information Management [address] [place] [address] Scanning, Provider Social History Tobacco Use Types Packs/Day Years Used Date Smoking Tobacco: Never Assessed Alcohol Use Standard Drinks/Week Comments No 0 (1 standard drink = 0.6 oz pur e alcohol) Comments Unknown Sex and Gender Information Value Date Recorded Sex Assigned at Not on file Legal Sex Female 10:29 AM FIRE TOWER KEEPER Gender Identity Female 02/05/2021 6:21 AM CDT Sexual Orientation Straight 02/05/2021 6: 21 AM CDT documented as of this encounter Plan of Treatment Not on file documented as of this encounter Procedures Procedure Name Priority Date/Time Associated Diagnosis Comments SCAN - LABS 11/23/2022 11:25 AM FIRE TOWER KEEPER documented in this encounter Results * SCAN - LABS (11/23/2022 11:25 AM FIRE TOWER KEEPER) us Provider Scanning Final Result documented in this encounter Visit Diagnoses Not on filedocumented in this encounter Care Teams Brokerage Office Manager Relationship Specialty Start Date End Date Sanjay Herrera MD [address] [place] [address] PCP - General Family Medicine 11/02/22 01/22/23 Chery Alonso, moto mix operatorContracting Analyst Transplant 01/18/22 documented as of this encounter
--- OUTSIDE RECORDS SUMMARY | 2024-09-26 01:22 | XMS_ITS | Encounter Summary ---
Author Organization [facility] Healthcare Address [address] [place] [address] Care Team Providers Care Cutter Operator Asbestos Shingle Name Role Phone Jacky Luther DO Primary Care Provider +1- [phone] Chery Alonso RN Unavailable Unava ilable Encounter Details Date Type Department Care Team (Late st Contact Info) Description 05/24/2022 Orders Only [facility] Transplant Kidney [address] [facility] [address] [phone] [place] [address] Marnie Infante Kidney transplanted (Primary Dx); Encounter for aftercare following kidney transplant; Urinary tract infection without hematuria, site unspecified; Hyperlipidemia, unspecified hyperlipidemia type; Osteopathy; Secondary hyperparathyroidism, renal (CMS/HCC) ([facility]); Hyperthyroidism; Type 1 diabetes mellitus with hyperglycemia ([facility]) Social History Tobacco Use Types Packs/Day Years Used Date Smoking Tobacco: Never Assessed Alcohol Use Standard Drinks/Week Comments No 0 (1 standard drink = 0.6 oz pur e alcohol) Comments Unknown Sex and Gender Information Value Date Recorded Sex Assigned at Not on file Legal Sex Female 10:29 AM AFFILIATE MANAGER Gender Identity Female 02/05/2021 6:21 AM CDT Sexual Orientation Straight 02/05/2021 6: 21 AM CDT documented as of this encounter Plan of Treatment Not on file documented as of this encounter Visit Diagnoses Diagnosis Kidney transplanted- Primary Kidney replaced by transplant Encounter for aftercare following kidney transplant Urinary tract infection without hematuria, site unspecified Hyperlipidemia, unspecified hyperlipidemia type Osteopathy Disorder of bone and cartilage, unspecified Secondary hyperparathyroidism, renal (HCC) Secondary hyperparathyroidism (of renal origin) Hyperthyroidism 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 other cause, without mention of thyrotoxic crisis or storm Type 1 diabetes mellitus with hyperglycemia (HCC) documented in this encounter Care Teams Cutter Operator Asbestos Shingle Relationship Specialty Start Date End Date Jacky Luther DO PCP - General 06/26/12 11/01/22 Chery Alonso, barrel finisherSenior Ios Developer Transplant 01/18/22 documented as of this encounter
--- OUTSIDE RECORDS SUMMARY | 2024-09-26 01:22 | XMS_ITS | Encounter Summary ---
Author Organization [facility] Healthcare Address [address] [place] [address] Care Team Providers Care Wheel And Caster Repairer Name Role Phone Chery Alonso RN Unavailable Unava Juwan Jones MD Primary Care Provide r Encounter Details Date Type Department Care Team (Late st Contact Info) Description 09/20/2023 Telephone [facility] Transplant Kidney [address] [facility] [address] [phone] [place] [address] Lyn Tanner Social History Tobacco Use Types Packs/Day Years Used Date Smoking Tobacco: Never Alcohol Use Standard Drinks/Week Comments No 0 (1 standard drink = 0.6 oz pur e alcohol) Comments Unknown Sex and Gender Information Value Date Recorded Sex Assigned at Not on file Legal Sex Female 10:29 AM FOREIGN FOOD SPECIALTY COOK Gender Identity Female 02/05/2021 6:21 AM CDT Sexual Orientation Straight 02/05/2021 6: 21 AM CDT documented as of this encounter Miscellaneous Notes * Telephone Encounter - Lyn Tanner - 09/20/2023 8:23 AM CST Se[facility]our called, SO is only good for 6 months, please update, fax [phone] a comment on the order that it is okay to fax results also to Dr. Clemons and Dr. Reyes. Please route them via fax no. IGN FOOD SPECIALTY COOK documented in this encounter Plan of Treatment Not on file documented as of this encounter Visit Diagnoses Not on filedocumented in this encounter Care Teams Wheel And Caster Repairer Relationship Specialty Start Date End Date Juwan Reyes MD [address] [place] [address] PCP - General Emergency Medicine 01/23/23 Chery Alonso, television production assistantTower Cleaner Transplant 01/18/22 documented as of this encounter
--- OUTSIDE RECORDS SUMMARY | 2024-09-26 01:22 | XMS_ITS | Encounter Summary ---
Author Organization [facility] Healthcare Address [address] [place] [address] Care Team Providers Care Planer Off Bearer Name Role Phone Chery Alonso RN Unavailable Unava ilable Juwan Reyes MD Primary Care Provide r Encounter Details Date Type Department Care Team (Late st Contact Info) Description 08/24/2023 Orders Only [facility] Health Information Management [address] [place] [address] Scanning, Provider Social History Tobacco Use Types Packs/Day Years Used Date Smoking Tobacco: Never Alcohol Use Standard Drinks/Week Comments No 0 (1 standard drink = 0.6 oz pur e alcohol) Comments Unknown Sex and Gender Information Value Date Recorded Sex Assigned at Not on file Legal Sex Female 10:29 AM PROJECT ENGINEERING DIRECTOR Gender Identity Female 02/05/2021 6:21 AM CDT Sexual Orientation Straight 02/05/2021 6: 21 AM CDT documented as of this encounter Plan of Treatment Not on file documented as of this encounter Procedures Procedure Name Priority Date/Time Associated Diagnosis Comments SCAN - LABS 08/24/2023 11:19 AM PROJECT ENGINEERING DIRECTOR documented in this encounter Results * SCAN - LABS (08/24/2023 11:19 AM PROJECT ENGINEERING DIRECTOR) us Provider Scanning Final Result documented in this encounter Visit Diagnoses Not on filedocumented in this encounter Care Teams Planer Off Bearer Relationship Specialty Start Date End Date Juwan Reyes MD [address] [place] [address] PCP - General Emergency Medicine 01/23/23 Chery Alonso, fire hydrant operatorCrew Leader Transplant 01/18/22 documented as of this encounter
--- OUTSIDE RECORDS SUMMARY | 2024-09-26 01:22 | XMS_ITS | Encounter Summary ---
Author Organization [facility] Healthcare Address [address] [place] [address] Care Team Providers Care Rn Clinical Name Role Phone Jacky Luther DO Primary Care Provider +1- [phone] Chery Alonso RN Unavailable Unava ilable Encounter Details Date Type Department Care Team (Late st Contact Info) Description 10/25/2022 Orders Only [facility] Health Information Management [address] [place] [address] Scanning, Provider Social History Tobacco Use Types Packs/Day Years Used Date Smoking Tobacco: Never Assessed Alcohol Use Standard Drinks/Week Comments No 0 (1 standard drink = 0.6 oz pur e alcohol) Comments Unknown Sex and Gender Information Value Date Recorded Sex Assigned at Not on file Legal Sex Female 10:29 AM PROCESS CONTROL PROGRAMMER Gender Identity Female 02/05/2021 6:21 AM CDT Sexual Orientation Straight 02/05/2021 6: 21 AM CDT documented as of this encounter Plan of Treatment Not on file documented as of this encounter Procedures Procedure Name Priority Date/Time Associated Diagnosis Comments SCAN - LABS 10/25/2022 12:20 PM PROCESS CONTROL PROGRAMMER documented in this encounter Results * SCAN - LABS (10/25/2022 12:20 PM PROCESS CONTROL PROGRAMMER) us Provider Scanning Final Result documented in this encounter Visit Diagnoses Not on filedocumented in this encounter Care Teams Rn Clinical Relationship Specialty Start Date End Date Jacky Luther DO PCP - General 06/26/12 11/01/22 Chery Alonso, oracle distribution consultantWelder Tool And Die Transplant 01/18/22 documented as of this encounter
--- OUTSIDE RECORDS SUMMARY | 2024-09-26 01:22 | XMS_ITS | Encounter Summary ---
Author Organization [facility] Healthcare Address [address] [place] [address] Care Team Providers Care Baggage Handler Name Role Phone Chery Alonso RN Unavailable Unava Juwan Jones MD Primary Care Provide r Encounter Details Date Type Department Care Team (Late st Contact Info) Description 04/25/2023 Telephone [facility] Transplant Kidney [address] [facility] [address] [phone] [place] [address] Sanjay Wyatt RN Social History Tobacco Use Types Packs/Day Years Used Date Smoking Tobacco: Never Alcohol Use Standard Drinks/Week Comments No 0 (1 standard drink = 0.6 oz pur e alcohol) Comments Unknown Sex and Gender Information Value Date Recorded Sex Assigned at Not on file Legal Sex Female 10:29 AM RACE STEWARD Gender Identity Female 02/05/2021 6:21 AM CDT Sexual Orientation Straight 02/05/2021 6: 21 AM CDT documented as of this encounter Miscellaneous Notes * Telephone Encounter - Sanjay Wyatt RN - 04/25/2023 10:58 AM CDT Noted Tsat 12. Previously 5, and patient stated she had stopped the Iron tablets. Patient was told to start taking Iron 2 times per day again. Will continue to monitor. documented in this encounter Plan of Treatment Not on file documented as of this encounter Visit Diagnoses Not on filedocumented in this encounter Care Teams Baggage Handler Relationship Specialty Start Date End Date Juwan Reyes MD [address] [place] [address] PCP - General Emergency Medicine 01/23/23 Chery Alonso, assistant manager bilingualPeriodontist Transplant 01/18/22 documented as of this encounter
--- OUTSIDE RECORDS SUMMARY | 2024-09-26 01:22 | XMS_ITS | Encounter Summary ---
Author Organization [facility] Healthcare Address [address] [place] [address] Care Team Providers Care Belly Packer Name Role Phone Chery Alonso RN Unavailable Unava ilable Sanjay Herrera MD Primary Care Provid er Encounter Details Date Type Department Care Team (Late st Contact Info) Description 12/25/2022 Orders Only [facility] Health Information Management [address] [place] [address] Scanning, Provider Social History Tobacco Use Types Packs/Day Years Used Date Smoking Tobacco: Never Assessed Alcohol Use Standard Drinks/Week Comments No 0 (1 standard drink = 0.6 oz pur e alcohol) Comments Unknown Sex and Gender Information Value Date Recorded Sex Assigned at Not on file Legal Sex Female 10:29 AM LIMNOLOGY TEACHER Gender Identity Female 02/05/2021 6:21 AM CDT Sexual Orientation Straight 02/05/2021 6: 21 AM CDT documented as of this encounter Plan of Treatment Not on file documented as of this encounter Procedures Procedure Name Priority Date/Time Associated Diagnosis Comments SCAN - LABS 12/25/2022 11:10 AM CDT documented in this encounter Results * SCAN - LABS (12/25/2022 11:10 AM CDT) us Provider Scanning Final Result documented in this encounter Visit Diagnoses Not on filedocumented in this encounter Care Teams Belly Packer Relationship Specialty Start Date End Date Sanjay Herrera MD [address] [place] [address] PCP - General Family Medicine 11/02/22 01/22/23 Chery Alonso, tile setterClinical Business Manager Transplant 01/18/22 documented as of this encounter
--- OUTSIDE RECORDS SUMMARY | 2024-09-26 01:22 | XMS_ITS | Encounter Summary ---
Author Organization [facility] Healthcare Address [address] [place] [address] Care Team Providers Care Arc Cutter Plasma Arc Name Role Phone Chery Alonso RN Unavailable Unava Juwan Jones MD Primary Care Provide r Encounter Details Date Type Department Care Team (Late st Contact Info) Description 03/29/2023 Telephone [facility] Transplant Kidney [address] [facility] [address] [phone] [place] [address] Chery Alonso RN Social History Tobacco Use Types Packs/Day Years Used Date Smoking Tobacco: Never Alcohol Use Standard Drinks/Week Comments No 0 (1 standard drink = 0.6 oz pur e alcohol) Comments Unknown Sex and Gender Information Value Date Recorded Sex Assigned at Not on file Legal Sex Female 10:29 AM MANAGER OF INVESTIGATIONS Gender Identity Female 02/05/2021 6:21 AM CDT Sexual Orientation Straight 02/05/2021 6: 21 AM CDT documented as of this encounter Miscellaneous Notes * Telephone Encounter - Chery Schmidt RN - 03/30/2023 9:37 AM CDT Per pharmacy: It's OK for the patient to continue taking Bactrim while she completes the course of Macrobid as she has historically done. * Telephone Encounter - Chery Schmidt RN - 03/29/2023 9:28 AM CDT Noted TSAT. Discussed with Rosalina Sinha NP: we can just increase her to 325 mg BID if she doesn't respond can offer IV at that time MyChart message sent to patient to increase PO iron back to 325mg BID. Will re- order iron panel forone month and see if level improves. documented in this encounter Plan of Treatment Not on file documented as of this encounter Visit Diagnoses Diagnosis Kidney replaced by transplant- Primary documented in this encounter Care Teams Arc Cutter Plasma Arc Relationship Specialty Start Date End Date Juwan Reyes MD [address] [place] [address] PCP - General Emergency Medicine 01/23/23 Chery Alonso puller outTomato Pulper Operator Transplant 01/18/22 documented as of this encounter
--- OUTSIDE RECORDS SUMMARY | 2024-09-26 01:22 | XMS_ITS | Encounter Summary ---
Author Organization [facility] Healthcare Address [address] [place] [address] Care Team Providers Care Email Deployment Specialist Name Role Phone Chery Alonso RN Unavailable Unava ilable Juwan Reyes MD Primary Care Provide r Encounter Details Date Type Department Care Team (Late st Contact Info) Description 09/25/[address] [facility] Health Information Management [address] [place] [address] Scanning, Provider Social History Tobacco Use Types Packs/Day Years Used Date Smoking Tobacco: Never Alcohol Use Standard Drinks/Week Comments No 0 (1 standard drink = 0.6 oz pur e alcohol) Comments Unknown Sex and Gender Information Value Date Recorded Sex Assigned at Not on file Legal Sex Female 10:29 AM WOOD FURNITURE ASSEMBLER Gender Identity Female 02/05/2021 6:21 AM CDT Sexual Orientation Straight 02/05/2021 6: 21 AM CDT documented as of this encounter Plan of Treatment Not on file documented as of this encounter Procedures Procedure Name Priority Date/Time Associated Diagnosis Comments SCAN - LABS 09/25/2023 12:51 PM WOOD FURNITURE ASSEMBLER documented in this encounter Results * SCAN - LABS (09/25/2023 12:51 PM WOOD FURNITURE ASSEMBLER) us Provider Scanning Final Result documented in this encounter Visit Diagnoses Not on filedocumented in this encounter Care Teams Email Deployment Specialist Relationship Specialty Start Date End Date Juwan Reyes MD [address] [place] [address] PCP - General Emergency Medicine 01/23/23 Chery Alonso, broadcast supervisorIrrigation Supervisor Transplant 01/18/22 documented as of this encounter
--- OUTSIDE RECORDS SUMMARY | 2024-09-26 01:22 | XMS_ITS | Encounter Summary ---
Author Organization [facility] Healthcare Address [address] [place] [address] Care Team Providers Care Aeronautical Test Engineer Name Role Phone Jacky Luther DO Primary Care Provider +1- [phone] Chery Alonso RN Unavailable Unava ilable Encounter Details Date Type Department Care Team (Late st Contact Info) Description 05/24/2022 Telephone [facility] Transplant Kidney [address] [facility] [address] [phone] [place] [address] Lyn Tanner Social History Tobacco Use Types Packs/Day Years Used Date Smoking Tobacco: Never Assessed Alcohol Use Standard Drinks/Week Comments No 0 (1 standard drink = 0.6 oz pur e alcohol) Comments Unknown Sex and Gender Information Value Date Recorded Sex Assigned at Not on file Legal Sex Female 10:29 AM WINE MASTER Gender Identity Female 02/05/2021 6:21 AM CDT Sexual Orientation Straight 02/05/2021 6: 21 AM CDT documented as of this encounter Miscellaneous Notes * Telephone Encounter - Marnie Infante - 05/24/2022 2:53 PM CDT New monthly, quarterly and semi-annual orders entered and faxed to [facility]. * Telephone Encounter - Lyn Tanner - 05/24/2022 9:38 AM CDT Please set up new standing orders, only good for 6 months, pt. Will be in tomorrow. documented in this encounter Plan of Treatment Not on file documented as of this encounter Visit Diagnoses Not on filedocumented in this encounter Care Teams Aeronautical Test Engineer Relationship Specialty Start Date End Date Jacky Luther DO PCP - General 06/26/12 11/01/22 Chery Alonso, cruise guideIntel Analyst Transplant 01/18/22 documented as of this encounter
--- OUTSIDE RECORDS SUMMARY | 2024-09-26 01:22 | XMS_ITS | Encounter Summary ---
Author Organization [facility] Healthcare Address [address] [place] [address] Care Team Providers Care Violin Maker Hand Name Role Phone Chery Alonso RN Unavailable Unava Juwan Jones MD Primary Care Provide r Encounter Details Date Type Department Care Team (Late st Contact Info) Description 09/21/2023 Orders Only [facility] Transplant Kidney [address] [facility] [address] [phone] [place] [address] Marnie Infante Kidney transplanted (Primary Dx); Hyperlipidemia, unspecified hyperlipidemia type; Type 1 diabetes mellitus with hyperglycemia (HCC); Hyperthyroidism; Urinary tract infection without hematuria, site unspecified; Secondary hyperparathyroidism, renal (HCC); Anemia due to vitamin B12 deficiency, unspecified B12 deficiency type Social History Tobacco Use Types Packs/Day Years Used Date Smoking Tobacco: Never Alcohol Use Standard Drinks/Week Comments No 0 (1 standard drink = 0.6 oz pur e alcohol) Comments Unknown Sex and Gender Information Value Date Recorded Sex Assigned at Not on file Legal Sex Female 10:29 AM CORE ANALYST Gender Identity Female 02/05/2021 6:21 AM CDT Sexual Orientation Straight 02/05/2021 6: 21 AM CDT documented as of this encounter Plan of Treatment Not on file documented as of this encounter Visit Diagnoses Diagnosis Kidney transplanted- Primary Kidney replaced by transplant Hyperlipidemia, unspecified hyperlipidemia type Type 1 diabetes mellitus with hyperglycemia (HCC) Hyperthyroidism 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 other cause, without mention of thyrotoxic crisis or storm Urinary tract infection without hematuria, site unspecified Secondary hyperparathyroidism, renal (HCC) Secondary hyperparathyroidism (of renal origin) Anemia due to vitamin B12 deficiency, unspecified B12 deficiency type documented in this encounter Care Teams Violin Maker Hand Relationship Specialty Start Date End Date Juwan Reyes MD [address] [place] [address] PCP - General Emergency Medicine 01/23/23 Chery Alonso, dress cutterUg Designer Transplant 01/18/22 documented as of this encounter
--- OUTSIDE RECORDS SUMMARY | 2024-09-26 01:22 | XMS_ITS | Encounter Summary ---
Author Organization [facility] Healthcare Address [address] [place] [address] Care Team Providers Care Record Changer Assembler Name Role Phone Chery Alonso RN Unavailable Unava Juwan Jones MD Primary Care Provide r Encounter Details Date Type Department Care Team (Late st Contact Info) Description 05/25/2023 Orders Only [facility] Health Information Management [address] [place] [address] Scanning, Provider Social History Tobacco Use Types Packs/Day Years Used Date Smoking Tobacco: Never Alcohol Use Standard Drinks/Week Comments No 0 (1 standard drink = 0.6 oz pur e alcohol) Comments Unknown Sex and Gender Information Value Date Recorded Sex Assigned at Not on file Legal Sex Female 10:29 AM GOLD WHEEL BLOCKER AND POLISHER Gender Identity Female 02/05/2021 6:21 AM CDT Sexual Orientation Straight 02/05/2021 6: 21 AM CDT documented as of this encounter Plan of Treatment Not on file documented as of this encounter Procedures Procedure Name Priority Date/Time Associated Diagnosis Comments SCAN - LABS 05/25/2023 12:28 PM CDT SCAN - LABS 05/25/2023 11:15 AM CDT documented in this encounter Results * SCAN - LABS (05/25/2023 12:28 PM CDT) us Provider Scanning Final Result * SCAN - LABS (05/25/2023 11:15 AM CDT) us Provider Scanning Final Result documented in this encounter Visit Diagnoses Not on filedocumented in this encounter Care Teams Record Changer Assembler Relationship Specialty Start Date End Date Juwan Reyes MD [address] [place] [address] PCP - General Emergency Medicine 01/23/23 Chery Alonso, imitation marble mechanicCareer Services Director Transplant 01/18/22 documented as of this encounter
--- OUTSIDE RECORDS SUMMARY | 2024-09-26 01:22 | XMS_ITS | Encounter Summary ---
Author Organization [facility] Healthcare Address [address] [place] [address] Care Team Providers Care Dog Or Animal Sitter Name Role Phone Chery Alonso RN Unavailable Unava leanneable Sanjay Herrera MD Primary Care Provid er Juwan Reyes MD Primary Care Provide r Encounter Details Date Type Department Care Team (Late st Contact Info) Description 01/22/2023 Orders Only [facility] Health Information Management [address] [place] [address] Scanning, Provider Social History Tobacco Use Types Packs/Day Years Used Date Smoking Tobacco: Never Assessed Alcohol Use Standard Drinks/Week Comments No 0 (1 standard drink = 0.6 oz pur e alcohol) Comments Unknown Sex and Gender Information Value Date Recorded Sex Assigned at Not on file Legal Sex Female 10:29 AM STOCK TRANSFER CLERK Gender Identity Female 02/05/2021 6:21 AM CDT Sexual Orientation Straight 02/05/2021 6: 21 AM CDT documented as of this encounter Plan of Treatment Not on file documented as of this encounter Procedures Procedure Name Priority Date/Time Associated Diagnosis Comments SCAN - LABS 01/22/2023 11:37 AM CDT documented in this encounter Results * SCAN - LABS (01/22/2023 11:37 AM CDT) us Provider Scanning Final Result documented in this encounter Visit Diagnoses Not on filedocumented in this encounter Care Teams Dog Or Animal Sitter Relationship Specialty Start Date End Date Sanjay Herrera MD [address] [place] [address] PCP - General Family Medicine 11/02/22 01/22/23 Juwan Reyes MD [address] [place] [address] PCP - General Emergency Medicine 01/23/23 Chery Alonso, booking agentFacilities Locator Transplant 01/18/22 documented as of this encounter
--- OUTSIDE RECORDS SUMMARY | 2024-09-26 01:22 | XMS_ITS | Encounter Summary ---
Author Organization [facility] Healthcare Address [address] [place] [address] Care Team Providers Care Liberal Arts Teacher Name Role Phone Chery Alonso RN Unavailable Unava ilable Juwan Reyes MD Primary Care Provide r Encounter Details Date Type Department Care Team (Late st Contact Info) Description 06/25/2023 Orders Only [facility] Health Information Management 1 [place] [address] Scanning, Provider Social History Tobacco Use Types Packs/Day Years Used Date Smoking Tobacco: Never Alcohol Use Standard Drinks/Week Comments No 0 (1 standard drink = 0.6 oz pur e alcohol) Comments Unknown Sex and Gender Information Value Date Recorded Sex Assigned at Not on file Legal Sex Female 10:29 AM HOME IMPROVEMENT INSTALLER Gender Identity Female 02/05/2021 6:21 AM CDT Sexual Orientation Straight 02/05/2021 6: 21 AM CDT documented as of this encounter Plan of Treatment Not on file documented as of this encounter Procedures Procedure Name Priority Date/Time Associated Diagnosis Comments SCAN - LABS 06/25/2023 5:05 PM CDT documented in this encounter Results * SCAN - LABS (06/25/2023 5:05 PM CDT) us Provider Scanning Final Result documented in this encounter Visit Diagnoses Not on filedocumented in this encounter Care Teams Liberal Arts Teacher Relationship Specialty Start Date End Date Juwan Reyes MD [address] [place] [address] PCP - General Emergency Medicine 01/23/23 Chery Alonso, director of intercollegiate athleticsBlend Plant Operator Transplant 01/18/22 documented as of this encounter
--- OUTSIDE RECORDS SUMMARY | 2024-09-26 01:22 | XMS_ITS | Encounter Summary ---
Author Organization [facility] Healthcare Address [address] [place] [address] Care Team Providers Care Plant Breeder Scientist Name Role Phone Jacky Luther DO Primary Care Provider +1- [phone] Chery Alonso RN Unavailable Unava ilable Encounter Details Date Type Department Care Team (Late st Contact Info) Description 06/26/2022 Orders Only Health Information Management 1 [place] [address] Scanning, Provider Social History Tobacco Use Types Packs/Day Years Used Date Smoking Tobacco: Never Assessed Alcohol Use Standard Drinks/Week Comments No 0 (1 standard drink = 0.6 oz pur e alcohol) Comments Unknown Sex and Gender Information Value Date Recorded Sex Assigned at Not on file Legal Sex Female 10:29 AM LEGAL INSTRUCTOR Gender Identity Female 02/05/2021 6:21 AM CDT Sexual Orientation Straight 02/05/2021 6: 21 AM CDT documented as of this encounter Plan of Treatment Not on file documented as of this encounter Procedures Procedure Name Priority Date/Time Associated Diagnosis Comments SCAN - LABS 06/26/2022 5:08 PM CDT documented in this encounter Results * SCAN - LABS (06/26/2022 5:08 PM CDT) us Provider Scanning Final Result documented in this encounter Visit Diagnoses Not on filedocumented in this encounter Care Teams Plant Breeder Scientist Relationship Specialty Start Date End Date Jacky Luther DO PCP - General 06/26/12 11/01/22 Chery Alonso, real estate services coordinatorSenior Product Designer Transplant 01/18/22 documented as of this encounter
--- OUTSIDE RECORDS SUMMARY | 2024-09-26 01:23 | XMS_ITS | Encounter Summary ---
Author Organization [facility] Healthcare Address [address] [place] [address] Care Team Providers Care Rim Fire Charger Operator Name Role Phone Jacky Luther DO Primary Care Provider +1- [phone] Farideh Valdez RN Unavailable [phone] Encounter Details Date Type Department Care Team (Late st Contact Info) Description 05/31/2021 Telephone [facility] Transplant Kidney [address] [facility] [address] [phone] [place] [address] Lyn Tanner Social History Tobacco Use Types Packs/Day Years Used Date Smoking Tobacco: Never Assessed Alcohol Use Standard Drinks/Week Comments No 0 (1 standard drink = 0.6 oz pur e alcohol) Comments Unknown Sex and Gender Information Value Date Recorded Sex Assigned at Not on file Legal Sex Female 10:29 AM ELECTRONICS RESEARCH ENGINEER Gender Identity Female 02/05/2021 6:21 AM CDT Sexual Orientation Straight 02/05/2021 6: 21 AM CDT documented as of this encounter Miscellaneous Notes * Telephone Encounter - Farideh Valdez, RN - 05/31/2021 8:49 AM CDT Ret'd call to pt who notes her symptoms started about 8-9 days ago. Notes she got COVID from her choreworker who developed symptoms on 05/19/21 and tested positive on 05/23. Pt notes her symptoms started 05/22/21 and she tested positive on 05/27/21. She went to the ER on 05/28/21 due to a drop in her O2 levels. Informed pt we do recommend monoclonal antibody if she qualifies and also vaccination after recovery. She is very leery of the infusion and the vaccine due to her history of allergic reactions.Will review Cellcept with txp team during questions today. Rev'd with Dr. Thornton and rec'd orders for no changes as patient is already on minimal IMS. She should monitor symptoms and let us know if she gets worse. 06/02/21 9:56 AM, Farideh Valdez RN, Durability Engineer: Spoke with patient who confirms she is feeling better. No longer needing Tylenol to control the fever. She is still feeling fatigued but otherwise doing better. She continues to refuse vaccine in thefuture. She will get May labs either next week or wait until June and will assure she getsUPC with next labs (part of routine quarterly orders). We also discussed quarterly results noting iron was low. Pt had previous iron dextran allergic reaction and will refuse any IV iron infusion. She will try increasing oral iron back to daily (has onlybeen taking MWF) and will use Miralax as needed. If issues worsen, she will reduce back to MWF dosing. Will continue to monitor. * Telephone Encounter - Lyn Tanner - 05/31/2021 8:24 AM CDT Pt. Called to let you know that she tested positive for covid, please advise any changes. documented in this encounter Plan of Treatment Not on file documented as of this encounter Visit Diagnoses Not on filedocumented in this encounter Care Teams Rim Fire Charger Operator Relationship Specialty Start Date End Date Jacky Luther DO PCP - General 06/26/12 11/01/22 Farideh Valdez RN [address] [address] Durability Engineer 02/19/18 documented as of this encounter
--- OUTSIDE RECORDS SUMMARY | 2024-09-26 01:23 | XMS_ITS | Encounter Summary ---
Author Organization [facility] Healthcare Address [address] [place] [address] Care Team Providers Care Organizational Development Consultant Name Role Phone Jacky Luther DO Primary Care Provider +1- [phone] Chery Alonso RN Unavailable Unava ilable Encounter Details Date Type Department Care Team (Late st Contact Info) Description 02/16/2022 Telephone [facility] Transplant Kidney [address] [facility] [address] [phone] [place] [address] Ludivina Dixon Social History Tobacco Use Types Packs/Day Years Used Date Smoking Tobacco: Never Assessed Alcohol Use Standard Drinks/Week Comments No 0 (1 standard drink = 0.6 oz pur e alcohol) Comments Unknown Sex and Gender Information Value Date Recorded Sex Assigned at Not on file Legal Sex Female 10:29 AM SWITCHBOARD OPERATOR ASSISTANT Gender Identity Female 02/05/2021 6:21 AM CDT Sexual Orientation Straight 02/05/2021 6: 21 AM CDT documented as of this encounter Miscellaneous Notes * Telephone Encounter - Ludivina Dixon - 02/16/2022 8:32 AM CDT Pt called very concerned about thyroid medication. She has put a call into her PCP and they are suppose to call her back, however, she would like to speak to a coordinator about a dosage opinion. Please call. Thank you. 02/16/22 10:51 AM Neeru Gonsalez RN Atomic Physics Professor: Returned call to pt. LMOR that we would defer to PCP for thyroid management. documented in this encounter Plan of Treatment Not on file documented as of this encounter Visit Diagnoses Not on filedocumented in this encounter Care Teams Organizational Development Consultant Relationship Specialty Start Date End Date Jacky Luther DO PCP - General 06/26/12 11/01/22 Chery Alonso, eclectic doctorAtomic Physics Professor Transplant 01/18/22 documented as of this encounter
--- OUTSIDE RECORDS SUMMARY | 2024-09-26 01:23 | XMS_ITS | Encounter Summary ---
Author Organization [facility] Healthcare Address [address] [place] [address] Care Team Providers Care Shelter Case Manager Name Role Phone Jacky Luther DO Primary Care Provider +1- [phone] Cecelia Alonso RN Unavailable Unava ilable Encounter Details Date Type Department Care Team (Late st Contact Info) Description 03/28/2022 Telephone [facility] Transplant Kidney [address] [facility] [address] [phone] [place], [place] [id number] Brandan Matos Social History Tobacco Use Types Packs/Day Years Used Date Smoking Tobacco: Never Assessed Alcohol Use Standard Drinks/Week Comments No 0 (1 standard drink = 0.6 oz pur e alcohol) Comments Unknown Sex and Gender Information Value Date Recorded Sex Assigned at Not on file Legal Sex Female 10:29 AM DIESEL ENGINE ERECTOR Gender Identity Female 02/05/2021 6:21 AM CDT Sexual Orientation Straight 02/05/2021 6: 21 AM CDT documented as of this encounter Ordered Prescriptions Prescription Sig Dispense Quantity Refills Last Filled Start Date End Date ferrous sulfate 325 mg (65 mg of elemental iron) tablet Take 1 tablet (325 mg total) by mouth 2 (two) times a day 60 tablet 11 03/28/2022 03/13/2023 documented in this encounter Miscellaneous Notes * Telephone Encounter - Marnie Infante - 03/29/2022 10:45 AM CDT 03/24 results received and entered. * Addendum Note - Cecelia Friend RN - 03/28/2022 4:36 PM CDTAddended by: CECELIA FRIEND on: 03/28/2022 04:36 PM Modules accepted: Orders * Telephone Encounter - Cecelia Friend RN - 03/28/2022 2:36 PM CDT Images from the original note were not included. 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 Iron studies low: Ferritin: Per previous notes, patient has refused IV iron. I left voicemail to discuss. She is on ferrous sulfate 325mg daily. IV iron if she is agreeable? Increase PO iron? I received a call back from the patient in regards to the iron levels. She states she does not wantan iron infusion as she had an allergic reaction from it last time. She will (and has already started) her PO iron (ferrous sulfate 325mg BID). D/W Dr. Dunbar: Lets do 325 mg PO BID but document that was offered. She needs to see a GI doctoras she might need to do endoscopy and colonoscopy as this iron deficiency anemia can be neoplasia from the GI source. Ok to order ferrous sulfate with iron dextran allergy per Dr. Dunbar I called [facility] to let her know. She verbalized understanding of iron and the need to see GI specialist. Orders placed and referral sent. * Telephone Encounter - Brandan Matos - 03/28/2022 8:49 AM CDT Pt states she had blood drawn on Sunday at [facility]. Please call for results. Coordinator: please call pt to discuss lab results once entered. Thank you. VERONICA Schmitt, RN: I LVM for patient to discuss. Noted Iron series test. Per previous documentation, patient refuses IV iron. Will d/w patient and then alert team. documented in this encounter Plan of Treatment Not on file documented as of this encounter Visit Diagnoses Diagnosis Kidney replaced by transplant- Primary documented in this encounter Discontinued Medications Medication Sig Discontinue Reason Start Date End Da te ferrous sulfate 325 mg (65 mg of elemental iron) tablet Reorder 10/30/2018 2 documented as of this encounter Care Teams Shelter Case Manager Relationship Specialty Start Date End Date Jacky Luther DO PCP - General 06/26/12 11/01/22 Cecelia Alonso, chief dispatcherAd Clerk Transplant 01/18/22 documented as of this encounter
--- OUTSIDE RECORDS SUMMARY | 2024-09-26 01:23 | XMS_ITS | Encounter Summary ---
Author Organization [facility] Healthcare Address [address] [place] [address] Care Team Providers Care Electrician Name Role Phone Jacky Luther DO Primary Care Provider +1- [phone] Farideh Valdez RN Unavailable [phone] Encounter Details Date Type Department Care Team (Late st Contact Info) Description 11/22/2021 Orders Only [facility] Health Information Management [address] [place] [address] Scanning, Provider Social History Tobacco Use Types Packs/Day Years Used Date Smoking Tobacco: Never Assessed Alcohol Use Standard Drinks/Week Comments No 0 (1 standard drink = 0.6 oz pur e alcohol) Comments Unknown Sex and Gender Information Value Date Recorded Sex Assigned at Not on file Legal Sex Female 10:29 AM NURSE FIRST ASSIST Gender Identity Female 02/05/2021 6:21 AM CDT Sexual Orientation Straight 02/05/2021 6: 21 AM CDT documented as of this encounter Plan of Treatment Not on file documented as of this encounter Procedures Procedure Name Priority Date/Time Associated Diagnosis Comments SCAN - LABS 11/22/2021 3:44 PM NURSE FIRST ASSIST documented in this encounter Results * SCAN - LABS (11/22/2021 3:44 PM NURSE FIRST ASSIST) us Provider Scanning Final Result documented in this encounter Visit Diagnoses Not on filedocumented in this encounter Care Teams Electrician Relationship Specialty Start Date End Date Jacky Luther DO PCP - General 06/26/12 11/01/22 Farideh Valdez RN [address] [address] Geological Sample Tester 02/19/18 documented as of this encounter
--- OUTSIDE RECORDS SUMMARY | 2024-09-26 01:23 | XMS_ITS | Encounter Summary ---
Author Organization [facility] Healthcare Address [address] [place] [address] Care Team Providers Care Housekeeper [facility] Name Role Phone Jacky Luther DO Primary Care Provider +1- [phone] Chery Alonso RN Unavailable Unava ilable Encounter Details Date Type Department Care Team (Late st Contact Info) Description 02/15/2022 Orders Only [facility] Health Information Management [address] [place] [address] Scanning, Provider Social History Tobacco Use Types Packs/Day Years Used Date Smoking Tobacco: Never Assessed Alcohol Use Standard Drinks/Week Comments No 0 (1 standard drink = 0.6 oz pur e alcohol) Comments Unknown Sex and Gender Information Value Date Recorded Sex Assigned at Not on file Legal Sex Female 10:29 AM SOFTWARE IMPLEMENTATION SPECIALIST Gender Identity Female 02/05/2021 6:21 AM CDT Sexual Orientation Straight 02/05/2021 6: 21 AM CDT documented as of this encounter Plan of Treatment Not on file documented as of this encounter Procedures Procedure Name Priority Date/Time Associated Diagnosis Comments SCAN - LABS 02/15/2022 6:03 AM CDT documented in this encounter Results * SCAN - LABS (02/15/2022 6:03 AM CDT) us Provider Scanning Final Result documented in this encounter Visit Diagnoses Not on filedocumented in this encounter Care Teams [facility]keeper [facility] Relationship Specialty Start Date End Date Jacky Luther DO PCP - General 06/26/12 11/01/22 Chery Alonso, spray gunnerWindow Assembler Transplant 01/18/22 documented as of this encounter
--- OUTSIDE RECORDS SUMMARY | 2024-09-26 01:23 | XMS_ITS | Encounter Summary ---
Author Organization [facility] Healthcare Address [address] [place] [address] Care Team Providers Care Bumper Straightener Name Role Phone Jacky Luther DO Primary Care Provider +1- [phone] Chery Alonso RN Unavailable Unava ilable Encounter Details Date Type Department Care Team (Late st Contact Info) Description 04/11/2022 Telephone [facility] Transplant Kidney [address] [facility] [address] [phone] [place] [address] Brandan Matos Social History Tobacco Use Types Packs/Day Years Used Date Smoking Tobacco: Never Assessed Alcohol Use Standard Drinks/Week Comments No 0 (1 standard drink = 0.6 oz pur e alcohol) Comments Unknown Sex and Gender Information Value Date Recorded Sex Assigned at Not on file Legal Sex Female 10:29 AM ACCOUNT RESOLUTION ANALYST Gender Identity Female 02/05/2021 6:21 AM CDT Sexual Orientation Straight 02/05/2021 6: 21 AM CDT documented as of this encounter Miscellaneous Notes * Telephone Encounter - Chery Schmidt RN - 04/11/2022 2:05 PM CDT Patient called and I reiterated the need to see GI. She stated she will call Juanpablo ROJO as the referral was sent last week and on my end it looks like they are ready to schedule her. * Telephone Encounter - Brandan Matos - 04/11/2022 8:39 AM CDT Pt asks that you call to discuss GI doctor and blood results. Pt will be unavailable from 10:30 a until 2 pm today. Please call before or after the listed times. documented in this encounter Plan of Treatment Not on file documented as of this encounter Visit Diagnoses Not on filedocumented in this encounter Care Teams Bumper Straightener Relationship Specialty Start Date End Date Jacky Luther DO PCP - General 06/26/12 11/01/22 Chery Alonso, precinct commanding officerPsychiatric Rn Transplant 01/18/22 documented as of this encounter
--- OUTSIDE RECORDS SUMMARY | 2024-09-26 01:23 | XMS_ITS | Encounter Summary ---
Author Organization [facility] Healthcare Address [address] [place] [address] Care Team Providers Care Associate Professor Of Physics Name Role Phone Jacky Luther DO Primary Care Provider +1- [phone] Farideh Valdez RN Unavailable [phone] Encounter Details Date Type Department Care Team (Late st Contact Info) Description 04/25/2021 Orders Only [facility] Health Information Management [address] [place] [address] Scanning, Provider Social History Tobacco Use Types Packs/Day Years Used Date Smoking Tobacco: Never Assessed Alcohol Use Standard Drinks/Week Comments No 0 (1 standard drink = 0.6 oz pur e alcohol) Comments Unknown Sex and Gender Information Value Date Recorded Sex Assigned at Not on file Legal Sex Female 10:29 AM PROFESSOR OF COUNSELING Gender Identity Female 02/05/2021 6:21 AM CDT Sexual Orientation Straight 02/05/2021 6: 21 AM CDT documented as of this encounter Plan of Treatment Not on file documented as of this encounter Procedures Procedure Name Priority Date/Time Associated Diagnosis Comments SCAN - LABS 04/25/2021 10:28 AM CDT documented in this encounter Results * SCAN - LABS (04/25/2021 10:28 AM CDT) us Provider Scanning Final Result documented in this encounter Visit Diagnoses Not on filedocumented in this encounter Additional Health Concerns 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
--- OUTSIDE RECORDS SUMMARY | 2024-09-26 01:23 | XMS_ITS | Encounter Summary ---
Author Organization [facility] Healthcare Address [address] [place] [address] Care Team Providers Care Light Adjuster Name Role Phone Jacky Luther DO Primary Care Provider +1- [phone] Farideh Valdez RN Unavailable [phone] Encounter Details Date Type Department Care Team (Late st Contact Info) Description 08/24/2021 Orders Only [facility] Health Information Management [address] [place] [address] Scanning, Provider Social History Tobacco Use Types Packs/Day Years Used Date Smoking Tobacco: Never Assessed Alcohol Use Standard Drinks/Week Comments No 0 (1 standard drink = 0.6 oz pur e alcohol) Comments Unknown Sex and Gender Information Value Date Recorded Sex Assigned at Not on file Legal Sex Female 10:29 AM RN LACTATION CONSULTANT Gender Identity Female 02/05/2021 6:21 AM CDT Sexual Orientation Straight 02/05/2021 6: 21 AM CDT documented as of this encounter Plan of Treatment Not on file documented as of this encounter Procedures Procedure Name Priority Date/Time Associated Diagnosis Comments SCAN - LABS 08/24/2021 11:53 AM RN LACTATION CONSULTANT documented in this encounter Results * SCAN - LABS (08/24/2021 11:53 AM RN LACTATION CONSULTANT) us Provider Scanning Final Result documented in this encounter Visit Diagnoses Not on filedocumented in this encounter Care Teams Light Adjuster Relationship Specialty Start Date End Date Jacky Luther DO PCP - General 06/26/12 11/01/22 Farideh Valdez RN [address] [address] Mounter Smoking Pipe 02/19/18 documented as of this encounter
--- OUTSIDE RECORDS SUMMARY | 2024-09-26 01:23 | XMS_ITS | Encounter Summary ---
Author Organization [facility] Healthcare Address [address] [place] [address] Care Team Providers Care Pilot Boat Deckhand Name Role Phone Jacky Luther DO Primary Care Provider +1- [phone] Chery Alonso RN Unavailable Unava ilable Encounter Details Date Type Department Care Team (Late st Contact Info) Description 04/26/2022 Orders Only [facility] Health Information Management [address] [place] [address] Scanning, Provider Social History Tobacco Use Types Packs/Day Years Used Date Smoking Tobacco: Never Assessed Alcohol Use Standard Drinks/Week Comments No 0 (1 standard drink = 0.6 oz pur e alcohol) Comments Unknown Sex and Gender Information Value Date Recorded Sex Assigned at Not on file Legal Sex Female 10:29 AM GAMING FLOOR SUPERVISOR Gender Identity Female 02/05/2021 6:21 AM CDT Sexual Orientation Straight 02/05/2021 6: 21 AM CDT documented as of this encounter Plan of Treatment Not on file documented as of this encounter Procedures Procedure Name Priority Date/Time Associated Diagnosis Comments SCAN - LABS 04/26/2022 11:45 AM CDT documented in this encounter Results * SCAN - LABS (04/26/2022 11:45 AM CDT) us Provider Scanning Final Result documented in this encounter Visit Diagnoses Not on filedocumented in this encounter Care Teams Pilot Boat Deckhand Relationship Specialty Start Date End Date Jacky Luther DO PCP - General 06/26/12 11/01/22 Chery Alonso, curriculum assistantCrew Leader/Control Room Operator Transplant 01/18/22 documented as of this encounter
--- OUTSIDE RECORDS SUMMARY | 2024-09-26 01:23 | XMS_ITS | Encounter Summary ---
Author Organization [facility] Healthcare Address [address] [place] [address] Care Team Providers Care Skein Winder Name Role Phone Jacky Luther DO Primary Care Provider +1- [phone] Chery Alonso RN Unavailable Unava ilable Encounter Details Date Type Department Care Team (Late st Contact Info) Description 03/24/2022 Orders Only [facility] Health Information Management [address] [place] [address] Scanning, Provider Social History Tobacco Use Types Packs/Day Years Used Date Smoking Tobacco: Never Assessed Alcohol Use Standard Drinks/Week Comments No 0 (1 standard drink = 0.6 oz pur e alcohol) Comments Unknown Sex and Gender Information Value Date Recorded Sex Assigned at Not on file Legal Sex Female 10:29 AM ADVANCED MANUFACTURING ENGINEER Gender Identity Female 02/05/2021 6:21 AM CDT Sexual Orientation Straight 02/05/2021 6: 21 AM CDT documented as of this encounter Plan of Treatment Not on file documented as of this encounter Procedures Procedure Name Priority Date/Time Associated Diagnosis Comments SCAN - LABS 03/24/2022 3:36 PM CDT SCAN - LABS 03/24/2022 12:57 PM CDT documented in this encounter Results * SCAN - LABS (03/24/2022 3:36 PM CDT) us Provider Scanning Final Result * SCAN - LABS (03/24/2022 12:57 PM CDT) us Provider Scanning Final Result documented in this encounter Visit Diagnoses Not on filedocumented in this encounter Care Teams Skein Winder Relationship Specialty Start Date End Date Jacky Luther DO PCP - General 06/26/12 11/01/22 Chery Alonso, clothing sales assistantConcrete Block Plant Supervisor Transplant 01/18/22 documented as of this encounter
--- OUTSIDE RECORDS SUMMARY | 2024-09-26 01:23 | XMS_ITS | Encounter Summary ---
Author Organization [facility] Healthcare Address [address] [place] [address] Care Team Providers Care Trading Assistant Name Role Phone Jacky Luther DO Primary Care Provider +1- [phone] Farideh Valdez RN Unavailable [phone] Encounter Details Date Type Department Care Team (Late st Contact Info) Description 10/25/[address] [facility] Health Information Management [address] [place] [address] Scanning, Provider Social History Tobacco Use Types Packs/Day Years Used Date Smoking Tobacco: Never Assessed Alcohol Use Standard Drinks/Week Comments No 0 (1 standard drink = 0.6 oz pur e alcohol) Comments Unknown Sex and Gender Information Value Date Recorded Sex Assigned at Not on file Legal Sex Female 10:29 AM WIRE STRIPPER Gender Identity Female 02/05/2021 6:21 AM CDT Sexual Orientation Straight 02/05/2021 6: 21 AM CDT documented as of this encounter Plan of Treatment Not on file documented as of this encounter Procedures Procedure Name Priority Date/Time Associated Diagnosis Comments SCAN - LABS 10/25/2021 12:57 PM WIRE STRIPPER documented in this encounter Results * SCAN - LABS (10/25/2021 12:57 PM WIRE STRIPPER) us Provider Scanning Final Result documented in this encounter Visit Diagnoses Not on filedocumented in this encounter Care Teams Trading Assistant Relationship Specialty Start Date End Date Jacky Luther DO PCP - General 06/26/12 11/01/22 Farideh Valdez RN [address] [address] Emr Implementation Specialist 02/19/18 documented as of this encounter
--- OUTSIDE RECORDS SUMMARY | 2024-09-26 01:23 | XMS_ITS | Encounter Summary ---
Author Organization [facility] Healthcare Address [address] [place] [address] Care Team Providers Care Competitive Intelligence Manager Name Role Phone Jacky Luther DO Primary Care Provider +1- [phone] Adair Valdez RN Unavailable [phone] Encounter Details Date Type Department Care Team (Late st Contact Info) Description 08/02/2021 Telephone [facility] Transplant Kidney [address] [facility] [address] [phone] [place] [address] Lyn Tanner Social History Tobacco Use Types Packs/Day Years Used Date Smoking Tobacco: Never Assessed Alcohol Use Standard Drinks/Week Comments No 0 (1 standard drink = 0.6 oz pur e alcohol) Comments Unknown Sex and Gender Information Value Date Recorded Sex Assigned at Not on file Legal Sex Female 10:29 AM CLUSTER BORE OPERATOR Gender Identity Female 02/05/2021 6:21 AM CDT Sexual Orientation Straight 02/05/2021 6: 21 AM CDT documented as of this encounter Miscellaneous Notes * Addendum Note - Adair Valdez RN - 08/02/2021 4:01 PM CSTAddended by: ADAIR VALDEZ on: 08/02/2021 04:01 PM Modules accepted: Orders TER BORE OPERATOR * Telephone Encounter - Lyn Tanner - 08/02/2021 10:19 AM CST Pt. Called and said that Pulmonary doctor wants to increase Pred to 10 mg daily for 2 weeks, due toCovid, still having issues. Please advise. 08/02/21 3:02 PM, Adair Valdez RN, Manager [employer]: Spoke with pt who notes she is still having significant amount of coughing still after COVID, initially dx in May 2021. Her second operator is increasing Pred dose to 10mg daily x 14 days. She isstill taking MMF 250 mg daily and typically takes Pred 5 mg MWF only. Per pulmonology notes a recent CT shows GGO in RLL and pt has intermittent wheezing. Pt continues to smoke. Rev'd with Dr. Dunbar and rec'd orders to reduce MMF 250 mg to MWF only while taking the increased Pred. When finished with the Pred burst, resume Pred 5 mg MWF and increase MMF 250 mg back to daily. Called pt with the above changes. Pt verbalized understanding. Will continue to monitor. TER BORE OPERATOR TER BORE OPERATOR documented in this encounter Plan of Treatment Not on file documented as of this encounter Visit Diagnoses Not on filedocumented in this encounter Discontinued Medications Medication Sig Discontinue Reason Start Date End Da te ATROVENT HFA 17 mcg/actuation inhaler Therapy completed 09/04/20 18 08/02/2021 documented as of this encounter Care Teams Competitive Intelligence Manager Relationship Specialty Start Date End Date Jacky Luther DO PCP - General 06/26/12 11/01/22 Adair Valdez RN [address] [address] Manager Life Insurance 02/19/18 documented as of this encounter
--- OUTSIDE RECORDS SUMMARY | 2024-09-26 01:23 | XMS_ITS | Encounter Summary ---
Author Organization [facility] Healthcare Address [address] [place] [address] Care Team Providers Care Copyright Expert Name Role Phone Jacky Luther DO Primary Care Provider [phone]- [phone] Farideh Valdez RN Unavailable [phone] Encounter Details Date Type Department Care Team (Late st Contact Info) Description 05/12/2021 Orders Only [facility] Transplant Kidney [address] [facility] [address] Mailstop [phone] [place] [address] Marnie Infante Kidney transplanted (Primary Dx); Uncontrolled type 2 diabetes mellitus with hyperglycemia (CMS/HCC) (HCC); Hyperlipidemia, unspecified hyperlipidemia type; Hyperparathyroidism, secondary (CMS/HCC) (HCC); Hyperthyroidism; Urinary tract infection without hematuria, site unspecified; Osteopathia; Anemia due to vitamin B12 deficiency, unspecified B12 deficiency type Social History Tobacco Use Types Packs/Day Years Used Date Smoking Tobacco: Never Assessed Alcohol Use Standard Drinks/Week Comments No 0 (1 standard drink = 0.6 oz pur e alcohol) Comments Unknown Sex and Gender Information Value Date Recorded Sex Assigned at Not on file Legal Sex Female 10:29 AM OCEAN EXPORT AGENT Gender Identity Female 02/05/2021 6:21 AM CDT Sexual Orientation Straight 02/05/2021 6: 21 AM CDT documented as of this encounter Plan of Treatment Not on file documented as of this encounter Visit Diagnoses Diagnosis Kidney transplanted- Primary Kidney replaced by transplant Uncontrolled type 2 diabetes mellitus with hyperglycemia (HCC) Hyperlipidemia, unspecified hyperlipidemia type Hyperparathyroidism, secondary (HCC) Hyperthyroidism 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 other cause, without mention of thyrotoxic crisis or storm Urinary tract infection without hematuria, site unspecified Osteopathia Disorder of bone and cartilage, unspecified Anemia due to vitamin B12 deficiency, unspecified B12 deficiency type documented in this encounter Care Teams Copyright Expert Relationship Specialty Start Date End Date Jacky Luther DO PCP - General 06/26/12 11/01/22 Farideh Valdez, RN [address] [address] Occupational Nurse 02/19/18 documented as of this encounter
--- OUTSIDE RECORDS SUMMARY | 2024-09-26 01:23 | XMS_ITS | Encounter Summary ---
Author Organization [facility] Healthcare Address [address] [place] [address] Care Team Providers Care Division Roadmaster Name Role Phone Jacky Luther DO Primary Care Provider [phone]- [phone] Chery Alonso RN Unavailable Unava ilable Encounter Details Date Type Department Care Team (Late st Contact Info) Description 03/02/2022 Orders Only [facility] Health Information Management [address] [place] [address] Scanning, Provider Social History Tobacco Use Types Packs/Day Years Used Date Smoking Tobacco: Never Assessed Alcohol Use Standard Drinks/Week Comments No 0 (1 standard drink = 0.6 oz pur e alcohol) Comments Unknown Sex and Gender Information Value Date Recorded Sex Assigned at Not on file Legal Sex Female 10:29 AM SENIOR GAME ADVISOR Gender Identity Female 02/05/2021 6:21 AM CDT Sexual Orientation Straight 02/05/2021 6: 21 AM CDT documented as of this encounter Plan of Treatment Not on file documented as of this encounter Procedures Procedure Name Priority Date/Time Associated Diagnosis Comments SCAN - LABS 03/02/2022 3:37 PM CDT documented in this encounter Results * SCAN - LABS (03/02/2022 3:37 PM CDT) us Provider Scanning Final Result documented in this encounter Visit Diagnoses Not on filedocumented in this encounter Care Teams Division Roadmaster Relationship Specialty Start Date End Date Jacky Luther DO PCP - General 06/26/12 11/01/22 Chery Alonso, industrial electricianLube Worker Transplant 01/18/22 documented as of this encounter
--- OUTSIDE RECORDS SUMMARY | 2024-09-26 01:23 | XMS_ITS | Encounter Summary ---
Author Organization [facility] Healthcare Address [address] [place] [address] Care Team Providers Care Structured Cabling Technician Name Role Phone Jacky Luther DO Primary Care Provider +1- [phone] Sanjay Wyatt RN Unavailable Unavaila ble Encounter Details Date Type Department Care Team (Late st Contact Info) Description 01/02/2022 Orders Only [facility] Health Information Management [address] [place] [address] Scanning, Provider Social History Tobacco Use Types Packs/Day Years Used Date Smoking Tobacco: Never Assessed Alcohol Use Standard Drinks/Week Comments No 0 (1 standard drink = 0.6 oz pur e alcohol) Comments Unknown Sex and Gender Information Value Date Recorded Sex Assigned at Not on file Legal Sex Female 10:29 AM CORN PICKER Gender Identity Female 02/05/2021 6:21 AM CDT Sexual Orientation Straight 02/05/2021 6: 21 AM CDT documented as of this encounter Plan of Treatment Not on file documented as of this encounter Procedures Procedure Name Priority Date/Time Associated Diagnosis Comments SCAN - LABS 01/02/2022 1:32 PM CDT documented in this encounter Results * SCAN - LABS (01/02/2022 1:32 PM CDT) us Provider Scanning Final Result documented in this encounter Visit Diagnoses Not on filedocumented in this encounter Care Teams Structured Cabling Technician Relationship Specialty Start Date End Date Jacky Luther DO PCP - General 06/26/12 2 Sanjay Wyatt, supplier quality specialistCooker Sulfite Transplant 12/05/21 01/18/22 documented as of this encounter
--- OUTSIDE RECORDS SUMMARY | 2024-09-26 01:23 | XMS_ITS | Encounter Summary ---
Author Organization [facility] Healthcare Address [address] [place] [address] Care Team Providers Care Humidifier Attendant Name Role Phone Jacky Luther DO Primary Care Provider +1- [phone] Chery Alonso RN Unavailable Unava ilable Encounter Details Date Type Department Care Team (Late st Contact Info) Description 04/05/2022 Orders Only [facility] Transplant Kidney [address] [address] [address] [phone] [place] [address] Chery Alonso, HONG Kidney replaced by transplant (Primary Dx) Social History Tobacco Use Types Packs/Day Years Used Date Smoking Tobacco: Never Assessed Alcohol Use Standard Drinks/Week Comments No 0 (1 standard drink = 0.6 oz pur e alcohol) Comments Unknown Sex and Gender Information Value Date Recorded Sex Assigned at Not on file Legal Sex Female 10:29 AM RISK ANALYST Gender Identity Female 02/05/2021 6:21 AM CDT Sexual Orientation Straight 02/05/2021 6: 21 AM CDT documented as of this encounter Plan of Treatment Not on file documented as of this encounter Visit Diagnoses Diagnosis Kidney replaced by transplant- Primary documented in this encounter Care Teams Humidifier Attendant Relationship Specialty Start Date End Date Jacky Luther DO PCP - General 06/26/12 11/01/22 Chery Alonso, analysis mgrTenon Machine Operator Transplant 01/18/22 documented as of this encounter
--- OUTSIDE RECORDS SUMMARY | 2024-09-26 01:23 | XMS_ITS | Encounter Summary ---
Author Organization [facility] Healthcare Address [address] [place] [address] Care Team Providers Care Social Media Coordinator Name Role Phone Jacky Luther DO Primary Care Provider +1- [phone] Farideh Valdez RN Unavailable [phone] Encounter Details Date Type Department Care Team (Late st Contact Info) Description 06/27/2021 Orders Only [facility] Health Information Management [address] [place] [address] Scanning, Provider Social History Tobacco Use Types Packs/Day Years Used Date Smoking Tobacco: Never Assessed Alcohol Use Standard Drinks/Week Comments No 0 (1 standard drink = 0.6 oz pur e alcohol) Comments Unknown Sex and Gender Information Value Date Recorded Sex Assigned at Not on file Legal Sex Female 10:29 AM COMPUTATIONAL SCIENCES PROFESSOR Gender Identity Female 02/05/2021 6:21 AM CDT Sexual Orientation Straight 02/05/2021 6: 21 AM CDT documented as of this encounter Plan of Treatment Not on file documented as of this encounter Procedures Procedure Name Priority Date/Time Associated Diagnosis Comments SCAN - LABS 06/27/2021 2:59 PM CDT documented in this encounter Results * SCAN - LABS (06/27/2021 2:59 PM CDT) us Provider Scanning Final Result documented in this encounter Visit Diagnoses Not on filedocumented in this encounter Care Teams Social Media Coordinator Relationship Specialty Start Date End Date Jacky Luther DO PCP - General 06/26/12 11/01/22 Farideh Valdez RN [address] [address] Cut And Cover Line Worker 02/19/18 documented as of this encounter
--- OUTSIDE RECORDS SUMMARY | 2024-09-26 01:23 | XMS_ITS | Encounter Summary ---
Author Organization [facility] Healthcare Address [address] [place] [address] Care Team Providers Care Rehabilitation Assistant Name Role Phone Jacky Luther DO Primary Care Provider +1- [phone] Chery Alonso RN Unavailable Unava ilable Encounter Details Date Type Department Care Team (Late st Contact Info) Description 01/24/2022 Telephone [facility] Transplant Kidney [address] [facility] [address] Mail[address] [phone] [place] [address] Lyn Tanner Social History Tobacco Use Types Packs/Day Years Used Date Smoking Tobacco: Never Assessed Alcohol Use Standard Drinks/Week Comments No 0 (1 standard drink = 0.6 oz pur e alcohol) Comments Unknown Sex and Gender Information Value Date Recorded Sex Assigned at Not on file Legal Sex Female 10:29 AM AUDIO VISUAL TECHNICIAN Gender Identity Female 02/05/2021 6:21 AM CDT Sexual Orientation Straight 02/05/2021 6: 21 AM CDT documented as of this encounter Miscellaneous Notes * Telephone Encounter - Chery Schmidt RN - 01/24/2022 10:13 AM CDT Returned call to patient. Advised patient her cousin should keep her distance from patient and testbefore she comes back to work. Advised patient to watch/monitor her symptoms and alert me if she develops symptoms. Patient verbalized understanding. * Telephone Encounter - Lyn Tanner - 01/24/2022 10:09 AM CDT Pt. Called and said that she has a worker that comes into her home which daughter has tested positive for COVID, worker does not have it but pt. Does not know if she should come work today. Please call her windy. documented in this encounter Plan of Treatment Not on file documented as of this encounter Visit Diagnoses Not on filedocumented in this encounter Care Teams Rehabilitation Assistant Relationship Specialty Start Date End Date Jacky Luther DO PCP - General 06/26/12 11/01/22 Chery Alonso, plant production workerChief Radiology Transplant 01/18/22 documented as of this encounter
--- OUTSIDE RECORDS SUMMARY | 2024-09-26 01:23 | XMS_ITS | Encounter Summary ---
Author Organization [facility] Healthcare Address [address] [place] [address] Care Team Providers Care Home Care Liaison Name Role Phone Jacky Luther DO Primary Care Provider +1- [phone] Sanjay Wyatt RN Unavailable Unavaila ble Encounter Details Date Type Department Care Team (Late st Contact Info) Description 01/02/2022 Telephone [facility] Transplant Kidney [address] [facility] [address] Mailstop [phone] [place] [address] Lyn Tanner Social History Tobacco Use Types Packs/Day Years Used Date Smoking Tobacco: Never Assessed Alcohol Use Standard Drinks/Week Comments No 0 (1 standard drink = 0.6 oz pur e alcohol) Comments Unknown Sex and Gender Information Value Date Recorded Sex Assigned at Not on file Legal Sex Female 10:29 AM SHAPE CARVER Gender Identity Female 02/05/2021 6:21 AM CDT Sexual Orientation Straight 02/05/2021 6: 21 AM CDT documented as of this encounter Miscellaneous Notes * Telephone Encounter - Marnie Infante - 01/02/2022 4:59 PM CDT 12/23 results received and entered. * Telephone Encounter - Lyn Tanner - 01/02/2022 1:03 PM CDT Pt. Called and said that she had labs done on 12/23, please call for results. documented in this encounter Plan of Treatment Not on file documented as of this encounter Visit Diagnoses Not on filedocumented in this encounter Care Teams Home Care Liaison Relationship Specialty Start Date End Date Jacky Luther DO PCP - General 06/26/12 11/01/22 Sanjay Wyatt, escalator mechanicTraining Specialist Transplant 12/05/21 01/18/22 documented as of this encounter
--- OUTSIDE RECORDS SUMMARY | 2024-09-26 01:23 | XMS_ITS | Encounter Summary ---
Author Organization [facility] Healthcare Address [address] [place] [address] Care Team Providers Care Survey Engineer Name Role Phone Jacky Luther DO Primary Care Provider +1- [phone] Farideh Valdez RN Unavailable [phone] Encounter Details Date Type Department Care Team (Late st Contact Info) Description 11/07/2021 Orders Only [facility] Health Information Management [address] [place] [address] Scanning, Provider Social History Tobacco Use Types Packs/Day Years Used Date Smoking Tobacco: Never Assessed Alcohol Use Standard Drinks/Week Comments No 0 (1 standard drink = 0.6 oz pur e alcohol) Comments Unknown Sex and Gender Information Value Date Recorded Sex Assigned at Not on file Legal Sex Female 10:29 AM SAUSAGE SMOKER Gender Identity Female 02/05/2021 6:21 AM CDT Sexual Orientation Straight 02/05/2021 6: 21 AM CDT documented as of this encounter Plan of Treatment Not on file documented as of this encounter Procedures Procedure Name Priority Date/Time Associated Diagnosis Comments SCAN - LABS 11/07/2021 4:38 PM SAUSAGE SMOKER documented in this encounter Results * SCAN - LABS (11/07/2021 4:38 PM SAUSAGE SMOKER) us Provider Scanning Final Result documented in this encounter Visit Diagnoses Not on filedocumented in this encounter Care Teams Survey Engineer Relationship Specialty Start Date End Date Jacky Luther DO PCP - General 06/26/12 11/01/22 Farideh Valdze RN [address] [address] Clinical Massage Therapist 02/19/18 documented as of this encounter
--- OUTSIDE RECORDS SUMMARY | 2024-09-26 01:23 | XMS_ITS | Encounter Summary ---
Author Organization [facility] Healthcare Address [address] [place] [address] Care Team Providers Care Coastal Tug Mate Name Role Phone Jacky Luther DO Primary Care Provider +1- [phone] Farideh Valdez RN Unavailable [phone] Encounter Details Date Type Department Care Team (Late st Contact Info) Description 08/25/2021 Orders Only [facility] Health Information Management [address] [place] [address] Scanning, Provider Social History Tobacco Use Types Packs/Day Years Used Date Smoking Tobacco: Never Assessed Alcohol Use Standard Drinks/Week Comments No 0 (1 standard drink = 0.6 oz pur e alcohol) Comments Unknown Sex and Gender Information Value Date Recorded Sex Assigned at Not on file Legal Sex Female 10:29 AM PIG LEAD MELTER HELPER Gender Identity Female 02/05/2021 6:21 AM CDT Sexual Orientation Straight 02/05/2021 6: 21 AM CDT documented as of this encounter Plan of Treatment Not on file documented as of this encounter Procedures Procedure Name Priority Date/Time Associated Diagnosis Comments SCAN - LABS 08/25/2021 7:27 AM PIG LEAD MELTER HELPER documented in this encounter Results * SCAN - LABS (08/25/2021 7:27 AM PIG LEAD MELTER HELPER) us Provider Scanning Final Result documented in this encounter Visit Diagnoses Not on filedocumented in this encounter Care Teams Coastal Tug Mate Relationship Specialty Start Date End Date Jacky Luther DO PCP - General 06/26/12 11/01/22 Farideh Valdez RN [address] [address] Compressor Station Engineer Chief 02/19/18 documented as of this encounter
--- OUTSIDE RECORDS SUMMARY | 2024-09-26 01:23 | XMS_ITS | Encounter Summary ---
Author Organization [facility] Healthcare Address [address] [place] [address] Care Team Providers Care High Worker Name Role Phone Jacky Luther DO Primary Care Provider +1- [phone] Farideh Valdez RN Unavailable [phone] Encounter Details Date Type Department Care Team (Late st Contact Info) Description 07/25/2021 Orders Only [facility] Health Information Management [address] [place] [address] Scanning, Provider Social History Tobacco Use Types Packs/Day Years Used Date Smoking Tobacco: Never Assessed Alcohol Use Standard Drinks/Week Comments No 0 (1 standard drink = 0.6 oz pur e alcohol) Comments Unknown Sex and Gender Information Value Date Recorded Sex Assigned at Not on file Legal Sex Female 10:29 AM TAX STAFF ACCOUNTANT Gender Identity Female 02/05/2021 6:21 AM CDT Sexual Orientation Straight 02/05/2021 6: 21 AM CDT documented as of this encounter Plan of Treatment Not on file documented as of this encounter Procedures Procedure Name Priority Date/Time Associated Diagnosis Comments SCAN - LABS 07/25/2021 11:16 AM CDT documented in this encounter Results * SCAN - LABS (07/25/2021 11:16 AM CDT) us Provider Scanning Final Result documented in this encounter Visit Diagnoses Not on filedocumented in this encounter Care Teams High Worker Relationship Specialty Start Date End Date Jacky Luther DO PCP - General 06/26/12 11/01/22 Farideh Valdez RN [address] [address] Cardroom Supervisor 02/19/18 documented as of this encounter
--- OUTSIDE RECORDS SUMMARY | 2024-09-26 01:23 | XMS_ITS | Encounter Summary ---
Author Organization [facility] Healthcare Address [address] [place] [address] Care Team Providers Care Hand Stone Polisher Name Role Phone Jacky Luther DO Primary Care Provider [phone]- [phone] Chery Alonso RN Unavailable Unava ilable Encounter Details Date Type Department Care Team (Late st Contact Info) Description 04/12/2022 Orders Only [facility] Health Information Management [address] [place] [address] Scanning, Provider Social History Tobacco Use Types Packs/Day Years Used Date Smoking Tobacco: Never Assessed Alcohol Use Standard Drinks/Week Comments No 0 (1 standard drink = 0.6 oz pur e alcohol) Comments Unknown Sex and Gender Information Value Date Recorded Sex Assigned at Not on file Legal Sex Female 10:29 AM COMMUTATOR INSPECTOR Gender Identity Female 02/05/2021 6:21 AM CDT Sexual Orientation Straight 02/05/2021 6: 21 AM CDT documented as of this encounter Plan of Treatment Not on file documented as of this encounter Procedures Procedure Name Priority Date/Time Associated Diagnosis Comments SCAN - LABS 04/12/2022 10:01 AM CDT documented in this encounter Results * SCAN - LABS (04/12/2022 10:01 AM CDT) us Provider Scanning Final Result documented in this encounter Visit Diagnoses Not on filedocumented in this encounter Care Teams Hand Stone Polisher Relationship Specialty Start Date End Date Jacky Luther DO PCP - General 06/26/12 11/01/22 Chery Alonso, manager field investigationsNeighborhood Planner Transplant 01/18/22 documented as of this encounter
--- OUTSIDE RECORDS SUMMARY | 2024-09-26 01:23 | XMS_ITS | Encounter Summary ---
Author Organization [facility] Healthcare Address [address] [place] [address] Care Team Providers Care Information Systems Security Manager Name Role Phone Jacky Luther DO Primary Care Provider +1- [phone] Chery Alonso RN Unavailable Unava ilable Encounter Details Date Type Department Care Team (Late st Contact Info) Description 04/12/2022 Telephone [facility] and [facility] Transplant Kidney [address] [facility] 340 Mailstop [phone] [place] [address] Brandan Matos Social History Tobacco Use Types Packs/Day Years Used Date Smoking Tobacco: Never Assessed Alcohol Use Standard Drinks/Week Comments No 0 (1 standard drink = 0.6 oz pur e alcohol) Comments Unknown Sex and Gender Information Value Date Recorded Sex Assigned at Not on file Legal Sex Female 10:29 AM PERFORATOR TYPIST Gender Identity Female 02/05/2021 6:21 AM CDT Sexual Orientation Straight 02/05/2021 6: 21 AM CDT documented as of this encounter Miscellaneous Notes * Telephone Encounter - Brandan Matos - 04/12/2022 12:56 PM CDT Error. documented in this encounter Plan of Treatment Not on file documented as of this encounter Visit Diagnoses Not on filedocumented in this encounter Care Teams Information Systems Security Manager Relationship Specialty Start Date End Date Jacky Luther DO PCP - General 06/26/12 11/01/22 Chery Alonso, diver helperDrug Enforcement Agent Transplant 01/18/22 documented as of this encounter
--- OUTSIDE RECORDS SUMMARY | 2024-09-26 01:23 | XMS_ITS | Encounter Summary ---
Author Organization [facility] Healthcare Address [address] [place] [address] Care Team Providers Care Construction Equipment Overhauler Name Role Phone Jacky Luther DO Primary Care Provider +1- [phone] Farideh Valdez RN Unavailable [phone] Encounter Details Date Type Department Care Team (Latest Contact Info) Description 11/18/2021 Orders Only [facility] and [facility] Transplant Kidney [address] [facility] 34[address] Mailstop [phone] [place] [address] Marnie Infante Kidney transplanted (Primary Dx); Uncontrolled type 2 diabetes mellitus with hyperglycemia (CMS/HCC) (HCC); Hyperlipidemia, unspecified hyperlipidemia type; Hyperthyroidism; Secondary hyperparathyroidism (CMS/HCC) (HCC); Osteopathia; Urinary tract infection without hematuria, site unspecified; Anemia due to vitamin B12 deficiency, unspecified B12 deficiency type; Iron deficiency anemia secondary to inadequate dietary iron intake Social History Tobacco Use Types Packs/Day Years Used Date Smoking Tobacco: Never Assessed Alcohol Use Standard Drinks/Week Comments No 0 (1 standard drink = 0.6 oz pur e alcohol) Comments Unknown Sex and Gender Information Value Date Recorded Sex Assigned at Not on file Legal Sex Female 10:29 AM BURNER HAND Gender Identity Female 02/05/2021 6:21 AM CDT Sexual Orientation Straight 02/05/2021 6: 21 AM CDT documented as of this encounter Plan of Treatment Not on file documented as of this encounter Visit Diagnoses Diagnosis Kidney transplanted- Primary Kidney replaced by transplant Uncontrolled type 2 diabetes mellitus with hyperglycemia (HCC) Hyperlipidemia, unspecified hyperlipidemia type Hyperthyroidism 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 other cause, without mention of thyrotoxic crisis or storm Secondary hyperparathyroidism (HCC) Secondary hyperparathyroidism (of renal origin) Osteopathia Disorder of bone and cartilage, unspecified Urinary tract infection without hematuria, site unspecified Anemia due to vitamin B12 deficiency, unspecified B12 deficiency type Iron deficiency anemia secondary to inadequate dietary iron intake documented in this encounter Care Teams Construction Equipment Overhauler Relationship Specialty Start Date End Date Jacky Luther DO PCP - General 06/26/12 11/01/22 Farideh Valdez RN [address] [place] [address] Ship'S Pilot 02/19/18 documented as of this encounter
--- OUTSIDE RECORDS SUMMARY | 2024-09-26 01:23 | XMS_ITS | Encounter Summary ---
Author Organization [facility] Healthcare Address [address] [place] [address] Care Team Providers Care Residential Real Estate Appraiser Name Role Phone Jacky Luther DO Primary Care Provider +1- [phone] Chery Alonso RN Unavailable Unava ilable Reason for Visit * Reason Onset Date Comments Financial Assistance 03/13/2022 Encounter Details Date Type Department Care Team (Late st Contact Info) Description 03/13/2022 Telephone [facility] Social Work [address] [place] [id number] Brigida Matos LCSW Financial Assistance Social History Tobacco Use Types Packs/Day Years Used Date Smoking Tobacco: Never Assessed Alcohol Use Standard Drinks/Week Comments No 0 (1 standard drink = 0.6 oz pur e alcohol) Comments Unknown Sex and Gender Information Value Date Recorded Sex Assigned at Not on file Legal Sex Female 10:29 AM TOBACCO STEMMER Gender Identity Female 02/05/2021 6:21 AM CDT Sexual Orientation Straight 02/05/2021 6: 21 AM CDT documented as of this encounter Miscellaneous Notes * Telephone Encounter - Brigida Matos LMSW - 03/13/2022 9:53 AM CDT SW received call from patient this AM requesting assistance with her car. Pt was recently informed by her mechanic and welder that her front breaks are almost out and have encouraged patient to stop using this vehicle until this problem is resolved. Patient was given an estimate of $1311.93 to which she is unable to afford. Pt had the mechanic and welder email this SWkr the invoice and this SW submitted an MTS geneva on her behalf. SW to await response and will keep patient updated on outcome. SW to continue to follow. NEHA Mejía, VOCATIONAL REHABILITATION TECHNICIAN [phone] documented in this encounter Plan of Treatment Not on file documented as of this encounter Visit Diagnoses Not on filedocumented in this encounter Care Teams Residential Real Estate Appraiser Relationship Specialty Start Date End Date Jacky Luther DO PCP - General 06/26/12 11/01/22 Chery Alonso, director of programmingEngine Dynamometer Tester Transplant 01/18/22 documented as of this encounter
--- OUTSIDE RECORDS SUMMARY | 2024-09-26 01:23 | XMS_ITS | Encounter Summary ---
Author Organization [facility] Healthcare Address [address] [place] [address] Care Team Providers Care Coroner Technician Name Role Phone Jacky Luther DO Primary Care Provider +1- [phone] Chery Alonso RN Unavailable Unava ilable Encounter Details Date Type Department Care Team (Late st Contact Info) Description 01/23/2022 Orders Only [facility] Health Information Management [address] [place] [address] Scanning, Provider Social History Tobacco Use Types Packs/Day Years Used Date Smoking Tobacco: Never Assessed Alcohol Use Standard Drinks/Week Comments No 0 (1 standard drink = 0.6 oz pur e alcohol) Comments Unknown Sex and Gender Information Value Date Recorded Sex Assigned at Not on file Legal Sex Female 10:29 AM SALES AND LEASING AGENT Gender Identity Female 02/05/2021 6:21 AM CDT Sexual Orientation Straight 02/05/2021 6: 21 AM CDT documented as of this encounter Plan of Treatment Not on file documented as of this encounter Procedures Procedure Name Priority Date/Time Associated Diagnosis Comments SCAN - LABS 01/23/2022 10:43 AM CDT documented in this encounter Results * SCAN - LABS (01/23/2022 10:43 AM CDT) us Provider Scanning Final Result documented in this encounter Visit Diagnoses Not on filedocumented in this encounter Care Teams Coroner Technician Relationship Specialty Start Date End Date Jacky Luther DO PCP - General 06/26/12 11/01/22 Chery Alonso, poolroom/poolhall managerMetal Fabricating Supervisor Transplant 01/18/22 documented as of this encounter
--- OUTSIDE RECORDS SUMMARY | 2024-09-26 01:23 | XMS_ITS | Encounter Summary ---
Author Organization [facility] Healthcare Address [address] [place] [address] Care Team Providers Care Integration Assistant Name Role Phone Jacky Luther DO Primary Care Provider +1- [phone] Chery Alonso RN Unavailable Unava ilable Encounter Details Date Type Department Care Team (Late st Contact Info) Description 04/05/2022 Telephone [facility] and [facility] Transplant Kidney [address] [facility] 340 Mailstop [phone] [place] [address] Lyn Tanner Social History Tobacco Use Types Packs/Day Years Used Date Smoking Tobacco: Never Assessed Alcohol Use Standard Drinks/Week Comments No 0 (1 standard drink = 0.6 oz pur e alcohol) Comments Unknown Sex and Gender Information Value Date Recorded Sex Assigned at Not on file Legal Sex Female 10:29 AM HIDE SPREADER Gender Identity Female 02/05/2021 6:21 AM CDT Sexual Orientation Straight 02/05/2021 6: 21 AM CDT documented as of this encounter Miscellaneous Notes * Telephone Encounter - Lyn Tanner - 04/05/2022 3:35 PM CDT [facility]. [facility] [place] [place] [facility]. Please advise. documented in this encounter Plan of Treatment Not on file documented as of this encounter Visit Diagnoses Not on filedocumented in this encounter Care Teams Integration Assistant Relationship Specialty Start Date End Date Jacky Luther DO PCP - General 06/26/12 11/01/22 Chery Alonso, trap pullerWallpaper Scraper Transplant 01/18/22 documented as of this encounter
--- OUTSIDE RECORDS SUMMARY | 2024-09-26 01:23 | XMS_ITS | Encounter Summary ---
Author Organization [facility] Healthcare Address [address] [place] [address] Care Team Providers Care Ems Driver Name Role Phone Jacky Luther DO Primary Care Provider +1- [phone] Chery Alonso RN Unavailable Unava ilable Encounter Details Date Type Department Care Team (Late st Contact Info) Description 04/25/2022 Telephone [facility] and [facility] Transplant Kidney [address] [facility] 340 Mailstop [phone] [place] [address] Lyn Tanner Social History Tobacco Use Types Packs/Day Years Used Date Smoking Tobacco: Never Assessed Alcohol Use Standard Drinks/Week Comments No 0 (1 standard drink = 0.6 oz pur e alcohol) Comments Unknown Sex and Gender Information Value Date Recorded Sex Assigned at Not on file Legal Sex Female 10:29 AM SHIPPING TRACK SUPERVISOR Gender Identity Female 02/05/2021 6:21 AM CDT Sexual Orientation Straight 02/05/2021 6: 21 AM CDT documented as of this encounter Miscellaneous Notes * Telephone Encounter - Marnie Infante - 04/25/2022 3:01 PM CDT Patient's standing orders 05/18, I will fax new orders prior to expiration date. * Telephone Encounter - Lyn Tanner - 04/25/2022 8:10 AM CDT Earline with [facility] called they need new standing orders, they are only good for 6 months. Please send. documented in this encounter Plan of Treatment Not on file documented as of this encounter Visit Diagnoses Not on filedocumented in this encounter Care Teams Ems Driver Relationship Specialty Start Date End Date Jacky Luther DO PCP - General 06/26/12 11/01/22 Chery Alonso, senior linux unix administratorRn Imcu Transplant 01/18/22 documented as of this encounter
--- OUTSIDE RECORDS SUMMARY | 2024-09-26 01:23 | XMS_ITS | Encounter Summary ---
Author Organization [facility] Healthcare Address [address] [place] [address] Care Team Providers Care Communications Designer Name Role Phone Jacky Luther DO Primary Care Provider +1- [phone] Farideh Valdez RN Unavailable [phone] Encounter Details Date Type Department Care Team (Late st Contact Info) Description 2021 Orders Only [facility] Health Information Management [address] [place] [address] Scanning, Provider Social History Tobacco Use Types Packs/Day Years Used Date Smoking Tobacco: Never Assessed Alcohol Use Standard Drinks/Week Comments No 0 (1 standard drink = 0.6 oz pur e alcohol) Comments Unknown Sex and Gender Information Value Date Recorded Sex Assigned at Not on file Legal Sex Female 10:29 AM SPRING SETTER Gender Identity Female 02/05/2021 6:21 AM CDT Sexual Orientation Straight 02/05/2021 6: 21 AM CDT documented as of this encounter Plan of Treatment Not on file documented as of this encounter Procedures Procedure Name Priority Date/Time Associated Diagnosis Comments SCAN - LABS 2021 12:55 PM SPRING SETTER documented in this encounter Results * SCAN - LABS (2021 12:55 PM SPRING SETTER) us Provider Scanning Final Result documented in this encounter Visit Diagnoses Not on filedocumented in this encounter Care Teams Communications Designer Relationship Specialty Start Date End Date Jacky Luther DO PCP - General 06/26/12 11/01/22 Farideh Valdez RN [address] [address] Paper Sorter 02/19/18 documented as of this encounter
--- OUTSIDE RECORDS SUMMARY | 2024-09-26 01:24 | XMS_ITS | Encounter Summary ---
Author Organization [facility] Healthcare Address [address] [place] [address] Care Team Providers Care Manager Orange Name Role Phone Jacky Luther DO Primary Care Provider +1- [phone] Farideh Valdez RN Unavailable [phone] Encounter Details Date Type Department Care Team (Late st Contact Info) Description 11/22/2020 Orders Only [facility] Health Information Management [address] [place] [address] Scanning, Provider Social History Tobacco Use Types Packs/Day Years Used Date Smoking Tobacco: Never Assessed Alcohol Use Standard Drinks/Week Comments No 0 (1 standard drink = 0.6 oz pur e alcohol) Comments Unknown Sex and Gender Information Value Date Recorded Sex Assigned at Not on file Legal Sex Female 10:29 AM SLIP LASTER Gender Identity Female 02/05/2021 6:21 AM CDT Sexual Orientation Straight 02/05/2021 6: 21 AM CDT documented as of this encounter Plan of Treatment Not on file documented as of this encounter Procedures Procedure Name Priority Date/Time Associated Diagnosis Comments SCAN - LABS 11/22/2020 10:28 AM SLIP LASTER documented in this encounter Results * SCAN - LABS (11/22/2020 10:28 AM SLIP LASTER) us Provider Scanning Final Result documented in this encounter Visit Diagnoses Not on filedocumented in this encounter Additional Health Concerns 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
--- OUTSIDE RECORDS SUMMARY | 2024-09-26 01:24 | XMS_ITS | Encounter Summary ---
Author Organization [facility] Healthcare Address [address] [place] [address] Care Team Providers Care Firer Automatic Stoker Name Role Phone Jacky Luther DO Primary Care Provider +1- [phone] Farideh Valdez RN Unavailable [phone] Encounter Details Date Type Department Care Team (Late st Contact Info) Description 02/22/2021 Orders Only [facility] Health Information Management [address] [place] [address] Scanning, Provider Social History Tobacco Use Types Packs/Day Years Used Date Smoking Tobacco: Never Assessed Alcohol Use Standard Drinks/Week Comments No 0 (1 standard drink = 0.6 oz pur e alcohol) Comments Unknown Sex and Gender Information Value Date Recorded Sex Assigned at Not on file Legal Sex Female 10:29 AM GROUNDS MAINTENANCE SUPERVISOR Gender Identity Female 02/05/2021 6:21 AM CDT Sexual Orientation Straight 02/05/2021 6: 21 AM CDT documented as of this encounter Plan of Treatment Not on file documented as of this encounter Procedures Procedure Name Priority Date/Time Associated Diagnosis Comments SCAN - LABS 02/22/2021 2:39 PM CDT SCAN - LABS 02/22/2021 2:25 PM CDT documented in this encounter Results * SCAN - LABS (02/22/2021 2:39 PM CDT) us Provider Scanning Final Result * SCAN - LABS (02/22/2021 2:25 PM CDT) us Provider Scanning Final Result documented in this encounter Visit Diagnoses Not on filedocumented in this encounter Additional Health Concerns 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
--- OUTSIDE RECORDS SUMMARY | 2024-09-26 01:24 | XMS_ITS | Encounter Summary ---
Author Organization [facility] Healthcare Address [address] [place] [address] Care Team Providers Care Clinical Data Associate Name Role Phone Jacky Luther DO Primary Care Provider +1- [phone] Farideh Valdez RN Unavailable [phone] Encounter Details Date Type Department Care Team (Late st Contact Info) Description 11/01/2020 Telephone [facility] and [facility] Transplant Kidney [address] [facility] 340 Mailstop [phone] [place] [address] Marnie Infante Social History Tobacco Use Types Packs/Day Years Used Date Smoking Tobacco: Never Assessed Alcohol Use Standard Drinks/Week Comments No 0 (1 standard drink = 0.6 oz pur e alcohol) Comments Unknown Sex and Gender Information Value Date Recorded Sex Assigned at Not on file Legal Sex Female 10:29 AM HEALTH INFORMATION SYSTEMS TECHNICIAN Gender Identity Female 02/05/2021 6:21 AM CDT Sexual Orientation Straight 02/05/2021 6: 21 AM CDT documented as of this encounter Miscellaneous Notes * Telephone Encounter - Marnie Infante - 11/01/2020 9:11 AM CST Earline lara on [facility] requesting new standing orders for November for the patient. 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
--- OUTSIDE RECORDS SUMMARY | 2024-09-26 01:24 | XMS_ITS | Encounter Summary ---
Author Organization [facility] Healthcare Address [address] [place] [address] Care Team Providers Care Kitchen Runner Name Role Phone Jacky Luther DO Primary Care Provider +1- [phone] Farideh Valdez RN Unavailable [phone] Encounter Details Date Type Department Care Team (Late st Contact Info) Description 12/24/2020 Orders Only [facility] Health Information Management [address] [place] [address] Scanning, Provider Social History Tobacco Use Types Packs/Day Years Used Date Smoking Tobacco: Never Assessed Alcohol Use Standard Drinks/Week Comments No 0 (1 standard drink = 0.6 oz pur e alcohol) Comments Unknown Sex and Gender Information Value Date Recorded Sex Assigned at Not on file Legal Sex Female 10:29 AM PRODUCT SUPPORT REP Gender Identity Female 02/05/2021 6:21 AM CDT Sexual Orientation Straight 02/05/2021 6: 21 AM CDT documented as of this encounter Plan of Treatment Not on file documented as of this encounter Procedures Procedure Name Priority Date/Time Associated Diagnosis Comments SCAN - LABS 12/24/2020 6:51 AM CDT documented in this encounter Results * SCAN - LABS (12/24/2020 6:51 AM CDT) us Provider Scanning Final Result documented in this encounter Visit Diagnoses Not on filedocumented in this encounter Additional Health Concerns 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
--- OUTSIDE RECORDS SUMMARY | 2024-09-26 01:24 | XMS_ITS | Encounter Summary ---
Author Organization [facility] Healthcare Address [address] [place] [address] Care Team Providers Care Poultice Machine Operator Name Role Phone Jacky Luther DO Primary Care Provider +1- [phone] Farideh Valdez RN Unavailable [phone] Encounter Details Date Type Department Care Team (Late st Contact Info) Description 09/27/2020 Orders Only [facility] Health Information Management [address] [place] [address] Scanning, Provider Social History Tobacco Use Types Packs/Day Years Used Date Smoking Tobacco: Never Assessed Alcohol Use Standard Drinks/Week Comments No 0 (1 standard drink = 0.6 oz pur e alcohol) Comments Unknown Sex and Gender Information Value Date Recorded Sex Assigned at Not on file Legal Sex Female 10:29 AM E COMMERCE SPECIALIST Gender Identity Female 02/05/2021 6:21 AM CDT Sexual Orientation Straight 02/05/2021 6: 21 AM CDT documented as of this encounter Plan of Treatment Not on file documented as of this encounter Procedures Procedure Name Priority Date/Time Associated Diagnosis Comments SCAN - LABS 09/27/2020 2:33 PM E COMMERCE SPECIALIST documented in this encounter Results * SCAN - LABS (09/27/2020 2:33 PM E COMMERCE SPECIALIST) us Provider Scanning Final Result documented in this encounter Visit Diagnoses Not on filedocumented in this encounter Additional Health Concerns 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
--- OUTSIDE RECORDS SUMMARY | 2024-09-26 01:24 | XMS_ITS | Encounter Summary ---
Author Organization [facility] Address [address] [place] [address] Phone Care Team Providers Care Car Loader Name Role Phone Jacky Luther DO Primary Care Provider +1- [phone] Farideh Valdez RN Unavailable [phone] Encounter Details Date Type Department Care Team (Latest Contact Info) Description 02/09/2021 2:15 PM CDT Telemedicine [facility] Nephrology [address] [facility] [address] 5th [place] [address] [place] [address] Cherelle Sinha, JAMILA [address] [facility] [address] [place] [address] Encounter for aftercare following kidney transplant (Primary Dx); Encounter for long-term (current) use of high-risk medication; ESRD (end stage renal disease) (CMS/[facility]); Encounter for long-term (current) use of antibiotics; long-term current use of immunosuppressive drug Social History Tobacco Use Types Packs/Day Years Used Date Smoking Tobacco: Never Assessed Alcohol Use Standard Drinks/Week Comments No 0 (1 standard drink = 0.6 oz pur e alcohol) Comments Unknown Sex and Gender Information Value Date Recorded Sex Assigned at Not on file Legal Sex Female 10:29 AM SOLUTION DEVELOPER Gender Identity Female 02/05/2021 6:21 AM CDT Sexual Orientation Straight 02/05/2021 6: 21 AM CDT documented as of this encounter Progress Notes * Bharath Cherelle Vee, SUPERVISOR [employer] - 02/09/2021 2:15 PM CDT POST KIDNEY TRANSPLANT NOTE HISTORY OF PRESENT [...] GERD 6. Short bowel syndrome post intussusception Patient Active Problem List Diagnosis ??? Back pain ??? Weakness of lower extremity CURRENT VISIT/REVIEW OF SYSTEMS: Patient has not been seen in clinic since around 2003 do not have access to previous renal transplant notes. Since our last clinic visit, Tyshawn Engel has been well. States the only issues she has had is with her arthritis and her lungs. Denies fevers, dysuria, urgency, or frequency. Reports compliance with immunosuppression. All other systems negative. CURRENT MEDICATIONS: Current Outpatient Medications: ??? acyclovir (ZOVIRAX) 200 mg capsule, TAKE 1 CAPSULE BY MOUTH TWICE A DAY, Disp: 60 capsule, Rfl:5 ??? albuterol (PROVENTIL,VENTOLIN) 2.5 mg /3 mL (0.083 %) nebulizer solution, , Disp: , Rfl: ??? aspirin 81 mg enteric coated tablet, two times daily, Disp: , Rfl: ??? ATROVENT HFA 17 mcg/actuation inhaler, , Disp: , Rfl: ??? ferrous sulfate 325 mg (65 mg of elemental iron) tablet, , Disp: , Rfl: ??? levothyroxine (SYNTHROID) 88 mcg tablet, , Disp: , Rfl: ??? mycophenolate mofetil (CELLCEPT) 250 mg capsule, , Disp: , Rfl: ??? predniSONE (DELTASONE) 5 mg tablet, , Disp: , Rfl: ??? SPIRIVA RESPIMAT 2.5 mcg/actuation inhaler, , Disp: , Rfl: ??? sulfamethoxazole-trimethoprim (BACTRIM DS,SEPTRA DS) 800-160 mg per tablet, , Disp: , Rfl: There were no vitals taken for this visit. PHYSICAL EXAM Generally: no acute distress; breathing comfortably HEENT: sclera anicteric, mucus membranes moist, oropharynx no lesions or thrush. LABORATORY VALUES Recent Results (from the past 504 hour(s)) Renal function panel Collection Time: 01/24/21 12:00 AM Result Value Ref Range SCRIBED Calcium 9.9 8.4 - 10.2 mg/dl SCRIBED Phosphorus 4.0 2.5 - 4.5 mg/dl SCRIBED Albumin 3.8 3.4 - 5.0 g/dl SCRIBED Glucose 81 70 - 99 mg/dl SCRIBED Creatinine 1.30 (A) 0.66 - 1.25 mg/dl SCRIBED Sodium 136 (A) 137 - 145 mmol/L SCRIBED Potassium 4.7 3.5 - 5.1 mmol/L SCRIBED Chloride 104 98 - 107 mmol/L SCRIBED Carbon Dioxide 23 22 - 30 mmol/L SCRIBED eGFR in NonAfrican Martiniquais 42 --- SCRIBED Urea Nitrogen (BUN) 18 8 - 19 mg/dl CBC with auto differential Collection Time: 01/24/21 12:00 AM Result Value Ref Range SCRIBED WBC 6.2 4.2 - 10.8 k/cumm SCRIBED Hemoglobin 12.8 12.0 - 15.6 g/dL SCRIBED Hematocrit 41.0 35.7 - 45.7 % SCRIBED Platelets 268 150 - 400 k/cumm ASSESSMENT AND PLAN: 1. 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 -creatinine at baseline at 1.30 2. Immunosuppression. - 6 antigen match, she has been on Cellcept 250 mg daily and prednisone 5 mg MWF regimen and doing well will not make any changes today 3. Hypertension. Well controlled at home not currently on any anti-hypertensive agents 4. Muscle cramps -will order magnesium level with next labs 5. Health Maintenance - Needs colonoscopy, and mammogram updated, does not want to receive the Covid vaccines, continue to follow with primary dice manager DISPOSITION: Return to clinic in 2 years. documented in this encounter Plan of Treatment Scheduled Orders Name Type Priority Associated Diagnoses Orde r Schedule Magnesium Lab Routine Encounter for aftercare following kidney transplant Expected: 02/09/2021, Expires: 02/09/2022 documented as of this encounter Visit Diagnoses Diagnosis Encounter for aftercare following kidney transplant- Primary Encounter for long-term (current) use of high-risk medication Encounter for long-term (current) use of other medications ESRD (end stage renal disease) ([facility]) ([facility]) End stage renal disease Encounter for long-term (current) use of 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 immunosuppressive drug documented in this encounter Discontinued Medications Medication Sig Discontinue Reason Start Date End Da te cyanocobalamin, vitamin B-12, 1,000 mcg tablet extended release daily Therapy completed 04/05/2017 02/09/2021 ondansetron ODT (ZOFRAN-ODT) 4 mg disintegrating tablet DISSOLVE 1 TABLET ON THE TONGUE EVERY 8 HOURS Therapy completed 09/19/2018 02/09/2021 FLOVENT HFA 44 mcg/actuation inhaler Therapy completed 10/30/2018 02/10/20 21 lancets (freestyle) 28 gauge miscIndications:Hypoglyce ayde without diagnosis of diabetes mellitus,Kidney replaced by transplant Test daily before breakfast and as needed for symptoms of low blood sugar. Therapy completed 04/09/2018 02/09/2021 FREESTYLE LITE STRIPS stripIndications:Hypoglyc emia without diagnosis of diabetes mellitus,Kidney replaced by transplant Test daily before breakfast and as needed for symptoms of low blood sugar. Therapy completed 04/09/2018 02/09/2021 blood-glucose meter (FREESTYLE LITE METER) kitIndications:Hypoglycem ia without diagnosis of diabetes mellitus,Kidney replaced by transplant Test daily before breakfast and as needed for symptoms of low blood sugar. Therapy completed 04/09/2018 02/09/2021 alcohol swabs pads, medicatedIndications:Hypo glycemia without diagnosis of diabetes mellitus,Kidney replaced by transplant Test daily before all meals/snacks and once before bedtime. Therapy completed 04/09/2018 02/09/2021 blood glucose control, normal (ONETOUCH ULTRA CONTROL) solutionIndications:Hypog lycemia Glucose control solution provides an easy way to ensure accurate blood glucose testing. 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
--- OUTSIDE RECORDS SUMMARY | 2024-09-26 01:24 | XMS_ITS | Encounter Summary ---
Author Organization [facility] Healthcare Address [address] [place] [address] Care Team Providers Care Excellence Specialist Name Role Phone Jacky Luther DO Primary Care Provider [phone]- [phone] Farideh Valdez RN Unavailable [phone] Encounter Details Date Type Department Care Team (Late st Contact Info) Description 11/04/2020 Orders Only [facility] Transplant Kidney [address] [facility] [phone] [place] [address] Brandan Matos Kidney replaced by transplant (Primary Dx); Encounter for long-term (current) use of other medications; Hyperlipidemia, unspecified hyperlipidemia type; Iron deficiency anemia, unspecified iron deficiency anemia type; Urinary tract infection without hematuria, site unspecified; Vitamin B12 deficiency; Folate deficiency; Decreased ferritin Social History Tobacco Use Types Packs/Day Years Used Date Smoking Tobacco: Never Assessed Alcohol Use Standard Drinks/Week Comments No 0 (1 standard drink = 0.6 oz pur e alcohol) Comments Unknown Sex and Gender Information Value Date Recorded Sex Assigned at Not on file 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 Sex 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 Gender Identity Female 02/05/2021 6:21 AM CDT Sexual Orientation Straight 02/05/2021 6: 21 AM CDT documented as of this encounter Plan of Treatment Not on file documented as of this encounter Visit Diagnoses Diagnosis Kidney replaced by transplant- Primary Encounter for long-term (current) use of other medications Hyperlipidemia, unspecified hyperlipidemia type Iron deficiency anemia, unspecified iron deficiency anemia type Urinary tract infection without hematuria, site unspecified Vitamin B12 deficiency Other B-complex deficiencies Folate deficiency Other B-complex deficiencies Decreased ferritin Other nonspecific findings on examination of blood documented in this encounter Additional Health Concerns 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
--- OUTSIDE RECORDS SUMMARY | 2024-09-26 01:24 | XMS_ITS | Encounter Summary ---
Author Organization [facility] Healthcare Address [address] [place] [address] Care Team Providers Care Visitor Services Representative Name Role Phone Jacky Luther DO Primary Care Provider +1- [phone] Farideh Valdez RN Unavailable [phone] Encounter Details Date Type Department Care Team (Late st Contact Info) Description 03/24/2021 Orders Only [facility] Health Information Management [address] [place] [address] Scanning, Provider Social History Tobacco Use Types Packs/Day Years Used Date Smoking Tobacco: Never Assessed Alcohol Use Standard Drinks/Week Comments No 0 (1 standard drink = 0.6 oz pur e alcohol) Comments Unknown Sex and Gender Information Value Date Recorded Sex Assigned at Not on file Legal Sex Female 10:29 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 REPAIRER Gender Identity Female 02/05/2021 6:21 AM CDT Sexual Orientation Straight 02/05/2021 6: 21 AM CDT documented as of this encounter Plan of Treatment Not on file documented as of this encounter Procedures Procedure Name Priority Date/Time Associated Diagnosis Comments SCAN - LABS 03/24/2021 2:00 PM CDT documented in this encounter Results * SCAN - LABS (03/24/2021 2:00 PM CDT) us Provider Scanning Final Result documented in this encounter Visit Diagnoses Not on filedocumented in this encounter Additional Health Concerns 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
--- OUTSIDE RECORDS SUMMARY | 2024-09-26 01:24 | XMS_ITS | Encounter Summary ---
Author Organization [facility] Healthcare Address [address] [place] [address] Care Team Providers Care Building Official Name Role Phone Jacky Luther DO Primary Care Provider [phone]- [phone] Farideh Valdez RN Unavailable [phone] Encounter Details Date Type Department Care Team (Late st Contact Info) Description 10/26/2020 Orders Only [facility] Health Information Management [address] [place] [address] Scanning, Provider Social History Tobacco Use Types Packs/Day Years Used Date Smoking Tobacco: Never Assessed Alcohol Use Standard Drinks/Week Comments No 0 (1 standard drink = 0.6 oz pur e alcohol) Comments Unknown Sex and Gender Information Value Date Recorded Sex Assigned at Not on file Legal Sex Female 10:29 AM FOOD CONCESSION MANAGER Gender Identity Female 02/05/2021 6:21 AM CDT Sexual Orientation Straight 02/05/2021 6: 21 AM CDT documented as of this encounter Plan of Treatment Not on file documented as of this encounter Procedures Procedure Name Priority Date/Time Associated Diagnosis Comments SCAN - LABS 10/26/2020 4:12 PM FOOD CONCESSION MANAGER documented in this encounter Results * SCAN - LABS (10/26/2020 4:12 PM FOOD CONCESSION MANAGER) us Provider Scanning Final Result documented in this encounter Visit Diagnoses Not on filedocumented in this encounter Additional Health Concerns 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
--- OUTSIDE RECORDS SUMMARY | 2024-09-26 01:24 | XMS_ITS | Encounter Summary ---
Author Organization [facility] Healthcare Address [address] [place] [address] Care Team Providers Care Manager Case Management Name Role Phone Jacky Luther DO Primary Care Provider +1- [phone] Farideh Valdez RN Unavailable [phone] Encounter Details Date Type Department Care Team (Late st Contact Info) Description 11/04/[address] [facility] Transplant Kidney [address] [facility] [address] Mail[address] [phone] [place] [address] Lyn Tanner Social History Tobacco Use Types Packs/Day Years Used Date Smoking Tobacco: Never Assessed Alcohol Use Standard Drinks/Week Comments No 0 (1 standard drink = 0.6 oz pur e alcohol) Comments Unknown Sex and Gender Information Value Date Recorded Sex Assigned at Not on file Legal Sex Female 10:29 AM EDUCATIONAL TECHNOLOGIST Gender Identity Female 02/05/2021 6:21 AM CDT Sexual Orientation Straight 02/05/2021 6: 21 AM CDT documented as of this encounter Miscellaneous Notes * Telephone Encounter - Brandan Matos - 11/04/2020 2:20 PM CST DONE. ATIONAL TECHNOLOGIST * Telephone Encounter - Lyn Tanner - 11/04/2020 10:49 AM CST Earline called to make sure we send new standing orders, please send to the new fax no. 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
--- OUTSIDE RECORDS SUMMARY | 2024-09-26 01:24 | XMS_ITS | Encounter Summary ---
Author Organization [facility] Healthcare Address [address] [place] [address] Care Team Providers Care Supervisor Knitting Name Role Phone Jacky Luther DO Primary Care Provider +1- [phone] Farideh Valdez RN Unavailable [phone] Encounter Details Date Type Department Care Team (Late st Contact Info) Description 02/08/2021 Orders Only [facility] Health Information Management [address] [place] [address] Scanning, Provider Social History Tobacco Use Types Packs/Day Years Used Date Smoking Tobacco: Never Assessed Alcohol Use Standard Drinks/Week Comments No 0 (1 standard drink = 0.6 oz pur e alcohol) Comments Unknown Sex and Gender Information Value Date Recorded Sex Assigned at Not on file Legal Sex Female 10:29 AM NEUROLOGY HOSPITALIST Gender Identity Female 02/05/2021 6:21 AM CDT Sexual Orientation Straight 02/05/2021 6: 21 AM CDT documented as of this encounter Plan of Treatment Not on file documented as of this encounter Procedures Procedure Name Priority Date/Time Associated Diagnosis Comments SCAN - LABS 02/08/2021 7:18 AM CDT documented in this encounter Results * SCAN - LABS (02/08/2021 7:18 AM CDT) us Provider Scanning Final Result documented in this encounter Visit Diagnoses Not on filedocumented in this encounter Additional Health Concerns 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
--- OUTSIDE RECORDS SUMMARY | 2024-09-26 01:24 | XMS_ITS | Encounter Summary ---
Author Organization [facility] Healthcare Address [address] [place] [address] Care Team Providers Care Paster Supervisor Name Role Phone Jacky Luther DO Primary Care Provider [phone]- [phone] Farideh Valdez RN Unavailable [phone] Encounter Details Date Type Department Care Team (Late st Contact Info) Description 01/24/2021 Orders Only [facility] Health Information Management [address] [place] [address] Scanning, Provider Social History Tobacco Use Types Packs/Day Years Used Date Smoking Tobacco: Never Assessed Alcohol Use Standard Drinks/Week Comments No 0 (1 standard drink = 0.6 oz pur e alcohol) Comments Unknown Sex and Gender Information Value Date Recorded Sex Assigned at Not on file Legal Sex Female 10:29 AM DIRECTOR AMBULATORY Gender Identity Female 02/05/2021 6:21 AM CDT Sexual Orientation Straight 02/05/2021 6: 21 AM CDT documented as of this encounter Plan of Treatment Not on file documented as of this encounter Procedures Procedure Name Priority Date/Time Associated Diagnosis Comments SCAN - LABS 01/24/2021 10:24 AM CDT documented in this encounter Results * SCAN - LABS (01/24/2021 10:24 AM CDT) us Provider Scanning Final Result documented in this encounter Visit Diagnoses Not on filedocumented in this encounter Additional Health Concerns 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
--- OUTSIDE RECORDS SUMMARY | 2024-09-26 01:24 | XMS_ITS | Encounter Summary ---
Author Organization [facility] Healthcare Address [address] [place] [address] Care Team Providers Care Export Administrator Name Role Phone Jacky Luther DO Primary Care Provider [phone]- [phone] Farideh Valdez RN Unavailable [phone] Reason for Visit * Reason Onset Date Comments Video Appointment Questions 02/08/2021 Encounter Details Date Type Department Care Team (Late st Contact Info) Description 02/08/2021 Telephone [facility] Transplant Kidney [address] [facility] [address] [phone] [place], [place] [id number] Farideh Valdez, RN [address] [facility] [address] [place], [place] [id number] Video Appointment Questions Social History Tobacco Use Types Packs/Day Years Used Date Smoking Tobacco: Never Assessed Alcohol Use Standard Drinks/Week Comments No 0 (1 standard drink = 0.6 oz pur e alcohol) Comments Unknown Sex and Gender Information Value Date Recorded Sex Assigned at Not on file Legal Sex Female 10:29 AM HEMATOLOGY ONCOLOGY CONSULTANT Gender Identity Female 02/05/2021 6:21 AM CDT Sexual Orientation Straight 02/05/2021 6: 21 AM CDT documented as of this encounter Miscellaneous Notes * Telephone Encounter - Farideh Valdez RN - 02/08/2021 10:03 AM CDT Rec'd call from pt noting difficulty with ZOOM. I was able to assist with getting audio on her [employer] ZOOM and confirmed working with me sending her an invite to join a meeting. Clinic team: She has not used the [employer] reji for an appointment in the past and is unsure of how this will work. She asks that if the SnapNameshart option doesn't work, if an invite could be sent to her email and she will join that way. 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
--- OUTSIDE RECORDS SUMMARY | 2024-09-26 01:24 | XMS_ITS | Encounter Summary ---
Author Organization [facility] Healthcare Address [address] [place] [address] Care Team Providers Care Stem Dryer Maintainer Name Role Phone Jacky Luther DO Primary Care Provider [phone]- [phone] Farideh Valdez RN Unavailable [phone] Encounter Details Date Type Department Care Team (Late st Contact Info) Description 02/08/2021 Telephone [facility] Transplant Kidney [address] [facility] [address] [phone] [place] [address] Codi Fleming Social History Tobacco Use Types Packs/Day Years Used Date Smoking Tobacco: Never Assessed Alcohol Use Standard Drinks/Week Comments No 0 (1 standard drink = 0.6 oz pur e alcohol) Comments Unknown Sex and Gender Information Value Date Recorded Sex Assigned at Not on file Legal Sex Female 10:29 AM CONVENTION SERVICES MANAGER Gender Identity Female 02/05/2021 6:21 AM CDT Sexual Orientation Straight 02/05/2021 6: 21 AM CDT documented as of this encounter Miscellaneous Notes * Telephone Encounter - Codi Fleming - 02/08/2021 9:54 AM CDT Error documented in this encounter Plan of Treatment Not on file documented as of this encounter Visit Diagnoses Not on filedocumented in this encounter Additional Health Concerns 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
--- OUTSIDE RECORDS SUMMARY | 2024-09-26 01:24 | XMS_ITS | Encounter Summary ---
Author Organization [facility] Healthcare Address [address] [place] [address] Care Team Providers Care General Clerk Name Role Phone Jacky Luther DO Primary Care Provider +1- [phone] Farideh Valdez RN Unavailable [phone] Encounter Details Date Type Department Care Team (Late st Contact Info) Description 03/03/2021 Telephone [facility] and [facility] Transplant Kidney [address] [facility] [address] [phone] [place] [address] Codi Fleming Social History Tobacco Use Types Packs/Day Years Used Date Smoking Tobacco: Never Assessed Alcohol Use Standard Drinks/Week Comments No 0 (1 standard drink = 0.6 oz pur e alcohol) Comments Unknown Sex and Gender Information Value Date Recorded Sex Assigned at Not on file Legal Sex Female 10:29 AM LOAN REVIEW ANALYST Gender Identity Female 02/05/2021 6:21 AM CDT Sexual Orientation Straight 02/05/2021 6: 21 AM CDT documented as of this encounter Miscellaneous Notes * Telephone Encounter - Farideh Valdez RN - 03/04/2021 11:52 AM CDT Spoke with patient who notes her PCP has provided a medical marijuana card to help with pain management as other medications are not an option with the transplant or have not been successful in managing her pain. He recommended gummies. Advised pt since she is not taking tacrolimus for her transplant, she should be OK with use of gummies. Recommended against any smoked products. Pt verbalized understanding. Will continue to monitor. * Telephone Encounter - Codi Fleming - 03/03/2021 9:17 AM CDT Pt has Medical Marijuana card. She wanted to know if its ok to eat infused Gummies [phone]. Pt will be unavailable from 10-3 pm. 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
--- OUTSIDE RECORDS SUMMARY | 2024-09-26 01:24 | XMS_ITS | Encounter Summary ---
Author Organization [facility] Healthcare Address [address] [place] [address] Care Team Providers Care Clinical Rehab Liaison Name Role Phone Jacky Luther DO Primary Care Provider +1- [phone] Adair Valdez RN Unavailable [phone] Encounter Details Date Type Department Care Team (Late st Contact Info) Description 02/01/2021 Telephone [facility] and [facility] Transplant Kidney [address] [facility] [address] [phone] [place] [address] Lyn Tanner Social History Tobacco Use Types Packs/Day Years Used Date Smoking Tobacco: Never Assessed Alcohol Use Standard Drinks/Week Comments No 0 (1 standard drink = 0.6 oz pur e alcohol) Comments Unknown Sex and Gender Information Value Date Recorded Sex Assigned at Not on file Legal Sex Female 10:29 AM TELE RN Gender Identity Female 02/05/2021 6:21 AM CDT Sexual Orientation Straight 02/05/2021 6: 21 AM CDT documented as of this encounter Miscellaneous Notes * Addendum Note - Adair Valdez RN - 02/04/2021 2:43 PM CDTAddended by: ADAIR VALDEZ on: 02/04/2021 02:43 PM Modules accepted: Orders * Telephone Encounter - Adair Valdez RN - 02/02/2021 2:39 PM CDT Ret'd call to pt who states she is worried about low sodium levels as she eats a lot of sodium on aregular basis. Pt confirms she eats a whole cylinder of Gibson Salt container every 6 weeks. Pt denies swelling, but confirms muscle cramps/spasms and fatigue at times. Confirms she previous drank between 5-6 1/2- liter bottles of water per day, but has recently reduced to 3-4 bottles. Pt confirms she has [place] Medicaid through [employer] (this is accepted at [facility]). Rev'd with Dr. Back and rec'd OK to do telemedicine, preferably a video appointment, and to have pt only drink to thirst, to note to pt salt in diet does not raise sodium but will raise BP. Called patient and provided the above instructions. Patient verbalized understanding. Called scheduling desk with the patient and obtained clinic appointment for Sunday afternoon, February 09 at 2:15PM via ZOOM. Patient is agreeable with this date/time. Will continue to monitor. * Telephone Encounter - Lyn Tanner - 02/01/2021 10:12 AM CDT Pt. Called said that she would like to discuss her sodium levels, they been low, please call her back after 2 pm. documented in this encounter Plan of Treatment Not on file documented as of this encounter Visit Diagnoses Not on filedocumented in this encounter Discontinued Medications Medication Sig Discontinue Reason Start Date End Da te levothyroxine (SYNTHROID) 100 mcg tablet Take 1 tablet (100 mcg total) by mouth daily Dose adjustment 03/09/2020 02/04/2021 documented as of this encounter Historical Medications * This list may reflect changes made after this encounter. 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
--- OUTSIDE RECORDS SUMMARY | 2024-09-26 01:24 | XMS_ITS | Encounter Summary ---
Author Organization [facility] Healthcare Address [address] [place] [address] Care Team Providers Care Soft Boarder Name Role Phone Jacky Luther DO Primary Care Provider +1- [phone] Farideh Valdez RN Unavailable [phone] Encounter Details Date Type Department Care Team (Late st Contact Info) Description 12/24/2020 Telephone [facility] and [facility] Transplant Kidney [address] [facility] [address] [phone] [place] [address] Lyn Tanner Social History Tobacco Use Types Packs/Day Years Used Date Smoking Tobacco: Never Assessed Alcohol Use Standard Drinks/Week Comments No 0 (1 standard drink = 0.6 oz pur e alcohol) Comments Unknown Sex and Gender Information Value Date Recorded Sex Assigned at Not on file Legal Sex Female 10:29 AM THROUGH OPERATOR Gender Identity Female 02/05/2021 6:21 AM CDT Sexual Orientation Straight 02/05/2021 6: 21 AM CDT documented as of this encounter Miscellaneous Notes * Telephone Encounter - Farideh Valdez RN - 12/24/2020 4:11 PM CDT Ret'd call to pt who states her choreworker, Namita Mckeon, was out with COVID last year and we advised patient against allowing this choreworker to return to work until at least 21 days after her illness to avoid possible disease transmission. Patient states nailaer needs a letter stating we advised against her working so that she may recoup her lost pay as it is now available to her from her employer if she may produce a letter. I vaguely remember this conversation but it is not noted in her chart. Provided very generic letter stating we advised our patients against contact with anyone who had recently been ill or infected with COVID to protect them from disease transmission. Letter emailed to patient at . * Telephone Encounter - BradelymaximilianoLyn - 12/24/2020 9:32 AM CDT Pt. Called would like to spk. 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 Had COVID and she was not able to come. Please call her.Call after 2 pm. 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
--- OUTSIDE RECORDS SUMMARY | 2024-09-26 01:25 | XMS_ITS | Encounter Summary ---
Author Organization [facility] Healthcare Address [address] [place] [address] Care Team Providers Care Loin Trimmer Name Role Phone Jacky Luther DO Primary Care Provider +1- [phone] Farideh Valdez RN Unavailable [phone] Encounter Details Date Type Department Care Team (Late st Contact Info) Description 10/27/2019 Orders Only [facility] Health Information Management [address] [place] [address] Scanning, Provider Social History Tobacco Use Types Packs/Day Years Used Date Smoking Tobacco: Never Assessed Alcohol Use Standard Drinks/Week Comments No 0 (1 standard drink = 0.6 oz pur e alcohol) Comments Unknown Sex and Gender Information Value Date Recorded Sex Assigned at Not on file Legal Sex Female 10:29 AM COLD TYPE ARTIST Gender Identity Female 02/05/2021 6:21 AM CDT Sexual Orientation Straight 02/05/2021 6: 21 AM CDT documented as of this encounter Plan of Treatment Not on file documented as of this encounter Procedures Procedure Name Priority Date/Time Associated Diagnosis Comments SCAN - LABS 10/27/2019 11:31 AM COLD TYPE ARTIST documented in this encounter Results * SCAN - LABS (10/27/2019 11:31 AM COLD TYPE ARTIST) us Provider Scanning Final Result documented in this encounter Visit Diagnoses Not on filedocumented in this encounter Additional Health Concerns 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
--- OUTSIDE RECORDS SUMMARY | 2024-09-26 01:25 | XMS_ITS | Encounter Summary ---
Author Organization [facility] Healthcare Address [address] [place] [address] Care Team Providers Care Clinical Support Associate Name Role Phone Jacky Luther DO Primary Care Provider [phone]- [phone] Farideh Valdez RN Unavailable [phone] Encounter Details Date Type Department Care Team (Late st Contact Info) Description 09/02/2019 Orders Only [facility] Health Information Management [address] [place] [address] Scanning, Provider Social History Tobacco Use Types Packs/Day Years Used Date Smoking Tobacco: Never Assessed Alcohol Use Standard Drinks/Week Comments No 0 (1 standard drink = 0.6 oz pur e alcohol) Comments Unknown Sex and Gender Information Value Date Recorded Sex Assigned at Not on file Legal Sex Female 10:29 AM MANAGER STORY Gender Identity Female 02/05/2021 6:21 AM CDT Sexual Orientation Straight 02/05/2021 6: 21 AM CDT documented as of this encounter Plan of Treatment Not on file documented as of this encounter Procedures Procedure Name Priority Date/Time Associated Diagnosis Comments SCAN - RADIOLOGY/IMAGING 09/02/2019 1:22 PM MANAGER STORY SCAN - RADIOLOGY/IMAGING 09/02/2019 1:21 PM MANAGER STORY SCAN - RADIOLOGY/IMAGING 09/02/2019 1:16 PM MANAGER STORY documented in this encounter Results * SCAN - RADIOLOGY/IMAGING (09/02/2019 1:22 PM MANAGER STORY) Anatomical Region Laterality Modality Other us Provider Scanning Final Result * SCAN - RADIOLOGY/IMAGING (09/02/2019 1:21 PM MANAGER STORY) Anatomical Region Laterality Modality Other us Farideh Valdez RN Final Result * SCAN - RADIOLOGY/IMAGING (09/02/2019 1:16 PM MANAGER STORY) Anatomical Region Laterality Modality Other us Provider Scanning Final Result documented in this encounter Visit Diagnoses Not on filedocumented in this encounter Additional Health Concerns 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
--- OUTSIDE RECORDS SUMMARY | 2024-09-26 01:25 | XMS_ITS | Encounter Summary ---
Author Organization [facility] Healthcare Address [address] [place] [address] Care Team Providers Care Design Project Manager Name Role Phone Jacky Luther DO Primary Care Provider [phone]- [phone] Farideh Valdez RN Unavailable [phone] Encounter Details Date Type Department Care Team (Late st Contact Info) Description 09/14/2020 Telephone [facility] and [facility] Transplant Kidney [address] [facility] [address] [phone] [place], [place] [phone] Farideh Valdez, RN [address] [facility] [address] [place] [address] Social History Tobacco Use Types Packs/Day Years Used Date Smoking Tobacco: Never Assessed Alcohol Use Standard Drinks/Week Comments No 0 (1 standard drink = 0.6 oz pur e alcohol) Comments Unknown Sex and Gender Information Value Date Recorded Sex Assigned at Not on file Legal Sex Female 10:29 AM NUT AND BOLT ASSEMBLER Gender Identity Female 02/05/2021 6:21 AM CDT Sexual Orientation Straight 02/05/2021 6: 21 AM CDT documented as of this encounter Miscellaneous Notes * Telephone Encounter - Farideh Valdez RN - 09/14/2020 3:41 PM CST Noted neg UA. Called pt and let her know that the UA showed no indication of a UTI but Cx is still pending. Noted I would only call again if the UCx shows a different result. Advised pt to contact [facility] if symptoms restart. Pt verbalized agreement with this plan. Will continue to monitor. 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
--- OUTSIDE RECORDS SUMMARY | 2024-09-26 01:25 | XMS_ITS | Encounter Summary ---
Author Organization [facility] Healthcare Address [address] [place] [address] Care Team Providers Care Terrazzo Worker Helper Name Role Phone Jacky Luther DO Primary Care Provider +1- [phone] Farideh Valdez RN Unavailable [phone] Encounter Details Date Type Department Care Team (Late st Contact Info) Description 01/23/2020 Orders Only [facility] Health Information Management [address] [place] [address] Scanning, Provider Social History Tobacco Use Types Packs/Day Years Used Date Smoking Tobacco: Never Assessed Alcohol Use Standard Drinks/Week Comments No 0 (1 standard drink = 0.6 oz pur e alcohol) Comments Unknown Sex and Gender Information Value Date Recorded Sex Assigned at Not on file Legal Sex Female 10:29 AM LOAN CLERK Gender Identity Female 02/05/2021 6:21 AM CDT Sexual Orientation Straight 02/05/2021 6: 21 AM CDT documented as of this encounter Plan of Treatment Not on file documented as of this encounter Procedures Procedure Name Priority Date/Time Associated Diagnosis Comments SCAN - LABS 01/23/2020 12:38 PM CDT documented in this encounter Results * SCAN - LABS (01/23/2020 12:38 PM CDT) us Provider Scanning Final Result documented in this encounter Visit Diagnoses Not on filedocumented in this encounter Additional Health Concerns 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
--- OUTSIDE RECORDS SUMMARY | 2024-09-26 01:25 | XMS_ITS | Encounter Summary ---
Author Organization [facility] Healthcare Address [address] [place] [address] Care Team Providers Care Reading Instructor Name Role Phone Jacky Luther DO Primary Care Provider [phone]- [phone] Farideh Valdez RN Unavailable Encounter Details Date Type Department Care Team (Late st Contact Info) Description 09/20/2020 Telephone [facility] and [facility] Transplant Kidney [address] [facility] [address] [phone] [place], [place] [phone] Brandan Matos Social History Tobacco Use Types Packs/Day Years Used Date Smoking Tobacco: Never Assessed Alcohol Use Standard Drinks/Week Comments No 0 (1 standard drink = 0.6 oz pur e alcohol) Comments Unknown Sex and Gender Information Value Date Recorded Sex Assigned at Not on file Legal Sex Female 10:29 AM LINE INSTALLER Gender Identity Female 02/05/2021 6:21 AM CDT Sexual Orientation Straight 02/05/2021 6: 21 AM CDT documented as of this encounter Miscellaneous Notes * Telephone Encounter - Farideh Valdez RN - 09/20/2020 10:59 AM CST Noted pt message about going to the ER on . Noted UA we had her do for us on 09/13 was negative and Cx was normal skin goran contamination. Called pt to check on her with no answer. Left message noting we have requested ER report from [facility]. Will continue to monitor. INSTALLER * Telephone Encounter - Brandan Matos - 09/20/2020 8:44 AM CST Pt states that she was in the ED on alyssa with UTI. Faxed request for report to [facility] at [phone]. 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
--- OUTSIDE RECORDS SUMMARY | 2024-09-26 01:25 | XMS_ITS | Encounter Summary ---
Author Organization [facility] Healthcare Address [address] [place] [address] Care Team Providers Care Senior Chemical Engineer Name Role Phone Jacky Luther DO Primary Care Provider [phone]- [phone] Farideh Valdez RN Unavailable Encounter Details Date Type Department Care Team (Late st Contact Info) Description 07/26/2020 Orders Only [facility] Health Information Management [address] [place] [address] Scanning, Provider Social History Tobacco Use Types Packs/Day Years Used Date Smoking Tobacco: Never Assessed Alcohol Use Standard Drinks/Week Comments No 0 (1 standard drink = 0.6 oz pur e alcohol) Comments Unknown Sex and Gender Information Value Date Recorded Sex Assigned at Not on file Legal Sex Female 10:29 AM RAILROAD WHEELS AND AXLE INSPECTOR Gender Identity Female 02/05/2021 6:21 AM CDT Sexual Orientation Straight 02/05/2021 6: 21 AM CDT documented as of this encounter Plan of Treatment Not on file documented as of this encounter Procedures Procedure Name Priority Date/Time Associated Diagnosis Comments SCAN - LABS 07/26/2020 9:26 PM RAILROAD WHEELS AND AXLE INSPECTOR documented in this encounter Results * SCAN - LABS (07/26/2020 9:26 PM RAILROAD WHEELS AND AXLE INSPECTOR) us Provider Scanning Final Result documented in this encounter Visit Diagnoses Not on filedocumented in this encounter Additional Health Concerns 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
--- OUTSIDE RECORDS SUMMARY | 2024-09-26 01:25 | XMS_ITS | Encounter Summary ---
Author Organization [facility] Healthcare Address [address] [place] [address] Care Team Providers Care Mobile Battery Technician Name Role Phone Jacky Luther DO Primary Care Provider +1- [phone] Adair Valdez RN Unavailable [phone] Encounter Details Date Type Department Care Team (Late st Contact Info) Description 09/10/2020 Telephone [facility] and [facility] Transplant Kidney [address] [facility] [address] [phone] [place], [place] [address] Brandan Matos Social History Tobacco Use Types Packs/Day Years Used Date Smoking Tobacco: Never Assessed Alcohol Use Standard Drinks/Week Comments No 0 (1 standard drink = 0.6 oz pur e alcohol) Comments Unknown Sex and Gender Information Value Date Recorded Sex Assigned at Not on file Legal Sex Female 10:29 AM SKIRT CLIPPER Gender Identity Female 02/05/2021 6:21 AM CDT Sexual Orientation Straight 02/05/2021 6: 21 AM CDT documented as of this encounter Miscellaneous Notes * Addendum Note - Adair Valdez RN - 09/10/2020 5:40 PM CSTAddended by: ADAIR VALDEZ on: 09/10/2020 05:40 PM Modules accepted: Orders T CLIPPER * Telephone Encounter - Adair Valdez RN - 09/10/2020 5:24 PM CST Ret'd call to pt who notes her local kidney doctor only prescribed 3-days with of antibiotics. Noted we cannot order medication without a urine sample first. Pt will leave a sample on Sunday morning. We also discussed toilet issues from apartment above her and that she had walked through sewage water. Notes since has had the floors cleaned. Informed pt no additional testing needed as long as she didn't have any open cuts/sores that may get infected. She denies this situation. Will continue to monitor. T CLIPPER T CLIPPER * Telephone Encounter - Brandan Matos - 09/10/2020 9:48 AM CST Pt states that she is being treated for UTI but has been prescribed 3 days of antibiotics. Pt also states that her upstairs neighbor's toilet overflowed into her apartment and she walked through the water. Wants to know if she needs to be tested for anything. Please call to discuss. 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
--- OUTSIDE RECORDS SUMMARY | 2024-09-26 01:25 | XMS_ITS | Encounter Summary ---
Author Organization [facility] Healthcare Address [address] [place] [address] Care Team Providers Care Carbide Tool Maker Name Role Phone Jacky Luther DO Primary Care Provider +1- [phone] Farideh Valdez RN Unavailable [phone] Encounter Details Date Type Department Care Team (Late st Contact Info) Description 12/25/2019 Telephone [facility] and [facility] Transplant Kidney [address] [facility] [address] Mailstop [phone] [place] [address] Brothers, [place] Social History Tobacco Use Types Packs/Day Years Used Date Smoking Tobacco: Never Assessed Alcohol Use Standard Drinks/Week Comments No 0 (1 standard drink = 0.6 oz pur e alcohol) Comments Unknown Sex and Gender Information Value Date Recorded Sex Assigned at Not on file Legal Sex Female 10:29 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 CHLORINE LIQUEFACTION Gender Identity Female 02/05/2021 6:21 AM CDT Sexual Orientation Straight 02/05/2021 6: 21 AM CDT documented as of this encounter Miscellaneous Notes * Telephone Encounter - Farideh Valdez RN - 12/26/2019 4:15 PM CDT Ret'd call to pt who states her chore-worker had a high fever on 12/10/19 (only day), didn't see physician until 12/16 and was started on antibiotic. Last dose of antibiotic will be tomorrow. 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 Advised pt her choreworkershould not return as long as she is having diarrhea or cough. Pt will have nailaer stay away through December (only works through the ) and may return starting January 22. 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
--- OUTSIDE RECORDS SUMMARY | 2024-09-26 01:25 | XMS_ITS | Encounter Summary ---
Author Organization [facility] Healthcare Address [address] [place] [address] Care Team Providers Care Metallurgical Engineer Name Role Phone Jacky Luther DO Primary Care Provider +1- [phone] Farideh Valdez RN Unavailable [phone] Encounter Details Date Type Department Care Team (Late st Contact Info) Description 03/25/2020 Orders Only [facility] Health Information Management [address] [place] [address] Scanning, Provider Social History Tobacco Use Types Packs/Day Years Used Date Smoking Tobacco: Never Assessed Alcohol Use Standard Drinks/Week Comments No 0 (1 standard drink = 0.6 oz pur e alcohol) Comments Unknown Sex and Gender Information Value Date Recorded Sex Assigned at Not on file Legal Sex Female 10:29 AM EMBROIDERER HAND Gender Identity Female 02/05/2021 6:21 AM CDT Sexual Orientation Straight 02/05/2021 6: 21 AM CDT documented as of this encounter Plan of Treatment Not on file documented as of this encounter Procedures Procedure Name Priority Date/Time Associated Diagnosis Comments SCAN - LABS 03/25/2020 5:52 AM CDT documented in this encounter Results * SCAN - LABS (03/25/2020 5:52 AM CDT) us Provider Scanning Final Result documented in this encounter Visit Diagnoses Not on filedocumented in this encounter Additional Health Concerns 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
--- OUTSIDE RECORDS SUMMARY | 2024-09-26 01:25 | XMS_ITS | Encounter Summary ---
Author Organization [facility] Healthcare Address [address] [place] [address] Care Team Providers Care Auditing Coder Name Role Phone Jacky Luther DO Primary Care Provider +1- [phone] Farideh Valdez RN Unavailable [phone] Encounter Details Date Type Department Care Team (Late st Contact Info) Description 07/09/2019 Telephone [facility] and [facility] Transplant Kidney [address] [facility] [address] Mailstop [phone] [place] [address] Brandan Matos Social History Tobacco Use Types Packs/Day Years Used Date Smoking Tobacco: Never Assessed Alcohol Use Standard Drinks/Week Comments No 0 (1 standard drink = 0.6 oz pur e alcohol) Comments Unknown Sex and Gender Information Value Date Recorded Sex Assigned at Not on file Legal Sex Female 10:29 AM WILDLIFE ECOLOGIST Gender Identity Female 02/05/2021 6:21 AM CDT Sexual Orientation Straight 02/05/2021 6: 21 AM CDT documented as of this encounter Miscellaneous Notes * Telephone Encounter - Farideh Valdez RN - 07/17/2019 1:41 PM CDT Ret'd call to pt and let her know that the liver tests are coming down. Pt states she saw Dr. Luther on 07/15 and will get repeat labs for him on 08/15 to include LFTs, GGT, HIV, Iron panel, TIBC,ferritin and CBC. He has also ordered liver US on 07/29, venous doppler 07/30, US of lower legs on 07/31 and non- CT for lesion on lung on 08/04. Patient notes she has been informed her insurance will end on 07/24/19. She has reapplied for insurance. Recommended she contact the transplant SW to determine if they have any suggestions to addressthis situation. States she has their number. States she also has someone from [place] Medicaid office helping her as well. She will keep me updated. * Telephone Encounter - Brandan Matos - 07/09/2019 2:57 PM CDT Please call pt regarding labs from , and . 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
--- OUTSIDE RECORDS SUMMARY | 2024-09-26 01:25 | XMS_ITS | Encounter Summary ---
Author Organization [facility] Healthcare Address [address] [place] [address] Care Team Providers Care Computer Repair Engineer Name Role Phone Jacyk Luther DO Primary Care Provider +1- [phone] Farideh Valdez RN Unavailable [phone] Encounter Details Date Type Department Care Team (Late st Contact Info) Description 09/25/2019 Orders Only [facility] Health Information Management [address] [place] [address] Scanning, Provider Social History Tobacco Use Types Packs/Day Years Used Date Smoking Tobacco: Never Assessed Alcohol Use Standard Drinks/Week Comments No 0 (1 standard drink = 0.6 oz pur e alcohol) Comments Unknown Sex and Gender Information Value Date Recorded Sex Assigned at Not on file Legal Sex Female 10:29 AM LINK WIRE FABRIC MACHINE TENDER Gender Identity Female 02/05/2021 6:21 AM CDT Sexual Orientation Straight 02/05/2021 6: 21 AM CDT documented as of this encounter Plan of Treatment Not on file documented as of this encounter Procedures Procedure Name Priority Date/Time Associated Diagnosis Comments SCAN - LABS 09/25/2019 12:37 PM LINK WIRE FABRIC MACHINE TENDER documented in this encounter Results * SCAN - LABS (09/25/2019 12:37 PM LINK WIRE FABRIC MACHINE TENDER) us Provider Scanning Final Result documented in this encounter Visit Diagnoses Not on filedocumented in this encounter Additional Health Concerns 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
--- OUTSIDE RECORDS SUMMARY | 2024-09-26 01:25 | XMS_ITS | Encounter Summary ---
Author Organization [facility] Healthcare Address [address] [place] [address] Care Team Providers Care Toby Maker Name Role Phone Jacky Luther DO Primary Care Provider [phone]- [phone] Farideh Valdez RN Unavailable Encounter Details Date Type Department Care Team (Late st Contact Info) Description 12/09/2019 Telephone [facility] and [facility] Transplant Kidney [address] [facility] [address] Mail[address] [phone] [place] [address] Codi Fleming Social History Tobacco Use Types Packs/Day Years Used Date Smoking Tobacco: Never Assessed Alcohol Use Standard Drinks/Week Comments No 0 (1 standard drink = 0.6 oz pur e alcohol) Comments Unknown Sex and Gender Information Value Date Recorded Sex Assigned at Not on file Legal Sex Female 10:29 AM CHUCK TENDER Gender Identity Female 02/05/2021 6:21 AM CDT Sexual Orientation Straight 02/05/2021 6: 21 AM CDT documented as of this encounter Miscellaneous Notes * Telephone Encounter - Codi Fleming - 12/09/2019 3:19 PM CDT Pt says would it be possible to get gloves and masks for her worker that clean her house. Please call [phone] 12/11/19 8:39 PM, Farideh Valdez RN, Hardware Trainer: Ret'd call to pt and let her know that we have no resources to offer to help her get cleaning supplies, gloves or masks. Advised her on the appropriate precautions to take to help prevent exposure. Provided support and accurate information that helped calm some of the patient's fears. 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
--- OUTSIDE RECORDS SUMMARY | 2024-09-26 01:25 | XMS_ITS | Encounter Summary ---
Author Organization [facility] Healthcare Address [address] [place] [address] Care Team Providers Care Advertising Specialist Name Role Phone Jacky Luther DO Primary Care Provider [phone]- [phone] Farideh Valdez RN Unavailable [phone] Encounter Details Date Type Department Care Team (Late st Contact Info) Description 08/01/2019 Telephone [facility] Transplant Kidney [address] [facility] [address] Mailstop [phone] [place] [address] Brandan Matos Social History Tobacco Use Types Packs/Day Years Used Date Smoking Tobacco: Never Assessed Alcohol Use Standard Drinks/Week Comments No 0 (1 standard drink = 0.6 oz pur e alcohol) Comments Unknown Sex and Gender Information Value Date Recorded Sex Assigned at Not on file Legal Sex Female 10:29 AM LINK WIRE FABRIC MACHINE OPERATOR Gender Identity Female 02/05/2021 6:21 AM CDT Sexual Orientation Straight 02/05/2021 6: 21 AM CDT documented as of this encounter Miscellaneous Notes * Telephone Encounter - Ibeth Allen - 08/06/2019 6:28 AM CST This is assigned to Sri WIRE FABRIC MACHINE OPERATOR * Telephone Encounter - Sri Haines - 08/05/2019 2:18 PM CST This patient was transplanted in 1992. Will need to be assigned to a [place].---SLW WIRE FABRIC MACHINE OPERATOR * Telephone Encounter - Farideh Valdez RN - 08/01/2019 7:18 PM CST Noted Na 135 which is WDL. Ret'd call to pt who states her reji stated it was low and she eats a lotof sodium already. Advised pt this is an acceptable level. Patient also noted she is going to be changing insurance companies at the end of July. She is going to [employer]. Advised her I will ask the finance team to call her to further discuss. WIRE FABRIC MACHINE OPERATOR * Telephone Encounter - Brandan Matos - 08/01/2019 9:12 AM CST Pt is worried about her sodium level. Please call to discuss. Pt will be available after 1:30 today. 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
--- OUTSIDE RECORDS SUMMARY | 2024-09-26 01:25 | XMS_ITS | Encounter Summary ---
Author Organization [facility] Healthcare Address [address] [place] [address] Care Team Providers Care Ton Cylinder Inspector Name Role Phone Jacky Luther DO Primary Care Provider +1- [phone] Farideh Valdez RN Unavailable [phone] Encounter Details Date Type Department Care Team (Late st Contact Info) Description 12/24/2019 Telephone [facility] Transplant Kidney [address] [facility] 340 Mailstop [phone] [place] [address] Lyn Tanner Social History Tobacco Use Types Packs/Day Years Used Date Smoking Tobacco: Never Assessed Alcohol Use Standard Drinks/Week Comments No 0 (1 standard drink = 0.6 oz pur e alcohol) Comments Unknown Sex and Gender Information Value Date Recorded Sex Assigned at Not on file Legal Sex Female 10:29 AM ANODE WORKER Gender Identity Female 02/05/2021 6:21 AM CDT Sexual Orientation Straight 02/05/2021 6: 21 AM CDT documented as of this encounter Miscellaneous Notes * Telephone Encounter - Lyn Tanner - 12/24/2019 8:19 AM CDT Earline with [facility] called said that pt. 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
--- OUTSIDE RECORDS SUMMARY | 2024-09-26 01:25 | XMS_ITS | Encounter Summary ---
Author Organization [facility] Healthcare Address [address] [place] [address] Care Team Providers Care Scholarship Counselor Name Role Phone Jacky Luther DO Primary Care Provider +1- [phone] Farideh Valdez RN Unavailable [phone] Encounter Details Date Type Department Care Team (Late st Contact Info) Description 07/25/2019 Orders Only [facility] Health Information Management [address] [place] [address] Scanning, Provider Social History Tobacco Use Types Packs/Day Years Used Date Smoking Tobacco: Never Assessed Alcohol Use Standard Drinks/Week Comments No 0 (1 standard drink = 0.6 oz pur e alcohol) Comments Unknown Sex and Gender Information Value Date Recorded Sex Assigned at Not on file Legal Sex Female 10:29 AM MANAGER SALES TRAINING Gender Identity Female 02/05/2021 6:21 AM CDT Sexual Orientation Straight 02/05/2021 6: 21 AM CDT documented as of this encounter Plan of Treatment Not on file documented as of this encounter Procedures Procedure Name Priority Date/Time Associated Diagnosis Comments SCAN - LABS 07/25/2019 11:30 AM CDT documented in this encounter Results * SCAN - LABS (07/25/2019 11:30 AM CDT) us Provider Scanning Final Result documented in this encounter Visit Diagnoses Not on filedocumented in this encounter Additional Health Concerns 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
--- OUTSIDE RECORDS SUMMARY | 2024-09-26 01:25 | XMS_ITS | Encounter Summary ---
Author Organization [facility] Healthcare Address [address] [place] [address] Care Team Providers Care Runstitching Machine Operator Name Role Phone Jacky Luther DO Primary Care Provider +1- [phone] Farideh Valdez RN Unavailable [phone] Encounter Details Date Type Department Care Team (Latest Contact Info) Description 05/27/2020 Orders Only [facility] Transplant Kidney [address] [facility] [address] Mailstop [phone] [place] [address] Brandan Matos Kidney replaced by transplant (Primary Dx); Hyperlipidemia, unspecified hyperlipidemia type; Type II or unspecified type diabetes mellitus with renal manifestations, uncontrolled(250.42) ([facility]/HCC); Iron deficiency anemia secondary to inadequate dietary iron intake; Secondary hyperparathyroidism of renal origin (CMS/[facility]); Overactive thyroid gland; Disease or syndrome of skeletal system; Anemia due to vitamin B12 deficiency, unspecified B12 deficiency type Social History Tobacco Use Types Packs/Day Years Used Date Smoking Tobacco: Never Assessed Alcohol Use Standard Drinks/Week Comments No 0 (1 standard drink = 0.6 oz pur e alcohol) Comments Unknown Sex and Gender Information Value Date Recorded Sex Assigned at Not on file Legal Sex Female 10:29 AM HOME HEALTH LPN Gender Identity Female 02/05/2021 6:21 AM CDT Sexual Orientation Straight 02/05/2021 6: 21 AM CDT documented as of this encounter Plan of Treatment Not on file documented as of this encounter Visit Diagnoses Diagnosis Kidney replaced by transplant- Primary Hyperlipidemia, unspecified hyperlipidemia type Type II or unspecified type diabetes mellitus with renal manifestations, uncontrolled(250.42) (CMS/HCC) (HCC) Type II or unspecified type diabetes mellitus with renal manifestations, uncontrolled Iron deficiency anemia secondary to inadequate dietary iron intake Secondary hyperparathyroidism of renal origin (HCC) Secondary hyperparathyroidism (of renal origin) Overactive thyroid gland 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 other cause, without mention of thyrotoxic crisis or storm Disease or syndrome of skeletal system Disorder of bone and cartilage, unspecified Anemia due to vitamin B12 deficiency, unspecified B12 deficiency type documented in this encounter Additional Health Concerns 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
--- OUTSIDE RECORDS SUMMARY | 2024-09-26 01:25 | XMS_ITS | Encounter Summary ---
Author Organization [facility] Healthcare Address [address] [place] [address] Care Team Providers Care Stenographer Secretary Name Role Phone Jacky Luther DO Primary Care Provider +1- [phone] Farideh Valdez RN Unavailable [phone] Encounter Details Date Type Department Care Team (Late st Contact Info) Description 12/24/2019 Orders Only [facility] Health Information Management 1 [place] [address] Scanning, Provider Social History Tobacco Use Types Packs/Day Years Used Date Smoking Tobacco: Never Assessed Alcohol Use Standard Drinks/Week Comments No 0 (1 standard drink = 0.6 oz pur e alcohol) Comments Unknown Sex and Gender Information Value Date Recorded Sex Assigned at Not on file Legal Sex Female 10:29 AM DECKHAND CRAB BOAT Gender Identity Female 02/05/2021 6:21 AM CDT Sexual Orientation Straight 02/05/2021 6: 21 AM CDT documented as of this encounter Plan of Treatment Not on file documented as of this encounter Procedures Procedure Name Priority Date/Time Associated Diagnosis Comments SCAN - LABS 12/24/2019 12:20 PM CDT SCAN - LABS 12/24/2019 11:23 AM CDT documented in this encounter Results * SCAN - LABS (12/24/2019 12:20 PM CDT) us Provider Scanning Final Result * SCAN - LABS (12/24/2019 11:23 AM CDT) us Provider Scanning Final Result documented in this encounter Visit Diagnoses Not on filedocumented in this encounter Additional Health Concerns 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
--- OUTSIDE RECORDS SUMMARY | 2024-09-26 01:25 | XMS_ITS | Encounter Summary ---
Author Organization [facility] Healthcare Address [address] [place] [address] Care Team Providers Care Scout Name Role Phone Jacky Luther DO Primary Care Provider +1- [phone] Farideh Valdez RN Unavailable [phone] Encounter Details Date Type Department Care Team (Late st Contact Info) Description 11/24/2019 Orders Only [facility] Health Information Management [address] [place] [address] Scanning, Provider Social History Tobacco Use Types Packs/Day Years Used Date Smoking Tobacco: Never Assessed Alcohol Use Standard Drinks/Week Comments No 0 (1 standard drink = 0.6 oz pur e alcohol) Comments Unknown Sex and Gender Information Value Date Recorded Sex Assigned at Not on file Legal Sex Female 10:29 AM RADAR TESTER Gender Identity Female 02/05/2021 6:21 AM CDT Sexual Orientation Straight 02/05/2021 6: 21 AM CDT documented as of this encounter Plan of Treatment Not on file documented as of this encounter Procedures Procedure Name Priority Date/Time Associated Diagnosis Comments SCAN - LABS 11/24/2019 12:08 PM RADAR TESTER documented in this encounter Results * SCAN - LABS (11/24/2019 12:08 PM RADAR TESTER) us Provider Scanning Final Result documented in this encounter Visit Diagnoses Not on filedocumented in this encounter Additional Health Concerns 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
--- OUTSIDE RECORDS SUMMARY | 2024-09-26 01:25 | XMS_ITS | Encounter Summary ---
Author Organization [facility] Healthcare Address [address] [place] [address] Care Team Providers Care Hotel Assistant Manager Name Role Phone Jacky Luther DO Primary Care Provider +1- [phone] Farideh Valdez RN Unavailable [phone] Encounter Details Date Type Department Care Team (Late st Contact Info) Description 05/25/2020 Orders Only [facility] Health Information Management [address] [place] [address] Scanning, Provider Social History Tobacco Use Types Packs/Day Years Used Date Smoking Tobacco: Never Assessed Alcohol Use Standard Drinks/Week Comments No 0 (1 standard drink = 0.6 oz pur e alcohol) Comments Unknown Sex and Gender Information Value Date Recorded Sex Assigned at Not on file Legal Sex Female 10:29 AM SHIPPING RECEIVING CLERK Gender Identity Female 02/05/2021 6:21 AM CDT Sexual Orientation Straight 02/05/2021 6: 21 AM CDT documented as of this encounter Plan of Treatment Not on file documented as of this encounter Procedures Procedure Name Priority Date/Time Associated Diagnosis Comments SCAN - LABS 05/25/2020 12:42 PM CDT documented in this encounter Results * SCAN - LABS (05/25/2020 12:42 PM CDT) us Provider Scanning Final Result documented in this encounter Visit Diagnoses Not on filedocumented in this encounter Additional Health Concerns 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
--- OUTSIDE RECORDS SUMMARY | 2024-09-26 01:25 | XMS_ITS | Encounter Summary ---
Author Organization [facility] Healthcare Address [address] [place] [address] Care Team Providers Care Software Validation Technician Name Role Phone Jacky Luther DO Primary Care Provider +1- [phone] Farideh Valdez RN Unavailable [phone] Encounter Details Date Type Department Care Team (Late st Contact Info) Description 07/07/2019 Orders Only [facility] Transplant Kidney [address] [facility] 340 Mailstop [phone] [place], [place] [id number] Lyn Tanner Kidney transplanted (Primary Dx) Social History Tobacco Use Types Packs/Day Years Used Date Smoking Tobacco: Never Assessed Alcohol Use Standard Drinks/Week Comments No 0 (1 standard drink = 0.6 oz pur e alcohol) Comments Unknown Sex and Gender Information Value Date Recorded Sex Assigned at Not on file Legal Sex Female 10:29 AM AUTO BODY REPAIR TECHNICIAN Gender Identity Female 02/05/2021 6:21 AM CDT Sexual Orientation Straight 02/05/2021 6: 21 AM CDT documented as of this encounter Plan of Treatment Not on file documented as of this encounter Visit Diagnoses Diagnosis Kidney transplanted- Primary Kidney replaced by transplant documented in this encounter Additional Health Concerns 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
--- OUTSIDE RECORDS SUMMARY | 2024-09-26 01:25 | XMS_ITS | Encounter Summary ---
Author Organization [facility] Healthcare Address [address] [place] [address] Care Team Providers Care Key Holder Name Role Phone Jacky Luther DO Primary Care Provider +1- [phone] Farideh Valdez RN Unavailable [phone] Encounter Details Date Type Department Care Team (Late st Contact Info) Description 07/07/2019 Orders Only [facility] Health Information Management [address] [place] [address] Scanning, Provider Social History Tobacco Use Types Packs/Day Years Used Date Smoking Tobacco: Never Assessed Alcohol Use Standard Drinks/Week Comments No 0 (1 standard drink = 0.6 oz pur e alcohol) Comments Unknown Sex and Gender Information Value Date Recorded Sex Assigned at Not on file Legal Sex Female 10:29 AM LABORER Gender Identity Female 02/05/2021 6:21 AM CDT Sexual Orientation Straight 02/05/2021 6: 21 AM CDT documented as of this encounter Plan of Treatment Not on file documented as of this encounter Procedures Procedure Name Priority Date/Time Associated Diagnosis Comments SCAN - LABS 07/07/2019 8:15 PM CDT documented in this encounter Results * SCAN - LABS (07/07/2019 8:15 PM CDT) us Provider Scanning Final Result documented in this encounter Visit Diagnoses Not on filedocumented in this encounter Additional Health Concerns 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
--- OUTSIDE RECORDS SUMMARY | 2024-09-26 01:25 | XMS_ITS | Encounter Summary ---
Author Organization [facility] Healthcare Address [address] [place] [address] Care Team Providers Care Remediation Project Engineer Name Role Phone Jacky Luther DO Primary Care Provider +1- [phone] Farideh Valdez RN Unavailable [phone] Encounter Details Date Type Department Care Team (Late st Contact Info) Description 06/25/2020 Orders Only [facility] Health Information Management [address] [place] [address] Scanning, Provider Social History Tobacco Use Types Packs/Day Years Used Date Smoking Tobacco: Never Assessed Alcohol Use Standard Drinks/Week Comments No 0 (1 standard drink = 0.6 oz pur e alcohol) Comments Unknown Sex and Gender Information Value Date Recorded Sex Assigned at Not on file Legal Sex Female 10:29 AM TISSUE SPECIALIST Gender Identity Female 02/05/2021 6:21 AM CDT Sexual Orientation Straight 02/05/2021 6: 21 AM CDT documented as of this encounter Plan of Treatment Not on file documented as of this encounter Procedures Procedure Name Priority Date/Time Associated Diagnosis Comments SCAN - LABS 06/25/2020 10:47 AM CDT documented in this encounter Results * SCAN - LABS (06/25/2020 10:47 AM CDT) us Provider Scanning Final Result documented in this encounter Visit Diagnoses Not on filedocumented in this encounter Additional Health Concerns 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
--- OUTSIDE RECORDS SUMMARY | 2024-09-26 01:25 | XMS_ITS | Encounter Summary ---
Author Organization [facility] Healthcare Address [address] [place] [address] Care Team Providers Care Carburetor Specialist Name Role Phone Jacky Luther DO Primary Care Provider +1- [phone] Farideh Valdez RN Unavailable [phone] Encounter Details Date Type Department Care Team (Late st Contact Info) Description 04/26/2020 Orders Only [facility] Health Information Management [address] [place] [address] Scanning, Provider Social History Tobacco Use Types Packs/Day Years Used Date Smoking Tobacco: Never Assessed Alcohol Use Standard Drinks/Week Comments No 0 (1 standard drink = 0.6 oz pur e alcohol) Comments Unknown Sex and Gender Information Value Date Recorded Sex Assigned at Not on file Legal Sex Female 10:29 AM DOUBLE BASS PLAYER Gender Identity Female 02/05/2021 6:21 AM CDT Sexual Orientation Straight 02/05/2021 6: 21 AM CDT documented as of this encounter Plan of Treatment Not on file documented as of this encounter Procedures Procedure Name Priority Date/Time Associated Diagnosis Comments SCAN - LABS 04/26/2020 4:31 PM CDT documented in this encounter Results * SCAN - LABS (04/26/2020 4:31 PM CDT) us Provider Scanning Final Result documented in this encounter Visit Diagnoses Not on filedocumented in this encounter Additional Health Concerns 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
--- OUTSIDE RECORDS SUMMARY | 2024-09-26 01:25 | XMS_ITS | Encounter Summary ---
Author Organization [facility] Healthcare Address [address] [place] [address] Care Team Providers Care Field Associate Name Role Phone Jacky Luther DO Primary Care Provider [phone]- [phone] Farideh Valdez RN Unavailable [phone] Encounter Details Date Type Department Care Team (Late st Contact Info) Description 06/07/2020 Orders Only [facility] Health Information Management [address] [place] [address] Scanning, Provider Social History Tobacco Use Types Packs/Day Years Used Date Smoking Tobacco: Never Assessed Alcohol Use Standard Drinks/Week Comments No 0 (1 standard drink = 0.6 oz pur e alcohol) Comments Unknown Sex and Gender Information Value Date Recorded Sex Assigned at Not on file Legal Sex Female 10:29 AM PLUMBING HARDWARE ASSEMBLER Gender Identity Female 02/05/2021 6:21 AM CDT Sexual Orientation Straight 02/05/2021 6: 21 AM CDT documented as of this encounter Plan of Treatment Not on file documented as of this encounter Procedures Procedure Name Priority Date/Time Associated Diagnosis Comments SCAN - LABS 06/07/2020 11:38 AM CDT documented in this encounter Results * SCAN - LABS (06/07/2020 11:38 AM CDT) us Provider Scanning Final Result documented in this encounter Visit Diagnoses Not on filedocumented in this encounter Additional Health Concerns 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
--- OUTSIDE RECORDS SUMMARY | 2024-09-26 01:25 | XMS_ITS | Encounter Summary ---
Author Organization [facility] Healthcare Address [address] [place] [address] Care Team Providers Care Contract Processor Name Role Phone Jacky Luther DO Primary Care Provider [phone]- [phone] Farideh Valdez RN Unavailable [phone] Encounter Details Date Type Department Care Team (Late st Contact Info) Description 05/25/2020 Telephone [facility] Transplant Kidney [address] [facility] 340 Mailstop [phone] [place] [address] Codi Fleming Social History Tobacco Use Types Packs/Day Years Used Date Smoking Tobacco: Never Assessed Alcohol Use Standard Drinks/Week Comments No 0 (1 standard drink = 0.6 oz pur e alcohol) Comments Unknown Sex and Gender Information Value Date Recorded Sex Assigned at Not on file Legal Sex Female 10:29 AM WATER QUALITY TESTER Gender Identity Female 02/05/2021 6:21 AM CDT Sexual Orientation Straight 02/05/2021 6: 21 AM CDT documented as of this encounter Miscellaneous Notes * Telephone Encounter - Brandan Matos - 05/27/2020 8:47 AM CDT SO entered and faxed to [facility]. * Telephone Encounter - Codi Fleming - 05/25/2020 9:18 AM CDT Please send new S/O to [facility]. 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
--- OUTSIDE RECORDS SUMMARY | 2024-09-26 01:25 | XMS_ITS | Encounter Summary ---
Author Organization [facility] Healthcare Address [address] [place] [address] Care Team Providers Care Tobacco Stemmer Name Role Phone Jacky Luther DO Primary Care Provider [phone]- [phone] Farideh Valdez RN Unavailable [phone] Encounter Details Date Type Department Care Team (Late st Contact Info) Description 08/24/2020 Orders Only [facility] Health Information Management [address] [place] [address] Scanning, Provider Social History Tobacco Use Types Packs/Day Years Used Date Smoking Tobacco: Never Assessed Alcohol Use Standard Drinks/Week Comments No 0 (1 standard drink = 0.6 oz pur e alcohol) Comments Unknown Sex and Gender Information Value Date Recorded Sex Assigned at Not on file Legal Sex Female 10:29 AM PESTICIDE USE MEDICAL COORDINATOR Gender Identity Female 02/05/2021 6:21 AM CDT Sexual Orientation Straight 02/05/2021 6: 21 AM CDT documented as of this encounter Plan of Treatment Not on file documented as of this encounter Procedures Procedure Name Priority Date/Time Associated Diagnosis Comments SCAN - LABS 08/24/2020 11:56 AM PESTICIDE USE MEDICAL COORDINATOR documented in this encounter Results * SCAN - LABS (08/24/2020 11:56 AM PESTICIDE USE MEDICAL COORDINATOR) us Provider Scanning Final Result documented in this encounter Visit Diagnoses Not on filedocumented in this encounter Additional Health Concerns 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
--- OUTSIDE RECORDS SUMMARY | 2024-09-26 01:25 | XMS_ITS | Encounter Summary ---
Author Organization [facility] Healthcare Address [address] [place] [address] Care Team Providers Care College Specialist Name Role Phone Jacky Luther DO Primary Care Provider +1- [phone] Farideh Valdez RN Unavailable [phone] Encounter Details Date Type Department Care Team (Late st Contact Info) Description 02/23/2020 Orders Only [facility] Health Information Management [address] [place] [address] Scanning, Provider Social History Tobacco Use Types Packs/Day Years Used Date Smoking Tobacco: Never Assessed Alcohol Use Standard Drinks/Week Comments No 0 (1 standard drink = 0.6 oz pur e alcohol) Comments Unknown Sex and Gender Information Value Date Recorded Sex Assigned at Not on file Legal Sex Female 10:29 AM POURER OFF Gender Identity Female 02/05/2021 6:21 AM CDT Sexual Orientation Straight 02/05/2021 6: 21 AM CDT documented as of this encounter Plan of Treatment Not on file documented as of this encounter Procedures Procedure Name Priority Date/Time Associated Diagnosis Comments SCAN - LABS 02/23/2020 12:40 PM CDT documented in this encounter Results * SCAN - LABS (02/23/2020 12:40 PM CDT) us Provider Scanning Final Result documented in this encounter Visit Diagnoses Not on filedocumented in this encounter Additional Health Concerns 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
--- OUTSIDE RECORDS SUMMARY | 2024-09-26 01:25 | XMS_ITS | Encounter Summary ---
Author Organization [facility] Healthcare Address [address] [place] [address] Care Team Providers Care Otr Company Truck Driver Name Role Phone Jacky Luther DO Primary Care Provider +1- [phone] Farideh Valdez RN Unavailable [phone] Encounter Details Date Type Department Care Team (Late st Contact Info) Description 09/15/2020 Orders Only [facility] Health Information Management [address] [place] [address] Scanning, Provider Social History Tobacco Use Types Packs/Day Years Used Date Smoking Tobacco: Never Assessed Alcohol Use Standard Drinks/Week Comments No 0 (1 standard drink = 0.6 oz pur e alcohol) Comments Unknown Sex and Gender Information Value Date Recorded Sex Assigned at Not on file Legal Sex Female 10:29 AM AUTOMATION DEVELOPER Gender Identity Female 02/05/2021 6:21 AM CDT Sexual Orientation Straight 02/05/2021 6: 21 AM CDT documented as of this encounter Plan of Treatment Not on file documented as of this encounter Procedures Procedure Name Priority Date/Time Associated Diagnosis Comments SCAN - LABS 09/15/2020 3:41 PM AUTOMATION DEVELOPER documented in this encounter Results * SCAN - LABS (09/15/2020 3:41 PM AUTOMATION DEVELOPER) us Provider Scanning Final Result documented in this encounter Visit Diagnoses Not on filedocumented in this encounter Additional Health Concerns 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
--- OUTSIDE RECORDS SUMMARY | 2024-09-26 01:25 | XMS_ITS | Encounter Summary ---
Author Organization [facility] Healthcare Address [address] [place] [address] Care Team Providers Care Operating Engineer Name Role Phone Jacky Luther DO Primary Care Provider +1- [phone] Farideh Valdez RN Unavailable [phone] Encounter Details Date Type Department Care Team (Late st Contact Info) Description 07/23/2019 Telephone [facility] Transplant Kidney [address] [facility] 3408 Mailstop [phone] [place] [address] Lyn Tanner Social History Tobacco Use Types Packs/Day Years Used Date Smoking Tobacco: Never Assessed Alcohol Use Standard Drinks/Week Comments No 0 (1 standard drink = 0.6 oz pur e alcohol) Comments Unknown Sex and Gender Information Value Date Recorded Sex Assigned at Not on file Legal Sex Female 10:29 AM CARDBOARD INSERTER Gender Identity Female 02/05/2021 6:21 AM CDT Sexual Orientation Straight 02/05/2021 6: 21 AM CDT documented as of this encounter Miscellaneous Notes * Telephone Encounter - Lyn Tanner - 07/23/2019 9:52 AM CDT Pt. Called and said that she was able to get another month of meds from her Rx. 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
--- OUTSIDE RECORDS SUMMARY | 2024-09-26 01:25 | XMS_ITS | Encounter Summary ---
Author Organization [facility] Healthcare Address [address] [place] [address] Care Team Providers Care Pcb Design Engineer Name Role Phone Jacky Luther DO Primary Care Provider +1- [phone] Farideh Valdez RN Unavailable [phone] Encounter Details Date Type Department Care Team (Late st Contact Info) Description 09/14/2020 Orders Only [facility] Health Information Management [address] [place] [address] Scanning, Provider Social History Tobacco Use Types Packs/Day Years Used Date Smoking Tobacco: Never Assessed Alcohol Use Standard Drinks/Week Comments No 0 (1 standard drink = 0.6 oz pur e alcohol) Comments Unknown Sex and Gender Information Value Date Recorded Sex Assigned at Not on file Legal Sex Female 10:29 AM DECORATOR HAND Gender Identity Female 02/05/2021 6:21 AM CDT Sexual Orientation Straight 02/05/2021 6: 21 AM CDT documented as of this encounter Plan of Treatment Not on file documented as of this encounter Procedures Procedure Name Priority Date/Time Associated Diagnosis Comments SCAN - LABS 09/14/2020 10:35 AM DECORATOR HAND documented in this encounter Results * SCAN - LABS (09/14/2020 10:35 AM DECORATOR HAND) us Provider Scanning Final Result documented in this encounter Visit Diagnoses Not on filedocumented in this encounter Additional Health Concerns 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
--- OUTSIDE RECORDS SUMMARY | 2024-09-26 01:25 | XMS_ITS | Encounter Summary ---
Author Organization [facility] Healthcare Address [address] [place] [address] Care Team Providers Care Game Farm Supervisor Name Role Phone Jacky Luther DO Primary Care Provider +1- [phone] Farideh Valdez RN Unavailable [phone] Encounter Details Date Type Department Care Team (Late st Contact Info) Description 08/27/2019 Orders Only [facility] Health Information Management [address] [place] [address] Scanning, Provider Social History Tobacco Use Types Packs/Day Years Used Date Smoking Tobacco: Never Assessed Alcohol Use Standard Drinks/Week Comments No 0 (1 standard drink = 0.6 oz pur e alcohol) Comments Unknown Sex and Gender Information Value Date Recorded Sex Assigned at Not on file Legal Sex Female 10:29 AM SENIOR DATA DEVELOPER Gender Identity Female 02/05/2021 6:21 AM CDT Sexual Orientation Straight 02/05/2021 6: 21 AM CDT documented as of this encounter Plan of Treatment Not on file documented as of this encounter Procedures Procedure Name Priority Date/Time Associated Diagnosis Comments SCAN - LABS 08/27/2019 4:35 PM SENIOR DATA DEVELOPER documented in this encounter Results * SCAN - LABS (08/27/2019 4:35 PM SENIOR DATA DEVELOPER) us Provider Scanning Final Result documented in this encounter Visit Diagnoses Not on filedocumented in this encounter Additional Health Concerns 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
--- OUTSIDE RECORDS SUMMARY | 2024-09-26 01:25 | XMS_ITS | Encounter Summary ---
Author Organization [facility] Healthcare Address [address] [place] [address] Care Team Providers Care Hydrostatic Tubing Tester Name Role Phone Jacky Luther DO Primary Care Provider +1- [phone] Farideh Valdez RN Unavailable [phone] Encounter Details Date Type Department Care Team (Late st Contact Info) Description 07/19/2020 Orders Only [facility] Health Information Management [address] [place] [address] Scanning, Provider Social History Tobacco Use Types Packs/Day Years Used Date Smoking Tobacco: Never Assessed Alcohol Use Standard Drinks/Week Comments No 0 (1 standard drink = 0.6 oz pur e alcohol) Comments Unknown Sex and Gender Information Value Date Recorded Sex Assigned at Not on file Legal Sex Female 10:29 AM BLACK TOP ROLLER Gender Identity Female 02/05/2021 6:21 AM CDT Sexual Orientation Straight 02/05/2021 6: 21 AM CDT documented as of this encounter Plan of Treatment Not on file documented as of this encounter Procedures Procedure Name Priority Date/Time Associated Diagnosis Comments SCAN - LABS 07/19/2020 2:44 PM CDT documented in this encounter Results * SCAN - LABS (07/19/2020 2:44 PM CDT) us Provider Scanning Final Result documented in this encounter Visit Diagnoses Not on filedocumented in this encounter Additional Health Concerns 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
--- OUTSIDE RECORDS SUMMARY | 2024-09-26 01:25 | XMS_ITS | Encounter Summary ---
Author Organization [facility] Healthcare Address [address] [place] [address] Care Team Providers Care Check Weigher Name Role Phone Jacky Luther DO Primary Care Provider [phone]- [phone] Farideh Valdez RN Unavailable [phone] Encounter Details Date Type Department Care Team (Late st Contact Info) Description 08/14/2019 Telephone [facility] Transplant Kidney [address] [facility] 3404 Mailstop [phone] [place] [address] Lyn Tanner Social History Tobacco Use Types Packs/Day Years Used Date Smoking Tobacco: Never Assessed Alcohol Use Standard Drinks/Week Comments No 0 (1 standard drink = 0.6 oz pur e alcohol) Comments Unknown Sex and Gender Information Value Date Recorded Sex Assigned at Not on file Legal Sex Female 10:29 AM HVAC ENGINEERING TECHNICIAN Gender Identity Female 02/05/2021 6:21 AM CDT Sexual Orientation Straight 02/05/2021 6: 21 AM CDT documented as of this encounter Miscellaneous Notes * Telephone Encounter - Brandan Matos - 08/28/2019 8:49 AM CST REC'D. ENGINEERING TECHNICIAN * Telephone Encounter - Brandan Matos - 08/27/2019 4:27 PM CST Faxed request to [facility] at [phone]. ENGINEERING TECHNICIAN * Telephone Encounter - Farideh Valdez RN - 08/25/2019 5:32 PM CST Called pt to get update on the testing ordered for her by PCP. 08/25/19 5:34 PM, Farideh Valdez RN, High Tension Tester: Patient notes her local physician has not called her with any of the results. She has called PCP toget results but hasn't received a call back yet. She also notes her insurance will not cover labs for this month. Informed her it would be acceptable to miss labs for August as long as extra labs from 08/14 or 08/15 were stable. Pt verbalized understanding. Brandan - please request copies of US and doppler of legs, chest CT, abdominal US, iron panel and the HIV results performed at [facility] in [place]. These were performed either 08/14/19 or 08/15/19. Thank you. ENGINEERING TECHNICIAN * Telephone Encounter - Lyn Tanner - 08/14/2019 10:36 AM CST Pt. 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
--- OUTSIDE RECORDS SUMMARY | 2024-09-26 01:26 | XMS_ITS | Encounter Summary ---
Author Organization [facility] Healthcare Address [address] [place] [address] Care Team Providers Care Pin Puller Name Role Phone Jacky Luther DO Primary Care Provider +1- [phone] Farideh Valdez RN Unavailable [phone] Encounter Details Date Type Department Care Team (Late st Contact Info) Description 12/24/2018 Orders Only [facility] Health Information Management [address] [place] [address] Scanning, Provider Social History Tobacco Use Types Packs/Day Years Used Date Smoking Tobacco: Never Assessed Alcohol Use Standard Drinks/Week Comments No 0 (1 standard drink = 0.6 oz pur e alcohol) Comments Unknown Sex and Gender Information Value Date Recorded Sex Assigned at Not on file Legal Sex Female 10:29 AM ANIMAL CARE WORKER Gender Identity Female 02/05/2021 6:21 AM CDT Sexual Orientation Straight 02/05/2021 6: 21 AM CDT documented as of this encounter Plan of Treatment Not on file documented as of this encounter Procedures Procedure Name Priority Date/Time Associated Diagnosis Comments SCAN - LABS 12/24/2018 5:01 PM CDT documented in this encounter Results * SCAN - LABS (12/24/2018 5:01 PM CDT) us Provider Scanning Final Result documented in this encounter Visit Diagnoses Not on filedocumented in this encounter Additional Health Concerns 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
--- OUTSIDE RECORDS SUMMARY | 2024-09-26 01:26 | XMS_ITS | Encounter Summary ---
Author Organization [facility] Healthcare Address [address] [place] [address] Care Team Providers Care Fabrication Technician Name Role Phone Jacky Luther DO Primary Care Provider [phone]- [phone] Farideh Valdez RN Unavailable [phone] Encounter Details Date Type Department Care Team (Late st Contact Info) Description 10/07/2018 Telephone [facility] Transplant Kidney [address] [facility] 3401 Mailstop [phone] [place], [place] [id number] Farideh Valdez RN 45[address] [facility] [address] [place] [address] Social History Tobacco Use Types Packs/Day Years Used Date Smoking Tobacco: Never Assessed Alcohol Use Standard Drinks/Week Comments No 0 (1 standard drink = 0.6 oz pur e alcohol) Comments Unknown Sex and Gender Information Value Date Recorded Sex Assigned at Not on file Legal Sex Female 10:29 AM CRUSHER OPERATOR Gender Identity Female 02/05/2021 6:21 AM CDT Sexual Orientation Straight 02/05/2021 6: 21 AM CDT documented as of this encounter Miscellaneous Notes * Telephone Encounter - Farideh Valdez RN - 10/07/2018 6:47 PM CST Adult Kidney Transplant Recipient Post 5-Year Follow-Up (25 Year ) Record was successfully validated. 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
--- OUTSIDE RECORDS SUMMARY | 2024-09-26 01:26 | XMS_ITS | Encounter Summary ---
Author Organization [facility] Healthcare Address [address] [place] [address] Care Team Providers Care Fruit And Vegetable Inspector Name Role Phone Jacky Luther DO Primary Care Provider [phone]- [phone] Farideh Valdez RN Unavailable [phone] Encounter Details Date Type Department Care Team (Late st Contact Info) Description 06/24/2019 Orders Only [facility] Transplant Kidney [address] [facility] [address] Mailstop [phone] [place] [address] Lyn Tanner Kidney transplanted (Primary Dx); Frequent UTI; Mixed hyperlipidemia Social History Tobacco Use Types Packs/Day Years Used Date Smoking Tobacco: Never Assessed Alcohol Use Standard Drinks/Week Comments No 0 (1 standard drink = 0.6 oz pur e alcohol) Comments Unknown Sex and Gender Information Value Date Recorded Sex Assigned at Not on file Legal Sex Female 10:29 AM GASOLINE ATTENDANT Gender Identity Female 02/05/2021 6:21 AM CDT Sexual Orientation Straight 02/05/2021 6: 21 AM CDT documented as of this encounter Progress Notes * Lyn Tanner - 06/24/2019 9:16 AM CDT Added UPE and Direct LDL to q3-standing order documented in this encounter Plan of Treatment Not on file documented as of this encounter Visit Diagnoses Diagnosis Kidney transplanted- Primary Kidney replaced by transplant Frequent UTI Urinary tract infection, site not specified Mixed hyperlipidemia documented in this encounter Additional Health Concerns 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
--- OUTSIDE RECORDS SUMMARY | 2024-09-26 01:26 | XMS_ITS | Encounter Summary ---
Author Organization [facility] Healthcare Address [address] [place] [address] Care Team Providers Care Shuttle Driver Name Role Phone Jacky Luther DO Primary Care Provider [phone]- [phone] Adair Valdez RN Unavailable [phone] Reason for Visit * Reason Onset Date Comments Medication Problem 12/03/2018 Encounter Details Date Type Department Care Team (Late st Contact Info) Description 12/03/2018 Telephone [facility] Transplant Kidney [address] [facility] 3402 Mailstop [phone] [place], [place] [phone] Brandan Matos Medication Problem Social History Tobacco Use Types Packs/Day Years Used Date Smoking Tobacco: Never Assessed Alcohol Use Standard Drinks/Week Comments No 0 (1 standard drink = 0.6 oz pur e alcohol) Comments Unknown Sex and Gender Information Value Date Recorded Sex Assigned at Not on file Legal Sex Female 10:29 AM INSPECTOR TOYS Gender Identity Female 02/05/2021 6:21 AM CDT Sexual Orientation Straight 02/05/2021 6: 21 AM CDT documented as of this encounter Miscellaneous Notes * Addendum Note - Adair Valdez RN - 12/03/2018 6:49 PM CDTAddended by: ADAIR VALDEZ on: 12/03/2018 06:49 PM Modules accepted: Orders * Telephone Encounter - Brandan Maots - 12/03/2018 3:48 PM CDT Pt was just released from hospital and was told to stop mycophenolate until she gets over pneumonia. Please advise. 12/03/18 6:31 PM, Adair Valdez RN, Bending Roll Hand: Ret'd call to pt who states she was diagnosed in the ED with pneumonia. States they only kept her overnight and gave a couple of vanco doses and sent her home on doxycycline. Pt is concerned about having MMF held as she only takes Pred 5 mg MWF and MMF 250 mg daily. Pt is a two-haplo match from kim 25 years ago. Advised pt I will review with RDS in clinic tomorrow for recommendation. Pt is agreeable. 12/04/18 8:52 AM, Adair Valdez RN, Bending Roll Hand: Rev'd again with RDS - pt may not stop MMF or Pred for any reason given how little IMS she is taking. Pt is aware. documented in this encounter Plan of Treatment Not on file documented as of this encounter Visit Diagnoses Not on filedocumented in this encounter Discontinued Medications Medication Sig Discontinue Reason Start Date End Da te VENTOLIN HFA 90 mcg/actuation inhaler Duplicate order 10/30/2018 12/03/2018 documented as of this encounter Historical Medications * This list may reflect changes made after this encounter. aspirin 81 mg enteric coated tablet two times daily 8 sulfamethoxazole-tr imethoprim (BACTRIM DS,SEPTRA DS) 800-160 mg per tablet Take 1 tablet (160 mg of trimethoprim total) by mouth 2 (two) times a day 9 predniSONE (DELTASONE) 5 mg tablet Sunday, Sunday, Sunday 9 mycophenolate mofetil (CELLCEPT) 250 mg capsule 1 capsule (250 mg total) daily 9 SPIRIVA RESPIMAT 2.5 mcg/actuation inhaler Inhale 2 puffs daily 9 12/17/19 24 VENTOLIN HFA 90 mcg/actuation inhaler 9 12/04/19 19 albuterol (PROVENTIL,VENTOLIN ) 2.5 mg /3 mL (0.083 %) nebulizer solution 4 (four) times a day 9 12/17/19 24 cyanocobalamin, vitamin B-12, 1,000 mcg tablet extended release daily 7 02/10/20 21 ondansetron ODT (ZOFRAN-ODT) 4 mg disintegrating tablet DISSOLVE 1 TABLET ON THE TONGUE EVERY 8 HOURS 0 8 02/10/20 21 ATROVENT HFA 17 mcg/actuation inhaler 8 08/02/20 21 FLOVENT HFA 44 mcg/actuation inhaler 9 02/10/20 21 ferrous sulfate 325 mg (65 mg of elemental iron) tablet 9 03/28/20 22 added in this encounter Additional Health Concerns 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
--- OUTSIDE RECORDS SUMMARY | 2024-09-26 01:26 | XMS_ITS | Encounter Summary ---
Author Organization [facility] Healthcare Address [address] [place] [address] Care Team Providers Care Surgery Aide Name Role Phone Jacky Luther DO Primary Care Provider [phone]- [phone] Farideh Valdez RN Unavailable [phone] Encounter Details Date Type Department Care Team (Late st Contact Info) Description 02/28/2019 Telephone [facility] Transplant Kidney [address] [facility] [place] [address] Mailstop [phone] [place], [place] [phone] Dayan Rene RN [address] [facility] [address] [place], [place] [id number] Social History Tobacco Use Types Packs/Day Years Used Date Smoking Tobacco: Never Assessed Alcohol Use Standard Drinks/Week Comments No 0 (1 standard drink = 0.6 oz pur e alcohol) Comments Unknown Sex and Gender Information Value Date Recorded Sex Assigned at Not on file Legal Sex Female 10:29 AM INSTALLER TECHNICIAN Gender Identity Female 02/05/2021 6:21 AM CDT Sexual Orientation Straight 02/05/2021 6: 21 AM CDT documented as of this encounter Miscellaneous Notes * Telephone Encounter - Brandan Matos - 03/03/2019 7:55 AM CDT There was a standing lab order in place for tacrolimus. Sent fax to [facility] at [phone], requesting them to cancel all future testing for FK. * Telephone Encounter - Dayan Rene RN - 02/28/2019 4:08 PM CDT Rev'd labs noted tacro level <1.0, pt is not on tacrolimus, please f/u with lab to inquire why atacro level was drawn. 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
--- OUTSIDE RECORDS SUMMARY | 2024-09-26 01:26 | XMS_ITS | Encounter Summary ---
Author Organization [facility] Healthcare Address [address] [place] [address] Care Team Providers Care Director Of Field Service Name Role Phone Jacky Luther DO Primary Care Provider [phone]- [phone] Farideh Valdez RN Unavailable [phone] Reason for Visit * Reason Onset Date Comments Pt was in the ER 02/03/2019 Encounter Details Date Type Department Care Team (Late st Contact Info) Description 02/03/2019 Telephone [facility] Transplant Kidney [address] [facility] 3406 Mailstop [phone] [place] [address] Caroline Adler Pt was in the ER Social History Tobacco Use Types Packs/Day Years Used Date Smoking Tobacco: Never Assessed Alcohol Use Standard Drinks/Week Comments No 0 (1 standard drink = 0.6 oz pur e alcohol) Comments Unknown Sex and Gender Information Value Date Recorded Sex Assigned at Not on file Legal Sex Female 10:29 AM BAG MAKING MACHINE TENDER Gender Identity Female 02/05/2021 6:21 AM CDT Sexual Orientation Straight 02/05/2021 6: 21 AM CDT documented as of this encounter Miscellaneous Notes * Telephone Encounter - Caroline Adler - 02/03/2019 9:58 AM CDT PT called to tell she was in the ER for UTI and they gave her Microbid-100mg twice a day for 14 days and also Paridem-100mg take one tablet three times day, after meal. Please call with questions to [phone]. 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
--- OUTSIDE RECORDS SUMMARY | 2024-09-26 01:26 | XMS_ITS | Encounter Summary ---
Author Organization [facility] Healthcare Address [address] [place] [address] Care Team Providers Care Wardrobe Technician Name Role Phone Jacky Luther DO Primary Care Provider [phone]- [phone] Farideh Valdez RN Unavailable [phone] Reason for Visit * Reason Onset Date Comments Financial Assistance 05/29/2019 Encounter Details Date Type Department Care Team (Late st Contact Info) Description 05/29/2019 Telephone [facility] Social Work [address] [place] [id number] Brigida Matos LCSW Financial Assistance Social History Tobacco Use Types Packs/Day Years Used Date Smoking Tobacco: Never Assessed Alcohol Use Standard Drinks/Week Comments No 0 (1 standard drink = 0.6 oz pur e alcohol) Comments Unknown Sex and Gender Information Value Date Recorded Sex Assigned at Not on file Legal Sex Female 10:29 AM DESKTOP ARCHITECT Gender Identity Female 02/05/2021 6:21 AM CDT Sexual Orientation Straight 02/05/2021 6: 21 AM CDT documented as of this encounter Miscellaneous Notes * Telephone Encounter - Brigida Matos LMSW - 05/29/2019 2:32 PM CDT TAI received email from Nani at [facility] confirming that the patient has been approved for the amount onthe application for her car repairs. TAI called pt to give her this update. Nani provided a letter confirming guarenteed payment which was forwarded to the car center (Ed) via email at [email or web address]. SW instructed Ed to contact [employer] once the service has been completed and they will pay for the service over the phone. Ed was agreeable with this plan. SW will continue to follow as needed. 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
--- OUTSIDE RECORDS SUMMARY | 2024-09-26 01:26 | XMS_ITS | Encounter Summary ---
Author Organization [facility] Healthcare Address [address] [place] [address] Care Team Providers Care Early Morning Name Role Phone Jacky Luther DO Primary Care Provider +1- [phone] Farideh Valdez RN Unavailable [phone] Encounter Details Date Type Department Care Team (Late st Contact Info) Description 10/25/2018 Orders Only [facility] Health Information Management [address] [place] [address] Scanning, Provider Social History Tobacco Use Types Packs/Day Years Used Date Smoking Tobacco: Never Assessed Alcohol Use Standard Drinks/Week Comments No 0 (1 standard drink = 0.6 oz pur e alcohol) Comments Unknown Sex and Gender Information Value Date Recorded Sex Assigned at Not on file Legal Sex Female 10:29 AM FILTERATION OPERATOR Gender Identity Female 02/05/2021 6:21 AM CDT Sexual Orientation Straight 02/05/2021 6: 21 AM CDT documented as of this encounter Plan of Treatment Not on file documented as of this encounter Procedures Procedure Name Priority Date/Time Associated Diagnosis Comments SCAN - LABS 10/25/2018 1:15 PM FILTERATION OPERATOR SCAN - LABS 10/25/2018 9:22 AM FILTERATION OPERATOR documented in this encounter Results * SCAN - LABS (10/25/2018 1:15 PM FILTERATION OPERATOR) us Provider Scanning Final Result * SCAN - LABS (10/25/2018 9:22 AM FILTERATION OPERATOR) us Provider Scanning Final Result documented in this encounter Visit Diagnoses Not on filedocumented in this encounter Additional Health Concerns 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
--- OUTSIDE RECORDS SUMMARY | 2024-09-26 01:26 | XMS_ITS | Encounter Summary ---
Author Organization [facility] Healthcare Address [address] [place] [address] Care Team Providers Care Industrial Hygiene Engineer Name Role Phone Jacky Luther DO Primary Care Provider +1- [phone] Farideh Valdez RN Unavailable [phone] Encounter Details Date Type Department Care Team (Late st Contact Info) Description 06/24/2018 Orders Only [facility] Health Information Management 1 [place] [address] Scanning, Provider Social History Tobacco Use Types Packs/Day Years Used Date Smoking Tobacco: Never Assessed Alcohol Use Standard Drinks/Week Comments No 0 (1 standard drink = 0.6 oz pur e alcohol) Comments Unknown Sex and Gender Information Value Date Recorded Sex Assigned at Not on file Legal Sex Female 10:29 AM NUT PROCESSING SUPERVISOR Gender Identity Female 02/05/2021 6:21 AM CDT Sexual Orientation Straight 02/05/2021 6: 21 AM CDT documented as of this encounter Plan of Treatment Not on file documented as of this encounter Procedures Procedure Name Priority Date/Time Associated Diagnosis Comments SCAN - LABS 06/24/2018 9:05 PM CDT documented in this encounter Results * SCAN - LABS (06/24/2018 9:05 PM CDT) us Provider Scanning Final Result documented in this encounter Visit Diagnoses Not on filedocumented in this encounter Additional Health Concerns 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
--- OUTSIDE RECORDS SUMMARY | 2024-09-26 01:26 | XMS_ITS | Encounter Summary ---
Author Organization [facility] Healthcare Address [address] [place] [address] Care Team Providers Care Rx Specialist Name Role Phone Jacky Luther DO Primary Care Provider [phone]- [phone] Farideh Valdez RN Unavailable [phone] Encounter Details Date Type Department Care Team (Late st Contact Info) Description 05/28/2018 Orders Only [facility] Transplant Kidney [address] [facility] [address] [phone] [place] [address] Brandan Matos Kidney transplanted (Primary Dx); Immunosuppression (CMS/[facility]); Hyperthyroidism; Other specified disorders of bone density and structure, unspecified site; Other iron deficiency anemias; IDDM (insulin dependent diabetes mellitus) (CMS/[facility]); Anemia due to vitamin B12 deficiency, unspecified B12 deficiency type; Hyperlipidemia, unspecified hyperlipidemia type; Hyperparathyroidism due to renal insufficiency (CMS/[facility]) Social History Tobacco Use Types Packs/Day Years Used Date Smoking Tobacco: Never Assessed Alcohol Use Standard Drinks/Week Comments No 0 (1 standard drink = 0.6 oz pur e alcohol) Comments Unknown Sex and Gender Information Value Date Recorded Sex Assigned at Not on file 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 Gender Identity Female 02/05/2021 6:21 AM CDT Sexual Orientation Straight 02/05/2021 6: 21 AM CDT documented as of this encounter Plan of Treatment Not on file documented as of this encounter Visit Diagnoses Diagnosis Kidney transplanted- Primary Kidney replaced by transplant Immunosuppression (HCC) Hyperthyroidism 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 other cause, without mention of thyrotoxic crisis or storm Other specified disorders of bone density and structure, unspecified site Other iron deficiency anemias IDDM (insulin dependent diabetes mellitus) Anemia due to vitamin B12 deficiency, unspecified B12 deficiency type Hyperlipidemia, unspecified hyperlipidemia type Hyperparathyroidism due to renal insufficiency (HCC) Secondary hyperparathyroidism (of renal origin) documented in this encounter Additional Health Concerns 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
--- OUTSIDE RECORDS SUMMARY | 2024-09-26 01:26 | XMS_ITS | Encounter Summary ---
Author Organization [facility] Healthcare Address [address] [place] [address] Care Team Providers Care Review Specialist Name Role Phone Jacky Luther DO Primary Care Provider +1- [phone] Farideh Valdez RN Unavailable [phone] Encounter Details Date Type Department Care Team (Late st Contact Info) Description 05/26/2019 Orders Only [facility] Health Information Management 1 [place] [address] Scanning, Provider Social History Tobacco Use Types Packs/Day Years Used Date Smoking Tobacco: Never Assessed Alcohol Use Standard Drinks/Week Comments No 0 (1 standard drink = 0.6 oz pur e alcohol) Comments Unknown Sex and Gender Information Value Date Recorded Sex Assigned at Not on file Legal Sex Female 10:29 AM CORE STICKER Gender Identity Female 02/05/2021 6:21 AM CDT Sexual Orientation Straight 02/05/2021 6: 21 AM CDT documented as of this encounter Plan of Treatment Not on file documented as of this encounter Procedures Procedure Name Priority Date/Time Associated Diagnosis Comments SCAN - LABS 05/26/2019 4:16 PM CDT documented in this encounter Results * SCAN - LABS (05/26/2019 4:16 PM CDT) us Provider Scanning Final Result documented in this encounter Visit Diagnoses Not on filedocumented in this encounter Additional Health Concerns 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
--- OUTSIDE RECORDS SUMMARY | 2024-09-26 01:26 | XMS_ITS | Encounter Summary ---
Author Organization [facility] Healthcare Address [address] [place] [address] Care Team Providers Care Energy Systems Laboratory Director Name Role Phone Jacky Luther DO Primary Care Provider [phone]- [phone] Farideh Valdez RN Unavailable Encounter Details Date Type Department Care Team (Latest Contact Info) Description 12/24/2018 Orders Only [facility] Transplant Kidney [address] [facility] [address] Mailstop [phone] [place], [place] [id number] Brandan Matso Kidney transplanted (Primary Dx); Immunosuppression (CMS/[facility]); Hyperlipidemia, unspecified hyperlipidemia type; Frequent UTI; Bone and joint disorders of maternal back, pelvis, and lower limbs, with delivery(648.71); Iron deficiency anemia secondary to inadequate dietary iron intake; Type II or unspecified type diabetes mellitus with renal manifestations, uncontrolled(250.42) (CMS/HCC); Anemia due to vitamin B12 deficiency, unspecified B12 deficiency type; Anemia due to folic acid deficiency, unspecified deficiency type; Secondary hyperparathyroidism of renal origin (CMS/HCC); Primary hyperthyroidism Social History Tobacco Use Types Packs/Day Years Used Date Smoking Tobacco: Never Assessed Alcohol Use Standard Drinks/Week Comments No 0 (1 standard drink = 0.6 oz pur e alcohol) Comments Unknown Sex and Gender Information Value Date Recorded Sex Assigned at Not on file 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 SEMI-ANNUAL, IRON PANEL/TIBC, B-12, FERRITIN, FOLATE. FAXED TO [facility]. documented in this encounter Plan of Treatment Not on file documented as of this encounter Visit Diagnoses Diagnosis Kidney transplanted- Primary Kidney replaced by transplant Immunosuppression (HCC) Hyperlipidemia, unspecified hyperlipidemia type Frequent UTI Urinary tract infection, site not specified Bone and joint disorders of maternal back, pelvis, and lower limbs, with delivery(648.71) Bone and joint disorders of maternal back, pelvis, and lower limbs, with delivery Iron deficiency anemia secondary to inadequate dietary iron intake Type II or unspecified type diabetes mellitus with renal manifestations, uncontrolled(250.42) (CMS/HCC) (HCC) Type II or unspecified type diabetes mellitus with renal manifestations, uncontrolled Anemia due to vitamin B12 deficiency, unspecified B12 deficiency type Anemia due to folic acid deficiency, unspecified deficiency type Secondary hyperparathyroidism of renal origin (HCC) Secondary hyperparathyroidism (of renal origin) Primary hyperthyroidism documented in this encounter Additional Health Concerns 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
--- OUTSIDE RECORDS SUMMARY | 2024-09-26 01:26 | XMS_ITS | Encounter Summary ---
Author Organization [facility] Healthcare Address [address] [place] [address] Care Team Providers Care Motor Vehicle Dispatcher Name Role Phone ChaitanyaJacky blairMyriam VASQUEZ Primary Care Provider [phone]- [phone] Farideh Valdez RN Unavailable [phone] Sanjay Wyatt RN Unavailable Unavaila Chery Nolasco RN Unavailable Unava ilable Sanjay Herrera MD Primary Care Provid er Juwan Reyes MD Primary Care Provide r Francisco Javier Curtis MD Unavailable Kevin Gutiérrez MD Unavailable True Clemons MD Unavailable [phone] Encounter Details Date Type Department Care Team (Late st Contact Info) Description 06/26/2019 Orders Only [facility] Health Information Management [address] [place] [address] Scanning, Provider Social History Tobacco Use Types Packs/Day Years Used Date Smoking Tobacco: Never Assessed Alcohol Use Standard Drinks/Week Comments No 0 (1 standard drink = 0.6 oz pur e alcohol) Comments Unknown Sex and Gender Information Value Date Recorded Sex Assigned at Not on file 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 Gender Identity Female 02/05/2021 6:21 AM CDT Sexual Orientation Straight 02/05/2021 6: 21 AM CDT documented as of this encounter Plan of Treatment Not on file documented as of this encounter Procedures Procedure Name Priority Date/Time Associated Diagnosis Comments SCAN - LABS 06/26/2019 5:11 PM CDT documented in this encounter Results * SCAN - LABS (06/26/2019 5:11 PM CDT) us Provider Scanning Final Result documented in this encounter Visit Diagnoses Not on filedocumented in this encounter Additional Health Concerns 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 [address] [place] [address] Data Examination Clerk 02/19/18 Sanjay Wyatt, pattern setterData Examination Clerk Transplant 12/05/21 01/18/22 Chery Alonso, pattern setterData Examination Clerk Transplant 01/18/22 Francisco Javier Curtis MD [address] [place], [place] [address] OB provider group Orthopedic Surgery 12/17/23 Kevin G[place]ér[place] [address] [facility] [address] [place] [address] Consulting Physician Cardiology 12/17/23 [place] [address] [address] Oil Well Services Supervisor Nephrology 12/17/23 documented as of this encounter
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
--- OUTSIDE RECORDS SUMMARY | 2024-09-26 01:26 | XMS_ITS | Encounter Summary ---
Author Organization [facility] Healthcare Address [address] [place] [address] Care Team Providers Care Product Marketing Manager Name Role Phone Jacky Luther DO Primary Care Provider [phone]- [phone] Farideh Valdez RN Unavailable [phone] Encounter Details Date Type Department Care Team (Late st Contact Info) Description 06/14/2018 Telephone [facility] Transplant Kidney [address] [facility] [address] [phone] [place], [place] [id number] Farideh Valdez, RN [address] [facility] [address] [place] [address] Social History Tobacco Use Types Packs/Day Years Used Date Smoking Tobacco: Never Assessed Alcohol Use Standard Drinks/Week Comments No 0 (1 standard drink = 0.6 oz pur e alcohol) Comments Unknown Sex and Gender Information Value Date Recorded Sex Assigned at Not on file 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 States she is concerned as she usually takes the meds for 10-14 days. Advised her to call her PCP to discuss concern about the length of treatment as they are the prescribing doctor. Advised her she should continue to plan to see the Urologist as previously recommended. Provided name/contact information for two urologists (Dr. Servin and Dr. Malik) located in [place]. 06/14/18 1:43 PM, Farideh Valdez RN, Vehicle Safety Inspector: Rec'd call back from pt who notes Dr. Servin is who she has seen in the past, but he is no longer there. States his practice was taken over by Dr. Savage Ramirez. They will need a referral in order to see her. Agreed to send referral from txp team. 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
--- OUTSIDE RECORDS SUMMARY | 2024-09-26 01:26 | XMS_ITS | Encounter Summary ---
Author Organization [facility] Healthcare Address [address] [place] [address] Care Team Providers Care Clinical Nurse Educator Name Role Phone Jacky Luther DO Primary Care Provider [phone]- [phone] Farideh Valdez RN Unavailable [phone] Encounter Details Date Type Department Care Team (Late st Contact Info) Description 07/26/2018 Telephone [facility] Transplant Kidney 45[address] [facility] [address] Mail[address] [phone] [place] [address] Brandan aMtos Social History Tobacco Use Types Packs/Day Years Used Date Smoking Tobacco: Never Assessed Alcohol Use Standard Drinks/Week Comments No 0 (1 standard drink = 0.6 oz pur e alcohol) Comments Unknown Sex and Gender Information Value Date Recorded Sex Assigned at Not on file 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 She has a cold without fever, only cough. Pt wants to know if it is safe to be around her. Please advise. 07/26/18 1:01 PM, Farideh Valdez RN, Formula Technician: Ret'd call to pt who states her chore-worker has a cold and she is wondering about safety of being around this person. Advised pt jayda may be present with a mask as long as she only has runny nose, mild cough, sneezing and no fever. If fever or deep/harsh cough, then jayda should stay home. Noted only a runny nose would warrant consistently good hand hygiene and no mask. Advised pt to wear mask if going into jayda's vehicle. Pt verbalized understanding. 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
--- OUTSIDE RECORDS SUMMARY | 2024-09-26 01:26 | XMS_ITS | Encounter Summary ---
Author Organization [facility] Healthcare Address [address] [place] [address] Care Team Providers Care Entry Level Recruiter Name Role Phone ChaitanyaJacky blairMyriam VASQUEZ Primary Care Provider [phone]- [phone] Farideh Valdez RN Unavailable [phone] Sanjay Wyatt RN Unavailable Unavaila Chery Nolasco RN Unavailable Unava ilable Sanjay Herrera MD Primary Care Provid er Juwan Reyes MD Primary Care Provide r Francisco Javier Curtis MD Unavailable [phone] Kevin Gutiérrez MD Unavailable True Clemons MD Unavailable [phone] Encounter Details Date Type Department Care Team (Late st Contact Info) Description 05/30/2019 Orders Only [facility] Health Information Management [address] [place] [address] Scanning, Provider Social History Tobacco Use Types Packs/Day Years Used Date Smoking Tobacco: Never Assessed Alcohol Use Standard Drinks/Week Comments No 0 (1 standard drink = 0.6 oz pur e alcohol) Comments Unknown Sex and Gender Information Value Date Recorded Sex Assigned at Not on file Legal Sex Female 10:29 AM 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 OPERATIONS DIRECTOR Gender Identity Female 02/05/2021 6:21 AM CDT Sexual Orientation Straight 02/05/2021 6: 21 AM CDT documented as of this encounter Plan of Treatment Not on file documented as of this encounter Procedures Procedure Name Priority Date/Time Associated Diagnosis Comments SCAN - LABS 05/30/2019 9:33 AM CDT documented in this encounter Results * SCAN - LABS (05/30/2019 9:33 AM CDT) us Provider Scanning Final Result documented in this encounter Visit Diagnoses Not on filedocumented in this encounter Additional Health Concerns 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 Care Teams Entry Level Recruiter Relationship Specialty Start Date End Date Jacky Luther DO PCP - General 06/26/12 11/01/22 Sanjay Herrera MD [address] [place] [address] PCP - General Family Medicine 11/02/22 01/22/23 Juwan Reyes MD [address] [place] [address] PCP - General Emergency Medicine 01/23/23 Farideh Valdez RN [address] [facility] [address] [place] [address] Construction Rep 02/19/18 Sanjay Wyatt, physician extenderConstruction Rep Transplant 12/05/21 01/18/22 Chery Alosno, physician extenderConstruction Rep Transplant 01/18/22 Francisco Javier Curtis MD [address] [place] [address] OB provider group Orthopedic Surgery 12/17/23 Kevin [place] [address] [facility] [address] [place] [address] Consulting Physician Cardiology 12/17/23 [place] [address] [address] Photography Intern Nephrology 12/17/23 documented as of this encounter
--- OUTSIDE RECORDS SUMMARY | 2024-09-26 01:26 | XMS_ITS | Encounter Summary ---
Author Organization [facility] Healthcare Address [address] [place] [address] Care Team Providers Care Computer Network Support Specialist Name Role Phone Jacky Luther DO Primary Care Provider [phone]- [phone] Farideh Valdez RN Unavailable [phone] Encounter Details Date Type Department Care Team (Late st Contact Info) Description 09/25/2018 Orders Only [facility] Health Information Management [address] [place] [address] Scanning, Provider Social History Tobacco Use Types Packs/Day Years Used Date Smoking Tobacco: Never Assessed Alcohol Use Standard Drinks/Week Comments No 0 (1 standard drink = 0.6 oz pur e alcohol) Comments Unknown Sex and Gender Information Value Date Recorded Sex Assigned at Not on file Legal Sex Female 10:29 AM PLASTER BLOCK LAYER Gender Identity Female 02/05/2021 6:21 AM CDT Sexual Orientation Straight 02/05/2021 6: 21 AM CDT documented as of this encounter Plan of Treatment Not on file documented as of this encounter Procedures Procedure Name Priority Date/Time Associated Diagnosis Comments SCAN - LABS 09/25/2018 12:16 PM PLASTER BLOCK LAYER documented in this encounter Results * SCAN - LABS (09/25/2018 12:16 PM PLASTER BLOCK LAYER) us Provider Scanning Final Result documented in this encounter Visit Diagnoses Not on filedocumented in this encounter Additional Health Concerns 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
--- OUTSIDE RECORDS SUMMARY | 2024-09-26 01:26 | XMS_ITS | Encounter Summary ---
Author Organization [facility] Healthcare Address [address] [place] [address] Care Team Providers Care Guest Experience Captain Name Role Phone Jacky Luther DO Primary Care Provider [phone] Farideh Valdez RN Unavailable [phone] Encounter Details Date Type Department Care Team (Late st Contact Info) Description 02/28/2019 Orders Only [facility] Health Information Management [address] [place] [address] Scanning, Provider Social History Tobacco Use Types Packs/Day Years Used Date Smoking Tobacco: Never Assessed Alcohol Use Standard Drinks/Week Comments No 0 (1 standard drink = 0.6 oz pur e alcohol) Comments Unknown Sex and Gender Information Value Date Recorded Sex Assigned at Not on file Legal Sex Female 10:29 AM PREVENTION COORDINATOR Gender Identity Female 02/05/2021 6:21 AM CDT Sexual Orientation Straight 02/05/2021 6: 21 AM CDT documented as of this encounter Plan of Treatment Not on file documented as of this encounter Procedures Procedure Name Priority Date/Time Associated Diagnosis Comments SCAN - LABS 02/28/2019 1:37 PM CDT documented in this encounter Results * SCAN - LABS (02/28/2019 1:37 PM CDT) us Provider Scanning Final Result documented in this encounter Visit Diagnoses Not on filedocumented in this encounter Additional Health Concerns 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
--- OUTSIDE RECORDS SUMMARY | 2024-09-26 01:26 | XMS_ITS | Encounter Summary ---
Author Organization [facility] Healthcare Address [address] [place] [address] Care Team Providers Care Refrigeration Unit Repairer Name Role Phone Jacky Luther DO Primary Care Provider [phone]- [phone] Farideh Valdez RN Unavailable [phone] Encounter Details Date Type Department Care Team (Late st Contact Info) Description 03/30/2019 Orders Only [facility] Health Information Management [address] [place] [address] Scanning, Provider Social History Tobacco Use Types Packs/Day Years Used Date Smoking Tobacco: Never Assessed Alcohol Use Standard Drinks/Week Comments No 0 (1 standard drink = 0.6 oz pur e alcohol) Comments Unknown Sex and Gender Information Value Date Recorded Sex Assigned at Not on file Legal Sex Female 10:29 AM DIABETES PHYSICIAN Gender Identity Female 02/05/2021 6:21 AM CDT Sexual Orientation Straight 02/05/2021 6: 21 AM CDT documented as of this encounter Plan of Treatment Not on file documented as of this encounter Procedures Procedure Name Priority Date/Time Associated Diagnosis Comments SCAN - LABS 03/30/2019 5:45 PM CDT documented in this encounter Results * SCAN - LABS (03/30/2019 5:45 PM CDT) us Provider Scanning Final Result documented in this encounter Visit Diagnoses Not on filedocumented in this encounter Additional Health Concerns 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
--- OUTSIDE RECORDS SUMMARY | 2024-09-26 01:26 | XMS_ITS | Encounter Summary ---
Author Organization [facility] Healthcare Address [address] [place] [address] Care Team Providers Care Loose Hand Packer Name Role Phone Jacky Luther DO Primary Care Provider [phone]- [phone] Farideh Valdez RN Unavailable [phone] Reason for Visit * Reason Onset Date Comments STANDING LAB ORDERS 05/28/2018 Q-MONTHLY; Q -3 ROUTINE, HGBA1C,UPE,TSH,IPTH,VIT D 25, DIRECT LDL, IRON PANEL, VIT B12, FERRITIN, FOLATE. FAXED TO [facility] AT [phone]. Encounter Details Date Type Department Care Team (Late st Contact Info) Description 05/28/2018 Documentation [facility] Transplant Kidney [address] [facility] 3401 Mailstop [phone] [place], [place] [id number] Brandan Matos STANDING LAB ORDERS (Q-MONTHLY; Q-3 ROUTINE, HGBA1C,UPE,TSH,IPTH,V IT D 25, DIRECT LDL, IRON PANEL, VIT B12, FERRITIN, FOLATE. FAXED TO [facility] AT [phone]. ) Social History Tobacco Use Types Packs/Day Years Used Date Smoking Tobacco: Never Assessed Alcohol Use Standard Drinks/Week Comments No 0 (1 standard drink = 0.6 oz pur e alcohol) Comments Unknown Sex and Gender Information Value Date Recorded Sex Assigned at Not on file Legal Sex Female 10:29 AM PRODUCTION CONTROL ANALYST Gender Identity Female 02/05/2021 6:21 AM [...] documented as of this encounter Care Teams Loose Hand Packer Relationship Specialty Start Date End Date Jacky Luther DO PCP - General 06/26/12 11/01/22 Farideh Valdez, RN [address] [address] Duck Operator 02/19/18 documented as of this encounter
--- OUTSIDE RECORDS SUMMARY | 2024-09-26 01:26 | XMS_ITS | Encounter Summary ---
Author Organization [facility] Healthcare Address [address] [place] [address] Care Team Providers Care Fly Raiser Lockstitch Name Role Phone Jacky Luther DO Primary Care Provider [phone]- [phone] Adair Valdez RN Unavailable [phone] Encounter Details Date Type Department Care Team (Late st Contact Info) Description 06/26/2019 Telephone [facility] Transplant Kidney [address] [facility] 3401 Mailstop [phone] [place], [place] [id number] Adair Valdez, RN [address] [facility] [address] [place] [address] Social History Tobacco Use Types Packs/Day Years Used Date Smoking Tobacco: Never Assessed Alcohol Use Standard Drinks/Week Comments No 0 (1 standard drink = 0.6 oz pur e alcohol) Comments Unknown Sex and Gender Information Value Date Recorded Sex Assigned at Not on file Legal Sex Female 10:29 AM BATCHMAKER Gender Identity Female 02/05/2021 6:21 AM CDT Sexual Orientation Straight 02/05/2021 6: 21 AM CDT documented as of this encounter Miscellaneous Notes * Addendum Note - Adair Valdez RN - 06/26/2019 3:32 PM CDTAddended by: ADAIR VALDEZ on: 06/26/2019 03:32 PM Modules accepted: Orders * Telephone Encounter - Adair Valdez RN - 06/26/2019 10:37 AM CDT 53 yo WF with 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 Noted ALT 225, AST 119, Alk Phos 124 and T bili 0.8. Called pt who denies s/sx of hepatitis, pain or swelling in abdomen, or changes to diet. Pt notes she has some swelling in left calf only which she will discuss with PCP. She also notes she was recently treated for UTI at ER with Macrobid and notes she has had this occur in the past after taking Macrobid. Pt also has hx of ETOH abuse but denies any ETOH for many years now. She also reports hx of Hepatitis C managed by PCP with last recheck negative (checked every six months). Will review with txp team if OK to monitor and when to repeat labs. 06/26/19 12:48 PM, Adair Valdez RN, Claims Attorney: Rec'd call back from the patient noting her last UTI was actually in mid-January and she had completed the Macrobid prior to the end of the month. Pt also clarified that her PCP does NOT routinely monitor for Hepatitis. She also notes, to her knowledge, she was never treated for Hep C, nor does she recall an infection period. Upon further review, noted her Mom had Hep C history. Pt cannot recall last time hepatitis panel was completed by the PCP. Pt states her PCP has told her she has been cured even though she has no memory of treatment. Placed order for hepatitis testing and sent updated email to transplant team. 06/26/19 3:20 PM, Adair Valdez RN, Claims Attorney: Rec'd email from Dr. Thornton - Agree with testing for hepatitis viruses and repeat LFTs in a week. Ifstill elevated she should see hepatology. If she is taking a statin she should hold it for now. Sheshould get her calf swelling evaluated by her PCP JYOTSNA since she may need a doppler. Called pt and left a message to let her know about also repeating LFTs next week and to have PCP evaluate her left calf. 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
--- OUTSIDE RECORDS SUMMARY | 2024-09-26 01:26 | XMS_ITS | Encounter Summary ---
Author Organization [facility] Healthcare Address [address] [place] [address] Care Team Providers Care Client Success Specialist Name Role Phone Jacky Luther DO Primary Care Provider [phone] Farideh Valdez RN Unavailable [phone] Encounter Details Date Type Department Care Team (Late st Contact Info) Description 07/07/2019 Telephone [facility] Transplant Kidney [address] [facility] 340 Mailstop [phone] [place] [address] Ronda Bermudez MA Social History Tobacco Use Types Packs/Day Years Used Date Smoking Tobacco: Never Assessed Alcohol Use Standard Drinks/Week Comments No 0 (1 standard drink = 0.6 oz pur e alcohol) Comments Unknown Sex and Gender Information Value Date Recorded Sex Assigned at Not on file Legal Sex Female 10:29 AM EVENT REPRESENTATIVE Gender Identity Female 02/05/2021 6:21 AM CDT Sexual Orientation Straight 02/05/2021 6: 21 AM CDT documented as of this encounter Miscellaneous Notes * Telephone Encounter - Lyn Tanner - 07/07/2019 10:07 AM CDT Called Aerline back, I placed order in epic for hepatic panel. * Telephone Encounter - Ronda Bermudez MA - 07/07/2019 9:20 AM CDT Earline contacted the office and requested a phone call back as soon as possible. She stated that the patient was in this morning and needed labs for liver enzymes, but they only have an order from June that was already completed. They need a phone call back today for clarification. Her labs were already drawn this morning. 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
--- OUTSIDE RECORDS SUMMARY | 2024-09-26 01:26 | XMS_ITS | Encounter Summary ---
Author Organization [facility] Healthcare Address [address] [place] [address] Care Team Providers Care Still Worker Helper Name Role Phone Jacky Luther DO Primary Care Provider [phone]- [phone] Farideh Valdez RN Unavailable [phone] Encounter Details Date Type Department Care Team (Latest Contact Info) Description 06/24/2019 Orders Only [facility] Transplant Kidney [address] [facility] 3401 Mailstop [phone] [place] [address] Lyn Tanner Kidney transplanted (Primary Dx); Mixed hyperlipidemia; Type 1 diabetes mellitus with hyperglycemia (CMS/HCC); Secondary hyperparathyroidism of renal origin (CMS/HCC); Iron deficiency anemia secondary to inadequate dietary iron intake; Pretibial myxedema Social History Tobacco Use Types Packs/Day Years Used Date Smoking Tobacco: Never Assessed Alcohol Use Standard Drinks/Week Comments No 0 (1 standard drink = 0.6 oz pur e alcohol) Comments Unknown Sex and Gender Information Value Date Recorded Sex Assigned at Not on file Legal Sex Female 10:29 AM INCREMENT MANAGER Gender Identity Female 02/05/2021 6:21 AM CDT Sexual Orientation Straight 02/05/2021 6: 21 AM CDT documented as of this encounter Progress Notes * Lyn Tanner - 06/24/2019 8:16 AM CDT Standing Orders q-monthly,no tacro, q3-HgbA1C,TSH,iPTH,Vit D, semi annually Vitb12, Iron profile, folate, ferritin (). 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
--- OUTSIDE RECORDS SUMMARY | 2024-09-26 01:26 | XMS_ITS | Encounter Summary ---
Author Organization [facility] Healthcare Address [address] [place] [address] Care Team Providers Care Meat Pumper Name Role Phone Jacky Luther DO Primary Care Provider [phone]- [phone] Farideh Valdez RN Unavailable [phone] Encounter Details Date Type Department Care Team (Late st Contact Info) Description 06/30/2019 Orders Only [facility] Health Information Management [address] [place] [address] Scanning, Provider Social History Tobacco Use Types Packs/Day Years Used Date Smoking Tobacco: Never Assessed Alcohol Use Standard Drinks/Week Comments No 0 (1 standard drink = 0.6 oz pur e alcohol) Comments Unknown Sex and Gender Information Value Date Recorded Sex Assigned at Not on file Legal Sex Female 10:29 AM POWER WASHER Gender Identity Female 02/05/2021 6:21 AM CDT Sexual Orientation Straight 02/05/2021 6: 21 AM CDT documented as of this encounter Plan of Treatment Not on file documented as of this encounter Procedures Procedure Name Priority Date/Time Associated Diagnosis Comments SCAN - LABS 06/30/2019 5:07 PM CDT SCAN - LABS 06/30/2019 3:23 PM CDT documented in this encounter Results * SCAN - LABS (06/30/2019 5:07 PM CDT) us Provider Scanning Final Result * SCAN - LABS (06/30/2019 3:23 PM CDT) us Provider Scanning Final Result documented in this encounter Visit Diagnoses Not on filedocumented in this encounter Additional Health Concerns 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
--- OUTSIDE RECORDS SUMMARY | 2024-09-26 01:26 | XMS_ITS | Encounter Summary ---
Author Organization [facility] Healthcare Address [address] [place] [address] Care Team Providers Care Moisture Machine Tender Name Role Phone Jacky Luther DO Primary Care Provider [phone]- [phone] Farideh Valdez RN Unavailable [phone] Encounter Details Date Type Department Care Team (Late st Contact Info) Description 03/24/2019 Orders Only [facility] Health Information Management [address] [place] [address] Scanning, Provider Social History Tobacco Use Types Packs/Day Years Used Date Smoking Tobacco: Never Assessed Alcohol Use Standard Drinks/Week Comments No 0 (1 standard drink = 0.6 oz pur e alcohol) Comments Unknown Sex and Gender Information Value Date Recorded Sex Assigned at Not on file Legal Sex Female 10:29 AM C SOFTWARE DEVELOPER Gender Identity Female 02/05/2021 6:21 AM CDT Sexual Orientation Straight 02/05/2021 6: 21 AM CDT documented as of this encounter Plan of Treatment Not on file documented as of this encounter Procedures Procedure Name Priority Date/Time Associated Diagnosis Comments SCAN - LABS 03/24/2019 3:39 PM CDT SCAN - LABS 03/24/2019 11:41 AM CDT documented in this encounter Results * SCAN - LABS (03/24/2019 3:39 PM CDT) us Provider Scanning Final Result * SCAN - LABS (03/24/2019 11:41 AM CDT) us Provider Scanning Final Result documented in this encounter Visit Diagnoses Not on filedocumented in this encounter Additional Health Concerns 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
--- OUTSIDE RECORDS SUMMARY | 2024-09-26 01:26 | XMS_ITS | Encounter Summary ---
Author Organization [facility] Healthcare Address [address] [place] [address] Care Team Providers Care Election Clerk Name Role Phone Jacky Luther DO Primary Care Provider [phone] Farideh Valdez RN Unavailable [phone] Reason for Visit * Reason Onset Date Comments Immunizations 07/04/2018 Encounter Details Date Type Department Care Team (Late st Contact Info) Description 07/04/2018 Telephone [facility] Transplant Kidney [address] [facility] 3401 Mailstop [phone] [place], [place] [phone] Caroline Adler Immunizations Social History Tobacco Use Types Packs/Day Years Used Date Smoking Tobacco: Never Assessed Alcohol Use Standard Drinks/Week Comments No 0 (1 standard drink = 0.6 oz pur e alcohol) Comments Unknown Sex and Gender Information Value Date Recorded Sex Assigned at Not on file Legal Sex Female 10:29 AM DIRECT CASTING OPERATOR Gender Identity Female 02/05/2021 6:21 AM CDT Sexual Orientation Straight 02/05/2021 6: 21 AM CDT documented as of this encounter Miscellaneous Notes * Telephone Encounter - Caroline Adler - 07/04/2018 2:42 PM CDT Pt called to talk to you about vaccinations. Please call pt at [phone]. 07/04/18 7:46 PM, Farideh Valdez RN, Steam Brush Operator: Ret'd call to pt who is asking about her care provider being exposed to a child getting routine childhood vaccines. Advised her this is safe for her as she will not be in direct contact with the child. Noted the only vaccines of risk are the nasal spray variety of the flu and the rotovirus if she were to change the diapers. Child is no longer in diapers and will not be in direct contact with pt. Pt verbalized understanding. 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
--- OUTSIDE RECORDS SUMMARY | 2024-09-26 01:26 | XMS_ITS | Encounter Summary ---
Author Organization [facility] Healthcare Address [address] [place] [address] Care Team Providers Care Paint Mixer Name Role Phone Jacky Luther DO Primary Care Provider [phone] Farideh Valdez RN Unavailable Encounter Details Date Type Department Care Team (Late st Contact Info) Description 06/24/2019 Orders Only [facility] Health Information Management [address] [place] [address] Scanning, Provider Social History Tobacco Use Types Packs/Day Years Used Date Smoking Tobacco: Never Assessed Alcohol Use Standard Drinks/Week Comments No 0 (1 standard drink = 0.6 oz pur e alcohol) Comments Unknown Sex and Gender Information Value Date Recorded Sex Assigned at Not on file Legal Sex Female 10:29 AM TRAINING DESIGNER Gender Identity Female 02/05/2021 6:21 AM CDT Sexual Orientation Straight 02/05/2021 6: 21 AM CDT documented as of this encounter Plan of Treatment Not on file documented as of this encounter Procedures Procedure Name Priority Date/Time Associated Diagnosis Comments SCAN - LABS 06/24/2019 2:52 PM CDT SCAN - LABS 06/24/2019 10:49 AM CDT documented in this encounter Results * SCAN - LABS (06/24/2019 2:52 PM CDT) us Provider Scanning Final Result * SCAN - LABS (06/24/2019 10:49 AM CDT) us Provider Scanning Final Result documented in this encounter Visit Diagnoses Not on filedocumented in this encounter Additional Health Concerns 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
--- OUTSIDE RECORDS SUMMARY | 2024-09-26 01:26 | XMS_ITS | Encounter Summary ---
Author Organization [facility] Healthcare Address [address] [place] [address] Care Team Providers Care Museum Security Chief Name Role Phone Jacky Luther DO Primary Care Provider +1- [phone] Farideh Valdez RN Unavailable [phone] Encounter Details Date Type Department Care Team (Late st Contact Info) Description 05/29/2018 Orders Only [facility] Information Management [address] [place] [address] Scanning, Provider Social History Tobacco Use Types Packs/Day Years Used Date Smoking Tobacco: Never Assessed Alcohol Use Standard Drinks/Week Comments No 0 (1 standard drink = 0.6 oz pur e alcohol) Comments Unknown Sex and Gender Information Value Date Recorded Sex Assigned at Not on file Legal Sex Female 10:29 AM FEATURES REPORTER Gender Identity Female 02/05/2021 6:21 AM CDT Sexual Orientation Straight 02/05/2021 6: 21 AM CDT documented as of this encounter Plan of Treatment Not on file documented as of this encounter Procedures Procedure Name Priority Date/Time Associated Diagnosis Comments SCAN - LABS 05/29/2018 11:13 AM CDT documented in this encounter Results * SCAN - LABS (05/29/2018 11:13 AM CDT) us Provider Scanning Final Result documented in this encounter Visit Diagnoses Not on filedocumented in this encounter Additional Health Concerns 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, 2011 10/24/2004 10/24/200404/24 04/2021 5:00 AM CDT documented as of this encounter Care Teams Museum Security Chief Relationship Specialty Start Date End Date Jacky Luther DO PCP - General 06/26/12 11/01/22 Farideh Valdez RN [address] [address] Pattern Filer 02/19/18 documented as of this encounter
--- OUTSIDE RECORDS SUMMARY | 2024-09-26 01:26 | XMS_ITS | Encounter Summary ---
Author Organization [facility] Healthcare Address [address] [place] [address] Care Team Providers Care Organ Recovery Coordinator Name Role Phone Jacky Luther DO Primary Care Provider +1- [phone] Adair Valdez RN Unavailable [phone] Reason for Visit * Reason Onset Date Comments LAB RESULTS 06/27/2018 Encounter Details Date Type Department Care Team (Late st Contact Info) Description 06/27/2018 Telephone [facility] and [facility] Transplant Kidney 4590 [facility] [address] Mail[address] [phone] [place], [place] [id number] Bette Andrade EMT LAB RESULTS Social History Tobacco Use Types Packs/Day Years Used Date Smoking Tobacco: Never Assessed Alcohol Use Standard Drinks/Week Comments No 0 (1 standard drink = 0.6 oz pur e alcohol) Comments Unknown Sex and Gender Information Value Date Recorded Sex Assigned at Not on file Legal Sex Female 10:29 AM FIBERGLASS MACHINE OPERATOR Gender Identity Female 02/05/2021 6:21 AM CDT Sexual Orientation Straight 02/05/2021 6: 21 AM CDT documented as of this encounter Miscellaneous Notes * Addendum Note - Adair Valdez RN - 06/27/2018 3:25 PM CDTAddended by: ADAIR VALDEZ on: 06/27/2018 03:25 PM Modules accepted: Orders * Telephone Encounter - Bette Andrade - 06/27/2018 8:10 AM CDT Patient called regarding her lab results. Please give her a call at [phone]. 06/27/18 3:03 PM, Adair Valdez RN, Carpenter Inspector: Ret'd call to pt who is concerned about her Alk Phos 179 and AST 61. Pt states she has done some research on these labs as her mom from liver failure. Pt also notes that she had read macrobid can cause these to go up. She also notes an injury several weeks ago to her elbow that remains swollenwith a golf-ball sized blood blister and that this could impact these levels as well. Advised pt togo to local urgent care or ER to have elbow evaluated since it is not healing, per pt's words. Advised pt we will repeat the LFT with her November labs. Pt is agreeable with this plan. documented in this encounter Plan of Treatment Not on file documented as of this encounter Visit Diagnoses Diagnosis Increased liver enzymes- Primary Other nonspecific abnormal serum enzyme levels documented in this encounter Additional Health Concerns 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 Care Teams Organ Recovery Coordinator Relationship Specialty Start Date End Date Jacky Luther DO PCP - General 06/26/12 11/01/22 Adair Valdez, RN [address] [facility] [address] [place] [id number] Carpenter Inspector 02/19/18 documented as of this encounter
--- OUTSIDE RECORDS SUMMARY | 2024-09-26 01:26 | XMS_ITS | Encounter Summary ---
Author Organization [facility] Healthcare Address [address] [place] [address] Care Team Providers Care Edger Automatic Name Role Phone Jacky Luther DO Primary Care Provider +1- [phone] Farideh Valdez RN Unavailable [phone] Encounter Details Date Type Department Care Team (Late st Contact Info) Description 04/01/2019 Orders Only [facility] Information Management 1 [place] [address] Scanning, Provider Social History Tobacco Use Types Packs/Day Years Used Date Smoking Tobacco: Never Assessed Alcohol Use Standard Drinks/Week Comments No 0 (1 standard drink = 0.6 oz pur e alcohol) Comments Unknown Sex and Gender Information Value Date Recorded Sex Assigned at Not on file Legal Sex Female 10:29 AM CREATIVE GURU Gender Identity Female 02/05/2021 6:21 AM CDT Sexual Orientation Straight 02/05/2021 6: 21 AM CDT documented as of this encounter Plan of Treatment Not on file documented as of this encounter Procedures Procedure Name Priority Date/Time Associated Diagnosis Comments SCAN - LABS 04/01/2019 10:23 AM CDT documented in this encounter Results * SCAN - LABS (04/01/2019 10:23 AM CDT) us Provider Scanning Final Result documented in this encounter Visit Diagnoses Not on filedocumented in this encounter Additional Health Concerns 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
--- OUTSIDE RECORDS SUMMARY | 2024-09-26 01:26 | XMS_ITS | Encounter Summary ---
Author Organization [facility] Healthcare Address [address] [place] [address] Care Team Providers Care Service Aide Name Role Phone Jacky Luther DO Primary Care Provider [phone]- [phone] Farideh Valdez RN Unavailable [phone] Encounter Details Date Type Department Care Team (Late st Contact Info) Description 02/24/2019 Orders Only [facility] Health Information Management [address] [place] [address] Scanning, Provider Social History Tobacco Use Types Packs/Day Years Used Date Smoking Tobacco: Never Assessed Alcohol Use Standard Drinks/Week Comments No 0 (1 standard drink = 0.6 oz pur e alcohol) Comments Unknown Sex and Gender Information Value Date Recorded Sex Assigned at Not on file Legal Sex Female 10:29 AM IRON PELLET TESTER Gender Identity Female 02/05/2021 6:21 AM CDT Sexual Orientation Straight 02/05/2021 6: 21 AM CDT documented as of this encounter Plan of Treatment Not on file documented as of this encounter Procedures Procedure Name Priority Date/Time Associated Diagnosis Comments SCAN - LABS 02/24/2019 10:46 AM CDT documented in this encounter Results * SCAN - LABS (02/24/2019 10:46 AM CDT) us Provider Scanning Final Result documented in this encounter Visit Diagnoses Not on filedocumented in this encounter Additional Health Concerns 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
--- OUTSIDE RECORDS SUMMARY | 2024-09-26 01:26 | XMS_ITS | Encounter Summary ---
Author Organization [facility] Healthcare Address [address] [place] [address] Care Team Providers Care Management Planner Name Role Phone Jacky Luther DO Primary Care Provider [phone]- [phone] Farideh Valdez RN Unavailable [phone] Encounter Details Date Type Department Care Team (Late st Contact Info) Description 08/26/2018 Orders Only [facility] Health Information Management [address] [place] [address] Scanning, Provider Social History Tobacco Use Types Packs/Day Years Used Date Smoking Tobacco: Never Assessed Alcohol Use Standard Drinks/Week Comments No 0 (1 standard drink = 0.6 oz pur e alcohol) Comments Unknown Sex and Gender Information Value Date Recorded Sex Assigned at Not on file Legal Sex Female 10:29 AM AUTO MECHANIC Gender Identity Female 02/05/2021 6:21 AM CDT Sexual Orientation Straight 02/05/2021 6: 21 AM CDT documented as of this encounter Plan of Treatment Not on file documented as of this encounter Procedures Procedure Name Priority Date/Time Associated Diagnosis Comments SCAN - LABS 08/26/2018 12:46 PM AUTO MECHANIC documented in this encounter Results * SCAN - LABS (08/26/2018 12:46 PM AUTO MECHANIC) us Provider Scanning Final Result documented in this encounter Visit Diagnoses Not on filedocumented in this encounter Additional Health Concerns 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
--- OUTSIDE RECORDS SUMMARY | 2024-09-26 01:26 | XMS_ITS | Encounter Summary ---
Author Organization [facility] Healthcare Address [address] [place] [address] Care Team Providers Care Msws Name Role Phone Jacky Luther DO Primary Care Provider +1- [phone] Farideh Valdez RN Unavailable [phone] Encounter Details Date Type Department Care Team (Late st Contact Info) Description 11/22/2018 Orders Only [facility] Health Information Management [address] [place] [address] Scanning, Provider Social History Tobacco Use Types Packs/Day Years Used Date Smoking Tobacco: Never Assessed Alcohol Use Standard Drinks/Week Comments No 0 (1 standard drink = 0.6 oz pur e alcohol) Comments Unknown Sex and Gender Information Value Date Recorded Sex Assigned at Not on file Legal Sex Female 10:29 AM LABELING MACHINE OPERATOR Gender Identity Female 02/05/2021 6:21 AM CDT Sexual Orientation Straight 02/05/2021 6: 21 AM CDT documented as of this encounter Plan of Treatment Not on file documented as of this encounter Procedures Procedure Name Priority Date/Time Associated Diagnosis Comments SCAN - LABS 11/22/2018 10:38 AM LABELING MACHINE OPERATOR documented in this encounter Results * SCAN - LABS (11/22/2018 10:38 AM LABELING MACHINE OPERATOR) us Provider Scanning Final Result documented in this encounter Visit Diagnoses Not on filedocumented in this encounter Additional Health Concerns 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
--- OUTSIDE RECORDS SUMMARY | 2024-09-26 01:26 | XMS_ITS | Encounter Summary ---
Author Organization [facility] Healthcare Address [address] [place] [address] Care Team Providers Care Welfare Officer Name Role Phone Jacky Luther DO Primary Care Provider +1- [phone] Farideh Valdez RN Unavailable Encounter Details Date Type Department Care Team (Late st Contact Info) Description 04/24/2019 Orders Only [facility] Health Information Management [address] [place] [address] Scanning, Provider Social History Tobacco Use Types Packs/Day Years Used Date Smoking Tobacco: Never Assessed Alcohol Use Standard Drinks/Week Comments No 0 (1 standard drink = 0.6 oz pur e alcohol) Comments Unknown Sex and Gender Information Value Date Recorded Sex Assigned at Not on file Legal Sex Female 10:29 AM ACID RECOVERY OPERATOR Gender Identity Female 02/05/2021 6:21 AM CDT Sexual Orientation Straight 02/05/2021 6: 21 AM CDT documented as of this encounter Plan of Treatment Not on file documented as of this encounter Procedures Procedure Name Priority Date/Time Associated Diagnosis Comments SCAN - LABS 04/24/2019 10:43 AM CDT documented in this encounter Results * SCAN - LABS (04/24/2019 10:43 AM CDT) us Provider Scanning Final Result documented in this encounter Visit Diagnoses Not on filedocumented in this encounter Additional Health Concerns 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
--- OUTSIDE RECORDS SUMMARY | 2024-09-26 01:26 | XMS_ITS | Encounter Summary ---
Author Organization [facility] Healthcare Address [address] [place] [address] Care Team Providers Care Strategic Communications Specialist Name Role Phone Jacky Luther DO Primary Care Provider [phone]- [phone] Farideh Valdez RN Unavailable [phone] Encounter Details Date Type Department Care Team (Late st Contact Info) Description 06/20/2018 Telephone [facility] and [facility] Transplant Kidney [address] [facility] [address] Mail[address] [phone] [place], [place] [phone] Farideh Valdez, RN 4590 [facility] [address] [place] [address] Social History Tobacco Use Types Packs/Day Years Used Date Smoking Tobacco: Never Assessed Alcohol Use Standard Drinks/Week Comments No 0 (1 standard drink = 0.6 oz pur e alcohol) Comments Unknown Sex and Gender Information Value Date Recorded Sex Assigned at Not on file Legal Sex Female 10:29 AM ORACLE SOA CONSULTANT Gender Identity Female 02/05/2021 6:21 AM CDT Sexual Orientation Straight 02/05/2021 6: 21 AM CDT documented as of this encounter Miscellaneous Notes * Telephone Encounter - Farideh Valdez RN - 06/20/2018 10:18 AM CDT Rec'd call from pt stating she has not yet heard from the urology service regarding the referral that was sent last week. She has tried the phone numbers she gave me last week (phone: [phone] and fax: [phone]) without success today. I rev'd her referral and noted an attempt to contact pt by Ciara Jiménez from [facility]. Informed pt I would call to find out if they rec'd the fax. Called Dr. Savage Ramirez's office. They did not get the fax. Obtained correct fax number and sent fax to them again this morning. Called pt back and let her know this information. Called Efrem Jiménez and let her know this referral was not supposed to go to [facility] as pt's insurance will not cover. Confirmed fax was sent via [employer]. 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
--- OUTSIDE RECORDS SUMMARY | 2024-09-26 01:26 | XMS_ITS | Encounter Summary ---
Author Organization [facility] Healthcare Address [address] [place] [address] Care Team Providers Care Fisher Trap Name Role Phone Jacky Luther DO Primary Care Provider [phone]- [phone] Farideh Valdez RN Unavailable [phone] Reason for Visit * Reason Onset Date Comments Needing a new S/O 04/01/2019 Encounter Details Date Type Department Care Team (Late st Contact Info) Description 04/01/2019 Telephone [facility] and [facility] Transplant Kidney 4590 [facility] [address] [phone] [place] [address] Caroline Adler Needing a new S/O Social History Tobacco Use Types Packs/Day Years Used Date Smoking Tobacco: Never Assessed Alcohol Use Standard Drinks/Week Comments No 0 (1 standard drink = 0.6 oz pur e alcohol) Comments Unknown Sex and Gender Information Value Date Recorded Sex Assigned at Not on file Legal Sex Female 10:29 AM BANJO REPAIRER Gender Identity Female 02/05/2021 6:21 AM CDT Sexual Orientation Straight 02/05/2021 6: 21 AM CDT documented as of this encounter Miscellaneous Notes * Telephone Encounter - Brandan Matos - 04/09/2019 7:23 AM CDT Re-faxed SO to [facility] at [phone]. Also, advised lab that the pt does not take tacrolimus and asked them not to perform that test. Pt's lab orders 06/25/2019. * Telephone Encounter - Lyn Tanner - 04/01/2019 10:22 AM CDT Sent to me in error * Telephone Encounter - Caroline Adler - 04/01/2019 8:05 AM CDT Pt called to state that she will need a new S/O sent [facility]. S/O expires in april and the lab is for 6 months. Pt also stated that she is not on [place] but the lab wants to run the tests. Please check with lab. 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
--- OUTSIDE RECORDS SUMMARY | 2024-09-26 01:26 | XMS_ITS | Encounter Summary ---
Author Organization [facility] Healthcare Address [address] [place] [address] Care Team Providers Care Brake Repair Supervisor Name Role Phone Jacky Luther DO Primary Care Provider +1- [phone] Farideh Valdez RN Unavailable [phone] Encounter Details Date Type Department Care Team (Late st Contact Info) Description 05/01/2018 Telephone [facility] and [facility] Transplant Kidney 4590 [facility] [address] Mail[address] [phone] [place] [address] Lyn Tanner Social History Tobacco Use Types Packs/Day Years Used Date Smoking Tobacco: Never Assessed Alcohol Use Standard Drinks/Week Comments No 0 (1 standard drink = 0.6 oz pur e alcohol) Comments Unknown Sex and Gender Information Value Date Recorded Sex Assigned at Not on file Legal Sex Female 10:29 AM PANTS BUSHELER Gender Identity Female 02/05/2021 6:21 AM CDT Sexual Orientation Straight 02/05/2021 6: 21 AM CDT documented as of this encounter Miscellaneous Notes * Telephone Encounter - Lyn Tanner - 05/01/2018 1:03 PM CDT [facility] called needing a new S/O, please fax to [phone]. 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
--- OUTSIDE RECORDS SUMMARY | 2024-09-26 01:26 | XMS_ITS | Encounter Summary ---
Author Organization [facility] Healthcare Address [address] [place] [address] Care Team Providers Care Sales Representative Groceries Name Role Phone Jacky Luther DO Primary Care Provider [phone]- [phone] Farideh Valdez RN Unavailable [phone] Encounter Details Date Type Department Care Team (Late st Contact Info) Description 01/22/2019 Orders Only [facility] Health Information Management [address] [place] [address] Scanning, Provider Social History Tobacco Use Types Packs/Day Years Used Date Smoking Tobacco: Never Assessed Alcohol Use Standard Drinks/Week Comments No 0 (1 standard drink = 0.6 oz pur e alcohol) Comments Unknown Sex and Gender Information Value Date Recorded Sex Assigned at Not on file Legal Sex Female 10:29 AM TRANSPORT NURSE Gender Identity Female 02/05/2021 6:21 AM CDT Sexual Orientation Straight 02/05/2021 6: 21 AM CDT documented as of this encounter Plan of Treatment Not on file documented as of this encounter Procedures Procedure Name Priority Date/Time Associated Diagnosis Comments SCAN - LABS 01/22/2019 10:22 AM CDT documented in this encounter Results * SCAN - LABS (01/22/2019 10:22 AM CDT) us Provider Scanning Final Result documented in this encounter Visit Diagnoses Not on filedocumented in this encounter Additional Health Concerns 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
--- OUTSIDE RECORDS SUMMARY | 2024-09-26 01:27 | XMS_ITS | Encounter Summary ---
Author Organization [facility] Care Team Providers Care Railroad Car Letterer Name Role Phone Unavailable Primary Care Provider Unavailabl e Encounter Details Date Type Department Care Team (Late st Contact Info) Description 01/04/2009 - 01/04/2009 11:59 PM CDT Hospital Encounter [facility] Ozzy Williamson MD [address] [address] Disorder of mineral metabolism; Aftercare following organ transplant; Status post kidney transplant Social History Tobacco Use Types Packs/Day Years Used Date Smoking Tobacco: Never Assessed Comments Unknown Sex and Gender Information Value Date Recorded Sex Assigned at Not on file Legal Sex Female 10:29 AM POLITICAL SCIENCE RESEARCH ASSISTANT Gender Identity Female 02/05/2021 6:21 AM CDT Sexual Orientation Straight 02/05/2021 6: 21 AM CDT documented as of this encounter Medications at Time of Discharge aspirin 81 mg enteric coated tablet two times daily 01/07/2008 documented as of this encounter Plan of Treatment Not on file documented as of this encounter Visit Diagnoses Diagnosis 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
--- OUTSIDE RECORDS SUMMARY | 2024-09-26 01:27 | XMS_ITS | Encounter Summary ---
Author Organization [facility] Healthcare Address [address] [place] [address] Care Team Providers Care Extension Course Coordinator Name Role Phone Jacky Luther DO Primary Care Provider +1- [phone] Farideh Valdez RN Unavailable [phone] Encounter Details Date Type Department Care Team (Late st Contact Info) Description 04/16/2018 Telephone [facility] Transplant Kidney [address] [facility] [address] Mailstop [phone] [place] [address] Lyn Tanner Social History Tobacco Use Types Packs/Day Years Used Date Smoking Tobacco: Never Assessed Alcohol Use Standard Drinks/Week Comments No 0 (1 standard drink = 0.6 oz pur e alcohol) Comments Unknown Sex and Gender Information Value Date Recorded Sex Assigned at Not on file Legal Sex Female 10:29 AM GRANITE COUNTERTOP INSTALLER Gender Identity Female 02/05/2021 6:21 AM CDT Sexual Orientation Straight 02/05/2021 6: 21 AM CDT documented as of this encounter Miscellaneous Notes * Telephone Encounter - Lyn Tanner - 04/16/2018 3:25 PM CDT [facility] called needs [facility] test strips, they are faxing over form to complete and fax back. 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
--- OUTSIDE RECORDS SUMMARY | 2024-09-26 01:27 | XMS_ITS | Encounter Summary ---
Author Organization [facility] Healthcare Address [address] [place] [address] Care Team Providers Care Ton Container Shipper Name Role Phone Jacky Luther DO Primary Care Provider +1- [phone] Farideh Valdez RN Unavailable [phone] Encounter Details Date Type Department Care Team (Late st Contact Info) Description 04/24/2018 Orders Only [facility] [address] [place] [address] Scanning, Provider Social History Tobacco Use Types Packs/Day Years Used Date Smoking Tobacco: Never Assessed Alcohol Use Standard Drinks/Week Comments No 0 (1 standard drink = 0.6 oz pur e alcohol) Comments Unknown Sex and Gender Information Value Date Recorded Sex Assigned at Not on file Legal Sex Female 10:29 AM EDGER LINER Gender Identity Female 02/05/2021 6:21 AM CDT Sexual Orientation Straight 02/05/2021 6: 21 AM CDT documented as of this encounter Plan of Treatment Not on file documented as of this encounter Procedures Procedure Name Priority Date/Time Associated Diagnosis Comments SCAN - LABS 04/24/2018 11:36 AM CDT documented in this encounter Results * SCAN - LABS (04/24/2018 11:36 AM CDT) us Provider Scanning Final Result documented in this encounter Visit Diagnoses Not on filedocumented in this encounter Additional Health Concerns 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
--- OUTSIDE RECORDS SUMMARY | 2024-09-26 01:27 | XMS_ITS | Encounter Summary ---
Author Organization [facility] Facility Care Team Providers Care Materials Supervisor Name Role Phone Unavailable Primary Care Provider Unavailabl e Encounter Details Date Type Department Care Team (Late st Contact Info) Description 12/05/2006 - 12/05/2006 11:59 PM CDT Hospital Encounter [facility] Francesco Jack MD [address] [facility] [address] [place] [address] Social History Tobacco Use Types Packs/Day Years Used Date Smoking Tobacco: Never Assessed Comments Unknown Sex and Gender Information Value Date Recorded Sex Assigned at Not on file Legal Sex Female 10:29 AM SHOP MANAGER Gender Identity Female 02/05/2021 6:21 AM [...]
--- OUTSIDE RECORDS SUMMARY | 2024-09-26 01:27 | XMS_ITS | Encounter Summary ---
Author Organization [facility] Facility Care Team Providers Care Bottle Hop Name Role Phone Unavailable Primary Care Provider Unavailabl e Encounter Details Date Type Department Care Team (Late st Contact Info) Description 01/02/2007 8:11 PM CDT - 01/02/2007 11:35 PM CDT Hospital Encounter [facility] Social History Tobacco Use Types Packs/Day Years Used Date Smoking Tobacco: Never Assessed Comments Unknown Sex and Gender Information Value Date Recorded Sex Assigned at Not on file Legal Sex Female 10:29 AM BEHAVIORAL TECHNICIAN Gender Identity Female 02/05/2021 6:21 AM [...]
--- OUTSIDE RECORDS SUMMARY | 2024-09-26 01:27 | XMS_ITS ---
Author Organization [facility] al Address [address] [place] [address] Care Team Providers Care Senior Analyst Market Intelligence Name Role Phone Chery Alonso RN Unavailable Unava ilable Juwan Reyes MD Primary Care Provide r Francisco Javier Curtis MD Unavailable [phone] Kevin Gutiérrez MD Unavailable True Clemons MD Unavailable [phone] Transplant Episode Kidney Candidate [facility] ([place], [place]) - [facility] Referred on 02/18/2018 Marked as Ineligible on 02/18/2018 Kidney CoordinatorFarideh Valdez RN Fax: N/A Email: N/A Scores Score Value Updated Exceptions/Reas ons CPRA Not available EPTS (Calc) 50 2024 [place] Organ Diagnosis Organ 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) Care Team Name Role Phone Fax Email Farideh Valdez RN Kidney Coordinator [phone] N/A N/A Farideh Valdez RN Dosier Operator [phone] N/A N/A CRISTIAN Molina Secondary Bell Neck Hammerer N/A N/A N/A Events Pre-Transplant Referred: 02/18/2018
--- OUTSIDE RECORDS SUMMARY | 2024-09-26 01:27 | XMS_ITS | Encounter Summary ---
Author Organization [facility] Healthcare Address [address] [place] [address] Care Team Providers Care Welder Fitter Gas Name Role Phone Jacky Luther DO Primary Care Provider [phone]- [phone] Farideh Valdez RN Unavailable [phone] Encounter Details Date Type Department Care Team (Late st Contact Info) Description 04/05/2018 Telephone [facility] Transplant Kidney [address] [facility] [address] [phone] [place] [address] Farideh Valdez, RN [address] [facility] [address] [place] [address] Social History Tobacco Use Types Packs/Day Years Used Date Smoking Tobacco: Never Assessed Alcohol Use Standard Drinks/Week Comments No 0 (1 standard drink = 0.6 oz pur e alcohol) Comments Unknown Sex and Gender Information Value Date Recorded Sex Assigned at Not on file Legal Sex Female 10:29 AM FLEET DRIVER Gender Identity Female 02/05/2021 6:21 AM CDT Sexual Orientation Straight 02/05/2021 6: 21 AM CDT documented as of this encounter Ordered Prescriptions Prescription Sig Dispense Quantity Refills Last Filled Start Date End Date glucose 4 gram chewable tablet Take 4 tablets (16 g total) by mouth as needed for low blood sugar. 50 tablet 1 04/05/2018 07/201 8 blood glucose control, normal (ONETOUCH ULTRA CONTROL) solutionIndication s:Hypoglycemia Glucose control solution provides an easy way to ensure accurate blood glucose testing. 1 each 1 04/05/2018 1 blood-glucose meter (ONETOUCH ULTRAMINI) kitIndications:Hyp oglycemia Test daily before breakfast. 1 each 04/05/2018 8 lancets (onetouch ultrasoft) miscIndications:Hy poglycemia Test daily before breakfast. 50 each 1 04/05/2018 8 ONETOUCH ULTRA TEST stripIndications:H ypoglycemia Test daily before breakfast. 50 each 1 04/05/2018 8 alcohol swabs pads, medicatedIndicatio ns:Hypoglycemia Test daily before breakfast. 50 each 1 04/05/2018 8 acetone, urine, test (acetone, urine, test) stripIndications:H ypoglycemia 1 strip every morning. 50 strip 1 04/05/2018 8 levothyroxine (SYNTHROID) 100 mcg tablet Take 1 tablet (100 mcg total) by mouth daily. 30 tablet 11 04/05/2018 8 documented in this encounter Miscellaneous Notes * Telephone Encounter - Farideh Valdez RN - 04/05/2018 6:20 PM CDT Rev'd pt's TSH 0.05 and HbA1c 5.5 and s/sx of hypoglycemia with [place]AND Del Rosario, at clinic this morning. Rec'd orders to have pt lower Synthroid to 100 mcg and to order glucometer and glucose tabs for patient to test daily before breakfast. Pt has previously been referred to Cut Out Worker and provided alternative nephrology physician information as she has been dissatisfied with current PCP/Nephro and her insurance does not permit coming to [facility]. Called pt and provided the above directions. Pt verbalized agreement with plan. Orders sent as discussed. Will continue to monitor. 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
--- OUTSIDE RECORDS SUMMARY | 2024-09-26 01:27 | XMS_ITS | Encounter Summary ---
Author Organization [facility] Facility Care Team Providers Care Exhibitions Curator Name Role Phone Unavailable Primary Care Provider Unavailabl e Encounter Details Date Type Department Care Team (Late st Contact Info) Description 01/08/2008 8:20 AM CDT - 01/08/2008 1:44 PM CDT Hospital Encounter [facility] CLIN[facility] Mcc[facility] MD [address] [facility] [address] [place] [address] Social History Tobacco Use Types Packs/Day Years Used Date Smoking Tobacco: Never Assessed Comments Unknown Sex and Gender Information Value Date Recorded Sex Assigned at Not on file Legal Sex Female 10:29 AM PATROL COMMUNITY SERVICE OFFICER Gender Identity Female 02/05/2021 6:21 AM [...]
--- OUTSIDE RECORDS SUMMARY | 2024-09-26 01:27 | XMS_ITS | Encounter Summary ---
Author Organization [facility] Healthcare Address [address] [place] [address] Care Team Providers Care Machine Cutter Name Role Phone Jacky Luther DO Primary Care Provider +1- [phone] Farideh Valdez RN Unavailable [phone] Encounter Details Date Type Department Care Team (Late st Contact Info) Description 04/11/2018 Orders Only [facility] Transplant Kidney [address] [facility] [address] Mail[address] [phone] [place] [address] Farideh Valdez, RN [address] [facility] [address] [place] [address] Social History Tobacco Use Types Packs/Day Years Used Date Smoking Tobacco: Never Assessed Alcohol Use Standard Drinks/Week Comments No 0 (1 standard drink = 0.6 oz pur e alcohol) Comments Unknown Sex and Gender Information Value Date Recorded Sex Assigned at Not on file Legal Sex Female 10:29 AM LOG PREPARER Gender Identity Female 02/05/2021 6:21 AM CDT [...] documented as of this encounter Care Teams Machine Cutter Relationship Specialty Start Date End Date Jacky Luther DO PCP - General 06/26/12 11/01/22 Farideh Valdez RN [address] [address] Industrial Psychology Teacher 02/19/18 documented as of this encounter
--- OUTSIDE RECORDS SUMMARY | 2024-09-26 01:27 | XMS_ITS | Encounter Summary ---
Author Organization [facility] Healthcare Address [address] [place] [address] Care Team Providers Care Wood Sash And Frame Carpenter Name Role Phone Jacky Luther DO Primary Care Provider [phone]- [phone] Adair Valdez RN Unavailable [phone] Reason for Visit * Reason Onset Date Comments Testing Supplies 04/08/2018 Encounter Details Date Type Department Care Team (Late st Contact Info) Description 04/08/2018 Telephone [facility] Transplant Kidney [address] [facility] [address] [phone] [place], [place] [id number] Bette Andrade EMT Testing Supplies Social History Tobacco Use Types Packs/Day Years Used Date Smoking Tobacco: Never Assessed Alcohol Use Standard Drinks/Week Comments No 0 (1 standard drink = 0.6 oz pur e alcohol) Comments Unknown Sex and Gender Information Value Date Recorded Sex Assigned at Not on file Legal Sex Female 10:29 AM PLANNER INTERNSHIP Gender Identity Female 02/05/2021 6:21 AM CDT Sexual Orientation Straight 02/05/2021 6: 21 AM CDT documented as of this encounter Ordered Prescriptions Prescription Sig Dispense Quantity Refills Last Filled Start Date End Date lancets (freestyle) 28 gauge miscIndications:Hy poglycemia without diagnosis of diabetes mellitus,Kidney replaced by transplant Test daily before breakfast and as needed for symptoms of low blood sugar. 50 each 2 04/09/2018 FREESTYLE LITE STRIPS stripIndications:H ypoglycemia without diagnosis of diabetes mellitus,Kidney replaced by transplant Test daily before breakfast and as needed for symptoms of low blood sugar. 50 each 2 04/09/2018 1 blood-glucose meter (FREESTYLE LITE METER) kitIndications:Hyp oglycemia without diagnosis of diabetes mellitus,Kidney replaced by transplant Test daily before breakfast and as needed for symptoms of low blood sugar. 1 each 04/09/2018 1 alcohol swabs pads, medicatedIndicatio ns:Hypoglycemia without diagnosis of diabetes mellitus,Kidney replaced by transplant Test daily before all meals/snacks and once before bedtime. 1 each 04/09/2018 1 FREESTYLE LITE STRIPS stripIndications:H ypoglycemia without diagnosis of diabetes mellitus,Kidney replaced by transplant Test daily before all meals/snacks and once before bedtime. 3 each 04/09/2018 8 lancets (freestyle) 28 gauge miscIndications:Hy poglycemia without diagnosis of diabetes mellitus,Kidney replaced by transplant Test daily before all meals/snacks and once before bedtime. 3 each 04/09/2018 8 glucose 4 gram chewable tabletIndications: Hypoglycemia without diagnosis of diabetes mellitus Take 4 tablets (16 g total) by mouth as needed for low blood sugar. 50 tablet 1 04/09/2018 8 levothyroxine (SYNTHROID) 100 mcg tablet Take 1 tablet (100 mcg total) by mouth daily. 30 tablet 11 04/09/2018 9 documented in this encounter Miscellaneous Notes * Addendum Note - Adair Valdez RN - 04/09/2018 6:43 PM CDTAddended by: ADAIR VALDEZ on: 04/09/2018 06:43 PM Modules accepted: Orders, SmartSet * Telephone Encounter - Bette Andrade - 04/08/2018 9:55 AM CDT Patient called with trouble getting her testing supplies from her pharmacy. Please call [phone]. Ret'd call to pt who states Jonah will not pay for One Touch but will pay for Free Style system instead. She also states she must get supplies from either [facility] - [phone] or from [facility] - [phone]. Confirmed Insurance - ID # [id number] and their prescription help number is [phone]. Pt also states the pharmacy did not receive the Levothyroxine and theglucose tabs must be obtained locally. Resent orders for Levothyroxine and glucose tabs. Called pt's insurance to determine where she needs to get her testing supply. Was informed testingstrips and lancets will need to go to local retail pharmacy and the meter will need will need [facility] - fax - [phone]. Sent orders for strips, lancets and alcohol swabs to local pharmacy. Sent order for meter to [facility] per insurance instructions. documented in this encounter Plan of Treatment Not on file documented as of this encounter Visit Diagnoses Diagnosis Hypoglycemia without diagnosis of diabetes mellitus- Primary Hypoglycemia Hypoglycemia, unspecified Kidney replaced by transplant documented in this encounter Discontinued Medications Medication Sig Discontinue Reason Start Date End Da te levothyroxine (SYNTHROID) 100 mcg tablet Take 1 tablet (100 mcg total) by mouth daily. Reorder 04/05/2018 04/09/2018 glucose 4 gram chewable tablet Take 4 tablets (16 g total) by mouth as needed for low blood sugar. Reorder 04/05/2018 04/09/2018 acetone, urine, test (acetone, urine, test) stripIndications:Hypogly cemia 1 strip every morning. Error 04/05/2018 04/09/2018 lancets (onetouch ultrasoft) miscIndications:Hypoglyc emia Test daily before breakfast. Formulary change 04/05/2018 04/09/2018 blood-glucose meter (ONETOUCH ULTRAMINI) kitIndications:Hypoglyce ayde Test daily before breakfast. Formulary change 04/05/2018 04/09/2018 ONETOUCH ULTRA TEST stripIndications:Hypogly cemia Test daily before breakfast. Formulary change 04/05/2018 04/09/2018 alcohol swabs pads, medicatedIndications:Hyp oglycemia Test daily before breakfast. Formulary change 04/05/2018 04/09/2018 FREESTYLE LITE STRIPS stripIndications:Hypogly cemia without diagnosis of diabetes mellitus,Kidney replaced by transplant Test daily before all meals/snacks and once before bedtime. Reorder 04/09/2018 04/09/2018 lancets (freestyle) 28 gauge miscIndications:Hypoglyc emia without diagnosis of diabetes mellitus,Kidney replaced by transplant Test daily before all meals/snacks and once before bedtime. 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
--- OUTSIDE RECORDS SUMMARY | 2024-09-26 01:27 | XMS_ITS | Encounter Summary ---
Author Organization [facility] Facility Care Team Providers Care [place] Machine Operator Name Role Phone Unavailable Primary Care Provider Unavailabl e Encounter Details Date Type Department Care Team (Late st Contact Info) Description 09/08/2007 6:27 PM OFFSET ASSISTANT PRESS OPERATOR - 09/08/2007 9:03 PM OFFSET ASSISTANT PRESS OPERATOR Hospital Encounter [facility] CLIN[facility]y Cooper MD [address] [place] [address] Social History Tobacco Use Types Packs/Day Years Used Date Smoking Tobacco: Never Assessed Comments Unknown Sex and Gender Information Value Date Recorded Sex Assigned at Not on file Legal Sex Female 10:29 AM OFFSET ASSISTANT PRESS OPERATOR Gender Identity Female 02/05/2021 6:21 AM [...]
--- OUTSIDE RECORDS SUMMARY | 2024-09-26 01:27 | XMS_ITS | Encounter Summary ---
Author Organization [facility] Facility Care Team Providers Care Business Analyst Ecommerce Name Role Phone Unavailable Primary Care Provider Unavailabl e Encounter Details Date Type Department Care Team (Late st Contact Info) Description 01/28/2007 9:15 AM CDT - 09/23/2007 11:59 PM TRADE SHOW MANAGER Hospital En[facility] CL[facility] Harsh Barry MD [address] [facility] [address] [facility] [phone] [place] [address] Social History Tobacco Use Types Packs/Day Years Used Date Smoking Tobacco: Never Assessed Comments Unknown Sex and Gender Information Value Date Recorded Sex Assigned at Not on file Legal Sex Female 10:29 AM TRADE SHOW MANAGER Gender Identity Female 02/05/2021 6:21 AM [...]
--- OUTSIDE RECORDS SUMMARY | 2024-09-26 01:27 | XMS_ITS ---
Author Organization [facility] Address [address] [place] [address] Care Team Providers Care Brake Repair Mechanic Name Role Phone Chery Alonso RN Unavailable Unava Juwan Jones MD Primary Care Provide r Francisco Javier Curtis MD Unavailable [phone] Kevin Gutiérrez MD Unavailable True Clemons MD Unavailable [phone] Transplant Episode Kidney Recipient [facility] ([place], [place]) [facility] Organ Received: Right Kidney Transplanted on 04/26/1993 Marked as Active Follow-up on 04/26/1993 Kidney CoordinatorChery Alonso RN Phone: N/A Fax: N/A Email: N/A [place] Organ Diagnosis Organ 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) Retransplant Diagnosis Organ 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) Infection History Noted Survival Infection Treatment Organism Resolved 12/17/2023 30 years 7 months Hepatitis C virus infection Donor Information Organ ABO Source Meets Risk Criteria HLA Match Mismatches Cross Match Right Kidney Transplanted Live A: B: DR: T cell (Negative) T cell (Negative) B cell (Negative) B cell (Negative) Right Kidney Donor Serology Results Anti-CMV No results on file EBV IgG No results on file Anti-HBcAb No results on file HBsAg No results on file HBV DNA No results on file Anti-HCV No results on file Anti-HIV I/II No results on file Anti-HTLV I/II No results on file RPR/VDRL No results on file EBV IgM No results on file HBsAb No results on file EBNA No results on file SARS CoV-2 No results on file Care Team Name Role Phone Fax Email Chery Alonso RN Kidney Coordinator N/A N /A N/A Tatyana Pollock Primary Repair Table Operator N/A N/A N/A Chery Alonso RN Conveyor Belt Repairer N/A N/A N/A Ludivina Dixon Secondary Repair Table Operator N/A N/A N/A Sri Haines Station Engineer Chief [phone] N/A N/A Neeru Gonsalez RN Secondary Coordinator Secondary Kidney Coordinator [phone] N/A N/A Events Post-Transplant Pre-Transplant Transplanted: 04/26/1993 Referred: 12/15/1991 Discharged: 04/30/1993
--- OUTSIDE RECORDS SUMMARY | 2024-09-26 01:27 | XMS_ITS | Encounter Summary ---
Author Organization [facility] Healthcare Address [address] [place] [address] Care Team Providers Care Bell Valet Name Role Phone Jacky Luther DO Primary Care Provider +1- [phone] Farideh Valdez RN Unavailable [phone] Encounter Details Date Type Department Care Team (Late st Contact Info) Description 04/03/2018 Telephone [facility] Transplant Kidney [address] [facility] [address] Mail[address] [phone] [place] [address] Lyn Tanner Social History Tobacco Use Types Packs/Day Years Used Date Smoking Tobacco: Never Assessed Alcohol Use Standard Drinks/Week Comments No 0 (1 standard drink = 0.6 oz pur e alcohol) Comments Unknown Sex and Gender Information Value Date Recorded Sex Assigned at Not on file Legal Sex Female 10:29 AM FINANCIAL ACCOUNTING MANAGER Gender Identity Female 02/05/2021 6:21 AM CDT Sexual Orientation Straight 02/05/2021 6: 21 AM CDT documented as of this encounter Miscellaneous Notes * Telephone Encounter - Lyn Tanner - 04/03/2018 8:20 AM CDT Pt. Called is concerned with some of her no's. On her labs, please call her to discuss, please callher [phone]. Will not be avail. Between 11-1:30. 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
--- OUTSIDE RECORDS SUMMARY | 2024-09-26 01:27 | XMS_ITS | Encounter Summary ---
Author Organization [facility] Healthcare Address [address] [place] [address] Care Team Providers Care Rehanger Name Role Phone Jacky Luther DO Primary Care Provider [phone]- [phone] Farideh Valdez RN Unavailable [phone] Reason for Visit * Reason Onset Date Comments Test Results 03/07/2018 Encounter Details Date Type Department Care Team (Late st Contact Info) Description 03/07/2018 Documentation [facility] Transplant Kidney [address] [facility] [address] [phone] [place] [address] Farideh Valdez RN [address] [facility] [address] [place], [place] [id number] Test Results Social History Tobacco Use Types Packs/Day Years Used Date Smoking Tobacco: Never Assessed Alcohol Use Standard Drinks/Week Comments No 0 (1 standard drink = 0.6 oz pur e alcohol) Comments Unknown Sex and Gender Information Value Date Recorded Sex Assigned at Not on file Legal Sex Female 10:29 AM CUPOLA OPERATOR Gender Identity Female 02/05/2021 6:21 AM CDT Sexual Orientation Straight 02/05/2021 6: 21 AM CDT documented as of this encounter Progress Notes * Farideh Valdez RN - 03/07/2018 1:38 PM CDT Error documented in this encounter Plan of Treatment Not on file documented as of this encounter Visit Diagnoses Not on filedocumented in this encounter Additional Health Concerns 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
--- OUTSIDE RECORDS SUMMARY | 2024-09-26 01:27 | XMS_ITS | Encounter Summary ---
Author Organization [facility] Healthcare Address [address] [place] [address] Care Team Providers Care Pelletizer Operator Name Role Phone Jacky Luther DO Primary Care Provider [phone] Farideh Valdez RN Unavailable [phone] Reason for Visit * Reason Onset Date Comments UTI 04/04/2018 Encounter Details Date Type Department Care Team (Late st Contact Info) Description 04/04/2018 Telephone [facility] Transplant Kidney [address] [facility] [address] [phone] [place], [place] [id number] Bette Andrade, CRISTIAN UTI Social History Tobacco Use Types Packs/Day Years Used Date Smoking Tobacco: Never Assessed Alcohol Use Standard Drinks/Week Comments No 0 (1 standard drink = 0.6 oz pur e alcohol) Comments Unknown Sex and Gender Information Value Date Recorded Sex Assigned at Not on file Legal Sex Female 10:29 AM MISSILE AND MISSILE CHECKOUT TECHNICIAN Gender Identity Female 02/05/2021 6:21 AM CDT Sexual Orientation Straight 02/05/2021 6: 21 AM CDT documented as of this encounter Miscellaneous Notes * Telephone Encounter - Farideh Valdez RN - 04/04/2018 6:42 PM CDT Ret'd call to pt and rev'd blood results with her. Noted TSH 0.05, iPTH 66.3 and HbA1c 3.5. Pt reports she is having symptoms of low glucose levels around time she is eating breakfast. Pt reports shedoesn't check glucose at home any longer as her PCP doesn't feel she is diabetic. Pt reports dizziness, tremors, tunneling vision and diaphoresis. States she rises around 3:30-4:00 AM but doesn't eatbreakfast until closer to 8:00 AM. Advised pt to adjust when she takes meds to allow food/snack earlier in the morning. Advised pt to seek input of Level Vial Sealer and gave contact information of three in [place] area. Pt also report that last night she got up to void in the middle of the night and found straight blood when wiping. Looked in toilet and it was full of blood. Pt had stabbing pain upon urination. She went to [facility] for treatment. States per ER d/c papers UA results as follows: Color - brown, Clarity - turbid, pH 6.0, luekocyte shadi >500, Blood >250, WBC packed, RBC packed, Bacteria none and Epithelial present. All other testing WDL. Confirmed pt had complete hysterectomy in past. Pt was given Macrobid 100 mg BID x 14 and Pyridium 200 mg TID. Pt notes she has been +UTIin November and January 2018. Prior to this year her last UTI was in 2013. The ER recommended she be evaluated by Urologist. [facility] is not an option for care as she has [employer]. Noted in pt'srecords that she has hx of colovesical fistula and had problems with recurrent UTI back in 2008 at which time there was discussion about evaluating colon again. Pt notes her GI specialist has moved to [place] and she currently doesn't have a physician. Pt noted frustration with Dr. Luther (PCP) and Dr. Clemons ([facility]). Suggested pt may want to look for new MDs and recommended Dr. Julian Marti as an option for nephrology care if he accepts her insurance. Will review with txp team at clinic tomorrow if OK to order POC glucose testing given low HbA1c andsymptoms of hypoglycemia. * Telephone Encounter - Bette Andrade - 04/04/2018 8:22 AM CDT Patient called regarding going to the ER at [facility] in [place] last night. She woke up last night and went to the bathroom and it was full of blood. She would like to talk to you about this. Please call her at [phone]. 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
--- OUTSIDE RECORDS SUMMARY | 2024-09-26 01:27 | XMS_ITS | Encounter Summary ---
Author Organization [facility] Healthcare Address [address] [place] [address] Care Team Providers Care Anime Artist Name Role Phone Jacky Luther DO Primary Care Provider [phone] Encounter Details Date Type Department Care Team (Late st Contact Info) Description 07/22/2012 6:50 PM CDT - 07/22/2012 11:59 PM CDT Hospital Encounter [facility] Juwan Reddy MD [address] [place] [address] [address] [place] [address] Multiple sclerosis (HCC); Cerebral cysts; Acquired postural kyphosis; Thoracic spondylosis without myelopathy Social History Tobacco Use Types Packs/Day Years Used Date Smoking Tobacco: Never Assessed Alcohol Use Standard Drinks/Week Comments No 0 (1 standard drink = 0.6 oz pur e alcohol) Comments Unknown Sex and Gender Information Value Date Recorded Sex Assigned at Not on file 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 Gender Identity Female 02/05/2021 6:21 AM CDT Sexual Orientation Straight 02/05/2021 6: 21 AM CDT documented as of this encounter Medications at Time of Discharge aspirin 81 mg enteric coated tablet two times daily 01/07/2008 documented as of this encounter Plan of Treatment Not on file documented as of this encounter Visit Diagnoses Diagnosis Multiple sclerosis (HCC) Multiple sclerosis Cerebral cysts Acquired postural kyphosis Kyphosis (acquired) (postural) Thoracic spondylosis without myelopathy documented in this encounter Additional Health Concerns 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
--- OUTSIDE RECORDS SUMMARY | 2024-09-26 01:27 | XMS_ITS | Encounter Summary ---
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
--- OUTSIDE RECORDS SUMMARY | 2024-09-26 01:27 | XMS_ITS | Encounter Summary ---
Author Organization [facility] Healthcare Address [address] [place] [address] Care Team Providers Care Fox Raiser Name Role Phone Jacky Luther DO Primary Care Provider [phone]- [phone] Farideh Valdez RN Unavailable [phone] Encounter Details Date Type Department Care Team (Late st Contact Info) Description 03/25/[address] 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 Gender Identity Female 02/05/2021 6:21 AM CDT Sexual Orientation Straight 02/05/2021 6: 21 AM CDT documented as of this encounter Plan of Treatment Not on file documented as of this encounter Procedures Procedure Name Priority Date/Time Associated Diagnosis Comments SCAN - LABS 03/25/2018 3:09 PM CDT documented in this encounter Results * SCAN - LABS (03/25/2018 3:09 PM CDT) us Provider Scanning Final Result documented in this encounter Visit Diagnoses Not on filedocumented in this encounter Additional Health Concerns 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
== END 2024-09-19 10:00 | disposition home or self-care (01) ==
PROVIDERS: PCP Emergency Medicine; Visit Provider Surgery
PROC: (CPT 10120; principal; 2024-09-19 07:30)
DX: R19.8 Other specified symptoms and signs involving the digestive system and abdomen (principal); E11.22 Type 2 diabetes mellitus with diabetic chronic kidney disease; N18.30 Chronic kidney disease, stage 3 unspecified; M19.072 Primary osteoarthritis, left ankle and foot; M19.071 Primary osteoarthritis, right ankle and foot; M16.11 Unilateral primary osteoarthritis, right hip; G47.33 Obstructive sleep apnea (adult) (pediatric); M81.0 Age-related osteoporosis without current pathological fracture; K21.9 Gastro-esophageal reflux disease without esophagitis; J43.9 Emphysema, unspecified; G35 Multiple sclerosis; F32.A Depression, unspecified; E03.9 Hypothyroidism, unspecified; E78.5 Hyperlipidemia, unspecified; J45.909 Unspecified asthma, uncomplicated; F41.9 Anxiety disorder, unspecified; F43.10 Post-traumatic stress disorder, unspecified; M54.12 Radiculopathy, cervical region; F17.210 Nicotine dependence, cigarettes, uncomplicated; Z79.82 Long term (current) use of aspirin; Z79.51 Long term (current) use of inhaled steroids; Z79.52 Long term (current) use of systemic steroids; E66.9 Obesity, unspecified; Z68.26 Body mass index [BMI] 26.0-26.9, adult; Z98.890 Other specified postprocedural states; Z94.0 Kidney transplant status; Z86.11 Personal history of tuberculosis; Z85.828 Personal history of other malignant neoplasm of skin; Z86.79 Personal history of other diseases of the circulatory system; Z86.73 Personal history of transient ischemic attack (TIA), and cerebral infarction without residual deficits; Z80.1 Family history of malignant neoplasm of trachea, bronchus and lung; Z80.3 Family history of malignant neoplasm of breast; Z84.0 Family history of diseases of the skin and subcutaneous tissue; Z82.49 Family history of ischemic heart disease and other diseases of the circulatory system
CPT/HCPCS: 10120; 82948; 88300; J0690; J2250; J2371; J2405; J2704; J3010; J7120